=== PATIENT | female | born 1930 | race Caucasian/White ===

== ENCOUNTER → 2016-09-11 | Outpatient (CLI) | payer MEDICARE ==
[~2016-09-11] MED LIST: AC325T PO; ACET325T38 PO; ALBU2.5V52 NEB; ALPR.25T PO; ALPR0.5T7 PO; ASP325T PO; ASP325TEC PO; AZIT-21 PO; BENZ100C8 PO; BETH50TA PO; BETH50TA9 PO; CALC-53 PO; CALC-783 PO; CEFD300C3 PO; CELE200C PO; CLCX200C PO; CPR500T PO; DIGO125T PO; DILT240C87 PO; DILT240C96 PO; ENXP30I.3 SC; FEXO180T PO; FURO20TA4 PO; GLUC-96 PO; HCT25T PO; IBUP-30 PO; ISM30TCR PO; ISOS30TA3 PO; K ZOSYN IV; LACT1CAP62 PO; LEVO500T69 PO; LORA10TA7 PO; MECL-106 PO; MELO-195 PO; METO-272 PO; METO-333 PO; MNTL10T PO; MULT-963 PO; OMG1KC PO; Oxygen INH; SENN1TAB76 PO; TROSPIUM CHLORIDE PO; VERA240T98 PO; WRF5T PO; [UNRECOGNIZED DRUG - CODE] PO
--- NOTE | 2016-09-11 12:56 | Diagnostic Imaging Report ---
AP and lateral views of the chest. INDICATION: Shortness of breath. COMPARISON: 05/25/14. FINDINGS: The heart is enlarged with minimal vascular congestion. There is suggestion of a small left pleural effusion. No significant infiltrate. The mediastinum and barbie appear unremarkable. IMPRESSION: Cardiomegaly with minimal vascular congestion and tiny left pleural effusion. Dictated by: Dictated on workstation # [id number]
== END ==
LOC: RAD 11:02
PROVIDERS: ATTEND Nurse Practitioner Family
DX: I51.7 Cardiomegaly (principal); R06.02 Shortness of breath
CPT/HCPCS: 71020

== ENCOUNTER 2016-11-27 11:28 | Outpatient (CLI) | payer MEDICARE ==
[~2016-11-27] VITALS: Ht 152.4 cm; Wt 68.0 kg
[2016-11-27] MEDS ORDERED: VANCOMYCIN 1250 MG/NS 250 ML IVPB IV NR ×2 (12:45)
[2016-11-27 13:33] LABS: INR 2.2 (0.8-1.4); PROTHROMBIN TIME PATIENT 24.4 SEC (12.2-14.7)
[2016-11-27 13:45] VITALS: BP_SYST 130; BP_SYST 167; BP_DIAS 80; BP_DIAS 97
[2016-11-27 13:48] LABS: ANION GAP 6 MMOL/L (5-14); BLOOD UREA NITROGEN 20 MG/DL (7-18); BUN/CREATININE RATIO 25; CALCIUM 9.1 MG/DL (8.5-10.1); CARBON DIOXIDE 28 MMOL/L (21-32); CHLORIDE 106 MMOL/L (98-107); GFR ESTIMATED > 60; GLUCOSE 83 MG/DL (70-105); POTASSIUM 3.9 MMOL/L (3.6-5.0); SODIUM 140 MMOL/L (135-145)
== END 2016-11-27 14:50 | disposition home or self-care (01) ==
LOC: SDC 11:28
PROVIDERS: ATTEND Nurse Practitioner
DX: L97.212 Non-pressure chronic ulcer of right calf with fat layer exposed (principal); L03.115 Cellulitis of right lower limb; I87.2 Venous insufficiency (chronic) (peripheral); I48.2 Chronic atrial fibrillation; Z79.01 Long term (current) use of anticoagulants
CPT/HCPCS: 36415; 76937; 80048; 85610

== ENCOUNTER → 2016-11-30 | Outpatient (CLI) | payer MEDICARE ==
[2016-11-30 14:26] LABS: INR 3.3 (0.8-1.4); PROTHROMBIN TIME PATIENT 33.1 SEC (12.2-14.7)
[2016-11-30 14:28] LABS: ANION GAP 12 MMOL/L (5-14); BLOOD UREA NITROGEN 19 MG/DL (7-18); BUN/CREATININE RATIO 24; CALCIUM 7.7 MG/DL (8.5-10.1); CARBON DIOXIDE 21 MMOL/L (21-32); CHLORIDE 110 MMOL/L (98-107); GFR ESTIMATED > 60; GLUCOSE 76 MG/DL (70-105); POTASSIUM 3.3 MMOL/L (3.6-5.0); SODIUM 143 MMOL/L (135-145)
== END ==
LOC: HH 13:57
PROVIDERS: ATTEND Internal Medicine
DX: L03.115 Cellulitis of right lower limb (principal); I48.2 Chronic atrial fibrillation
CPT/HCPCS: 80048; 80202; 85610

== ENCOUNTER 2016-12-04 09:05 | Outpatient (RCR) | payer MEDICARE | END 2016-12-10 16:00 | disposition home or self-care (01) | LOC: WOUNDCARE 09:05 | PROVIDERS: ATTEND Nurse Practitioner | DX: L97.212 Non-pressure chronic ulcer of right calf with fat layer exposed (principal); L03.115 Cellulitis of right lower limb; I87.2 Venous insufficiency (chronic) (peripheral) | CPT/HCPCS: 11042; 11045; 87070; 87075; 87077; 87186; 87205 ==

== ENCOUNTER → 2016-12-04 | Outpatient (CLI) | payer MEDICARE ==
[2016-12-04 12:33] LABS: INR 3.3 (0.8-1.4); PROTHROMBIN TIME PATIENT 33.3 SEC (12.2-14.7)
[2016-12-04 12:36] LABS: CALCIUM 8.3 MG/DL (8.5-10.1); CREATININE SERUM 0.94 MG/DL (0.60-1.30); POTASSIUM 3.8 MMOL/L (3.6-5.0)
== END ==
LOC: HH 12:15
PROVIDERS: ATTEND Nurse Practitioner
DX: L03.115 Cellulitis of right lower limb (principal); I48.2 Chronic atrial fibrillation
CPT/HCPCS: 80048; 85610

== ENCOUNTER → 2016-12-06 | Outpatient (CLI) | payer MEDICARE ==
[2016-12-06 15:22] LABS: INR 3.1 (0.8-1.4); PROTHROMBIN TIME PATIENT 31.5 SEC (12.2-14.7)
[2016-12-06 15:34] LABS: CALCIUM 8.6 MG/DL (8.5-10.1); CREATININE SERUM 1.06 MG/DL (0.60-1.30)
== END ==
LOC: HH 14:56
PROVIDERS: ATTEND Nurse Practitioner
DX: L03.115 Cellulitis of right lower limb (principal)
CPT/HCPCS: 80048; 80202; 85610

== ENCOUNTER → 2016-12-10 | Outpatient (CLI) | payer MEDICARE ==
[2016-12-10 14:01] LABS: INR 1.8 (0.8-1.4)
[2016-12-10 14:10] LABS: CREATININE SERUM 1.24 MG/DL (0.60-1.30)
== END ==
LOC: HH 13:32
PROVIDERS: ATTEND Nurse Practitioner
DX: L03.115 Cellulitis of right lower limb (principal)
CPT/HCPCS: 80202; 82565; 84520; 85610

== ENCOUNTER → 2016-12-11 | Outpatient (CLI) | payer MEDICARE | LOC: WOUNDCARE 08:41 | PROVIDERS: ATTEND Nurse Practitioner | DX: L97.212 Non-pressure chronic ulcer of right calf with fat layer exposed (principal) | CPT/HCPCS: 11042 ==

== ENCOUNTER → 2016-12-18 | Outpatient (CLI) | payer MEDICARE | LOC: WOUNDCARE 08:44 | PROVIDERS: ATTEND Nurse Practitioner | DX: L97.212 Non-pressure chronic ulcer of right calf with fat layer exposed (principal); I87.331 Chronic venous hypertension (idiopathic) with ulcer and inflammation of right lower extremity; I48.2 Chronic atrial fibrillation; L03.115 Cellulitis of right lower limb | CPT/HCPCS: 15271 ==

== ENCOUNTER → 2016-12-25 | Outpatient (CLI) | payer MEDICARE | LOC: WOUNDCARE 08:29 | PROVIDERS: ATTEND Nurse Practitioner | DX: L97.212 Non-pressure chronic ulcer of right calf with fat layer exposed (principal); I87.331 Chronic venous hypertension (idiopathic) with ulcer and inflammation of right lower extremity; I48.2 Chronic atrial fibrillation | CPT/HCPCS: 11042; 87070; 87075; 87205 ==

== ENCOUNTER → 2016-12-28 | Outpatient (CLI) | payer MEDICARE ==
[2016-12-28 19:00] LABS: BILIRUBIN,URINE NEGATIVE (NEGATIVE); KETONES,URINE NEGATIVE (NEGATIVE); LEUKOCYTE ESTERASE ,URINE 3+ (NEGATIVE); NITRITE,URINE POSITIVE (NEGATIVE); PH,URINE 8 (5-9); PROTEIN,URINE 3+ (NEGATIVE); UROBILINOGEN,URINE NORMAL (NORMAL)
[2016-12-28 19:07] LABS: TRIPLE PHOSPHATE CRYSTAL,UR FEW /LPF
== END ==
LOC: HH 18:11
PROVIDERS: ATTEND Nurse Practitioner Family
DX: R41.0 Disorientation, unspecified (principal); R82.90 Unspecified abnormal findings in urine
CPT/HCPCS: 81000; 87077; 87088; 87186

== ENCOUNTER → 2017-01-01 | Outpatient (CLI) | payer MEDICARE | LOC: WOUNDCARE 08:30 | PROVIDERS: ATTEND Nurse Practitioner | DX: L03.115 Cellulitis of right lower limb (principal); I48.2 Chronic atrial fibrillation; I87.331 Chronic venous hypertension (idiopathic) with ulcer and inflammation of right lower extremity; L97.212 Non-pressure chronic ulcer of right calf with fat layer exposed | CPT/HCPCS: 15271 ==

== ENCOUNTER → 2017-01-08 | Outpatient (CLI) | payer MEDICARE | LOC: WOUNDCARE 08:38 | PROVIDERS: ATTEND Nurse Practitioner | DX: L03.115 Cellulitis of right lower limb (principal); I87.331 Chronic venous hypertension (idiopathic) with ulcer and inflammation of right lower extremity; I48.2 Chronic atrial fibrillation | CPT/HCPCS: 11042 ==

== ENCOUNTER → 2017-01-10 | Outpatient (CLI) | payer MEDICARE | LOC: WOUNDCARE 09:42 | PROVIDERS: ATTEND Internal Medicine | DX: L03.115 Cellulitis of right lower limb (principal); I87.331 Chronic venous hypertension (idiopathic) with ulcer and inflammation of right lower extremity; I48.2 Chronic atrial fibrillation | CPT/HCPCS: 29581 ==

== ENCOUNTER → 2017-01-15 | Outpatient (CLI) | payer MEDICARE | LOC: WOUNDCARE 08:49 | PROVIDERS: ATTEND Nurse Practitioner | DX: L97.212 Non-pressure chronic ulcer of right calf with fat layer exposed (principal); I87.331 Chronic venous hypertension (idiopathic) with ulcer and inflammation of right lower extremity; I48.2 Chronic atrial fibrillation | CPT/HCPCS: 11042 ==

== ENCOUNTER → 2017-01-17 | Outpatient (CLI) | payer MEDICARE | LOC: WOUNDCARE 14:12 | PROVIDERS: ATTEND Nurse Practitioner | DX: L97.212 Non-pressure chronic ulcer of right calf with fat layer exposed (principal); I87.331 Chronic venous hypertension (idiopathic) with ulcer and inflammation of right lower extremity; I48.2 Chronic atrial fibrillation; L03.115 Cellulitis of right lower limb | CPT/HCPCS: 29581 ==

== ENCOUNTER → 2017-01-22 | Outpatient (CLI) | payer MEDICARE | LOC: WOUNDCARE 08:44 | PROVIDERS: ATTEND Nurse Practitioner | DX: L97.212 Non-pressure chronic ulcer of right calf with fat layer exposed (principal); I87.331 Chronic venous hypertension (idiopathic) with ulcer and inflammation of right lower extremity; I48.2 Chronic atrial fibrillation | CPT/HCPCS: 11042 ==

== ENCOUNTER → 2017-01-29 | Outpatient (CLI) | payer MEDICARE | LOC: WOUNDCARE 08:35 | PROVIDERS: ATTEND Nurse Practitioner | DX: L97.212 Non-pressure chronic ulcer of right calf with fat layer exposed (principal); I87.331 Chronic venous hypertension (idiopathic) with ulcer and inflammation of right lower extremity | CPT/HCPCS: 11042 ==

== ENCOUNTER → 2017-02-05 | Outpatient (CLI) | payer MEDICARE | LOC: WOUNDCARE 08:44 | PROVIDERS: ATTEND Nurse Practitioner | DX: I87.331 Chronic venous hypertension (idiopathic) with ulcer and inflammation of right lower extremity (principal); L97.212 Non-pressure chronic ulcer of right calf with fat layer exposed | CPT/HCPCS: 11042 ==

== ENCOUNTER → 2017-02-12 | Outpatient (CLI) | payer MEDICARE | LOC: WOUNDCARE 08:35 | PROVIDERS: ATTEND Nurse Practitioner | DX: L97.212 Non-pressure chronic ulcer of right calf with fat layer exposed (principal); I87.331 Chronic venous hypertension (idiopathic) with ulcer and inflammation of right lower extremity; I48.2 Chronic atrial fibrillation | CPT/HCPCS: 11042 ==

== ENCOUNTER → 2017-02-19 | Outpatient (CLI) | payer MEDICARE | LOC: WOUNDCARE 08:36 | PROVIDERS: ATTEND Nurse Practitioner | DX: L97.212 Non-pressure chronic ulcer of right calf with fat layer exposed (principal); I87.331 Chronic venous hypertension (idiopathic) with ulcer and inflammation of right lower extremity; I48.2 Chronic atrial fibrillation | CPT/HCPCS: 99212 ==

== ENCOUNTER → 2017-02-26 | Outpatient (CLI) | payer MEDICARE | LOC: WOUNDCARE 08:36 | PROVIDERS: ATTEND Nurse Practitioner | DX: L97.212 Non-pressure chronic ulcer of right calf with fat layer exposed (principal); I87.331 Chronic venous hypertension (idiopathic) with ulcer and inflammation of right lower extremity; I48.2 Chronic atrial fibrillation | CPT/HCPCS: 99211 ==

== ENCOUNTER 2018-03-30 07:52 | Inpatient (IN) | payer MEDICARE ==
[~2018-03-30] VITALS: Ht 162.6 cm; Wt 66.2 kg
[2018-03-30] MEDS ORDERED: RT-ALBUTEROL/IPRATROPIUM 3 ML (DUONEB) VIAL ONE (07:57)
--- OUTSIDE RECORDS SUMMARY | 2018-03-30 08:03 | XMS REPORT | CCD ---
Author Author Darby Urbano Organization Darby Urbano MD, [facility] Address [address] [place] [address] Phone Care Team Providers Care Retail Manager Name Role Phone Darby Urbano PP Unavailable CCM Unavailable Summary Purpose Interface Exchange Insurance Providers Payer name Policy type / Coverage type Covered democrat ID Effective Begin Date Effective End Date WPS Medicare Part B Medicare [id number] Unknown [facility] Medicare [id number] Unknown [facility] Medicare [id number] Unknown Family history Brother Diagnosis Age At Onset Parkinson's disease Unknown Mother Diagnosis Age At Onset Congestive heart failure Unknown Sister Diagnosis Age At Onset Hypertension Unknown Father Diagnosis Age At Onset No Family Disease Entered N/A Son Diagnosis Age At Onset No Family Disease Entered N/A Daughter Diagnosis Age At Onset No Family Disease Entered N/A Social History Social History Element Codes Description Effective Dates Living arrangements Unknown Assisted Living [facility] 02/08/2016 Number of adults in household Unknown 1 07/09/2011 Marital status Unknown 01/11/2011 Number of children Unknown 2 1 son, 1 daughter - living and well 01/09/2011 Employment Unknown Retired Business office at [employer] 01/09/[address]: 943924595 Never smoker Second hand smoke from father, brother, and throughout her life 01/09/[address]: 092515125 Never drinks alcohol 01/09/2011 Has the patient ever used illegal drugs? Unknown Has never used illegal drugs 01/09/2011 Allergies, Adverse Reactions, Alerts Substance Reaction Codes Entered Date Inactivated Date Status Nickel rash, Unknown 05/08/2011 No Inactive Date Active * NO KNOWN FOOD ALLERGIES Unknown 05/08/2011 No Inactive Date Active doxycycline hyclate RxNorm: 3640 02/12/2018 No Inactive Date Active ESTROGENS Unknown 05/08/2011 No Inactive Date Active VANCOMYCIN ANALOGUES hives, rash, Unknown 12/17/2016 No Inactive Date Active Past Medical History Illness Codes Condition Status Onset Date Resolved Date Encounter for general adult medical examination with abnormal findings ICD-9: V70.0 ICD-10: Z00.01 Active 02/12/2018 Unknown Cough ICD-9: 786.2 ICD-10: R05 Active 01/15/2018 Unknown Epistaxis ICD-9: 784.7 ICD-10: R04.0 Active 01/15/2018 Unknown Other acute sinusitis ICD-9: 461.8 ICD-10: J01.80 Active 01/09/2018 Unknown Other allergic rhinitis ICD-9: 477.8 ICD-10: J30.89 Active 09/17/2016 Unknown Actinic keratosis ICD- 9: 702.0 ICD-10: L57.0 Active 11/12/2017 Unknown Chronic atrial fibrillation ICD-9: 427.31 ICD-10: I48.2 Active 11/23/2013 Unknown Essential (primary) hypertension ICD-9: 401.9 ICD-10: I10 Active 11/23/2013 Unknown Generalized anxiety disorder ICD-9: 300.02 ICD-10: F41.1 Active 08/24/2013 Unknown Other seborrheic keratosis ICD-9: 702.19 ICD-10: L82.1 Active 11/12/2017 Unknown Slow transit constipation ICD-9: 564.01 ICD-10: K59.01 Active 08/14/2017 Unknown Localized edema ICD-9 : 782.3 ICD-10: R60.0 Active 03/25/2017 Unknown Changes in skin texture ICD-9: 782.8 ICD-10: R23.4 Active 03/25/2017 Unknown Other idiopathic scoliosis, cervicothoracic region ICD-9: 737.30 ICD-10: M41.23 Active 08/14/2011 Unknown Pain in thoracic spine ICD-9: 724.1 ICD-10: M54.6 Active 04/15/2017 Unknown Dysuria ICD-9: 788.1 ICD-10: R30.0 Active 12/28/2016 Unknown Generalized skin eruption due to drugs and medicaments taken internally ICD-9: 693.0 ICD-10: L27.0 Active 12/21/2016 Unknown Hypoxemia ICD-9: 799.02 ICD-10: R09.02 Active 12/21/2016 Unknown Cellulitis of right lower limb ICD-9: 682.6 ICD-10: L03.115 Active 11/09/2016 Unknown Laceration without foreign body, right lower leg, sequela ICD-9: 906.1 ICD-10: S81.811S Active 11/14/2016 Unknown Pneumonia due to other specified infectious organisms ICD-9: 483.8 ICD-10: J16.8 Active 06/06/2016 Unknown Encounter for immunization ICD-9: V03.82 ICD-10: Z23 Active 02/07/2016 Unknown Unsteadiness on feet ICD-9: 781.2 ICD-10: R26.81 Active 11/08/2015 Unknown Allergic rhinitis due to pollen ICD-9: 477.0 ICD-10: J30.1 Active 08/21/2015 Unknown Chronic obstructive pulmonary disease with (acute) exacerbation ICD-9: 491.21 ICD-10: J44.1 Active 08/21/2015 Unknown Pneumonia, unspecified organism ICD-9: 486 ICD-10: J18.9 Active 08/21/2015 Unknown Weakness ICD-9: 780.79 ICD-10: R53.1 Active 05/25/2013 Unknown Chronic obstructive pulmonary disease, unspecified ICD-9: 496 ICD-10: J44.9 Active 11/23/2013 Unknown ATRIAL FIBRILLATION ICD-9: 427.31 Active 11/23/2013 Unknown Cerumen impaction ICD- 9: 380.4 Active 12/01/2014 Unknown ESSENTIAL HYPERTENSION ICD-9: 401.9 Active 11/23/2013 Unknown Sequela, 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 Active 10/13/2014 Unknown Skin lesion ICD-9: 709.9 Active 07/21/2014 Unknown Chronic sinusitis ICD- 9: 473.9 Active 06/24/2014 Unknown COPD exacerbation ICD- 9: 491.21 Active 04/29/2014 Unknown Pneumonia ICD-9: 486 Active 04/29/2014 Unknown BPPV (benign paroxysmal positional vertigo) ICD-9: 386.11 Active 04/01/2014 Unknown Nausea ICD-9: 787.02 Active 03/15/2014 Unknown HEADACHE ICD-9: 784.0 Active 02/22/2014 Unknown CHRONIC AIRWAY OBST NEC ICD-9: 496 Active 11/23/2013 Unknown Hand numbness ICD-9: 782.0 Active 11/23/2013 Unknown Generalized anxiety disorder ICD-9: 300.02 Active 08/24/2013 Unknown Fatigue ICD-9: 780.79 Active 05/25/2013 Unknown Urinary incontinence ICD-9: 788.30 Active 05/25/2013 Unknown COUGH ICD-9: 786.2 Active 01/19/2013 Unknown Nasal inflammation due to allergen ICD-9: 477.9 Active 2012 Unknown Leg swelling ICD-9: 729.81 Active 08/25/2012 Unknown Hip pain, acute ICD-9 : 719.45 Active 05/22/2012 Unknown Encounter for long-term (current) use of medications ICD-9: V58.69 Active 12/04/2011 Unknown Insomnia ICD-9: 780.52 Active 12/04/2011 Unknown Torticollis ICD-9: 723.5 Active 12/04/2011 Unknown Scoliosis ICD-9: 737.30 Active 08/14/2011 Unknown Dyspnea ICD-9: 786.09 Active 07/09/2011 Unknown Kyphosis ICD-9: 737.10 Active 07/09/2011 Unknown Pollen allergy ICD-9: 477.0 Inactive 05/10/2011 Unknown Stroke Unknown Active 05/08/2011 Unknown Abnormality of gait ICD-9: 781.2 Active 01/11/2011 Unknown Adhesive capsulitis ICD-9: 726.0 Active 01/11/2011 Unknown Arm edema ICD-9: 782.3 Active 01/11/2011 Unknown Bicipital tendinitis of left shoulder ICD-9: 726.12 Active 05/2010 Unknown Decreased weight ICD-9 : 783.21 Active 01/11/2011 Unknown Hypoxic ICD-9: 799.02 Active 01/11/2011 Unknown OA (osteoarthritis) ICD-9: 715.90 Active 01/11/2011 Unknown OSTEOARTHROSIS-MULTIPLE SITES ICD-9: 715.89 Active 01/11/2011 Unknown Seborrheic keratosis, inflamed ICD-9: 702.11 Active 01/11/2011 Unknown Arthritis Unknown Active 01/09/2011 Unknown Atrial fibrillation Unknown Active 01/09/2011 Unknown Chronic obstructive pulmonary disease Unknown Active 2010 Unknown Hypertension Unknown Active 01/09/2011 Unknown Problems Condition Codes Effective Dates Condition Status Encounter for general adult medical examination with abnormal findings ICD-9: V70.0 ICD-10: Z00.01 02/12/2018 Active Cough ICD-9: 786.2 ICD-10: R05 01/15/2018 Active Epistaxis ICD-9: 784.7 ICD-10: R04.0 01/15/2018 Active Other acute sinusitis ICD-9: 461.8 ICD-10: J01.80 01/09/2018 Active Other allergic rhinitis ICD-9: 477.8 ICD-10: J30.89 09/17/2016 Active Actinic keratosis ICD- 9: 702.0 ICD-10: L57.0 11/12/2017 Active Chronic atrial fibrillation ICD-9: 427.31 ICD-10: I48.2 11/23/2013 Active Essential (primary) hypertension ICD-9: 401.9 ICD-10: I10 11/23/2013 Active Generalized anxiety disorder ICD-9: 300.02 ICD-10: F41.1 08/24/2013 Active Other seborrheic keratosis ICD-9: 702.19 ICD-10: L82.1 11/12/2017 Active Slow transit constipation ICD-9: 564.01 ICD-10: K59.01 08/14/2017 Active Localized edema ICD-9 : 782.3 ICD-10: R60.0 03/25/2017 Active Changes in skin texture ICD-9: 782.8 ICD-10: R23.4 03/25/2017 Active Other idiopathic scoliosis, cervicothoracic region ICD-9: 737.30 ICD-10: M41.23 08/14/2011 Active Pain in thoracic spine ICD-9: 724.1 ICD-10: M54.6 04/15/2017 Active Dysuria ICD-9: 788.1 ICD-10: R30.0 12/28/2016 Active Generalized skin eruption due to drugs and medicaments taken internally ICD-9: 693.0 ICD-10: L27.0 12/21/2016 Active Hypoxemia ICD-9: 799.02 ICD-10: R09.02 12/21/2016 Active Cellulitis of right lower limb ICD-9: 682.6 ICD-10: L03.115 11/09/2016 Active Laceration without foreign body, right lower leg, sequela ICD-9: 906.1 ICD-10: S81.811S 11/14/2016 Active Pneumonia due to other specified infectious organisms ICD-9: 483.8 ICD-10: J16.8 06/06/2016 Active Encounter for immunization ICD-9: V03.82 ICD-10: Z23 02/07/2016 Active Unsteadiness on feet ICD-9: 781.2 ICD-10: R26.81 11/08/2015 Active Allergic rhinitis due to pollen ICD-9: 477.0 ICD-10: J30.1 08/21/2015 Active Chronic obstructive pulmonary disease with (acute) exacerbation ICD-9: 491.21 ICD-10: J44.1 08/21/2015 Active Pneumonia, unspecified organism ICD-9: 486 ICD-10: J18.9 08/21/2015 Active Weakness ICD-9: 780.79 ICD-10: R53.1 05/25/2013 Active Chronic obstructive pulmonary disease, unspecified ICD-9: 496 ICD-10: J44.9 11/23/2013 Active ATRIAL FIBRILLATION ICD-9: 427.31 11/23/2013 Active Cerumen impaction ICD- 9: 380.4 12/01/2014 Active ESSENTIAL HYPERTENSION ICD-9: 401.9 11/23/2013 Active Sequela, 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 10/13/2014 Active Skin lesion ICD-9: 709.9 07/21/2014 Active Chronic sinusitis ICD- 9: 473.9 06/24/2014 Active COPD exacerbation ICD- 9: 491.21 04/29/2014 Active Pneumonia ICD-9: 486 04/29/2014 Active BPPV (benign paroxysmal positional vertigo) ICD-9: 386.11 04/01/2014 Active Nausea ICD-9: 787.02 03/15/2014 Active HEADACHE ICD-9: 784.0 02/22/2014 Active CHRONIC AIRWAY OBST NEC ICD-9: 496 11/23/2013 Active Hand numbness ICD-9: 782.0 11/23/2013 Active Generalized anxiety disorder ICD-9: 300.02 08/24/2013 Active Fatigue ICD-9: 780.79 05/25/2013 Active Urinary incontinence ICD-9: 788.30 05/25/2013 Active COUGH ICD-9: 786.2 01/19/2013 Active Nasal inflammation due to allergen ICD-9: 477.9 01/19/2013 Active Leg swelling ICD-9: 729.81 08/25/2012 Active Hip pain, acute ICD-9 : 719.45 05/22/2012 Active Encounter for long-term (current) use of medications ICD-9: V58.69 12/04/2011 Active Insomnia ICD-9: 780.52 12/04/2011 Active Torticollis ICD-9: 723.5 12/04/2011 Active Scoliosis ICD-9: 737.30 08/14/2011 Active Dyspnea ICD-9: 786.09 07/09/2011 Active Kyphosis ICD-9: 737.10 07/09/2011 Active Pollen allergy ICD-9: 477.0 05/10/2011 Inactive Stroke Unknown 05/08/2011 Active Abnormality of gait ICD-9: 781.2 01/11/2011 Active Adhesive capsulitis ICD-9: 726.0 01/11/2011 Active Arm edema ICD-9: 782.3 01/11/2011 Active Bicipital tendinitis of left shoulder ICD-9: 726.12 01/11/2011 Active Decreased weight ICD-9 : 783.21 01/11/2011 Active Hypoxic ICD-9: 799.02 01/11/2011 Active OA (osteoarthritis) ICD-9: 715.90 01/11/2011 Active OSTEOARTHROSIS-MULTIPLE SITES ICD-9: 715.89 01/11/2011 Active Seborrheic keratosis, inflamed ICD-9: 702.11 01/11/2011 Active Arthritis Unknown 01/09/2011 Active Atrial fibrillation Unknown 01/09/2011 Active Chronic obstructive pulmonary disease Unknown 01/09/2011 Active Hypertension Unknown 01/09/2011 Active Medications Medication Codes Instructions Start Date Stop Date Status Fill Instructions mupirocin 2 % topical ointment RxNorm: 509640 1 Application TOP BID 01/15/2018 No Stop Date Active please deliver Coumadin 2.5 mg tablet RxNorm: 949152 1 Tablet(s) PO daily on Thur and 5mg all other days 11/12/2017 No Stop Date Active Lasix 40 mg tablet RxNorm: 977407 1 Tablet(s) PO four times weekly as needed edema 08/14/2017 No Stop Date Active Senokot-S 8.6 mg-50 mg tablet RxNorm: 3119409 1 Tablet(s) PO daily 08/14/2017 No Stop Date Active Xanax 0.25 mg tablet RxNorm: 753955 1 Tablet(s) PO QHS and 1/2 Tablet PO 1X at HS IF SCHEDULED HS DOSE NOT EFFECTIVE FOR SLEEP 08/14/2017 No Stop Date Active Coumadin 2.5 mg tablet RxNorm: 042698 1 Tablet(s) PO daily 08/201711/11/2017 Inactive acyclovir 800 mg tablet RxNorm: 416661 1 Tablet(s) PO TID 04/1904/25/2017 Inactive acyclovir 800 mg tablet RxNorm: 316648 1 Tablet(s) PO TID 04/1904/18/2017 Inactive Zyrtec 10 mg tablet RxNorm: 9970239 1 Tablet(s) PO daily 09/1710/16/2016 Inactive Kenalog 40 mg/mL suspension for injection RxNorm: 6554841 Milliliter(s) Inj 09/10/2016 09/10/2016 Inactive cefdinir 300 mg capsule RxNorm: 787147 1 Capsule(s) PO BID 05/201609/19/2016 Inactive Zithromax Z-Asif 250 mg tablet RxNorm: 111307 1 Tablet(s) PO UD 09/10/2016 09/14/2016 Inactive zpack cefdinir 300 mg capsule RxNorm: 487872 1 Capsule(s) PO BID 06/12/2016 Inactive azithromycin 250 mg tablet RxNorm: 990693 2 Tablet(s) PO on day #1 then 1 pill daily x 4 more days 06/06/2016 08/14/2016 Inactive Mucinex 600 mg tablet, extended release RxNorm: 862533 1 Tablet(s) PO BID as needed 06/01/2016 03/24/2017 Inactive Coumadin 2.5 mg tablet RxNorm: 963527 1 Tablet(s) PO daily except 5 mg on 02/08/2016 08/13/2017 Inactive Coumadin 2.5 mg tablet RxNorm: 557828 1 Tablet(s) PO daily and 5 mg on /11/08/2015 02/07/2016 Inactive loratadine 10 mg tablet RxNorm: 853614 1 Tablet(s) PO BID 11/0711/08/2016 Inactive ceftriaxone 500 mg solution for injection RxNorm: 7632633 Inj 08/22/2015 08/22/2015 Inactive Kenalog 40 mg/mL suspension for injection RxNorm: 6458116 Milliliter(s) Inj 08/22/2015 08/22/2015 Inactive prednisone 20 mg tablet RxNorm: 556522 1 Tablet(s) PO BID 08/2108/26/2015 Inactive Zithromax Z-Asif 250 mg tablet RxNorm: 812696 1 Tablet(s) PO UD 08/22/2015 08/26/2015 Inactive zpack cefdinir 300 mg capsule RxNorm: 905166 1 Capsule(s) PO BID 03/201608/28/2015 Inactive start tomorrow-take probiotic while on the abx Flonase Allergy Relief 50 mcg/actuation nasal spray, suspension RxNorm: 2 [place] NASAL daily 08/22/2015 09/04/2015 Inactive Senokot-S 8.6 mg-50 mg tablet RxNorm: 3810817 1 Tablet(s) PO BID 07/21/2014 08/13/2017 Inactive Vesicare 5 mg tablet RxNorm: 119369 1 Tablet(s) PO daily 201408/16/2014 Inactive Kenalog 40 mg/mL suspension for injection RxNorm: 4015230 Milliliter(s) Inj 04/29/2014 04/29/2014 Inactive meclizine 25 mg tablet RxNorm: 378411 1/2 Tablet(s) PO Q6 PRN 04/01/2014 03/24/2017 Inactive Kenalog 40 mg/mL suspension for injection RxNorm: 8154641 1 Milliliter(s) Inj 03/15/2014 03/15/2014 Inactive oxygen-air delivery systems device RxNorm: 2 Miscellaneous 2 liters at night and prn 11/23/2013 No Stop Date Active metoprolol succinate ER 50 mg tablet,extended release 24 hr RxNorm: 914647 1 Tablet(s) PO QHS 08/24/2013 06/22/2015 Inactive Generic For:TOPROL XL 50MG TAB Imdur 30 mg tablet,extended release RxNorm: 747535 1 Tablet(s) PO daily 08/24/2013 06/22/2015 Inactive Nasonex 50 mcg/actuation [place] RxNorm: 769125 1 [place] NASAL BID 01/19/2013 04/14/2013 Inactive Kenalog 40 mg/mL Susp for Injection RxNorm: 6275651 1 Milliliter(s) Inj 01/19/2013 01/19/2013 Inactive ibuprofen 200 mg capsule RxNorm: 844850 2 Capsule(s) PO TID PRN 12/17/2012 06/22/2015 Inactive alprazolam 0.25 mg tablet RxNorm: 209421 1 Tablet(s) PO qhs prn 12/17/2012 02/16/2013 Inactive Cartia XT 240 mg capsule,extended release RxNorm: 266518 1 Capsule(s) PO daily TAKE 1 CAPSULE BY MOUTH DAILY 12/17/2012 04/14/2013 Inactive Generic For:*CARDIZEM CD 240 MG CAP SA fexofenadine 180 mg tablet RxNorm: 6352521 1 Tablet(s) PO daily TAKE ONE TABLET BY MOUTH EVERY DAY 12/17/2012 11/07/2015 Inactive Generic For:SERENITY 180 MG TABLET metoprolol succinate ER 50 mg tablet,extended release 24 hr RxNorm: 723469 1 Tablet(s) PO QHS 12/17/2012 08/23/2013 Inactive Generic For:TOPROL XL 50MG TAB Lasix 20 mg tablet RxNorm: 049185 1 Tablet(s) PO BID TAKE ONE (1) TABLET BY MOUTH DAILY IN THE MORNING AND 1 AT NOON 12/17/2012 06/22/2015 Inactive Generic For :LASIX 20 MG TABLET Cartia XT 240 mg capsule,extended release RxNorm: 410016 Capsule(s) PO TAKE 1 CAPSULE BY MOUTH DAILY 10/09/20122012 Inactive Generic For:*CARDIZEM CD 240 MG CAP SA alprazolam 0.25 mg tablet RxNorm: 751834 1 Tablet(s) PO QPM 12/16/2012 Inactive fexofenadine 180 mg tablet RxNorm: 7669580 Tablet(s) PO TAKE ONE TABLET BY MOUTH EVERY DAY 08/06/2012 12/16/2012 Inactive Generic For:SERENITY 180 MG TABLET Lasix 20 mg tablet RxNorm: 623956 Tablet(s) PO TAKE ONE (1) TABLET BY MOUTH DAILY IN THE MORNING AND 1 AT NOON 06/19/2012 12/16/2012 Inactive Generic For: LASIX 20 MG TABLET Calcium 600 with Vitamin D3 600 mg(1,500 mg)-400 unit chewable tablet RxNorm: 821455 1 Tablet(s) PO daily 06/18/2012 No Stop Date Active Fish Oil 1,000 mg capsule RxNorm: 1 Capsule(s) PO daily 201206/22/2015 Inactive metoprolol succinate ER 50 mg tablet,extended release 24 hr RxNorm: 072730 1 Tablet(s) PO QHS 06/18/2012 12/16/2012 Inactive Generic For:TOPROL XL 50MG TAB multivitamin tablet RxNorm: 1 Tablet(s) PO daily 06/18/2012 08/13/2017 Inactive Lasix 20 mg tablet RxNorm: 912539 1 Tablet(s) PO BID 1 q am and 1 at noon 06/18/2012 06/18/2012 Inactive TAKE 1 TABLET BY MOUTH TWICE DAILY;Generic For: LASIX 20 MG TABLET 04/03/11 THANK YOU Celebrex 200 mg capsule RxNorm: 705053 1 Capsule(s) PO daily 06/17/2012 Inactive metoprolol succinate ER 50 mg tablet,extended release 24 hr RxNorm: 279701 Tablet (s) PO TAKE ONE TABLET BY MOUTH EVERY MORNING AND TAKE 1/2 TABLET BY MOUTH AT BEDTIME 05/12/2012 06/17/2012 Inactive Generic For:TOPROL XL 50MG TAB Celebrex 200 mg capsule RxNorm: 626756 1 Capsule(s) PO daily 05/19/2012 Inactive Cartia XT 240 mg capsule,extended release RxNorm: 871082 Capsule(s) PO 10/15/2011 06/17/2012 Inactive TAKE 1 CAPSULE BY MOUTH DAILY;Generic For:CARDIZEM CD 240 MG CAP SA Cartia XT 240 mg 24 hr Cap RxNorm: 305483 Capsule(s) PO 201110/14/2011 Inactive TAKE 1 CAPSULE BY MOUTH DAILY;Generic For:CARDIZEM CD 240 MG CAP SA metoprolol tartrate 50 mg Tab RxNorm: 837304 1.5 Tablet(s) PO as directed 1 tab q am 1/2 tab q hs 08/14/2011 06/17/2012 Inactive take this in addition to 25mg for total 75mg metoprolol tartrate 50 mg Tab RxNorm: 760969 1 Tablet(s) PO BID 05/17/2011 08/13/2011 Inactive take this in addition to 25mg for total 75mg metoprolol tartrate 25 mg Tab RxNorm: 555069 1 Tablet(s) PO BID 05/17/2011 08/13/2011 Inactive to take with 50mg for total 75mg Lasix 20 mg tablet RxNorm: 946193 1 Tablet(s) PO daily 1 q am and 1 at noon 05/17/2011 06/17/2012 Inactive TAKE 1 TABLET BY MOUTH TWICE DAILY;Generic For: LASIX 20 MG TABLET 04/03/11 THANK YOU Celebrex 200 mg Cap RxNorm: 898746 1 Capsule(s) PO daily 05/0811/03/2011 Inactive Lasix 20 mg Tab RxNorm : 558304 Tablet(s) PO 1 q am and 1 at noon 04/03/2011 05/16/2011 Inactive TAKE 1 TABLET BY MOUTH TWICE DAILY;Generic For:LASIX 20 MG TABLET 03/04 THANK YOU Lasix 20 mg Tab RxNorm : 423742 Tablet(s) PO 1 q am and 1 at noon 03/05/2011 04/02/2011 Inactive TAKE 1 TABLET BY MOUTH TWICE DAILY;Generic For:LASIX 20 MG TABLET Mobic 15 mg Tab RxNorm : 884670 1 Tablet(s) PO daily 02/19/2011 05/07/2011 Inactive metoprolol succinate ER 25 mg 24 hr Tab RxNorm: 828765 0 Tablet(s) PO daily 01/17/2011 05/16/2011 Inactive one daily in addition to 50mg metoprolol succinate ER 25 mg 24 hr Tab RxNorm: 688283 1 Tablet(s) PO daily 01/16/2011 01/16/2011 Inactive Cartia XT 240 mg 24 hr Cap RxNorm: 196733 1 Capsule(s) PO daily 01/16/2011 02/14/2011 Inactive Celebrex 200 mg Cap RxNorm: 357343 1 Capsule(s) PO daily 01/1101/20/2011 Inactive Vitamin B-12 1,000 mcg/mL oral drops RxNorm: 6370017 2,000 Milligram(s) PO daily 1 DROPPER FULL No Start Date Active loratadine 10 mg tablet RxNorm: 366536 1 Tablet(s) PO daily No Start Date Active verapamil ER 240 mg 24 hr capsule,extended release RxNorm: 722049 1 Capsule(s) PO daily No Start Date Active Flonase Allergy Relief 50 mcg/actuation nasal spray, suspension RxNorm: 6559731 1 [place] NASAL daily No Start Date Active Vitamin D3 5,000 unit tablet RxNorm: 309046 1 Tablet(s) PO daily No Start Date Active Voltaren 1 % topical gel RxNorm: 252108 TOP QID as needed APPLY TO AFFECTED AREA QID PRN FOR ARTHRITIS PAIN No Start Date Active Xanax 0.5 mg tablet RxNorm: 542183 1/2 to 1 Tablet(s) PO QHS prn No Start Date Active metoprolol succinate ER 25 mg tablet,extended release 24 hr RxNorm: 933179 1 Tablet(s) PO QHS No Start Date Active cranberry oral RxNorm : 064230 oral No Start Date Active Tylenol 325 mg tablet RxNorm: 261670 1 Tablet(s) PO Q4H prn No Start Date Active tramadol 50 mg tablet RxNorm: 906881 1 -2 Tablet(s) PO Q6 as needed for pain No Start Date Active potassium chloride ER 10 mEq tablet,extended release RxNorm: 054097 1 Tablet(s) PO daily as needed with lasix No Start Date Active krill oil oral RxNorm : 29560 oral No Start Date Active diltiazem ER 240 mg Cap RxNorm: 329404 1 Capsule(s) PO daily No Start Date 06/22/2015 Inactive Singulair 10 mg Tab RxNorm: 919850 1 Tablet(s) PO daily No Start Date 06/17/2012 Inactive fexofenadine 180 mg tablet RxNorm: 8980438 1 Tablet(s) PO daily No Start Date 08/05/2012 Inactive warfarin oral RxNorm: 77681 oral No Start Date 06/23/2015 Inactive Fish Oil 1,000 mg capsule RxNorm: Oral No Start Date 06/17/2012 Inactive Coumadin 2.5 mg tablet RxNorm: 537891 1 Tablet(s) PO daily and 5 mg on No Start Date 11/07/2015 Inactive hydrocodone-acetaminophen 5 mg-325 mg tablet RxNorm: 0787422 1 Tablet(s) PO Q6 PRN No Start Date 12/16/2012 Inactive Calcium 600 with Vitamin D3 600 mg(1,500 mg)-400 unit chewable tablet RxNorm: 811326 Oral No Start Date 06/17/2012 Inactive Xarelto 10 mg tablet RxNorm: 5169676 1 Tablet(s) PO daily No Start Date 12/16/2012 Inactive metoprolol tartrate 25 mg Tab RxNorm: 918152 1 Tablet(s) PO daily No Start Date 05/16/2011 Inactive vitamin D3-menaquinone 7 1000 unit-90 mcg Tab, Rapid Dissolve RxNorm: 930724 1 Tablet(s) PO daily No Start Date 2010 Inactive Zyrtec 10 mg tablet RxNorm: 5978825 1 Tablet(s) PO daily No Start Date 08/13/2017 Inactive bumetanide 1 mg tablet RxNorm: 401714 1 Tablet(s) PO daily No Start Date 06/17/2012 Inactive aspirin 81 mg Cap, Delayed Release RxNorm: 949317 1 Capsule(s) PO daily No Start Date 05/07/2011 Inactive loratadine 10 mg tablet RxNorm: 179143 1/2 Tablet(s) PO BID No Start Date 11/07/2015 Inactive Lasix 40 mg tablet RxNorm: 820465 1 Tablet(s) PO daily as needed edema No Start Date 08/13/2017 Inactive bethanechol chloride 50 mg tablet RxNorm: 689865 1 Tablet(s) PO AC & HS No Start Date 06/22/2015 Inactive Imdur 30 mg tablet,extended release RxNorm: 041538 1 Tablet(s) PO daily No Start Date 08/23/2013 Inactive Celebrex 200 mg capsule RxNorm: 733212 1 Capsule(s) PO daily prn arthritis pain No Start Date 06/22/2015 Inactive metoprolol tartrate 50 mg Tab RxNorm: 854401 1 Tablet(s) PO BID No Start Date 05/16/2011 Inactive fluticasone Nasl RxNorm: Nasal No Start Date 01/10/2011 Inactive fluticasone 50 mcg/actuation disk powder for inhalation RxNorm: 693254 1 [place] INH BID No Start Date 06/22/2015 Inactive Xanax 0.5 mg tablet RxNorm: 277779 1/2-1 Tablet(s) PO HS PRN No Start Date 08/13/2017 Inactive Co Q-10 100 mg capsule RxNorm: 169050 1 Capsule(s) PO daily No Start Date 11/11/2017 Inactive ibuprofen 200 mg capsule RxNorm: 185636 2 Capsule(s) PO TID No Start Date 12/16/2012 Inactive metoprolol succinate ER 50 mg 24 hr Tab RxNorm: 742171 1.5 Tablet(s) PO daily 1 1/ 2 tabs daily No Start Date 01/16/2011 Inactive oxygen-air delivery systems Device RxNorm: Miscellaneous 2 liters at night and prn No Start Date 11/22/2013 Inactive metoprolol succinate ER 50 mg tablet,extended release 24 hr RxNorm: 245119 0 Tablet(s) PO No Start Date 05/16/2011 Inactive one daily in addition to 25mg tab Senokot-S oral RxNorm : 1897037 oral No Start Date 07/20/2014 Inactive aspirin 325 mg Tab RxNorm: 963384 1 Tablet(s) PO daily No Start Date 06/22/2015 Inactive amlodipine 2.5 mg tablet RxNorm: 565297 1 Tablet(s) PO daily No Start Date 08/24/2012 Inactive Lasix 20 mg Tab RxNorm : 103923 1 Tablet(s) PO QAM 1 q am and 1 at noon No Start Date 03/04/2011 Inactive multivitamin tablet RxNorm: Oral No Start Date 06/17/2012 Inactive Medication Administered Medication Codes Instructions Start Date Status Kenalog 40 mg/mL suspension for injection RxNorm: 0612681 Milliliter 09/10/2016 No longer Active Kenalog 40 mg/mL suspension for injection RxNorm: 6432773 Milliliter 08/22/2015 No longer Active ceftriaxone 500 mg solution for injection RxNorm: 5516759 08/22/2015 No longer Active Kenalog 40 mg/mL suspension for injection RxNorm: [id number] Milliliter 04/29/2014 No longer Active Kenalog 40 mg/mL suspension for injection RxNorm: 1062333 1Milliliter 03/15/2014 No longer Active Kenalog 40 mg/mL Susp for Injection RxNorm: [id number] 1Milliliter 01/19/2013 No longer Active Immunizations Vaccine Codes Date Status Influenza CVX: 141 03/01/2017 completed Pneumococcal (Adult) CVX: 33 02/08/2016 completed Influenza CVX: 141 02/03/2013 completed Assessments Condition Codes Effective Dates Encounter for general adult medical examination with abnormal findings ICD-10: Z00.01 ICD-9: V70.0 02/12/2018 Cough ICD-10: R05 ICD-9: 786.2 01/15/2018 Other allergic rhinitis ICD-10: J30.89 ICD-9: 477.8 01/15/2018 Other acute sinusitis ICD-10: J01.80 ICD-9: 461.8 01/15/2018 Epistaxis ICD-10: R04.0 ICD-9: 784.7 01/15/2018 Other seborrheic keratosis ICD-10: L82.1 ICD-9: 702.19 11/12/2017 Chronic atrial fibrillation ICD-10: I48.2 ICD-9: 427.31 11/12/2017 Actinic keratosis ICD-10: L57.0 ICD-9: 702.0 11/12/2017 Slow transit constipation ICD-10: K59.01 ICD-9: 564.01 11/12/2017 Essential (primary) hypertension ICD-10: I10 ICD-9: 401.9 11/12/2017 Generalized anxiety disorder ICD-10: F41.1 ICD-9: 300.02 11/12/2017 Localized edema ICD-10: R60.0 ICD-9: 782.3 05/14/2017 Changes in skin texture ICD-10: R23.4 ICD-9: 782.8 04/15/2017 Pain in thoracic spine ICD-10: M54.6 ICD-9: 724.1 04/15/2017 Other idiopathic scoliosis, 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 ICD-9: 737.30 04/15/2017 Dysuria ICD-10: R30.0 ICD-9: 788.1 12/28/2016 Hypoxemia ICD-10: R09.02 ICD-9: 799.02 12/21/2016 Generalized skin eruption due to drugs and medicaments taken internally ICD-10: L27.0 ICD-9: 693.0 12/21/2016 Cellulitis of right lower limb ICD-10: L03.115 ICD-9: 682.6 12/11/2016 Laceration without foreign body, right lower leg, sequela ICD-10: S81.811S ICD-9: 906.1 11/14/2016 Pneumonia due to other specified infectious organisms ICD-10 : J16.8 ICD-9: 483.8 09/10/2016 Encounter for immunization ICD-10: Z23 ICD-9: V03.82 02/08/2016 Unsteadiness on feet ICD-10: R26.81 ICD-9: 781.2 11/08/2015 Pneumonia, unspecified organism ICD-10: J18.9 ICD-9: 486 08/22/2015 Chronic obstructive pulmonary disease with (acute) exacerbation ICD-10: J44.1 ICD-9: 491.21 08/22/2015 Allergic rhinitis due to pollen ICD-10: J30.1 ICD-9: 477.0 08/22/2015 Weakness ICD-10: R53.1 ICD-9: 780.79 05/26/2015 Chronic obstructive pulmonary disease, unspecified ICD-10: J44.9 ICD-9: 496 02/15/2015 ESSENTIAL HYPERTENSION ICD-9: 401.9 12/02 ATRIAL FIBRILLATION ICD-9: 427.31 2014 Cerumen impaction ICD-9: 380.4 2014 Sequela, 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 2014 Skin lesion ICD-9: 709.9 07/21/2014 CHRONIC AIRWAY OBST NEC ICD-9: 496 2014 Chronic sinusitis ICD-9: 473.9 2014 Pneumonia ICD-9: 486 04/29/2014 COPD exacerbation ICD-9: 491.21 2013 BPPV (benign paroxysmal positional vertigo) ICD-9: 386.11 04/01/2014 Nausea ICD-9: 787.02 03/15/2014 HEADACHE ICD-9: 784.0 02/22/2014 Hand numbness ICD-9: 782.0 11/23/2013 Generalized anxiety disorder ICD-9: 300.02 08/24/2013 Fatigue ICD-9: 780.79 05/25/2013 Urinary incontinence ICD-9: 788.30 2013 COUGH ICD-9: 786.2 01/19/2013 Nasal inflammation due to allergen ICD-9: 477.9 01/19/2013 Leg swelling ICD-9: 729.81 08/25/2012 Insomnia ICD-9: 780.52 08/25/2012 Hip pain, chronic ICD-9: 719.45 2012 EDEMA ICD-9: 782.3 06/23/2012 OSTEOARTHROSIS-MULTIPLE SITES ICD-9: 715.89 04/16/2012 TORTICOLLIS ICD-9: 723.5 03/04/2012 Encounter for long-term (current) use of medications ICD-9: V58.69 12/04/2011 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 12/04/2011 RESPIRATORY ABNORM NEC ICD-9: 786.09 07/2011 KYPHOSIS ICD-9: 737.10 08/14/2011 Reason For Visit Reason For Visit Effective Dates Notes Annual Medicare Wellness Exam 02/12/2018 cough 01/15/2018 cough 01/09/2018 hypertension 11/12/2017 hypertension 08/14/2017 edema 05/14/2017 ongoing edema 04/15/2017 arrhythmia 03/25/2017 urinary frequency 12/28/2016 wound follow up 12/21/2016 laceration of the leg 12/11/2016 laceration of the leg 11/14/2016 laceration of the leg 11/09/2016 cough 09/17/2016 cough 09/10/2016 hypertension 08/15/2016 sinus congestion 06/14/2016 sinus congestion 06/06/2016 hypertension 02/08/2016 hypertension 11/08/2015 cough 08/22/2015 hypertension 08/09/2015 low back pain 05/26/2015 hypertension 02/15/2015 hypertension 12/02/2014 hypertension 10/14/2014 fatigue 07/21/2014 lt foot Hospital Follow Up 06/24/2014 Hospital Follow Up 04/29/2014 pneumonia. Was released from hospital this past Saturday. hypertension 04/01/2014 hypertension 03/15/2014 started at 3am with dizziness. headache 02/22/2014 hypertension 11/23/2013 hypertension 08/24/2013 hypertension 05/25/2013 hip pain 02/18/2013 hip pain 01/19/2013 Hospital Follow Up 12/16/2012 hypertension 10/13/2012 hypertension 08/25/2012 hypertension 06/23/2012 --Improved edema 05/22/2012 edema 04/16/2012 hypertension 03/04/2012 hypertension 12/04/2011 arrhythmia 10/01/2011 shortness of breath 08/14/2011 pt stated she has cut back on her salt intake and only occasionally elevates her feet hypertension 07/09/2011 occasional hypertension 05/08/2011 hip pain 01/11/2011 Results Observation Observation Code Item Item Code Result Date Pt Llv5438 PT 33.4 seconds 03/11/2018 Pt Jrt9174 INR 3.3 03/11/2018 Pt Lgk6858 Low Intensity - 1.5-2.0 03/11/2018 Pt Zat4597 Mod intensity - 2.0-3.0 03/11/2018 Pt Ant6225 Hi intensity - 3.0-4.0 03/11/2018 Pt Cmc7008 PT 31.6 seconds 02/12/2018 Pt Enr9043 INR 3.0 02/12/2018 Pt Dsa8761 Low Intensity - 1.5-2.0 02/12/2018 Pt Vqz9098 Mod intensity - 2.0-3.0 02/12/2018 Pt Fxc1986 Hi intensity - 3.0-4.0 02/12/2018 Pt Eus3622 PT 28.0 seconds 01/14/2018 Pt Nmb1183 INR 2.6 01/14/2018 Pt Krc7780 Low Intensity - 1.5-2.0 01/14/2018 Pt Wje1431 Mod intensity - 2.0-3.0 01/14/2018 Pt Dng6063 Hi intensity - 3.0-4.0 01/14/2018 Pt Eii1695 PT 27.3 seconds 12/12/2017 Pt Itk7872 INR 2.5 12/12/2017 Pt Jzg8028 Low Intensity - 1.5-2.0 12/12/2017 Pt Trl4753 Mod intensity - 2.0-3.0 12/12/2017 Pt Scb6774 Hi intensity - 3.0-4.0 12/12/2017 Pt Vtf9931 PT 27.6 seconds 11/07/2017 Pt Wej4298 INR 2.6 11/07/2017 Pt Dfw4309 Low Intensity - 1.5-2.0 11/07/2017 Pt Jxx8788 Mod intensity - 2.0-3.0 11/07/2017 Pt Joc1270 Hi intensity - 3.0-4.0 11/07/2017 Pt Ufq4391 PT 37.7 seconds 01/11/2017 Pt Tge9868 INR 3.7 01/11/2017 Pt Pbm5599 Low Intensity - 1.5-2.0 01/11/2017 Pt Xsm7809 Mod intensity - 2.0-3.0 01/11/2017 Pt Ufq3259 Hi intensity - 3.0-4.0 01/11/2017 Metabolic Ord15 NA 141 mEq/L 12/10/2016 Metabolic Ord15 K 3.7 mEq/L 12/10/2016 Metabolic Ord15 CL 107 mEq/L 12/10/2016 Metabolic Ord15 CO2 23.0 mEq/L 12/10/2016 Metabolic Ord15 GLUCOSE 80 mg/dL 12/10/2016 Metabolic Ord15 BUN 22 mg/dL 12/10/2016 Metabolic Ord15 Creat 1.1 mg/dL 12/10/2016 Metabolic Ord15 B/C Ratio 20.4 Ratio 12/10/2016 Metabolic Ord15 eGFR 51 ml/min/1.73m2 12/10/2016 Metabolic Ord15 Osmo 284 mOsmo 12/10/2016 Metabolic Ord15 ANION GAP 15 12/10/2016 Metabolic Ord15 CALCIUM 8.1 mg/dL 12/10/2016 Comp Metabolic Boi283 NA 137 mEq/L 03/29/2016 Comp Metabolic Kpg245 K 4.0 mEq/L 03/29/2016 Comp Metabolic Jck278 CL 103 mEq/L 03/29/2016 Comp Metabolic Kwk617 CO2 26.0 mEq/L 03/29/2016 Comp Metabolic Hvm954 ANION GAP 12 03/29/2016 Comp Metabolic Vku991 GLUCOSE 75 mg/dL 03/29/2016 Comp Metabolic Eey832 Creat 1.0 mg/dL 03/29/2016 Comp Metabolic Pet276 eGFR 57 ml/min/1.73m2 03/29/2016 Comp Metabolic Sse492 BUN 25 mg/dL 03/29/2016 Comp Metabolic Xpz707 B/C Ratio 25.3 Ratio 03/29/2016 Comp Metabolic Bgu460 CALCIUM 9.0 mg/dL 03/29/2016 Comp Metabolic Cmp247 ALK PHOS 81 U/L 03/29/2016 Comp Metabolic Lkc804 AST(SGOT) 20 U/L 03/29/2016 Comp Metabolic Tef368 ALT(SGPT) 13 U/L 03/29/2016 Comp Metabolic Lco128 BILI T 0.6 mg/dL 03/29/2016 Comp Metabolic Ara347 ALBUMIN 4.0 g/dL 03/29/2016 Comp Metabolic Llo186 TPRO 6.3 g/dL 03/29/2016 Comp Metabolic Fel605 GLOB 2.3 g/dL 03/29/2016 Comp Metabolic Xpz850 A/G Ratio 1.7 Ratio 03/29/2016 Comp Metabolic Wzr938 Osmo 277 mOsmo 03/29/2016 Tsh Ord6 hTSH II 0.94 uIU/mL 02/15/2016 Lipid Ord30 CHOL 212 mg/dL 02/15/2016 Lipid Ord30 HDL 87.0 mg/dl 02/15/2016 Lipid Ord30 TRIG 65 mg/dL 02/15/2016 Lipid Ord30 LDL 112 mg/dL 02/15/2016 Lipid Ord30 C/HDL 2.4 Ratio 02/15/2016 Comp Metabolic Bfj227 NA 138 mEq/L 02/15/2016 Comp Metabolic Knu974 K 4.3 mEq/L 02/15/2016 Comp Metabolic Zyu698 CL 104 mEq/L 02/15/2016 Comp Metabolic Qin502 CO2 25.0 mEq/L 02/15/2016 Comp Metabolic Tqw572 ANION GAP 13 02/15/2016 Comp Metabolic Agz968 GLUCOSE 78 mg/dL 02/15/2016 Comp Metabolic Wel743 Creat 1.0 mg/dL 02/15/2016 Comp Metabolic Pwg685 eGFR 55 ml/min/1.73m2 02/15/2016 Comp Metabolic Duf827 BUN 22 mg/dL 02/15/2016 Comp Metabolic Jep241 B/C Ratio 21.8 Ratio 02/15/2016 Comp Metabolic Gqe289 CALCIUM 9.3 mg/dL 02/15/2016 Comp Metabolic Iet640 ALK PHOS 80 U/L 02/15/2016 Comp Metabolic Ere579 AST(SGOT) 18 U/L 02/15/2016 Comp Metabolic Doe273 ALT(SGPT) 12 U/L 02/15/2016 Comp Metabolic Mfj013 BILI T 0.7 mg/dL 02/15/2016 Comp Metabolic Vrd998 ALBUMIN 3.9 g/dL 02/15/2016 Comp Metabolic Tgq729 TPRO 6.3 g/dL 02/15/2016 Comp Metabolic Fur119 GLOB 2.4 g/dL 02/15/2016 Comp Metabolic Zmj464 A/G Ratio 1.7 Ratio 02/15/2016 Comp Metabolic Lxa022 Osmo 278 mOsmo 02/15/2016 Cbc With Differential Ord2 WBC 5.30 K/ul 02/15/2016 Cbc With Differential Ord2 RBC 4.64 M/ul 02/15/2016 Cbc With Differential Ord2 HGB 14.3 g/dl 02/15/2016 Cbc With Differential Ord2 HCT 44.5 % 02/15/2016 Cbc With Differential Ord2 Neut% 66.2 % 02/15/2016 Cbc With Differential Ord2 MCV 95.9 fl 02/15/2016 Cbc With Differential Ord2 Lymph% 22.1 % 02/15/2016 Cbc With Differential Ord2 MCH 30.8 pg 02/15/2016 Cbc With Differential Ord2 [place]% 8.3 % 02/15/2016 Cbc With Differential Ord2 MCHC 32.1 pg 02/15/2016 Cbc With Differential Ord2 Eos% 2.8 % 02/15/2016 Cbc With Differential Ord2 PLT 245 K/ul 02/15/2016 Cbc With Differential Ord2 Baso% 0.6 % 02/15/2016 Cbc With Differential Ord2 Neut ABS# 3.51 K/ul 02/15/2016 Cbc With Differential Ord2 RDW 14.4 % 02/15/2016 Cbc With Differential Ord2 Lymph ABS# 1.17 K/ul 02/15/2016 Cbc With Differential Ord2 [place] ABS# 0.4 K/ul 02/15/2016 Cbc With Differential Ord2 Eos ABS# 0.2 K/ul 02/15/2016 Cbc With Differential Ord2 Baso ABS# 0.0 K/ul 02/15/2016 Pt Hhp9831 PT 21.2 seconds 02/15/2016 Pt Rpq6203 INR 1.9 02/15/2016 Pt Raf8276 Low Intensity - 1.5-2.0 02/15/2016 Pt Xji0863 Mod intensity - 2.0-3.0 02/15/2016 Pt Ack9439 Hi intensity - 3.0-4.0 02/15/2016 Cbc With Differential Ord2 WBC 5.32 K/ul 08/17/2015 Cbc With Differential Ord2 RBC 4.78 M/ul 08/17/2015 Cbc With Differential Ord2 HGB 14.2 g/dl 08/17/2015 Cbc With Differential Ord2 HCT 44.6 % 08/17/2015 Cbc With Differential Ord2 Neut% 67.1 % 08/17/2015 Cbc With Differential Ord2 MCV 93.3 fl 08/17/2015 Cbc With Differential Ord2 Lymph% 20.1 % 08/17/2015 Cbc With Differential Ord2 [place]% 9.0 % 08/17/2015 Cbc With Differential Ord2 MCH 29.7 pg 08/17/2015 Cbc With Differential Ord2 MCHC 31.8 pg 08/17/2015 Cbc With Differential Ord2 Eos% 3.0 % 08/17/2015 Cbc With Differential Ord2 PLT 262 K/ul 08/17/2015 Cbc With Differential Ord2 Baso% 0.8 % 08/17/2015 Cbc With Differential Ord2 Neut ABS# 3.57 K/ul 08/17/2015 Cbc With Differential Ord2 RDW 14.3 % 08/17/2015 Cbc With Differential Ord2 Lymph ABS# 1.07 K/ul 08/17/2015 Cbc With Differential Ord2 [place] ABS# 0.5 K/ul 08/17/2015 Cbc With Differential Ord2 Eos ABS# 0.2 K/ul 08/17/2015 Cbc With Differential Ord2 Baso ABS# 0.0 K/ul 08/17/2015 Cbc With Differential Ord2 New Analyzer Notice Please note new ref ranges starting 05-25-2015 due to implemntation of new five part differential hematolgy analyzer. 08/17/2015 Tsh Ord6 hTSH II 1.17 uIU/mL 08/17/2015 Pt Mfg0567 PT 19.6 seconds 08/17/2015 Pt Dbo0466 INR 1.7 08/17/2015 Pt Bet3230 Low Intensity - 1.5-2.0 08/17/2015 Pt Kzn0291 Mod intensity - 2.0-3.0 08/17/2015 Pt Jew6925 Hi intensity - 3.0-4.0 08/17/2015 Comp Metabolic Cna272 NA 136 mEq/L 08/17/2015 Comp Metabolic Qvd250 K 4.2 mEq/L 08/17/2015 Comp Metabolic Owt434 CL 102 mEq/L 08/17/2015 Comp Metabolic Qwe963 CO2 24.0 mEq/L 08/17/2015 Comp Metabolic Njg687 ANION GAP 14 08/17/2015 Comp Metabolic Umz639 GLUCOSE 78 mg/dL 08/17/2015 Comp Metabolic Sow026 Creat 1.0 mg/dL 08/17/2015 Comp Metabolic Trl808 eGFR 60 ml/min/1.73m2 08/17/2015 Comp Metabolic Zmp855 BUN 25 mg/dL 08/17/2015 Comp Metabolic Qqa938 B/C Ratio 26.3 Ratio 08/17/2015 Comp Metabolic Smi192 CALCIUM 9.3 mg/dL 08/17/2015 Comp Metabolic Ynf360 ALK PHOS 95 U/L 08/17/2015 Comp Metabolic Spj844 AST(SGOT) 20 U/L 08/17/2015 Comp Metabolic Alt091 ALT(SGPT) 14 U/L 08/17/2015 Comp Metabolic Tgi008 BILI T 0.6 mg/dL 08/17/2015 Comp Metabolic Zui956 ALBUMIN 4.0 g/dL 08/17/2015 Comp Metabolic Urb359 TPRO 6.6 g/dL 08/17/2015 Comp Metabolic Vup457 GLOB 2.7 g/dL 08/17/2015 Comp Metabolic Dpm780 A/G Ratio 1.5 Ratio 08/17/2015 Comp Metabolic Fqs962 Osmo 275 mOsmo 08/17/2015 Lipid Ord30 CHOL 210 mg/dL 08/17/2015 Lipid Ord30 HDL 83.0 mg/dl 08/17/2015 Lipid Ord30 TRIG 59 mg/dL 08/17/2015 Lipid Ord30 LDL 115 mg/dL 08/17/2015 Lipid Ord30 C/HDL 2.5 Ratio 08/17/2015 TSH [id number] TSH 1.424 uIU/ML 12/04/2011 CHEM 14 0239010 AST 18 U/L 12/04/2011 CHEM 14 6982902 ALT 12 IU/L 12/04/2011 CHEM 14 5345863 BUN 26 MG/DL 12/04/2011 CHEM 14 8176903 ALBUMIN 4.2 GM/DL 12/04/2011 CHEM 14 4980287 CHLORIDE 104 MMOL/L 12/04/2011 CHEM 14 8797084 BILI TOT 0.5 MG/DL 12/04/2011 CHEM 14 6184820 ALK PHOS 102 U/L 12/04/2011 CHEM 14 7787542 SODIUM 140 MMOL/L 12/04/2011 CHEM 14 4291197 CREATININE 0.91 MG/DL 12/04/2011 CHEM 14 0399206 CALCIUM 9.7 MG/DL 12/04/2011 CHEM 14 4269478 POTASSIUM 4.6 MMOL/L 12/04/2011 CHEM 14 5189095 PROT TOT 6.4 GM/DL 12/04/2011 CHEM 14 1748907 GLUCOSE 75 MG/DL 12/04/2011 CHEM 14 2303021 BICARB 29 MMOL/L 12/04/2011 CHEM 14 2656385 ANION GAP 7 MEQ/L 12/04/2011 GFR CALC 9283781 GFR AA >60 ML/MIN 12/04/2011 GFR CALC 9129001 GFR NON-AA 60.0L ML/MIN 12/04/2011 CBC 2293797 WBC 5.0 10e9/L 12/04/2011 CBC [id number] RBC 4.86 10e12/L 12/04/2011 CBC 5164268 HGB 14.3 g/dL 12/04/2011 CBC 3123592 HCT DET 43.9 % 12/04/2011 CBC 1577582 MCV 90.3 fL 12/04/2011 CBC 3704627 MCH 29.4 pg 12/04/2011 CBC 1499247 MCHC 32.6 g/dL 12/04/2011 CBC 8965483 PLT 244 10e9/L 12/04/2011 CBC 0481003 MPV 9.5 fL 12/04/2011 CBC 6190415 MAURA % 72.8 % 12/04/2011 CBC 7718266 LY % 14.7 % 12/04/2011 CBC 2747181 MON % 8.3 % 12/04/2011 CBC 2467313 EOS % 3.6 % 12/04/2011 CBC 9506334 BASO % 0.6 % 12/04/2011 CBC 4673736 RDW 14.6 % 12/04/2011 CBC 1012633 ABS MAURA 3.64 10e9/L 12/04/2011 CBC 6801339 ABS LYMPH 0.74 10e9/L 12/04/2011 CBC 5337923 ABS MONO 0.42 10e9/L 12/04/2011 CBC 9229611 ABS EOS 0.18 10e9/L 12/04/2011 CBC 3064525 ABS BASO 0.03 10e9/L 12/04/2011 CBC 6201985 RDW-SD 47.2 fL 12/04/2011 Review of Systems System Result Effective Dates Constitutional No recent illness 2017 Constitutional No chills 02/12/2018 Constitutional No diaphoresis 02/12/2018 Constitutional No fever 02/12/2018 Eyes No eye erythema 02/12/2018 Ears/Nose/Throat/Neck No nasal discharge 02/12/2018 Cardiovascular No chest pain/pressure 07/2017 Cardiovascular No dyspnea 02/12/2018 Respiratory No cough 02/12/2018 Respiratory No dyspnea 02/12/2018 Neurologic No alteration of consciousness 02/12/2018 Neurologic No mental status change 2017 Constitutional recent illness 01/15/2018 Constitutional No chills 01/15/2018 Constitutional No diaphoresis 01/15/2018 Constitutional No fever 01/15/2018 Eyes No eye erythema 01/15/2018 Ears/Nose/Throat/Neck nasal allergies 09/2017 Ears/Nose/Throat/Neck nasal discharge 09/2017 Ears/Nose/Throat/Neck postnasal drip 09/2017 Ears/Nose/Throat/Neck epistaxis 2017 Cardiovascular No chest pain/pressure 09/2017 Respiratory cough 01/15/2018 Respiratory No chest congestion 2017 Respiratory No dyspnea 01/15/2018 Gastrointestinal No abdominal pain 2017 Dermatologic ecchymosis 01/15/2018 Neurologic No alteration of consciousness 01/15/2018 Neurologic No mental status change 2017 Constitutional recent illness 01/09/2018 Constitutional No chills 01/09/2018 Constitutional No diaphoresis 01/09/2018 Constitutional No fever 01/09/2018 Eyes No eye erythema 01/09/2018 Ears/Nose/Throat/Neck nasal allergies Ears/Nose/Throat/Neck nasal discharge Ears/Nose/Throat/Neck postnasal drip Ears/Nose/Throat/Neck sinus congestion Ears/Nose/Throat/Neck No sore throat Cardiovascular No chest pain/pressure Cardiovascular No dyspnea 01/09/2018 Respiratory No chest congestion 2017 Respiratory cough 01/09/2018 Respiratory No dyspnea 01/09/2018 Gastrointestinal No abdominal pain 2017 Gastrointestinal No constipation 2017 Gastrointestinal No diarrhea 01/09/2018 Gastrointestinal No nausea 01/09/2018 Gastrointestinal No vomiting 01/09/2018 Dermatologic No rash 01/09/2018 Neurologic No alteration of consciousness 01/09/2018 Neurologic No mental status change 2017 Constitutional No recent illness 2017 Constitutional No night sweats 2017 Constitutional No chills 11/12/2017 Constitutional No diaphoresis 11/12/2017 Constitutional fatigue 11/12/2017 Constitutional No insomnia 11/12/2017 Constitutional No malaise 11/12/2017 Ears/Nose/Throat/Neck No dizziness 2017 Ears/Nose/Throat/Neck No headache 2017 Cardiovascular No chest pain/pressure 07/2017 Cardiovascular No dyspnea 11/12/2017 Cardiovascular No edema 11/12/2017 Cardiovascular No exercise intolerance Cardiovascular No fatigue 11/12/2017 Cardiovascular No near-syncope/dizziness 11/12/2017 Respiratory No productive sputum 2017 Respiratory No chest congestion 2017 Respiratory No chest tightness 2017 Respiratory No cigarette smoking 2017 Respiratory No cough 11/12/2017 Respiratory No dyspnea 11/12/2017 Respiratory No pedal edema 11/12/2017 Respiratory No snoring 11/12/2017 Respiratory No wheezing 11/12/2017 Gastrointestinal No hemorrhoids 2017 Gastrointestinal No abdominal pain 2017 Gastrointestinal No constipation 2017 Gastrointestinal No diarrhea 11/12/2017 Gastrointestinal No gastroesophageal reflux 11/12/2017 Gastrointestinal No melena 11/12/2017 Gastrointestinal No nausea 11/12/2017 Gastrointestinal No vomiting 11/12/2017 Genitourinary/Nephrology No dysuria 11/12 Genitourinary/Nephrology urinary frequency 11/12/2017 Musculoskeletal stiffness 11/12/2017 Musculoskeletal arthralgia(s) 11/12/2017 Musculoskeletal back pain 11/12/2017 Musculoskeletal joint complaint 2017 Musculoskeletal neck pain 11/12/2017 Musculoskeletal osteoporosis 11/12/2017 Dermatologic No sores 11/12/2017 Neurologic No ataxia 11/12/2017 Neurologic No dizziness 11/12/2017 Psychiatric No anxiety 11/12/2017 Psychiatric No depression 11/12/2017 Constitutional No recent illness 2017 Constitutional No night sweats 2017 Constitutional No chills 08/14/2017 Constitutional No diaphoresis 08/14/2017 Constitutional fatigue 08/14/2017 Constitutional No insomnia 08/14/2017 Constitutional No malaise 08/14/2017 Eyes No eye discharge 08/14/2017 Eyes No eye erythema 08/14/2017 Ears/Nose/Throat/Neck No dizziness 2017 Ears/Nose/Throat/Neck No headache 2017 Cardiovascular No chest pain/pressure 08/2017 Cardiovascular No dyspnea 08/14/2017 Cardiovascular No edema 08/14/2017 Cardiovascular No exercise intolerance Cardiovascular No fatigue 08/14/2017 Cardiovascular No near-syncope/dizziness 08/14/2017 Respiratory No productive sputum 2017 Respiratory No chest congestion 2017 Respiratory No chest tightness 2017 Respiratory No cigarette smoking 2017 Respiratory No cough 08/14/2017 Respiratory No dyspnea 08/14/2017 Respiratory No pedal edema 08/14/2017 Respiratory No snoring 08/14/2017 Respiratory No wheezing 08/14/2017 Gastrointestinal No hemorrhoids 2017 Gastrointestinal No abdominal pain 2017 Gastrointestinal No constipation 2017 Gastrointestinal No diarrhea 08/14/2017 Gastrointestinal No gastroesophageal reflux 08/14/2017 Gastrointestinal No melena 08/14/2017 Gastrointestinal No nausea 08/14/2017 Gastrointestinal No vomiting 08/14/2017 Genitourinary/Nephrology No dysuria 08/14 Musculoskeletal stiffness 08/14/2017 Musculoskeletal arthralgia(s) 08/14/2017 Musculoskeletal back pain 08/14/2017 Musculoskeletal joint complaint 2017 Musculoskeletal neck pain 08/14/2017 Neurologic No ataxia 08/14/2017 Neurologic No dizziness 08/14/2017 Psychiatric No anxiety 08/14/2017 Psychiatric No depression 08/14/2017 Genitourinary/Nephrology urinary frequency 08/14/2017 Musculoskeletal osteoporosis 08/14/2017 Dermatologic No sores 08/14/2017 Constitutional No recent illness 2017 Constitutional No anorexia 05/14/2017 Constitutional No night sweats 2017 Constitutional No chills 05/14/2017 Constitutional No diaphoresis 05/14/2017 Constitutional No fatigue 05/14/2017 Constitutional No fever 05/14/2017 Constitutional No insomnia 05/14/2017 Constitutional No malaise 05/14/2017 Eyes No eye discharge 05/14/2017 Eyes No eye erythema 05/14/2017 Ears/Nose/Throat/Neck No dizziness 2017 Ears/Nose/Throat/Neck No headache 2017 Cardiovascular No chest pain/pressure 06/2017 Cardiovascular No dyspnea 05/14/2017 Cardiovascular No edema 05/14/2017 Cardiovascular No exercise intolerance Cardiovascular No fatigue 05/14/2017 Cardiovascular No near-syncope/dizziness 05/14/2017 Respiratory No productive sputum 2017 Respiratory No chest congestion 2017 Respiratory No chest tightness 2017 Respiratory No cigarette smoking 2017 Respiratory No cough 05/14/2017 Respiratory No dyspnea 05/14/2017 Respiratory No pedal edema 05/14/2017 Respiratory No snoring 05/14/2017 Respiratory No wheezing 05/14/2017 Gastrointestinal No hemorrhoids 2017 Gastrointestinal No abdominal pain 2017 Gastrointestinal No constipation 2017 Gastrointestinal No diarrhea 05/14/2017 Gastrointestinal No gastroesophageal reflux 05/14/2017 Gastrointestinal No melena 05/14/2017 Gastrointestinal No nausea 05/14/2017 Gastrointestinal No vomiting 05/14/2017 Genitourinary/Nephrology No dysuria 05/14 Musculoskeletal stiffness 05/14/2017 Musculoskeletal arthralgia(s) 05/14/2017 Musculoskeletal back pain 05/14/2017 Musculoskeletal joint complaint 2017 Musculoskeletal neck pain 05/14/2017 Dermatologic No rash 05/14/2017 Dermatologic sores 05/14/2017 Neurologic No ataxia 05/14/2017 Neurologic No dizziness 05/14/2017 Psychiatric No anxiety 05/14/2017 Psychiatric No depression 05/14/2017 Constitutional No recent illness 2016 Constitutional No anorexia 04/15/2017 Constitutional No night sweats 2016 Constitutional No chills 04/15/2017 Constitutional No diaphoresis 04/15/2017 Constitutional No fatigue 04/15/2017 Constitutional No fever 04/15/2017 Constitutional No insomnia 04/15/2017 Constitutional No malaise 04/15/2017 Eyes No eye discharge 04/15/2017 Eyes No eye erythema 04/15/2017 Ears/Nose/Throat/Neck No dizziness 2016 Ears/Nose/Throat/Neck No headache 2016 Cardiovascular No chest pain/pressure 08/2016 Cardiovascular No dyspnea 04/15/2017 Cardiovascular No edema 04/15/2017 Cardiovascular No exercise intolerance Cardiovascular No fatigue 04/15/2017 Cardiovascular No near-syncope/dizziness 04/15/2017 Respiratory No productive sputum 2016 Respiratory No chest congestion 2016 Respiratory No chest tightness 2016 Respiratory No cigarette smoking 2016 Respiratory No cough 04/15/2017 Respiratory No dyspnea 04/15/2017 Respiratory No pedal edema 04/15/2017 Respiratory No snoring 04/15/2017 Respiratory No wheezing 04/15/2017 Gastrointestinal No hemorrhoids 2016 Gastrointestinal No abdominal pain 2016 Gastrointestinal No constipation 2016 Gastrointestinal No diarrhea 04/15/2017 Gastrointestinal No gastroesophageal reflux 04/15/2017 Gastrointestinal No melena 04/15/2017 Gastrointestinal No nausea 04/15/2017 Gastrointestinal No vomiting 04/15/2017 Genitourinary/Nephrology No dysuria 04/15 Musculoskeletal stiffness 04/15/2017 Musculoskeletal arthralgia(s) 04/15/2017 Musculoskeletal back pain 04/15/2017 Musculoskeletal joint complaint 2016 Musculoskeletal neck pain 04/15/2017 Dermatologic No rash 04/15/2017 Dermatologic sores 04/15/2017 Neurologic No ataxia 04/15/2017 Neurologic No dizziness 04/15/2017 Psychiatric No anxiety 04/15/2017 Psychiatric No depression 04/15/2017 Constitutional No recent illness 2016 Constitutional No anorexia 03/25/2017 Constitutional No night sweats 2016 Constitutional No chills 03/25/2017 Constitutional No diaphoresis 03/25/2017 Constitutional No fatigue 03/25/2017 Constitutional No fever 03/25/2017 Constitutional No insomnia 03/25/2017 Constitutional No malaise 03/25/2017 Eyes No eye discharge 03/25/2017 Eyes No eye erythema 03/25/2017 Ears/Nose/Throat/Neck No dizziness 2016 Ears/Nose/Throat/Neck No headache 2016 Cardiovascular No chest pain/pressure Cardiovascular No dyspnea 03/25/2017 Cardiovascular No edema 03/25/2017 Cardiovascular No exercise intolerance Cardiovascular No fatigue 03/25/2017 Cardiovascular No near-syncope/dizziness 03/25/2017 Respiratory No productive sputum 2016 Respiratory No chest congestion 2016 Respiratory No chest tightness 2016 Respiratory No cigarette smoking 2016 Respiratory No cough 03/25/2017 Respiratory No dyspnea 03/25/2017 Respiratory No pedal edema 03/25/2017 Respiratory No snoring 03/25/2017 Respiratory No wheezing 03/25/2017 Gastrointestinal No hemorrhoids 2016 Gastrointestinal No abdominal pain 2016 Gastrointestinal No constipation 2016 Gastrointestinal No diarrhea 03/25/2017 Gastrointestinal No gastroesophageal reflux 03/25/2017 Gastrointestinal No melena 03/25/2017 Gastrointestinal No nausea 03/25/2017 Gastrointestinal No vomiting 03/25/2017 Genitourinary/Nephrology No dysuria 03/25 Musculoskeletal stiffness 03/25/2017 Musculoskeletal arthralgia(s) 03/25/2017 Musculoskeletal back pain 03/25/2017 Musculoskeletal joint complaint 2016 Musculoskeletal neck pain 03/25/2017 Dermatologic No rash 03/25/2017 Neurologic No ataxia 03/25/2017 Neurologic No dizziness 03/25/2017 Psychiatric No anxiety 03/25/2017 Psychiatric No depression 03/25/2017 Dermatologic No sores 03/25/2017 Constitutional No recent illness 2016 Constitutional No anorexia 12/28/2016 Constitutional No night sweats 2016 Constitutional No chills 12/28/2016 Constitutional No diaphoresis 12/28/2016 Constitutional No fatigue 12/28/2016 Constitutional No fever 12/28/2016 Constitutional No insomnia 12/28/2016 Constitutional No malaise 12/28/2016 Eyes No eye discharge 12/28/2016 Eyes No eye erythema 12/28/2016 Ears/Nose/Throat/Neck No dizziness 2016 Ears/Nose/Throat/Neck No headache 2016 Cardiovascular No chest pain/pressure Cardiovascular No dyspnea 12/28/2016 Cardiovascular No edema 12/28/2016 Cardiovascular No exercise intolerance Cardiovascular No fatigue 12/28/2016 Cardiovascular No near-syncope/dizziness 12/28/2016 Respiratory No productive sputum 2016 Respiratory No chest congestion 2016 Respiratory No chest tightness 2016 Respiratory No cigarette smoking 2016 Respiratory No cough 12/28/2016 Respiratory No dyspnea 12/28/2016 Respiratory No pedal edema 12/28/2016 Respiratory No snoring 12/28/2016 Respiratory No wheezing 12/28/2016 Gastrointestinal No hemorrhoids 2016 Gastrointestinal No abdominal pain 2016 Gastrointestinal No constipation 2016 Gastrointestinal No diarrhea 12/28/2016 Gastrointestinal No gastroesophageal reflux 12/28/2016 Gastrointestinal No melena 12/28/2016 Gastrointestinal No nausea 12/28/2016 Gastrointestinal No vomiting 12/28/2016 Genitourinary/Nephrology dysuria 2016 Musculoskeletal stiffness 12/28/2016 Musculoskeletal arthralgia(s) 12/28/2016 Musculoskeletal back pain 12/28/2016 Musculoskeletal joint complaint 2016 Musculoskeletal neck pain 12/28/2016 Dermatologic No rash 12/28/2016 Neurologic No ataxia 12/28/2016 Neurologic No dizziness 12/28/2016 Psychiatric No anxiety 12/28/2016 Psychiatric No depression 12/28/2016 Constitutional recent illness 12/21/2016 Constitutional No anorexia 12/21/2016 Constitutional No night sweats 2016 Constitutional No chills 12/21/2016 Constitutional No diaphoresis 12/21/2016 Constitutional fatigue 12/21/2016 Constitutional No fever 12/21/2016 Constitutional No insomnia 12/21/2016 Constitutional No malaise 12/21/2016 Constitutional No weight loss 12/21/2016 Constitutional No weight gain 12/21/2016 Eyes No eye discharge 12/21/2016 Eyes No eye erythema 12/21/2016 Ears/Nose/Throat/Neck No dizziness 2016 Ears/Nose/Throat/Neck No headache 2016 Cardiovascular No chest pain/pressure 03/2017 Cardiovascular No dyspnea 12/21/2016 Cardiovascular No edema 12/21/2016 Cardiovascular fatigue 12/21/2016 Respiratory No productive sputum 2016 Respiratory No chest congestion 2016 Respiratory No cough 12/21/2016 Respiratory dyspnea on exertion 2016 Respiratory dyspnea 12/21/2016 Gastrointestinal No abdominal pain 2016 Genitourinary/Nephrology No dysuria 12/21 Musculoskeletal joint complaint 2016 Dermatologic rash 12/21/2016 Neurologic No alteration of consciousness 12/21/2016 Constitutional No recent illness 2016 Constitutional No anorexia 12/11/2016 Constitutional No night sweats 2016 Constitutional No chills 12/11/2016 Constitutional No diaphoresis 12/11/2016 Constitutional No fatigue 12/11/2016 Constitutional No fever 12/11/2016 Constitutional No insomnia 12/11/2016 Constitutional No malaise 12/11/2016 Eyes No eye discharge 12/11/2016 Eyes No eye erythema 12/11/2016 Ears/Nose/Throat/Neck No dizziness 2016 Ears/Nose/Throat/Neck No headache 2016 Cardiovascular No chest pain/pressure 05/2016 Cardiovascular No dyspnea 12/11/2016 Cardiovascular No edema 12/11/2016 Cardiovascular No exercise intolerance Cardiovascular No fatigue 12/11/2016 Cardiovascular No near-syncope/dizziness 12/11/2016 Respiratory No productive sputum 2016 Respiratory No chest congestion 2016 Respiratory No chest tightness 2016 Respiratory No cigarette smoking 2016 Respiratory No cough 12/11/2016 Respiratory No dyspnea 12/11/2016 Respiratory No pedal edema 12/11/2016 Respiratory No snoring 12/11/2016 Respiratory No wheezing 12/11/2016 Gastrointestinal No hemorrhoids 2016 Gastrointestinal No abdominal pain 2016 Gastrointestinal No constipation 2016 Gastrointestinal No diarrhea 12/11/2016 Gastrointestinal No gastroesophageal reflux 12/11/2016 Gastrointestinal No melena 12/11/2016 Gastrointestinal No nausea 12/11/2016 Gastrointestinal No vomiting 12/11/2016 Genitourinary/Nephrology No dysuria 12/11 Musculoskeletal stiffness 12/11/2016 Musculoskeletal arthralgia(s) 12/11/2016 Musculoskeletal back pain 12/11/2016 Musculoskeletal joint complaint 2016 Musculoskeletal neck pain 12/11/2016 Dermatologic No rash 12/11/2016 Dermatologic sores 12/11/2016 Neurologic No ataxia 12/11/2016 Neurologic No dizziness 12/11/2016 Psychiatric No anxiety 12/11/2016 Psychiatric No depression 12/11/2016 Constitutional No recent illness 2016 Constitutional No anorexia 11/14/2016 Constitutional No night sweats 2016 Constitutional No chills 11/14/2016 Constitutional No diaphoresis 11/14/2016 Constitutional No fatigue 11/14/2016 Constitutional No fever 11/14/2016 Constitutional No insomnia 11/14/2016 Constitutional No malaise 11/14/2016 Dermatologic sores 11/14/2016 Psychiatric No anxiety 11/14/2016 Psychiatric No depression 11/14/2016 Respiratory No chest tightness 2016 Respiratory No cigarette smoking 2016 Respiratory No cough 11/14/2016 Respiratory No dyspnea 11/14/2016 Respiratory No pedal edema 11/14/2016 Respiratory No snoring 11/14/2016 Respiratory No wheezing 11/14/2016 Cardiovascular No chest pain/pressure 09/2016 Cardiovascular No dyspnea 11/14/2016 Cardiovascular No edema 11/14/2016 Cardiovascular No exercise intolerance Cardiovascular No fatigue 11/14/2016 Cardiovascular No near-syncope/dizziness 11/14/2016 Gastrointestinal No hemorrhoids 2016 Gastrointestinal No abdominal pain 2016 Gastrointestinal No constipation 2016 Gastrointestinal No diarrhea 11/14/2016 Gastrointestinal No gastroesophageal reflux 11/14/2016 Gastrointestinal No melena 11/14/2016 Gastrointestinal No nausea 11/14/2016 Gastrointestinal No vomiting 11/14/2016 Eyes No eye discharge 11/14/2016 Eyes No eye erythema 11/14/2016 Ears/Nose/Throat/Neck No dizziness 2016 Ears/Nose/Throat/Neck No headache 2016 Respiratory No productive sputum 2016 Respiratory No chest congestion 2016 Genitourinary/Nephrology No dysuria 11/14 Musculoskeletal stiffness 11/14/2016 Musculoskeletal arthralgia(s) 11/14/2016 Musculoskeletal back pain 11/14/2016 Musculoskeletal joint complaint 2016 Musculoskeletal neck pain 11/14/2016 Dermatologic No rash 11/14/2016 Neurologic No ataxia 11/14/2016 Neurologic No dizziness 11/14/2016 Dermatologic sores 11/09/2016 Constitutional No recent illness 2016 Constitutional No anorexia 11/09/2016 Constitutional No night sweats 2016 Constitutional No chills 11/09/2016 Constitutional No diaphoresis 11/09/2016 Constitutional No fatigue 11/09/2016 Constitutional No fever 11/09/2016 Constitutional No insomnia 11/09/2016 Constitutional No malaise 11/09/2016 Constitutional No weight loss 11/09/2016 Constitutional No weight gain 11/09/2016 Constitutional recent illness 09/17/2016 Constitutional No fever 09/17/2016 Constitutional No chills 09/17/2016 Eyes No eye erythema 09/17/2016 Ears/Nose/Throat/Neck nasal allergies 12/2016 Ears/Nose/Throat/Neck nasal discharge 12/2016 Ears/Nose/Throat/Neck sinus congestion Cardiovascular No chest pain/pressure 12/2016 Respiratory cough 09/17/2016 Respiratory No dyspnea 09/17/2016 Neurologic No alteration of consciousness 09/17/2016 Neurologic No mental status change 2016 Constitutional recent illness 09/10/2016 Constitutional No chills 09/10/2016 Constitutional fever 09/10/2016 Constitutional fatigue 09/10/2016 Eyes No eye erythema 09/10/2016 Ears/Nose/Throat/Neck nasal allergies 05/2016 Ears/Nose/Throat/Neck nasal discharge 05/2016 Ears/Nose/Throat/Neck No sinus congestion 09/10/2016 Ears/Nose/Throat/Neck postnasal drip 05/2016 Ears/Nose/Throat/Neck sore throat 2016 Ears/Nose/Throat/Neck No otalgia 2016 Ears/Nose/Throat/Neck dizziness 2016 Cardiovascular No chest pain/pressure 05/2016 Respiratory cough 09/10/2016 Respiratory dyspnea on exertion 2016 Respiratory chest congestion 09/10/2016 Respiratory productive sputum 09/10/2016 Gastrointestinal No abdominal pain 2016 Gastrointestinal No vomiting 09/10/2016 Gastrointestinal No nausea 09/10/2016 Gastrointestinal No diarrhea 09/10/2016 Neurologic No alteration of consciousness 09/10/2016 Neurologic No mental status change 2016 Constitutional No anorexia 08/15/2016 Constitutional No night sweats 2016 Constitutional No chills 08/15/2016 Constitutional No diaphoresis 08/15/2016 Constitutional No fever 08/15/2016 Constitutional No insomnia 08/15/2016 Eyes No eye discharge 08/15/2016 Eyes No eye erythema 08/15/2016 Ears/Nose/Throat/Neck No dizziness 2016 Ears/Nose/Throat/Neck No headache 2016 Cardiovascular No chest pain/pressure 09/2016 Cardiovascular No dyspnea 08/15/2016 Cardiovascular No edema 08/15/2016 Cardiovascular No exercise intolerance Cardiovascular fatigue 08/15/2016 Cardiovascular No near-syncope/dizziness 08/15/2016 Respiratory No productive sputum 2016 Respiratory No chest congestion 2016 Respiratory No cough 08/15/2016 Gastrointestinal No abdominal pain 2016 Gastrointestinal No constipation 2016 Gastrointestinal No diarrhea 08/15/2016 Gastrointestinal No nausea 08/15/2016 Gastrointestinal No vomiting 08/15/2016 Genitourinary/Nephrology No dysuria 08/15 Musculoskeletal stiffness 08/15/2016 Musculoskeletal arthralgia(s) 08/15/2016 Musculoskeletal back pain 08/15/2016 Musculoskeletal joint complaint 2016 Musculoskeletal neck pain 08/15/2016 Dermatologic No rash 08/15/2016 Dermatologic No sores 08/15/2016 Neurologic No ataxia 08/15/2016 Neurologic No dizziness 08/15/2016 Psychiatric No anxiety 08/15/2016 Psychiatric No depression 08/15/2016 Constitutional No anorexia 06/14/2016 Constitutional No night sweats 2016 Constitutional No chills 06/14/2016 Constitutional No diaphoresis 06/14/2016 Constitutional No fever 06/14/2016 Constitutional No insomnia 06/14/2016 Eyes No eye discharge 06/14/2016 Eyes No eye erythema 06/14/2016 Ears/Nose/Throat/Neck No dizziness 2016 Ears/Nose/Throat/Neck No headache 2016 Cardiovascular No chest pain/pressure 06/2016 Cardiovascular No dyspnea 06/14/2016 Cardiovascular No edema 06/14/2016 Cardiovascular No exercise intolerance Cardiovascular fatigue 06/14/2016 Cardiovascular No near-syncope/dizziness 06/14/2016 Respiratory No productive sputum 2016 Respiratory No chest congestion 2016 Respiratory cough 06/14/2016 Gastrointestinal No abdominal pain 2016 Gastrointestinal No constipation 2016 Gastrointestinal No diarrhea 06/14/2016 Gastrointestinal No nausea 06/14/2016 Gastrointestinal No vomiting 06/14/2016 Genitourinary/Nephrology No dysuria 06/14 Musculoskeletal stiffness 06/14/2016 Musculoskeletal arthralgia(s) 06/14/2016 Musculoskeletal back pain 06/14/2016 Musculoskeletal joint complaint 2016 Musculoskeletal neck pain 06/14/2016 Dermatologic No rash 06/14/2016 Dermatologic No sores 06/14/2016 Neurologic No ataxia 06/14/2016 Neurologic No dizziness 06/14/2016 Psychiatric No anxiety 06/14/2016 Psychiatric No depression 06/14/2016 Constitutional recent illness 06/14/2016 Constitutional No anorexia 06/06/2016 Constitutional No night sweats 2016 Constitutional No chills 06/06/2016 Constitutional No diaphoresis 06/06/2016 Constitutional No fever 06/06/2016 Constitutional No insomnia 06/06/2016 Eyes No eye discharge 06/06/2016 Eyes No eye erythema 06/06/2016 Ears/Nose/Throat/Neck No dizziness 2016 Ears/Nose/Throat/Neck No headache 2016 Cardiovascular No chest pain/pressure Cardiovascular No dyspnea 06/06/2016 Cardiovascular No edema 06/06/2016 Cardiovascular No exercise intolerance Cardiovascular fatigue 06/06/2016 Cardiovascular No near-syncope/dizziness 06/06/2016 Respiratory No productive sputum 2016 Respiratory No chest congestion 2016 Respiratory No cough 06/06/2016 Gastrointestinal No abdominal pain 2016 Gastrointestinal No constipation 2016 Gastrointestinal No diarrhea 06/06/2016 Gastrointestinal No nausea 06/06/2016 Gastrointestinal No vomiting 06/06/2016 Genitourinary/Nephrology No dysuria 06/06 Musculoskeletal stiffness 06/06/2016 Musculoskeletal arthralgia(s) 06/06/2016 Musculoskeletal back pain 06/06/2016 Musculoskeletal joint complaint 2016 Musculoskeletal neck pain 06/06/2016 Dermatologic No rash 06/06/2016 Dermatologic No sores 06/06/2016 Neurologic No ataxia 06/06/2016 Neurologic No dizziness 06/06/2016 Psychiatric No anxiety 06/06/2016 Psychiatric No depression 06/06/2016 Constitutional No anorexia 02/08/2016 Constitutional No night sweats 2015 Constitutional No chills 02/08/2016 Constitutional No diaphoresis 02/08/2016 Constitutional No fever 02/08/2016 Constitutional No insomnia 02/08/2016 Eyes No eye discharge 02/08/2016 Eyes No eye erythema 02/08/2016 Ears/Nose/Throat/Neck No dizziness 2015 Ears/Nose/Throat/Neck No headache 2015 Cardiovascular No chest pain/pressure Cardiovascular No dyspnea 02/08/2016 Cardiovascular No edema 02/08/2016 Cardiovascular No exercise intolerance Cardiovascular fatigue 02/08/2016 Cardiovascular No near-syncope/dizziness 02/08/2016 Respiratory No productive sputum 2015 Respiratory No chest congestion 2015 Respiratory No cough 02/08/2016 Gastrointestinal No abdominal pain 2015 Gastrointestinal No constipation 2015 Gastrointestinal No diarrhea 02/08/2016 Gastrointestinal No nausea 02/08/2016 Gastrointestinal No vomiting 02/08/2016 Genitourinary/Nephrology No dysuria 02/07 Musculoskeletal stiffness 02/08/2016 Musculoskeletal arthralgia(s) 02/08/2016 Musculoskeletal back pain 02/08/2016 Musculoskeletal joint complaint 2015 Musculoskeletal neck pain 02/08/2016 Dermatologic No rash 02/08/2016 Dermatologic No sores 02/08/2016 Neurologic No ataxia 02/08/2016 Neurologic No dizziness 02/08/2016 Psychiatric No anxiety 02/08/2016 Psychiatric No depression 02/08/2016 Constitutional No anorexia 11/08/2015 Constitutional No night sweats 2015 Constitutional No chills 11/08/2015 Constitutional No diaphoresis 11/08/2015 Constitutional No fever 11/08/2015 Constitutional No insomnia 11/08/2015 Eyes No eye discharge 11/08/2015 Eyes No eye erythema 11/08/2015 Ears/Nose/Throat/Neck No dizziness 2015 Ears/Nose/Throat/Neck No headache 2015 Cardiovascular No chest pain/pressure Cardiovascular No dyspnea 11/08/2015 Cardiovascular No edema 11/08/2015 Cardiovascular No exercise intolerance Cardiovascular fatigue 11/08/2015 Cardiovascular No near-syncope/dizziness 11/08/2015 Respiratory No productive sputum 2015 Respiratory No chest congestion 2015 Respiratory No cough 11/08/2015 Gastrointestinal No abdominal pain 2015 Gastrointestinal No constipation 2015 Gastrointestinal No diarrhea 11/08/2015 Gastrointestinal No nausea 11/08/2015 Gastrointestinal No vomiting 11/08/2015 Genitourinary/Nephrology No dysuria 11/07 Musculoskeletal stiffness 11/08/2015 Musculoskeletal arthralgia(s) 11/08/2015 Musculoskeletal back pain 11/08/2015 Musculoskeletal joint complaint 2015 Musculoskeletal neck pain 11/08/2015 Dermatologic No rash 11/08/2015 Dermatologic No sores 11/08/2015 Neurologic No ataxia 11/08/2015 Neurologic No dizziness 11/08/2015 Psychiatric No anxiety 11/08/2015 Psychiatric No depression 11/08/2015 Constitutional No anorexia 08/22/2015 Constitutional No night sweats 2015 Constitutional No chills 08/22/2015 Constitutional diaphoresis 08/22/2015 Constitutional No fever 08/22/2015 Constitutional No insomnia 08/22/2015 Eyes No eye discharge 08/22/2015 Eyes No eye erythema 08/22/2015 Ears/Nose/Throat/Neck No dizziness 2015 Ears/Nose/Throat/Neck No headache 2015 Cardiovascular No chest pain/pressure 03/2016 Cardiovascular No dyspnea 08/22/2015 Cardiovascular No edema 08/22/2015 Cardiovascular No exercise intolerance Cardiovascular fatigue 08/22/2015 Cardiovascular No near-syncope/dizziness 08/22/2015 Respiratory productive sputum 08/22/2015 Respiratory chest congestion 08/22/2015 Respiratory cough 08/22/2015 Gastrointestinal No abdominal pain 2015 Gastrointestinal No constipation 2015 Gastrointestinal No diarrhea 08/22/2015 Gastrointestinal No nausea 08/22/2015 Gastrointestinal No vomiting 08/22/2015 Genitourinary/Nephrology No dysuria 08/21 Musculoskeletal stiffness 08/22/2015 Musculoskeletal joint complaint 2015 Musculoskeletal neck pain 08/22/2015 Dermatologic No rash 08/22/2015 Dermatologic No sores 08/22/2015 Neurologic No ataxia 08/22/2015 Neurologic No dizziness 08/22/2015 Psychiatric No anxiety 08/22/2015 Psychiatric No depression 08/22/2015 Constitutional recent illness 08/22/2015 Constitutional No fatigue 08/22/2015 Constitutional No malaise 08/22/2015 Ears/Nose/Throat/Neck nasal allergies 03/2016 Ears/Nose/Throat/Neck nasal discharge 03/2016 Ears/Nose/Throat/Neck No otalgia 2015 Ears/Nose/Throat/Neck No sore throat 03/2016 Ears/Nose/Throat/Neck sinus congestion Constitutional No anorexia 08/09/2015 Constitutional No night sweats 2015 Constitutional No chills 08/09/2015 Constitutional No diaphoresis 08/09/2015 Constitutional No fever 08/09/2015 Constitutional No insomnia 08/09/2015 Eyes No eye discharge 08/09/2015 Eyes No eye erythema 08/09/2015 Ears/Nose/Throat/Neck No dizziness 2015 Ears/Nose/Throat/Neck No headache 2015 Respiratory No productive sputum 2015 Respiratory No chest congestion 2015 Respiratory No cough 08/09/2015 Gastrointestinal No abdominal pain 2015 Gastrointestinal No constipation 2015 Gastrointestinal No diarrhea 08/09/2015 Gastrointestinal No nausea 08/09/2015 Gastrointestinal No vomiting 08/09/2015 Genitourinary/Nephrology No dysuria 08/08 Musculoskeletal stiffness 08/09/2015 Musculoskeletal arthralgia(s) 08/09/2015 Musculoskeletal back pain 08/09/2015 Musculoskeletal joint complaint 2015 Musculoskeletal neck pain 08/09/2015 Dermatologic No rash 08/09/2015 Dermatologic No sores 08/09/2015 Neurologic No ataxia 08/09/2015 Neurologic No dizziness 08/09/2015 Psychiatric No anxiety 08/09/2015 Psychiatric No depression 08/09/2015 Cardiovascular No chest pain/pressure Cardiovascular No dyspnea 08/09/2015 Cardiovascular No edema 08/09/2015 Cardiovascular No exercise intolerance Cardiovascular fatigue 08/09/2015 Cardiovascular No near-syncope/dizziness 08/09/2015 Constitutional No anorexia 05/26/2015 Constitutional No night sweats 2015 Constitutional No chills 05/26/2015 Constitutional No diaphoresis 05/26/2015 Constitutional No fever 05/26/2015 Constitutional No insomnia 05/26/2015 Eyes No eye discharge 05/26/2015 Eyes No eye erythema 05/26/2015 Ears/Nose/Throat/Neck No dizziness 2015 Ears/Nose/Throat/Neck No headache 2015 Respiratory No productive sputum 2015 Respiratory No chest congestion 2015 Respiratory No cough 05/26/2015 Gastrointestinal No abdominal pain 2015 Gastrointestinal No constipation 2015 Gastrointestinal No diarrhea 05/26/2015 Gastrointestinal No nausea 05/26/2015 Gastrointestinal No vomiting 05/26/2015 Genitourinary/Nephrology No dysuria 05/26 Musculoskeletal stiffness 05/26/2015 Musculoskeletal arthralgia(s) 05/26/2015 Musculoskeletal back pain 05/26/2015 Musculoskeletal joint complaint 2015 Musculoskeletal neck pain 05/26/2015 Dermatologic No rash 05/26/2015 Dermatologic No sores 05/26/2015 Neurologic No ataxia 05/26/2015 Neurologic No dizziness 05/26/2015 Psychiatric No anxiety 05/26/2015 Psychiatric No depression 05/26/2015 Cardiovascular No chest pain/pressure Cardiovascular No dyspnea 05/26/2015 Cardiovascular No edema 05/26/2015 Cardiovascular No exercise intolerance Cardiovascular No fatigue 05/26/2015 Cardiovascular No near-syncope/dizziness 05/26/2015 Constitutional No anorexia 02/15/2015 Constitutional No night sweats 2014 Constitutional No chills 02/15/2015 Constitutional No diaphoresis 02/15/2015 Constitutional No fever 02/15/2015 Constitutional No insomnia 02/15/2015 Eyes No eye discharge 02/15/2015 Eyes No eye erythema 02/15/2015 Ears/Nose/Throat/Neck No dizziness 2014 Ears/Nose/Throat/Neck No headache 2014 Respiratory No productive sputum 2014 Respiratory No chest congestion 2014 Respiratory No cough 02/15/2015 Gastrointestinal No abdominal pain 2014 Gastrointestinal No constipation 2014 Gastrointestinal No diarrhea 02/15/2015 Gastrointestinal No nausea 02/15/2015 Gastrointestinal No vomiting 02/15/2015 Genitourinary/Nephrology No dysuria 02/15 Dermatologic No rash 02/15/2015 Dermatologic No sores 02/15/2015 Neurologic No ataxia 02/15/2015 Neurologic No dizziness 02/15/2015 Psychiatric No anxiety 02/15/2015 Psychiatric No depression 02/15/2015 Musculoskeletal stiffness 02/15/2015 Musculoskeletal arthralgia(s) 02/15/2015 Musculoskeletal back pain 02/15/2015 Musculoskeletal joint complaint 2014 Musculoskeletal neck pain 02/15/2015 Constitutional No recent illness 2014 Constitutional No chills 12/02/2014 Constitutional No fatigue 12/02/2014 Constitutional No fever 12/02/2014 Eyes No blindness 12/02/2014 Eyes No vision change 12/02/2014 Eyes No photophobia 12/02/2014 Ears/Nose/Throat/Neck cerumen 12/02/2014 Dermatologic No rash 12/02/2014 Dermatologic No sores 12/02/2014 Constitutional No anorexia 12/02/2014 Constitutional No night sweats 2014 Constitutional No diaphoresis 12/02/2014 Constitutional No insomnia 12/02/2014 Eyes No eye discharge 12/02/2014 Eyes No eye erythema 12/02/2014 Ears/Nose/Throat/Neck No dizziness 2014 Ears/Nose/Throat/Neck No headache 2014 Respiratory No productive sputum 2014 Respiratory No chest congestion 2014 Respiratory No cough 12/02/2014 Gastrointestinal No abdominal pain 2014 Gastrointestinal No constipation 2014 Gastrointestinal No diarrhea 12/02/2014 Gastrointestinal No nausea 12/02/2014 Gastrointestinal No vomiting 12/02/2014 Genitourinary/Nephrology No dysuria 12/02 Musculoskeletal stiffness 12/02/2014 Musculoskeletal arthralgia(s) 12/02/2014 Musculoskeletal muscle weakness 2014 Neurologic No ataxia 12/02/2014 Neurologic No dizziness 12/02/2014 Psychiatric No anxiety 12/02/2014 Psychiatric No depression 12/02/2014 Constitutional No anorexia 10/14/2014 Constitutional No night sweats 2014 Constitutional No chills 10/14/2014 Constitutional No diaphoresis 10/14/2014 Constitutional No fever 10/14/2014 Constitutional No insomnia 10/14/2014 Eyes No eye discharge 10/14/2014 Eyes No eye erythema 10/14/2014 Ears/Nose/Throat/Neck No dizziness 2014 Ears/Nose/Throat/Neck No headache 2014 Respiratory No productive sputum 2014 Respiratory No chest congestion 2014 Respiratory No cough 10/14/2014 Gastrointestinal No abdominal pain 2014 Gastrointestinal No constipation 2014 Gastrointestinal No diarrhea 10/14/2014 Gastrointestinal No nausea 10/14/2014 Gastrointestinal No vomiting 10/14/2014 Genitourinary/Nephrology No dysuria 10/14 Dermatologic No rash 10/14/2014 Dermatologic No sores 10/14/2014 Neurologic No ataxia 10/14/2014 Neurologic No dizziness 10/14/2014 Psychiatric No anxiety 10/14/2014 Psychiatric No depression 10/14/2014 Musculoskeletal stiffness 10/14/2014 Musculoskeletal arthralgia(s) 10/14/2014 Musculoskeletal muscle weakness 2014 Constitutional No anorexia 07/21/2014 Constitutional No night sweats 2014 Constitutional No chills 07/21/2014 Constitutional No diaphoresis 07/21/2014 Constitutional No fever 07/21/2014 Constitutional No insomnia 07/21/2014 Eyes No eye discharge 07/21/2014 Eyes No eye erythema 07/21/2014 Ears/Nose/Throat/Neck No dizziness 2014 Ears/Nose/Throat/Neck No headache 2014 Respiratory No productive sputum 2014 Respiratory No chest congestion 2014 Respiratory No cough 07/21/2014 Gastrointestinal No abdominal pain 2014 Gastrointestinal No constipation 2014 Gastrointestinal No diarrhea 07/21/2014 Gastrointestinal No nausea 07/21/2014 Gastrointestinal No vomiting 07/21/2014 Genitourinary/Nephrology No dysuria 07/21 Dermatologic No rash 07/21/2014 Dermatologic sores 07/21/2014 Neurologic No ataxia 07/21/2014 Neurologic No dizziness 07/21/2014 Neurologic pain, limb 07/21/2014 Psychiatric No anxiety 07/21/2014 Psychiatric No depression 07/21/2014 Constitutional No anorexia 06/24/2014 Constitutional No night sweats 2014 Constitutional No chills 06/24/2014 Constitutional No diaphoresis 06/24/2014 Constitutional No fever 06/24/2014 Eyes No eye discharge 06/24/2014 Eyes No eye erythema 06/24/2014 Ears/Nose/Throat/Neck headache 2014 Respiratory No productive sputum 2014 Respiratory No chest congestion 2014 Respiratory No cough 06/24/2014 Gastrointestinal No abdominal pain 2014 Gastrointestinal No constipation 2014 Gastrointestinal No diarrhea 06/24/2014 Genitourinary/Nephrology No dysuria 06/24 Dermatologic No rash 06/24/2014 Dermatologic No sores 06/24/2014 Psychiatric No anxiety 06/24/2014 Psychiatric No depression 06/24/2014 Cardiovascular No chest pain/pressure 04/2015 Cardiovascular No dyspnea 06/24/2014 Cardiovascular No edema 06/24/2014 Cardiovascular No exercise intolerance Cardiovascular fatigue 06/24/2014 Cardiovascular No near-syncope/dizziness 06/24/2014 Constitutional recent illness 06/24/2014 Neurologic gait abnormality 06/24/2014 Ears/Nose/Throat/Neck facial pain 2014 Ears/Nose/Throat/Neck dizziness 2014 Ears/Nose/Throat/Neck sinus congestion Respiratory No productive sputum 2013 Respiratory chest congestion 04/29/2014 Respiratory cough 04/29/2014 Respiratory dyspnea on exertion 2013 Respiratory No dyspnea 04/29/2014 Cardiovascular No chest pain/pressure Cardiovascular No edema 04/29/2014 Constitutional recent illness 04/29/2014 Constitutional No anorexia 04/29/2014 Constitutional No night sweats 2013 Constitutional No chills 04/29/2014 Constitutional No diaphoresis 04/29/2014 Constitutional fatigue 04/29/2014 Constitutional No fever 04/29/2014 Constitutional No insomnia 04/29/2014 Constitutional No malaise 04/29/2014 Constitutional No weight loss 04/29/2014 Constitutional No weight gain 04/29/2014 Eyes No eye discharge 04/29/2014 Eyes No eye erythema 04/29/2014 Ears/Nose/Throat/Neck headache 2013 Ears/Nose/Throat/Neck No dizziness 2013 Ears/Nose/Throat/Neck nasal discharge Ears/Nose/Throat/Neck nasal allergies Ears/Nose/Throat/Neck No otalgia 2013 Ears/Nose/Throat/Neck No sinus congestion 04/29/2014 Gastrointestinal No abdominal pain 2013 Gastrointestinal No constipation 2013 Gastrointestinal No diarrhea 04/29/2014 Gastrointestinal No vomiting 04/29/2014 Gastrointestinal No nausea 04/29/2014 Genitourinary/Nephrology No dysuria 04/29 Musculoskeletal joint complaint 2013 Dermatologic No rash 04/29/2014 Dermatologic No sores 04/29/2014 Neurologic No alteration of consciousness 04/29/2014 Psychiatric No anxiety 04/29/2014 Psychiatric No depression 04/29/2014 Constitutional No anorexia 04/01/2014 Constitutional No night sweats 2013 Constitutional No chills 04/01/2014 Constitutional No diaphoresis 04/01/2014 Constitutional No fever 04/01/2014 Eyes No eye discharge 04/01/2014 Eyes No eye erythema 04/01/2014 Ears/Nose/Throat/Neck No headache 2013 Respiratory No productive sputum 2013 Respiratory No chest congestion 2013 Respiratory No cough 04/01/2014 Gastrointestinal No abdominal pain 2013 Gastrointestinal No constipation 2013 Gastrointestinal No diarrhea 04/01/2014 Genitourinary/Nephrology No dysuria 04/01 Dermatologic No rash 04/01/2014 Dermatologic No sores 04/01/2014 Psychiatric No anxiety 04/01/2014 Psychiatric No depression 04/01/2014 Cardiovascular No chest pain/pressure Cardiovascular No dyspnea 04/01/2014 Constitutional No anorexia 03/15/2014 Constitutional No night sweats 2013 Constitutional No chills 03/15/2014 Constitutional No diaphoresis 03/15/2014 Constitutional No fever 03/15/2014 Eyes No eye discharge 03/15/2014 Eyes No eye erythema 03/15/2014 Ears/Nose/Throat/Neck No headache 2013 Respiratory No productive sputum 2013 Respiratory No chest congestion 2013 Respiratory No cough 03/15/2014 Gastrointestinal No abdominal pain 2013 Gastrointestinal No constipation 2013 Gastrointestinal No diarrhea 03/15/2014 Genitourinary/Nephrology No dysuria 03/15 Dermatologic No rash 03/15/2014 Dermatologic No sores 03/15/2014 Psychiatric No anxiety 03/15/2014 Psychiatric No depression 03/15/2014 Constitutional No anorexia 02/22/2014 Constitutional No night sweats 2013 Constitutional No chills 02/22/2014 Constitutional No diaphoresis 02/22/2014 Constitutional No fever 02/22/2014 Constitutional No insomnia 02/22/2014 Eyes No eye discharge 02/22/2014 Eyes No eye erythema 02/22/2014 Ears/Nose/Throat/Neck No dizziness 2013 Ears/Nose/Throat/Neck No headache 2013 Respiratory No productive sputum 2013 Respiratory No chest congestion 2013 Respiratory No cough 02/22/2014 Gastrointestinal No abdominal pain 2013 Gastrointestinal No constipation 2013 Gastrointestinal No diarrhea 02/22/2014 Gastrointestinal No nausea 02/22/2014 Gastrointestinal No vomiting 02/22/2014 Genitourinary/Nephrology No dysuria 02/22 Dermatologic No rash 02/22/2014 Dermatologic No sores 02/22/2014 Neurologic No ataxia 02/22/2014 Neurologic No dizziness 02/22/2014 Psychiatric No anxiety 02/22/2014 Psychiatric No depression 02/22/2014 Constitutional No anorexia 11/23/2013 Constitutional No night sweats 2013 Constitutional No chills 11/23/2013 Constitutional No diaphoresis 11/23/2013 Constitutional No fever 11/23/2013 Constitutional No insomnia 11/23/2013 Eyes No eye discharge 11/23/2013 Eyes No eye erythema 11/23/2013 Ears/Nose/Throat/Neck No dizziness 2013 Ears/Nose/Throat/Neck No headache 2013 Respiratory No productive sputum 2013 Respiratory No chest congestion 2013 Respiratory No cough 11/23/2013 Gastrointestinal No abdominal pain 2013 Gastrointestinal No constipation 2013 Gastrointestinal No diarrhea 11/23/2013 Gastrointestinal No nausea 11/23/2013 Gastrointestinal No vomiting 11/23/2013 Genitourinary/Nephrology No dysuria 11/23 Dermatologic No rash 11/23/2013 Dermatologic No sores 11/23/2013 Neurologic No ataxia 11/23/2013 Neurologic No dizziness 11/23/2013 Neurologic pain, limb 11/23/2013 Psychiatric No anxiety 11/23/2013 Psychiatric No depression 11/23/2013 Constitutional No anorexia 08/24/2013 Constitutional No night sweats 2013 Constitutional No chills 08/24/2013 Constitutional No diaphoresis 08/24/2013 Constitutional No fever 08/24/2013 Constitutional No insomnia 08/24/2013 Eyes No eye discharge 08/24/2013 Eyes No eye erythema 08/24/2013 Ears/Nose/Throat/Neck No dizziness 2013 Ears/Nose/Throat/Neck No headache 2013 Respiratory No productive sputum 2013 Respiratory No chest congestion 2013 Respiratory No cough 08/24/2013 Gastrointestinal No abdominal pain 2013 Gastrointestinal No constipation 2013 Gastrointestinal No diarrhea 08/24/2013 Gastrointestinal No nausea 08/24/2013 Gastrointestinal No vomiting 08/24/2013 Genitourinary/Nephrology No dysuria 08/24 Dermatologic No rash 08/24/2013 Dermatologic No sores 08/24/2013 Constitutional No anorexia 05/25/2013 Constitutional No night sweats 2013 Constitutional No chills 05/25/2013 Constitutional No diaphoresis 05/25/2013 Constitutional No fever 05/25/2013 Constitutional No insomnia 05/25/2013 Eyes No eye discharge 05/25/2013 Eyes No eye erythema 05/25/2013 Ears/Nose/Throat/Neck No dizziness 2013 Ears/Nose/Throat/Neck No headache 2013 Respiratory No productive sputum 2013 Respiratory No chest congestion 2013 Respiratory No cough 05/25/2013 Gastrointestinal No abdominal pain 2013 Gastrointestinal No constipation 2013 Gastrointestinal No diarrhea 05/25/2013 Gastrointestinal No nausea 05/25/2013 Gastrointestinal No vomiting 05/25/2013 Genitourinary/Nephrology No dysuria 05/25 Dermatologic No rash 05/25/2013 Dermatologic No sores 05/25/2013 Constitutional No recent illness 2012 Constitutional No anorexia 02/18/2013 Constitutional No night sweats 2012 Constitutional No chills 02/18/2013 Constitutional No diaphoresis 02/18/2013 Constitutional No fatigue 02/18/2013 Constitutional No fever 02/18/2013 Constitutional No insomnia 02/18/2013 Constitutional No malaise 02/18/2013 Eyes No eye discharge 02/18/2013 Eyes No eye erythema 02/18/2013 Ears/Nose/Throat/Neck No dizziness 2012 Ears/Nose/Throat/Neck No headache 2012 Respiratory No productive sputum 2012 Respiratory No chest congestion 2012 Respiratory No cough 02/18/2013 Gastrointestinal No abdominal pain 2012 Gastrointestinal No constipation 2012 Gastrointestinal No diarrhea 02/18/2013 Gastrointestinal No nausea 02/18/2013 Gastrointestinal No vomiting 02/18/2013 Genitourinary/Nephrology No dysuria 02/18 Dermatologic No rash 02/18/2013 Dermatologic No sores 02/18/2013 Constitutional No recent illness 2012 Constitutional No anorexia 01/19/2013 Constitutional No night sweats 2012 Constitutional No chills 01/19/2013 Constitutional No diaphoresis 01/19/2013 Constitutional No fatigue 01/19/2013 Constitutional No fever 01/19/2013 Constitutional No insomnia 01/19/2013 Constitutional No malaise 01/19/2013 Eyes No eye discharge 01/19/2013 Eyes No eye erythema 01/19/2013 Ears/Nose/Throat/Neck No dizziness 2012 Ears/Nose/Throat/Neck No headache 2012 Respiratory No productive sputum 2012 Respiratory No chest congestion 2012 Respiratory No cough 01/19/2013 Gastrointestinal No abdominal pain 2012 Gastrointestinal No constipation 2012 Gastrointestinal No diarrhea 01/19/2013 Gastrointestinal No nausea 01/19/2013 Gastrointestinal No vomiting 01/19/2013 Genitourinary/Nephrology No dysuria 01/19 Dermatologic No rash 01/19/2013 Dermatologic No sores 01/19/2013 Constitutional No recent illness 2012 Constitutional No anorexia 12/16/2012 Constitutional No night sweats 2012 Constitutional No chills 12/16/2012 Constitutional No diaphoresis 12/16/2012 Constitutional No fatigue 12/16/2012 Constitutional No fever 12/16/2012 Constitutional No insomnia 12/16/2012 Constitutional No malaise 12/16/2012 Eyes No eye discharge 12/16/2012 Eyes No eye erythema 12/16/2012 Ears/Nose/Throat/Neck No dizziness 2012 Ears/Nose/Throat/Neck No headache 2012 Respiratory No productive sputum 2012 Respiratory No chest congestion 2012 Respiratory No cough 12/16/2012 Gastrointestinal No abdominal pain 2012 Gastrointestinal No constipation 2012 Gastrointestinal No diarrhea 12/16/2012 Gastrointestinal No nausea 12/16/2012 Gastrointestinal No vomiting 12/16/2012 Genitourinary/Nephrology No dysuria 12/16 Dermatologic No rash 12/16/2012 Dermatologic No sores 12/16/2012 Gastrointestinal No nausea 10/13/2012 Gastrointestinal No vomiting 10/13/2012 Genitourinary/Nephrology No dysuria 10/13 Musculoskeletal stiffness 10/13/2012 Musculoskeletal back pain 10/13/2012 Musculoskeletal joint complaint 2012 Musculoskeletal neck pain 10/13/2012 Dermatologic No rash 10/13/2012 Dermatologic No sores 10/13/2012 Constitutional No recent illness 2012 Constitutional No anorexia 10/13/2012 Constitutional No night sweats 2012 Constitutional No chills 10/13/2012 Constitutional No diaphoresis 10/13/2012 Constitutional No fatigue 10/13/2012 Constitutional No fever 10/13/2012 Constitutional No insomnia 10/13/2012 Constitutional No malaise 10/13/2012 Eyes No eye discharge 10/13/2012 Eyes No eye erythema 10/13/2012 Ears/Nose/Throat/Neck No dizziness 2012 Ears/Nose/Throat/Neck No headache 2012 Respiratory No productive sputum 2012 Respiratory No chest congestion 2012 Respiratory No cough 10/13/2012 Gastrointestinal No abdominal pain 2012 Gastrointestinal No constipation 2012 Gastrointestinal No diarrhea 10/13/2012 Constitutional No recent illness 2012 Constitutional No anorexia 08/25/2012 Constitutional No night sweats 2012 Constitutional No chills 08/25/2012 Constitutional No diaphoresis 08/25/2012 Constitutional No fatigue 08/25/2012 Constitutional No fever 08/25/2012 Constitutional No insomnia 08/25/2012 Constitutional No malaise 08/25/2012 Eyes No eye discharge 08/25/2012 Eyes No eye erythema 08/25/2012 Ears/Nose/Throat/Neck No dizziness 2012 Ears/Nose/Throat/Neck No headache 2012 Respiratory No productive sputum 2012 Respiratory No chest congestion 2012 Respiratory No cough 08/25/2012 Gastrointestinal No abdominal pain 2012 Gastrointestinal No constipation 2012 Gastrointestinal No diarrhea 08/25/2012 Gastrointestinal No nausea 08/25/2012 Gastrointestinal No vomiting 08/25/2012 Genitourinary/Nephrology No dysuria 08/25 Musculoskeletal stiffness 08/25/2012 Musculoskeletal back pain 08/25/2012 Musculoskeletal joint complaint 2012 Musculoskeletal neck pain 08/25/2012 Dermatologic No rash 08/25/2012 Dermatologic No sores 08/25/2012 Constitutional No recent illness 2012 Constitutional No anorexia 06/23/2012 Constitutional No night sweats 2012 Constitutional No chills 06/23/2012 Constitutional No diaphoresis 06/23/2012 Constitutional No fatigue 06/23/2012 Constitutional No fever 06/23/2012 Constitutional No insomnia 06/23/2012 Constitutional No malaise 06/23/2012 Eyes No eye discharge 06/23/2012 Eyes No eye erythema 06/23/2012 Ears/Nose/Throat/Neck No dizziness 2012 Ears/Nose/Throat/Neck No headache 2012 Respiratory No productive sputum 2012 Respiratory No chest congestion 2012 Respiratory No cough 06/23/2012 Gastrointestinal No abdominal pain 2012 Gastrointestinal No constipation 2012 Gastrointestinal No diarrhea 06/23/2012 Gastrointestinal No nausea 06/23/2012 Gastrointestinal No vomiting 06/23/2012 Genitourinary/Nephrology No dysuria 06/23 Musculoskeletal stiffness 06/23/2012 Musculoskeletal back pain 06/23/2012 Musculoskeletal neck pain 06/23/2012 Dermatologic No rash 06/23/2012 Dermatologic No sores 06/23/2012 Musculoskeletal joint complaint 2012 Constitutional No recent illness 2012 Constitutional No anorexia 05/22/2012 Constitutional No night sweats 2012 Constitutional No chills 05/22/2012 Constitutional No diaphoresis 05/22/2012 Constitutional No fatigue 05/22/2012 Constitutional No fever 05/22/2012 Constitutional No insomnia 05/22/2012 Constitutional No malaise 05/22/2012 Eyes No eye discharge 05/22/2012 Eyes No eye erythema 05/22/2012 Ears/Nose/Throat/Neck No dizziness 2012 Ears/Nose/Throat/Neck No headache 2012 Respiratory No productive sputum 2012 Respiratory No chest congestion 2012 Respiratory No cough 05/22/2012 Gastrointestinal No abdominal pain 2012 Gastrointestinal No constipation 2012 Gastrointestinal No diarrhea 05/22/2012 Gastrointestinal No nausea 05/22/2012 Gastrointestinal No vomiting 05/22/2012 Genitourinary/Nephrology No dysuria 05/22 Musculoskeletal stiffness 05/22/2012 Musculoskeletal back pain 05/22/2012 Musculoskeletal neck pain 05/22/2012 Dermatologic No rash 05/22/2012 Dermatologic No sores 05/22/2012 Constitutional No recent illness 2011 Constitutional No anorexia 04/16/2012 Constitutional No night sweats 2011 Constitutional No chills 04/16/2012 Constitutional No diaphoresis 04/16/2012 Constitutional No fatigue 04/16/2012 Constitutional No fever 04/16/2012 Constitutional No insomnia 04/16/2012 Constitutional No malaise 04/16/2012 Eyes No eye discharge 04/16/2012 Eyes No eye erythema 04/16/2012 Ears/Nose/Throat/Neck No dizziness 2011 Ears/Nose/Throat/Neck No headache 2011 Respiratory No productive sputum 2011 Respiratory No chest congestion 2011 Respiratory No cough 04/16/2012 Gastrointestinal No abdominal pain 2011 Gastrointestinal No nausea 04/16/2012 Gastrointestinal No vomiting 04/16/2012 Gastrointestinal No constipation 2011 Gastrointestinal No diarrhea 04/16/2012 Genitourinary/Nephrology No dysuria 04/16 Musculoskeletal stiffness 04/16/2012 Musculoskeletal back pain 04/16/2012 Musculoskeletal neck pain 04/16/2012 Dermatologic No rash 04/16/2012 Dermatologic No sores 04/16/2012 Constitutional No fever 03/04/2012 Ears/Nose/Throat/Neck No dizziness 2011 Ears/Nose/Throat/Neck No headache 2011 Respiratory No chest congestion 2011 Respiratory No chest tightness 2011 Respiratory No cough 03/04/2012 Respiratory dyspnea on exertion 2011 Gastrointestinal No nausea 03/04/2012 Gastrointestinal No vomiting 03/04/2012 Musculoskeletal stiffness 03/04/2012 Musculoskeletal arthralgia(s) 03/04/2012 Musculoskeletal No muscle weakness 2011 Musculoskeletal No myalgias 03/04/2012 Dermatologic No rash 03/04/2012 Dermatologic No sores 03/04/2012 Neurologic No ataxia 03/04/2012 Neurologic No dizziness 03/04/2012 Psychiatric No anxiety 03/04/2012 Psychiatric No depression 03/04/2012 Constitutional No fever 12/04/2011 Ears/Nose/Throat/Neck No dizziness 2011 Ears/Nose/Throat/Neck No headache 2011 Respiratory No chest congestion 2011 Respiratory No chest tightness 2011 Respiratory No cough 12/04/2011 Respiratory dyspnea on exertion 2011 Gastrointestinal No nausea 12/04/2011 Gastrointestinal No vomiting 12/04/2011 Musculoskeletal stiffness 12/04/2011 Musculoskeletal arthralgia(s) 12/04/2011 Musculoskeletal No muscle weakness 2011 Musculoskeletal No myalgias 12/04/2011 Dermatologic No rash 12/04/2011 Dermatologic No sores 12/04/2011 Psychiatric No anxiety 12/04/2011 Psychiatric No depression 12/04/2011 Neurologic No dizziness 12/04/2011 Neurologic No ataxia 12/04/2011 Constitutional No fever 10/01/2011 Ears/Nose/Throat/Neck No dizziness 2011 Ears/Nose/Throat/Neck No headache 2011 Respiratory No chest congestion 2011 Respiratory No chest tightness 2011 Respiratory No cough 10/01/2011 Respiratory dyspnea on exertion 2011 Gastrointestinal No nausea 10/01/2011 Gastrointestinal No vomiting 10/01/2011 Musculoskeletal stiffness 10/01/2011 Musculoskeletal arthralgia(s) 10/01/2011 Musculoskeletal No muscle weakness 2011 Musculoskeletal No myalgias 10/01/2011 Dermatologic No rash 10/01/2011 Dermatologic No sores 10/01/2011 Psychiatric No anxiety 10/01/2011 Psychiatric No depression 10/01/2011 Constitutional No fever 08/14/2011 Ears/Nose/Throat/Neck No dizziness 2011 Ears/Nose/Throat/Neck No headache 2011 Respiratory No chest congestion 2011 Respiratory No chest tightness 2011 Respiratory No cough 08/14/2011 Respiratory dyspnea on exertion 2011 Gastrointestinal No nausea 08/14/2011 Gastrointestinal No vomiting 08/14/2011 Musculoskeletal stiffness 08/14/2011 Musculoskeletal arthralgia(s) 08/14/2011 Musculoskeletal No muscle weakness 2011 Musculoskeletal No myalgias 08/14/2011 Dermatologic No rash 08/14/2011 Dermatologic No sores 08/14/2011 Psychiatric No anxiety 08/14/2011 Psychiatric No depression 08/14/2011 Constitutional fatigue 07/09/2011 Constitutional No fever 07/09/2011 Constitutional No chills 07/09/2011 Constitutional No night sweats 2011 Eyes No vision change 07/09/2011 Ears/Nose/Throat/Neck nasal allergies Ears/Nose/Throat/Neck nasal discharge Ears/Nose/Throat/Neck nasal pain 2011 Cardiovascular No chest pain/pressure Cardiovascular dyspnea 07/09/2011 Cardiovascular edema 07/09/2011 Cardiovascular No palpitations 2011 Respiratory cough 07/09/2011 Respiratory No cigarette smoking 2011 Respiratory pedal edema 07/09/2011 Respiratory dyspnea 07/09/2011 Respiratory dyspnea on exertion 2011 Respiratory daytime hypersomnolence 07/09 Neurologic gait abnormality 07/09/2011 Neurologic No dizziness 07/09/2011 Neurologic No headache 07/09/2011 Endocrine No diabetes mellitus type 2 Respiratory orthopnea 07/09/2011 Cardiovascular exercise intolerance 07/09 Cardiovascular fatigue 07/09/2011 Cardiovascular orthopnea 07/09/2011 Cardiovascular paroxysmal nocturnal dyspnea 07/09/2011 Gastrointestinal No abdominal pain 2011 Gastrointestinal No constipation 2011 Gastrointestinal No diarrhea 07/09/2011 Gastrointestinal No gastroesophageal reflux 07/09/2011 Gastrointestinal No nausea 07/09/2011 Gastrointestinal No vomiting 07/09/2011 Genitourinary/Nephrology No hematuria Genitourinary/Nephrology No flank pain Genitourinary/Nephrology No dysuria 07/09 Musculoskeletal stiffness 07/09/2011 Musculoskeletal swelling 07/09/2011 Musculoskeletal arthralgia(s) 07/09/2011 Musculoskeletal back pain 07/09/2011 Musculoskeletal No muscle weakness 2011 Musculoskeletal neck pain 07/09/2011 Musculoskeletal shoulder pain 07/09/2011 Dermatologic No rash 07/09/2011 Dermatologic No sores 07/09/2011 Dermatologic No mole change 07/09/2011 Neurologic No dyskinesia or tremor 2011 Constitutional No fever 05/08/2011 Cardiovascular No chest pain/pressure Gastrointestinal No nausea 05/08/2011 Gastrointestinal No vomiting 05/08/2011 Ears/Nose/Throat/Neck No dizziness 2010 Ears/Nose/Throat/Neck No headache 2010 Dermatologic No rash 05/08/2011 Dermatologic No sores 05/08/2011 Musculoskeletal stiffness 05/08/2011 Musculoskeletal arthralgia(s) 05/08/2011 Musculoskeletal No myalgias 05/08/2011 Musculoskeletal No muscle weakness 2010 Psychiatric No anxiety 05/08/2011 Psychiatric No depression 05/08/2011 Respiratory No cough 05/08/2011 Respiratory No chest congestion 2010 Respiratory No chest tightness 2010 Respiratory dyspnea on exertion 2010 Constitutional No night sweats 2010 Constitutional No chills 01/11/2011 Constitutional No fatigue 01/11/2011 Constitutional No fever 01/11/2011 Constitutional diaphoresis 01/11/2011 Eyes No vision change 01/11/2011 Ears/Nose/Throat/Neck No dizziness 2010 Ears/Nose/Throat/Neck No headache 2010 Cardiovascular No chest pain/pressure 05/2010 Cardiovascular dyspnea 01/11/2011 Cardiovascular No edema 01/11/2011 Cardiovascular exercise intolerance 01/11 Cardiovascular No fatigue 01/11/2011 Cardiovascular No palpitations 2010 Respiratory No chest congestion 2010 Respiratory No chest tightness 2010 Respiratory No cough 01/11/2011 Gastrointestinal No abdominal pain 2010 Gastrointestinal No anorexia 01/11/2011 Gastrointestinal No constipation 2010 Gastrointestinal No diarrhea 01/11/2011 Gastrointestinal No dyspepsia 01/11/2011 Genitourinary/Nephrology urinary incontinence 01/11/2011 Musculoskeletal joint complaint 2010 Neurologic No ataxia 01/11/2011 Neurologic No dizziness 01/11/2011 Dermatologic No rash 01/11/2011 Dermatologic No sores 01/11/2011 Psychiatric No anxiety 01/11/2011 Psychiatric No depression 01/11/2011 Physical Exam Exam Name System Name Item Name Status Result Effective Dates Notes Full Exam - General 1994 Constitutional general appearance Overall: well developed 02/12/2018 None Full Exam - General 1994 Constitutional general appearance Overall: in no acute distress 02/12/2018 None Full Exam - General 1994 Constitutional general appearance Overall: well nourished 02/12/2018 None Full Exam - General 1994 Eyes conjunctiva /eyelids Overall: conjunctiva clear 02/12/2018 None Full Exam - General 1994 Eyes conjunctiva /eyelids Overall: eyelids normal 02/12/2018 None Full Exam - General 1994 Ears/Nose/Throat lips/teeth/gingiva Overall: benign lips 02/12/2018 None Full Exam - General 1994 Respiratory respiratory effort/rhythm Overall: no retractions 02/12/2018 None Full Exam - General 1994 Respiratory respiratory effort/rhythm Overall: normal rate 02/12/2018 None Full Exam - General 1994 Musculoskeletal head and neck Overall: head atraumatic 02/12/2018 None Full Exam - General 1994 Neurologic cranial nerves Overall: crainial nerves 2 - 12 grossly intact 02/12/2018 None Full Exam - General 1994 Psychiatric orientation/consciousness Overall: oriented to person, place and time 02/12/2018 None Full Exam - General 1994 Psychiatric mood and affect Overall: normal mood and affect 02/12/2018 None Full Exam - General 1994 Psychiatric appearance Overall: well-groomed, good eye contact 02/12/2018 None Full Exam - General 1994 Constitutional general appearance Overall: well developed 01/15/2018 None Full Exam - General 1994 Constitutional general appearance Overall: in no acute distress 01/15/2018 None Full Exam - General 1994 Constitutional general appearance Overall: well nourished 01/15/2018 None Full Exam - General 1994 Constitutional general appearance Assistive Device: wheelchair 01/15/2018 None Full Exam - General 1994 Eyes pupils and irises Overall: pupils equal, round, reactive to light and accomodation 01/15/2018 None Full Exam - General 1994 Ears/Nose/Throat oral cavity/pharynx/larynx Overall: oral mucosa clear 01/15/2018 None Full Exam - General 1994 Respiratory respiratory effort/rhythm Overall: no retractions 01/15/2018 None Full Exam - General 1994 Respiratory respiratory effort/rhythm Overall: normal rate 01/15/2018 None Full Exam - General 1994 Cardiovascular extremities Overall: no clubbing 01/15/2018 None Full Exam - General 1994 Cardiovascular extremities Edema present: pitting 01/15/2018 None Full Exam - General 1994 Cardiovascular auscultation of heart Rhythm: irregularly irregular rhythm 01/15/2018 None Full Exam - General 1994 Cardiovascular auscultation of heart Murmur: previously known murmur changed 01/15/2018 None Full Exam - General 1994 Cardiovascular auscultation of heart Systolic murmur grade: II/ 01/15/2018 None Full Exam - General 1994 Musculoskeletal head and neck Overall: head atraumatic 01/15/2018 None Full Exam - General 1994 Musculoskeletal head and neck Deformities: head tilt 01/15/2018 tilted to right Full Exam - General 1994 Psychiatric orientation/consciousness Overall: oriented to person, place and time 01/15/2018 None Full Exam - General 1994 Psychiatric mood and affect Overall: normal mood and affect 01/15/2018 None Full Exam - General 1994 Eyes conjunctiva /eyelids Overall: conjunctiva clear 01/15/2018 None Full Exam - General 1994 Eyes conjunctiva /eyelids Overall: cornea clear 01/15/2018 None Full Exam - General 1994 Eyes conjunctiva /eyelids Overall: eyelids normal 01/15/2018 None Full Exam - General 1994 Ears/Nose/Throat lips/teeth/gingiva Overall: benign lips 01/15/2018 None Full Exam - General 1994 Ears/Nose/Throat internal nose Nasal cavity: ulceration 01/15/2018 small Full Exam - General 1994 Respiratory auscultation Diffuse: diminished 01/15/2018 None Full Exam - General 1994 Integument inspection of skin Location: right hand 01/15/2018 ecchymosis Full Exam - General 1994 Psychiatric appearance Overall: well-groomed, good eye contact 01/15/2018 None Full Exam - ENT Constitutional general appearance Overall: well nourished 01/09/2018 None Full Exam - ENT Constitutional general appearance Overall: well developed 01/09/2018 None Full Exam - ENT Constitutional general appearance Overall: in no acute distress 01/09/2018 None Full Exam - ENT Ears/Nose/Throat otoscopic exam Overall: external auditory canals normal 01/09/2018 None Full Exam - ENT Ears/Nose/Throat otoscopic exam Left tympanic membrane: air -fluid level 01/09/2018 None Full Exam - ENT Ears/Nose/Throat otoscopic exam Right tympanic membrane: air-fluid level 01/09/2018 None Full Exam - ENT Ears/Nose/Throat nasal mucosa, septum, turbinates Drainage: clear 01/09/2018 None Full Exam - ENT Ears/Nose/Throat nasal mucosa, septum, turbinates Drainage: yellow 01/09/2018 None Full Exam - ENT Ears/Nose/Throat lips/ teeth/gingiva Overall: benign lips 01/09/2018 None Full Exam - ENT Ears/Nose/Throat oropharynx Posterior Pharynx: clear post nasal drainage 01/09/2018 None Full Exam - ENT Face and Head palpation Left maxillary sinus: tender 01/09/2018 None Full Exam - ENT Face and Head palpation Right maxillary sinus: tender 01/09/2018 None Full Exam - ENT Respiratory inspection Overall: no retractions 01/09/2018 None Full Exam - ENT Respiratory inspection Overall: normal rate None Full Exam - ENT Respiratory auscultation Overall: breath sounds clear bilaterally 01/09/2018 None Full Exam - ENT Lymphatic palpation of lymph nodes Overall: anterior cervical chain benign 01/09/2018 None Full Exam - ENT Lymphatic palpation of lymph nodes Overall: posterior cervical chain benign 01/09/2018 None Full Exam - ENT Neurologic mood and affect Overall: normal mood 01/09/2018 None Full Exam - ENT Neurologic mood and affect Overall: normal affect 01/09/2018 None Full Exam - ENT Neurologic orientation Overall: oriented to person, place and time 01/09/2018 None Full Exam - ENT Cardiovascular auscultation of heart Murmur: previously known murmur unchanged 01/09/2018 None Full Exam - ENT Cardiovascular auscultation of heart Systolic murmur grade: II/ 01/09/2018 None Full Exam - ENT Musculoskeletal head and neck Deformities: head tilt 01/09/2018 to the right Full Exam - General 1994 Constitutional general appearance Overall: well developed 11/12/2017 None Full Exam - General 1994 Constitutional general appearance Overall: in no acute distress 11/12/2017 None Full Exam - General 1994 Constitutional general appearance Overall: well nourished 11/12/2017 None Full Exam - General 1994 Constitutional general appearance Assistive Device: wheelchair 11/12/2017 None Full Exam - General 1994 Eyes pupils and irises Overall: pupils equal, round, reactive to light and accomodation 11/12/2017 None Full Exam - General 1994 Ears/Nose/Throat otoscopic exam Overall: external auditory canals clear 11/12/2017 None Full Exam - General 1994 Ears/Nose/Throat otoscopic exam Overall: tympanic membranes clear 11/12/2017 None Full Exam - General 1994 Ears/Nose/Throat oral cavity/pharynx/larynx Overall: oral mucosa clear 11/12/2017 None Full Exam - General 1994 Ears/Nose/Throat oral cavity/pharynx/larynx Overall: oropharyngeal mucosa clear 11/12/2017 None Full Exam - General 1995 Ears/Nose/Throat oral cavity/pharynx/larynx Overall: no masses 11/12/2017 None Full Exam - General 1994 Respiratory auscultation Lower lung field: crackles 11/12/2017 None Full Exam - General 1994 Respiratory respiratory effort/rhythm Overall: no retractions 11/12/2017 None Full Exam - General 1994 Respiratory respiratory effort/rhythm Overall: normal rate 11/12/2017 None Full Exam - General 1994 Cardiovascular extremities Overall: no clubbing 11/12/2017 None Full Exam - General 1994 Cardiovascular extremities Edema present: pitting 11/12/2017 None Full Exam - General 1994 Cardiovascular auscultation of heart Rhythm: irregularly irregular rhythm 11/12/2017 None Full Exam - General 1994 Cardiovascular auscultation of heart Murmur: previously known murmur changed 11/12/2017 None Full Exam - General 1994 Cardiovascular auscultation of heart Systolic murmur grade: II/ 11/12/2017 None Full Exam - General 1994 Musculoskeletal head and neck Overall: head atraumatic 11/12/2017 None Full Exam - General 1994 Musculoskeletal head and neck Deformities: head tilt 11/12/2017 tilted to right Full Exam - General 1994 Neurologic gait Conventional walking: wide-based 11/12/2017 None Full Exam - General 1994 Psychiatric orientation/consciousness Overall: oriented to person, place and time 11/12/2017 None Full Exam - General 1994 Psychiatric mood and affect Overall: normal mood and affect 11/12/2017 None Full Exam - General 1994 Integument inspection of skin Rash/Lesions: macule 11/12/2017 on lower abdomen - irritated seborrheic keratosis on left neck, left mid abdomen and left lateral flank Full Exam - General 1994 Constitutional general appearance Overall: well developed 08/14/2017 None Full Exam - General 1994 Constitutional general appearance Overall: in no acute distress 08/14/2017 None Full Exam - General 1994 Constitutional general appearance Overall: well nourished 08/14/2017 None Full Exam - General 1994 Constitutional general appearance Assistive Device: wheelchair 08/14/2017 None Full Exam - General 1994 Eyes pupils and irises Overall: pupils equal, round, reactive to light and accomodation 08/14/2017 None Full Exam - General 1994 Ears/Nose/Throat otoscopic exam Overall: external auditory canals clear 08/14/2017 None Full Exam - General 1994 Ears/Nose/Throat otoscopic exam Overall: tympanic membranes clear 08/14/2017 None Full Exam - General 1994 Ears/Nose/Throat oral cavity/pharynx/larynx Overall: oral mucosa clear 08/14/2017 None Full Exam - General 1994 Ears/Nose/Throat oral cavity/pharynx/larynx Overall: oropharyngeal mucosa clear 08/14/2017 None Full Exam - General 1994 Ears/Nose/Throat oral cavity/pharynx/larynx Overall: no masses 08/14/2017 None Full Exam - General 1994 Respiratory auscultation Lower lung field: crackles 08/14/2017 None Full Exam - General 1994 Respiratory respiratory effort/rhythm Overall: no retractions 08/14/2017 None Full Exam - General 1994 Respiratory respiratory effort/rhythm Overall: normal rate 08/14/2017 None Full Exam - General 1994 Cardiovascular extremities Overall: no clubbing 08/14/2017 None Full Exam - General 1994 Cardiovascular extremities Edema present: pitting 08/14/2017 None Full Exam - General 1994 Cardiovascular auscultation of heart Rhythm: irregularly irregular rhythm 08/14/2017 None Full Exam - General 1994 Cardiovascular auscultation of heart Murmur: previously known murmur changed 08/14/2017 None Full Exam - General 1994 Cardiovascular auscultation of heart Systolic murmur grade: II/ 08/14/2017 None Full Exam - General 1994 Abdomen abdominal exam Overall: no tenderness 08/14/2017 None Full Exam - General 1994 Abdomen abdominal exam Overall: normal bowel sounds 08/14/2017 None Full Exam - General 1994 Musculoskeletal head and neck Overall: head atraumatic 08/14/2017 None Full Exam - General 1994 Musculoskeletal head and neck Deformities: head tilt 08/14/2017 tilted to right Full Exam - General 1994 Integument inspection of skin Location: left leg 08/14/2017 erythema of left lower leg with bruising Full Exam - General 1994 Integument inspection of skin Location: right leg 08/14/2017 None Full Exam - General 1994 Integument inspection of skin Rash/Lesions: ulceration 08/14/2017 healing - good granulation tissue right lower leg Full Exam - General 1994 Neurologic gait Conventional walking: wide-based 08/14/2017 None Full Exam - General 1994 Psychiatric orientation/consciousness Overall: oriented to person, place and time 08/14/2017 None Full Exam - General 1994 Psychiatric mood and affect Overall: normal mood and affect 08/14/2017 None Full Exam - General 1994 Constitutional general appearance Overall: well developed 05/14/2017 None Full Exam - General 1994 Constitutional general appearance Overall: in no acute distress 05/14/2017 None Full Exam - General 1994 Constitutional general appearance Overall: well nourished 05/14/2017 None Full Exam - General 1994 Constitutional general appearance Assistive Device: wheelchair 05/14/2017 None Full Exam - General 1994 Eyes pupils and irises Overall: pupils equal, round, reactive to light and accomodation 05/14/2017 None Full Exam - General 1994 Ears/Nose/Throat otoscopic exam Overall: external auditory canals clear 05/14/2017 None Full Exam - General 1994 Ears/Nose/Throat otoscopic exam Overall: tympanic membranes clear 05/14/2017 None Full Exam - General 1994 Ears/Nose/Throat oral cavity/pharynx/larynx Overall: oral mucosa clear 05/14/2017 None Full Exam - General 1994 Ears/Nose/Throat oral cavity/pharynx/larynx Overall: oropharyngeal mucosa clear 05/14/2017 None Full Exam - General 1995 Ears/Nose/Throat oral cavity/pharynx/larynx Overall: no masses 05/14/2017 None Full Exam - General 1994 Respiratory auscultation Lower lung field: crackles 05/14/2017 None Full Exam - General 1994 Respiratory respiratory effort/rhythm Overall: no retractions 05/14/2017 None Full Exam - General 1994 Respiratory respiratory effort/rhythm Overall: normal rate 05/14/2017 None Full Exam - General 1994 Cardiovascular extremities Overall: no clubbing 05/14/2017 None Full Exam - General 1994 Cardiovascular auscultation of heart Rhythm: irregularly irregular rhythm 05/14/2017 None Full Exam - General 1994 Cardiovascular auscultation of heart Murmur: previously known murmur changed 05/14/2017 None Full Exam - General 1994 Cardiovascular auscultation of heart Systolic murmur grade: II/ 05/14/2017 None Full Exam - General 1994 Abdomen abdominal exam Overall: no tenderness 05/14/2017 None Full Exam - General 1994 Abdomen abdominal exam Overall: normal bowel sounds 05/14/2017 None Full Exam - General 1994 Musculoskeletal head and neck Overall: head atraumatic 05/14/2017 None Full Exam - General 1994 Musculoskeletal head and neck Deformities: head tilt 05/14/2017 tilted to right Full Exam - General 1994 Neurologic gait Conventional walking: wide-based 05/14/2017 None Full Exam - General 1994 Psychiatric orientation/consciousness Overall: oriented to person, place and time 05/14/2017 None Full Exam - General 1994 Psychiatric mood and affect Overall: normal mood and affect 05/14/2017 None Full Exam - General 1994 Cardiovascular extremities Edema present: pitting 05/14/2017 3+ pitting bilateral lower extremities Full Exam - General 1994 Constitutional general appearance Overall: well developed 04/15/2017 None Full Exam - General 1994 Constitutional general appearance Overall: in no acute distress 04/15/2017 None Full Exam - General 1994 Constitutional general appearance Overall: well nourished 04/15/2017 None Full Exam - General 1994 Constitutional general appearance Assistive Device: wheelchair 04/15/2017 None Full Exam - General 1994 Eyes pupils and irises Overall: pupils equal, round, reactive to light and accomodation 04/15/2017 None Full Exam - General 1994 Ears/Nose/Throat otoscopic exam Overall: external auditory canals clear 04/15/2017 None Full Exam - General 1994 Ears/Nose/Throat otoscopic exam Overall: tympanic membranes clear 04/15/2017 None Full Exam - General 1994 Ears/Nose/Throat oral cavity/pharynx/larynx Overall: oral mucosa clear 04/15/2017 None Full Exam - General 1994 Ears/Nose/Throat oral cavity/pharynx/larynx Overall: oropharyngeal mucosa clear 04/15/2017 None Full Exam - General 1994 Ears/Nose/Throat oral cavity/pharynx/larynx Overall: no masses 04/15/2017 None Full Exam - General 1994 Respiratory auscultation Lower lung field: crackles 04/15/2017 None Full Exam - General 1994 Respiratory respiratory effort/rhythm Overall: no retractions 04/15/2017 None Full Exam - General 1994 Respiratory respiratory effort/rhythm Overall: normal rate 04/15/2017 None Full Exam - General 1994 Cardiovascular extremities Overall: no clubbing 04/15/2017 None Full Exam - General 1994 Cardiovascular extremities Edema present: pitting 04/15/2017 None Full Exam - General 1994 Cardiovascular auscultation of heart Rhythm: irregularly irregular rhythm 04/15/2017 None Full Exam - General 1994 Cardiovascular auscultation of heart Murmur: previously known murmur changed 04/15/2017 None Full Exam - General 1994 Cardiovascular auscultation of heart Systolic murmur grade: II/ 04/15/2017 None Full Exam - General 1994 Abdomen abdominal exam Overall: no tenderness 04/15/2017 None Full Exam - General 1994 Abdomen abdominal exam Overall: normal bowel sounds 04/15/2017 None Full Exam - General 1994 Musculoskeletal head and neck Overall: head atraumatic 04/15/2017 None Full Exam - General 1994 Musculoskeletal head and neck Deformities: head tilt 04/15/2017 tilted to right Full Exam - General 1994 Integument inspection of skin Location: left leg 04/15/2017 erythema of left lower leg with bruising Full Exam - General 1994 Integument inspection of skin Location: right leg 04/15/2017 None Full Exam - General 1994 Integument inspection of skin Rash/Lesions: ulceration 04/15/2017 healing - good granulation tissue right lower leg Full Exam - General 1994 Neurologic gait Conventional walking: wide-based 04/15/2017 None Full Exam - General 1994 Psychiatric orientation/consciousness Overall: oriented to person, place and time 04/15/2017 None Full Exam - General 1994 Psychiatric mood and affect Overall: normal mood and affect 04/15/2017 None Full Exam - General 1994 Constitutional general appearance Overall: well developed 03/25/2017 None Full Exam - General 1994 Constitutional general appearance Overall: in no acute distress 03/25/2017 None Full Exam - General 1994 Constitutional general appearance Overall: well nourished 03/25/2017 None Full Exam - General 1994 Constitutional general appearance Assistive Device: wheelchair 03/25/2017 None Full Exam - General 1994 Eyes pupils and irises Overall: pupils equal, round, reactive to light and accomodation 03/25/2017 None Full Exam - General 1994 Ears/Nose/Throat otoscopic exam Overall: external auditory canals clear 03/25/2017 None Full Exam - General 1994 Ears/Nose/Throat otoscopic exam Overall: tympanic membranes clear 03/25/2017 None Full Exam - General 1994 Ears/Nose/Throat oral cavity/pharynx/larynx Overall: oral mucosa clear 03/25/2017 None Full Exam - General 1994 Ears/Nose/Throat oral cavity/pharynx/larynx Overall: oropharyngeal mucosa clear 03/25/2017 None Full Exam - General 1994 Ears/Nose/Throat oral cavity/pharynx/larynx Overall: no masses 03/25/2017 None Full Exam - General 1994 Respiratory auscultation Lower lung field: crackles 03/25/2017 None Full Exam - General 1994 Respiratory respiratory effort/rhythm Overall: no retractions 03/25/2017 None Full Exam - General 1994 Respiratory respiratory effort/rhythm Overall: normal rate 03/25/2017 None Full Exam - General 1994 Cardiovascular extremities Overall: no clubbing 03/25/2017 None Full Exam - General 1994 Cardiovascular extremities Edema present: pitting 03/25/2017 None Full Exam - General 1994 Cardiovascular auscultation of heart Rhythm: irregularly irregular rhythm 03/25/2017 None Full Exam - General 1994 Cardiovascular auscultation of heart Murmur: previously known murmur changed 03/25/2017 None Full Exam - General 1994 Cardiovascular auscultation of heart Systolic murmur grade: II/ 03/25/2017 None Full Exam - General 1994 Abdomen abdominal exam Overall: no tenderness 03/25/2017 None Full Exam - General 1994 Abdomen abdominal exam Overall: normal bowel sounds 03/25/2017 None Full Exam - General 1994 Musculoskeletal head and neck Overall: head atraumatic 03/25/2017 None Full Exam - General 1994 Musculoskeletal head and neck Deformities: head tilt 03/25/2017 tilted to right Full Exam - General 1994 Integument inspection of skin Location: left leg 03/25/2017 erythema of left lower leg with bruising Full Exam - General 1994 Integument inspection of skin Location: right leg 03/25/2017 None Full Exam - General 1994 Integument inspection of skin Rash/Lesions: ulceration 03/25/2017 healing - good granulation tissue right lower leg Full Exam - General 1994 Neurologic gait Conventional walking: wide-based 03/25/2017 None Full Exam - General 1994 Psychiatric orientation/consciousness Overall: oriented to person, place and time 03/25/2017 None Full Exam - General 1994 Psychiatric mood and affect Overall: normal mood and affect 03/25/2017 None Full Exam - General 1994 Constitutional general appearance Overall: well developed 12/28/2016 None Full Exam - General 1994 Constitutional general appearance Overall: in no acute distress 12/28/2016 None Full Exam - General 1994 Constitutional general appearance Overall: well nourished 12/28/2016 None Full Exam - General 1994 Constitutional general appearance Assistive Device: wheelchair 12/28/2016 None Full Exam - General 1994 Eyes pupils and irises Overall: pupils equal, round, reactive to light and accomodation 12/28/2016 None Full Exam - General 1994 Ears/Nose/Throat otoscopic exam Overall: external auditory canals clear 12/28/2016 None Full Exam - General 1994 Ears/Nose/Throat otoscopic exam Overall: tympanic membranes clear 12/28/2016 None Full Exam - General 1994 Ears/Nose/Throat oral cavity/pharynx/larynx Overall: oral mucosa clear 12/28/2016 None Full Exam - General 1994 Ears/Nose/Throat oral cavity/pharynx/larynx Overall: oropharyngeal mucosa clear 12/28/2016 None Full Exam - General 1994 Ears/Nose/Throat oral cavity/pharynx/larynx Overall: no masses 12/28/2016 None Full Exam - General 1994 Respiratory respiratory effort/rhythm Overall: no retractions 12/28/2016 None Full Exam - General 1994 Respiratory respiratory effort/rhythm Overall: normal rate 12/28/2016 None Full Exam - General 1994 Cardiovascular extremities Overall: no clubbing 12/28/2016 None Full Exam - General 1994 Cardiovascular extremities Edema present: pitting 12/28/2016 None Full Exam - General 1994 Cardiovascular auscultation of heart Rhythm: irregularly irregular rhythm 12/28/2016 None Full Exam - General 1994 Cardiovascular auscultation of heart Murmur: previously known murmur changed 12/28/2016 None Full Exam - General 1994 Cardiovascular auscultation of heart Systolic murmur grade: II/ 12/28/2016 None Full Exam - General 1994 Abdomen abdominal exam Overall: no tenderness 12/28/2016 None Full Exam - General 1994 Abdomen abdominal exam Overall: normal bowel sounds 12/28/2016 None Full Exam - General 1994 Musculoskeletal head and neck Overall: head atraumatic 12/28/2016 None Full Exam - General 1994 Musculoskeletal head and neck Deformities: head tilt 12/28/2016 tilted to right Full Exam - General 1994 Neurologic gait Conventional walking: wide-based 12/28/2016 None Full Exam - General 1994 Psychiatric orientation/consciousness Overall: oriented to person, place and time 12/28/2016 None Full Exam - General 1994 Psychiatric mood and affect Overall: normal mood and affect 12/28/2016 None Full Exam - General 1994 Respiratory auscultation Overall: breath sounds clear bilaterally 12/28/2016 None Full Exam - General 1994 Constitutional general appearance Overall: well developed 12/21/2016 None Full Exam - General 1994 Constitutional general appearance Overall: in no acute distress 12/21/2016 None Full Exam - General 1994 Constitutional general appearance Overall: well nourished 12/21/2016 None Full Exam - General 1994 Constitutional general appearance Assistive Device: wheelchair 12/21/2016 None Full Exam - General 1994 Eyes pupils and irises Overall: pupils equal, round, reactive to light and accomodation 12/21/2016 None Full Exam - General 1994 Ears/Nose/Throat otoscopic exam Overall: external auditory canals clear 12/21/2016 None Full Exam - General 1994 Ears/Nose/Throat otoscopic exam Overall: tympanic membranes clear 12/21/2016 None Full Exam - General 1994 Ears/Nose/Throat oral cavity/pharynx/larynx Overall: oral mucosa clear 12/21/2016 None Full Exam - General 1994 Ears/Nose/Throat oral cavity/pharynx/larynx Overall: oropharyngeal mucosa clear 12/21/2016 None Full Exam - General 1994 Ears/Nose/Throat oral cavity/pharynx/larynx Overall: no masses 12/21/2016 None Full Exam - General 1994 Respiratory respiratory effort/rhythm Overall: no retractions 12/21/2016 None Full Exam - General 1994 Cardiovascular extremities Overall: no clubbing 12/21/2016 None Full Exam - General 1994 Cardiovascular extremities Edema present: pitting 12/21/2016 None Full Exam - General 1994 Cardiovascular auscultation of heart Rhythm: irregularly irregular rhythm 12/21/2016 None Full Exam - General 1994 Cardiovascular auscultation of heart Murmur: previously known murmur changed 12/21/2016 None Full Exam - General 1994 Cardiovascular auscultation of heart Systolic murmur grade: II/ 12/21/2016 None Full Exam - General 1994 Abdomen abdominal exam Overall: no tenderness 12/21/2016 None Full Exam - General 1994 Abdomen abdominal exam Overall: normal bowel sounds 12/21/2016 None Full Exam - General 1994 Musculoskeletal head and neck Overall: head atraumatic 12/21/2016 None Full Exam - General 1994 Musculoskeletal head and neck Deformities: head tilt 12/21/2016 tilted to right Full Exam - General 1994 Neurologic gait Conventional walking: wide-based 12/21/2016 None Full Exam - General 1994 Psychiatric orientation/consciousness Overall: oriented to person, place and time 12/21/2016 None Full Exam - General 1994 Psychiatric mood and affect Overall: normal mood and affect 12/21/2016 None Full Exam - General 1994 Respiratory auscultation Overall: breath sounds clear bilaterally 12/21/2016 None Full Exam - General 1994 Respiratory respiratory effort/rhythm Rate: tachypnea 12/21/2016 None Full Exam - General 1994 Integument inspection of skin Location: diffuse 12/21/2016 None Full Exam - General 1994 Integument inspection of skin Pigmentation: erythematous 12/21/2016 None Full Exam - General 1994 Constitutional general appearance Overall: well developed 12/11/2016 None Full Exam - General 1994 Constitutional general appearance Overall: in no acute distress 12/11/2016 None Full Exam - General 1994 Constitutional general appearance Overall: well nourished 12/11/2016 None Full Exam - General 1994 Constitutional general appearance Assistive Device: wheelchair 12/11/2016 None Full Exam - General 1994 Eyes pupils and irises Overall: pupils equal, round, reactive to light and accomodation 12/11/2016 None Full Exam - General 1994 Ears/Nose/Throat otoscopic exam Overall: external auditory canals clear 12/11/2016 None Full Exam - General 1994 Ears/Nose/Throat otoscopic exam Overall: tympanic membranes clear 12/11/2016 None Full Exam - General 1995 Ears/Nose/Throat oral cavity/pharynx/larynx Overall: oral mucosa clear 12/11/2016 None Full Exam - General 1995 Ears/Nose/Throat oral cavity/pharynx/larynx Overall: oropharyngeal mucosa clear 12/11/2016 None Full Exam - General 1995 Ears/Nose/Throat oral cavity/pharynx/larynx Overall: no masses 12/11/2016 None Full Exam - General 1994 Respiratory auscultation Lower lung field: crackles 12/11/2016 None Full Exam - General 1994 Respiratory respiratory effort/rhythm Overall: no retractions 12/11/2016 None Full Exam - General 1994 Respiratory respiratory effort/rhythm Overall: normal rate 12/11/2016 None Full Exam - General 1994 Cardiovascular extremities Overall: no clubbing 12/11/2016 None Full Exam - General 1994 Cardiovascular extremities Edema present: pitting 12/11/2016 None Full Exam - General 1994 Cardiovascular auscultation of heart Rhythm: irregularly irregular rhythm 12/11/2016 None Full Exam - General 1994 Cardiovascular auscultation of heart Murmur: previously known murmur changed 12/11/2016 None Full Exam - General 1994 Cardiovascular auscultation of heart Systolic murmur grade: II/ 12/11/2016 None Full Exam - General 1994 Abdomen abdominal exam Overall: no tenderness 12/11/2016 None Full Exam - General 1994 Abdomen abdominal exam Overall: normal bowel sounds 12/11/2016 None Full Exam - General 1994 Musculoskeletal head and neck Overall: head atraumatic 12/11/2016 None Full Exam - General 1994 Musculoskeletal head and neck Deformities: head tilt 12/11/2016 tilted to right Full Exam - General 1994 Integument inspection of skin Location: right leg 12/11/2016 None Full Exam - General 1994 Neurologic gait Conventional walking: wide-based 12/11/2016 None Full Exam - General 1994 Psychiatric orientation/consciousness Overall: oriented to person, place and time 12/11/2016 None Full Exam - General 1994 Psychiatric mood and affect Overall: normal mood and affect 12/11/2016 None Full Exam - General 1994 Integument inspection of skin Rash/Lesions: ulceration 12/11/2016 healing - good granulation tissue right lower leg Full Exam - General 1994 Integument inspection of skin Location: left leg 12/11/2016 erythema of left lower leg with bruising Full Exam - General 1994 Constitutional general appearance Overall: well developed 11/14/2016 None Full Exam - General 1994 Constitutional general appearance Overall: in no acute distress 11/14/2016 None Full Exam - General 1994 Constitutional general appearance Overall: well nourished 11/14/2016 None Full Exam - General 1994 Constitutional general appearance Assistive Device: wheelchair 11/14/2016 None Full Exam - General 1994 Cardiovascular extremities Overall: no clubbing 11/14/2016 None Full Exam - General 1994 Cardiovascular extremities Edema present: pitting 11/14/2016 None Full Exam - General 1994 Cardiovascular auscultation of heart Rhythm: irregularly irregular rhythm 11/14/2016 None Full Exam - General 1994 Cardiovascular auscultation of heart Murmur: previously known murmur changed 11/14/2016 None Full Exam - General 1994 Cardiovascular auscultation of heart Systolic murmur grade: II/ 11/14/2016 None Full Exam - General 1994 Integument inspection of skin Location: right leg 11/14/2016 None Full Exam - General 1994 Integument inspection of skin Rash/Lesions: ulceration 11/14/2016 6cm x 5cm -sharp debridement with #11 blade scalpel to remove fibrous tissue at base of wound - large necrotic area on lateral edge of wound - 1.5 x 1.5 cm area removed. Full Exam - General 1994 Psychiatric orientation/consciousness Overall: oriented to person, place and time 11/14/2016 None Full Exam - General 1994 Eyes pupils and irises Overall: pupils equal, round, reactive to light and accomodation 11/14/2016 None Full Exam - General 1994 Ears/Nose/Throat otoscopic exam Overall: external auditory canals clear 11/14/2016 None Full Exam - General 1994 Ears/Nose/Throat otoscopic exam Overall: tympanic membranes clear 11/14/2016 None Full Exam - General 1994 Ears/Nose/Throat oral cavity/pharynx/larynx Overall: oral mucosa clear 11/14/2016 None Full Exam - General 1994 Ears/Nose/Throat oral cavity/pharynx/larynx Overall: oropharyngeal mucosa clear 11/14/2016 None Full Exam - General 1994 Ears/Nose/Throat oral cavity/pharynx/larynx Overall: no masses 11/14/2016 None Full Exam - General 1994 Respiratory auscultation Lower lung field: crackles 11/14/2016 None Full Exam - General 1994 Respiratory respiratory effort/rhythm Overall: no retractions 11/14/2016 None Full Exam - General 1994 Respiratory respiratory effort/rhythm Overall: normal rate 11/14/2016 None Full Exam - General 1994 Abdomen abdominal exam Overall: no tenderness 11/14/2016 None Full Exam - General 1994 Abdomen abdominal exam Overall: normal bowel sounds 11/14/2016 None Full Exam - General 1994 Musculoskeletal head and neck Overall: head atraumatic 11/14/2016 None Full Exam - General 1994 Musculoskeletal head and neck Deformities: head tilt 11/14/2016 tilted to right Full Exam - General 1994 Neurologic gait Conventional walking: wide-based 11/14/2016 None Full Exam - General 1994 Psychiatric mood and affect Overall: normal mood and affect 11/14/2016 None Full Exam - General 1994 Cardiovascular auscultation of heart Rhythm: irregularly irregular rhythm 11/09/2016 None Full Exam - General 1994 Cardiovascular auscultation of heart Murmur: previously known murmur changed 11/09/2016 None Full Exam - General 1994 Cardiovascular auscultation of heart Systolic murmur grade: II/ 11/09/2016 None Full Exam - General 1994 Cardiovascular extremities Overall: no clubbing 11/09/2016 None Full Exam - General 1994 Cardiovascular extremities Edema present: pitting 11/09/2016 None Full Exam - General 1994 Constitutional general appearance Overall: well developed 11/09/2016 None Full Exam - General 1994 Constitutional general appearance Overall: in no acute distress 11/09/2016 None Full Exam - General 1994 Constitutional general appearance Overall: well nourished 11/09/2016 None Full Exam - General 1994 Constitutional general appearance Assistive Device: wheelchair 11/09/2016 None Full Exam - General 1994 Psychiatric orientation/consciousness Overall: oriented to person, place and time 11/09/2016 None Full Exam - General 1994 Integument inspection of skin Location: right leg 11/09/2016 None Full Exam - General 1994 Integument inspection of skin Rash/Lesions: ulceration 11/09/2016 7cm x 5cm -sharp debridement with #11 blade scalpel to remove fibrous tissue at base of wound Full Exam - General 1994 Constitutional general appearance Overall: well developed 09/17/2016 None Full Exam - General 1994 Constitutional general appearance Overall: in no acute distress 09/17/2016 None Full Exam - General 1994 Constitutional general appearance Overall: well nourished 09/17/2016 None Full Exam - General 1994 Eyes conjunctiva /eyelids Overall: conjunctiva clear 09/17/2016 None Full Exam - General 1994 Eyes conjunctiva /eyelids Overall: eyelids normal 09/17/2016 None Full Exam - General 1994 Ears/Nose/Throat lips/teeth/gingiva Overall: benign lips 09/17/2016 None Full Exam - General 1994 Ears/Nose/Throat oral cavity/pharynx/larynx Overall: oral mucosa clear 09/17/2016 None Full Exam - General 1994 Respiratory auscultation Overall: breath sounds clear bilaterally 09/17/2016 None Full Exam - General 1994 Respiratory respiratory effort/rhythm Overall: no retractions 09/17/2016 None Full Exam - General 1994 Respiratory respiratory effort/rhythm Overall: normal rate 09/17/2016 None Full Exam - General 1994 Cardiovascular auscultation of heart Rhythm: irregularly irregular rhythm 09/17/2016 None Full Exam - General 1994 Cardiovascular auscultation of heart Murmur: previously known murmur unchanged 09/17/2016 None Full Exam - General 1994 Cardiovascular auscultation of heart Systolic murmur grade: II/ 09/17/2016 None Full Exam - General 1994 Neurologic cranial nerves Overall: crainial nerves 2 - 12 grossly intact 09/17/2016 None Full Exam - General 1994 Psychiatric orientation/consciousness Overall: oriented to person, place and time 09/17/2016 None Full Exam - General 1994 Psychiatric mood and affect Overall: normal mood and affect 09/17/2016 None Full Exam - General 1994 Psychiatric appearance Overall: well-groomed, good eye contact 09/17/2016 None Full Exam - General 1994 Constitutional general appearance Overall: well developed 09/10/2016 None Full Exam - General 1994 Constitutional general appearance Overall: in no acute distress 09/10/2016 None Full Exam - General 1994 Constitutional general appearance Overall: well nourished 09/10/2016 None Full Exam - General 1994 Eyes conjunctiva /eyelids Overall: conjunctiva clear 09/10/2016 None Full Exam - General 1994 Eyes conjunctiva /eyelids Overall: eyelids normal 09/10/2016 None Full Exam - General 1994 Ears/Nose/Throat otoscopic exam External auditory canal: partial cerumen occlusion 09/10/2016 None Full Exam - General 1994 Ears/Nose/Throat lips/teeth/gingiva Overall: benign lips 09/10/2016 None Full Exam - General 1994 Ears/Nose/Throat oral cavity/pharynx/larynx Overall: oral mucosa clear 09/10/2016 None Full Exam - General 1994 Ears/Nose/Throat oral cavity/pharynx/larynx Overall: oropharyngeal mucosa clear 09/10/2016 None Full Exam - General 1994 Ears/Nose/Throat oral cavity/pharynx/larynx Posterior Pharynx: clear post nasal drainage 09/10/2016 None Full Exam - General 1994 Respiratory respiratory effort/rhythm Overall: no retractions 09/10/2016 None Full Exam - General 1994 Respiratory respiratory effort/rhythm Overall: normal rate 09/10/2016 None Full Exam - General 1994 Respiratory auscultation Diffuse: diminished 09/10/2016 None Full Exam - General 1994 Respiratory auscultation Upper lung field: expiratory wheezes 09/10/2016 None Full Exam - General 1994 Neurologic cranial nerves Overall: crainial nerves 2 - 12 grossly intact 09/10/2016 None Full Exam - General 1994 Psychiatric orientation/consciousness Overall: oriented to person, place and time 09/10/2016 None Full Exam - General 1994 Psychiatric mood and affect Overall: normal mood and affect 09/10/2016 None Full Exam - General 1994 Psychiatric appearance Overall: well-groomed, good eye contact 09/10/2016 None Full Exam - General 1994 Cardiovascular auscultation of heart Rhythm: irregularly irregular rhythm 09/10/2016 None Full Exam - General 1994 Cardiovascular auscultation of heart Systolic murmur grade: II/ 09/10/2016 None Full Exam - General 1994 Respiratory auscultation Right lower lung field: crackles 09/10/2016 very faint Full Exam - General 1994 Constitutional general appearance Overall: well developed 08/15/2016 None Full Exam - General 1994 Constitutional general appearance Overall: well nourished 08/15/2016 None Full Exam - General 1994 Eyes pupils and irises Overall: pupils equal, round, reactive to light and accomodation 08/15/2016 None Full Exam - General 1994 Ears/Nose/Throat otoscopic exam Overall: external auditory canals clear 08/15/2016 None Full Exam - General 1994 Ears/Nose/Throat otoscopic exam Overall: tympanic membranes clear 08/15/2016 None Full Exam - General 1994 Ears/Nose/Throat oral cavity/pharynx/larynx Overall: oral mucosa clear 08/15/2016 None Full Exam - General 1994 Ears/Nose/Throat oral cavity/pharynx/larynx Overall: oropharyngeal mucosa clear 08/15/2016 None Full Exam - General 1994 Ears/Nose/Throat oral cavity/pharynx/larynx Overall: no masses 08/15/2016 None Full Exam - General 1994 Respiratory auscultation Overall: breath sounds clear bilaterally 08/15/2016 None Full Exam - General 1994 Respiratory respiratory effort/rhythm Overall: no retractions 08/15/2016 None Full Exam - General 1994 Respiratory respiratory effort/rhythm Overall: normal rate 08/15/2016 None Full Exam - General 1994 Cardiovascular extremities Overall: no clubbing 08/15/2016 None Full Exam - General 1994 Cardiovascular extremities Edema present: pitting 08/15/2016 None Full Exam - General 1994 Cardiovascular auscultation of heart Rhythm: irregularly irregular rhythm 08/15/2016 None Full Exam - General 1994 Cardiovascular auscultation of heart Murmur: previously known murmur changed 08/15/2016 None Full Exam - General 1994 Cardiovascular auscultation of heart Systolic murmur grade: II/ 08/15/2016 None Full Exam - General 1994 Abdomen abdominal exam Overall: no tenderness 08/15/2016 None Full Exam - General 1994 Abdomen abdominal exam Overall: normal bowel sounds 08/15/2016 None Full Exam - General 1994 Musculoskeletal upper extremity Overall: normal elbow 08/15/2016 None Full Exam - General 1994 Musculoskeletal upper extremity ROM - shoulder: decreased abduction 08/15/2016 None Full Exam - General 1994 Musculoskeletal upper extremity ROM - shoulder: decreased adduction 08/15/2016 None Full Exam - General 1994 Musculoskeletal upper extremity ROM - shoulder: decreased shoulder flexion 08/15/2016 None Full Exam - General 1994 Musculoskeletal upper extremity ROM - shoulder: decreased shoulder extension 08/15/2016 None Full Exam - General 1994 Musculoskeletal head and neck Overall: head atraumatic 08/15/2016 None Full Exam - General 1994 Musculoskeletal head and neck Deformities: head tilt 08/15/2016 tilted to right Full Exam - General 1994 Integument inspection of skin Location: left leg 08/15/2016 buttock/hip Full Exam - General 1994 Neurologic gait Conventional walking: wide-based 08/15/2016 None Full Exam - General 1994 Psychiatric orientation/consciousness Overall: oriented to person, place and time 08/15/2016 None Full Exam - General 1994 Psychiatric mood and affect Overall: normal mood and affect 08/15/2016 None Full Exam - General 1994 Constitutional general appearance Overall: well developed 06/14/2016 None Full Exam - General 1994 Constitutional general appearance Overall: well nourished 06/14/2016 None Full Exam - General 1994 Eyes pupils and irises Overall: pupils equal, round, reactive to light and accomodation 06/14/2016 None Full Exam - General 1994 Ears/Nose/Throat otoscopic exam Overall: external auditory canals clear 06/14/2016 None Full Exam - General 1994 Ears/Nose/Throat otoscopic exam Overall: tympanic membranes clear 06/14/2016 None Full Exam - General 1994 Ears/Nose/Throat oral cavity/pharynx/larynx Overall: oral mucosa clear 06/14/2016 None Full Exam - General 1995 Ears/Nose/Throat oral cavity/pharynx/larynx Overall: oropharyngeal mucosa clear 06/14/2016 None Full Exam - General 1995 Ears/Nose/Throat oral cavity/pharynx/larynx Overall: no masses 06/14/2016 None Full Exam - General 1994 Respiratory auscultation Overall: breath sounds clear bilaterally 06/14/2016 None Full Exam - General 1994 Respiratory respiratory effort/rhythm Overall: no retractions 06/14/2016 None Full Exam - General 1994 Respiratory respiratory effort/rhythm Overall: normal rate 06/14/2016 None Full Exam - General 1994 Cardiovascular extremities Overall: no clubbing 06/14/2016 None Full Exam - General 1994 Cardiovascular extremities Edema present: pitting 06/14/2016 None Full Exam - General 1994 Cardiovascular auscultation of heart Rhythm: irregularly irregular rhythm 06/14/2016 None Full Exam - General 1994 Cardiovascular auscultation of heart Murmur: previously known murmur changed 06/14/2016 None Full Exam - General 1994 Cardiovascular auscultation of heart Systolic murmur grade: II/ 06/14/2016 None Full Exam - General 1994 Abdomen abdominal exam Overall: no tenderness 06/14/2016 None Full Exam - General 1994 Abdomen abdominal exam Overall: normal bowel sounds 06/14/2016 None Full Exam - General 1994 Musculoskeletal upper extremity Overall: normal elbow 06/14/2016 None Full Exam - General 1994 Musculoskeletal upper extremity ROM - shoulder: decreased abduction 06/14/2016 None Full Exam - General 1994 Musculoskeletal upper extremity ROM - shoulder: decreased adduction 06/14/2016 None Full Exam - General 1994 Musculoskeletal upper extremity ROM - shoulder: decreased shoulder flexion 06/14/2016 None Full Exam - General 1994 Musculoskeletal upper extremity ROM - shoulder: decreased shoulder extension 06/14/2016 None Full Exam - General 1994 Musculoskeletal head and neck Overall: head atraumatic 06/14/2016 None Full Exam - General 1994 Musculoskeletal head and neck Deformities: head tilt 06/14/2016 tilted to right Full Exam - General 1994 Integument inspection of skin Location: left leg 06/14/2016 buttock/hip Full Exam - General 1994 Neurologic gait Conventional walking: wide-based 06/14/2016 None Full Exam - General 1994 Psychiatric orientation/consciousness Overall: oriented to person, place and time 06/14/2016 None Full Exam - General 1994 Psychiatric mood and affect Overall: normal mood and affect 06/14/2016 None Full Exam - General 1994 Constitutional general appearance Overall: well developed 06/06/2016 None Full Exam - General 1994 Constitutional general appearance Overall: well nourished 06/06/2016 None Full Exam - General 1994 Eyes pupils and irises Overall: pupils equal, round, reactive to light and accomodation 06/06/2016 None Full Exam - General 1994 Ears/Nose/Throat otoscopic exam Overall: external auditory canals clear 06/06/2016 None Full Exam - General 1994 Ears/Nose/Throat otoscopic exam Overall: tympanic membranes clear 06/06/2016 None Full Exam - General 1994 Ears/Nose/Throat oral cavity/pharynx/larynx Overall: oral mucosa clear 06/06/2016 None Full Exam - General 1994 Ears/Nose/Throat oral cavity/pharynx/larynx Overall: oropharyngeal mucosa clear 06/06/2016 None Full Exam - General 1994 Ears/Nose/Throat oral cavity/pharynx/larynx Overall: no masses 06/06/2016 None Full Exam - General 1994 Respiratory respiratory effort/rhythm Overall: no retractions 06/06/2016 None Full Exam - General 1994 Respiratory respiratory effort/rhythm Overall: normal rate 06/06/2016 None Full Exam - General 1994 Cardiovascular extremities Overall: no clubbing 06/06/2016 None Full Exam - General 1994 Cardiovascular extremities Edema present: pitting 06/06/2016 None Full Exam - General 1994 Cardiovascular auscultation of heart Rhythm: irregularly irregular rhythm 06/06/2016 None Full Exam - General 1994 Cardiovascular auscultation of heart Murmur: previously known murmur changed 06/06/2016 None Full Exam - General 1994 Cardiovascular auscultation of heart Systolic murmur grade: II/ 06/06/2016 None Full Exam - General 1994 Abdomen abdominal exam Overall: no tenderness 06/06/2016 None Full Exam - General 1994 Abdomen abdominal exam Overall: normal bowel sounds 06/06/2016 None Full Exam - General 1994 Musculoskeletal upper extremity Overall: normal elbow 06/06/2016 None Full Exam - General 1994 Musculoskeletal upper extremity ROM - shoulder: decreased abduction 06/06/2016 None Full Exam - General 1994 Musculoskeletal upper extremity ROM - shoulder: decreased adduction 06/06/2016 None Full Exam - General 1994 Musculoskeletal upper extremity ROM - shoulder: decreased shoulder flexion 06/06/2016 None Full Exam - General 1994 Musculoskeletal upper extremity ROM - shoulder: decreased shoulder extension 06/06/2016 None Full Exam - General 1994 Musculoskeletal head and neck Overall: head atraumatic 06/06/2016 None Full Exam - General 1994 Musculoskeletal head and neck Deformities: head tilt 06/06/2016 tilted to right Full Exam - General 1994 Integument inspection of skin Location: left leg 06/06/2016 buttock/hip Full Exam - General 1994 Neurologic gait Conventional walking: wide-based 06/06/2016 None Full Exam - General 1994 Psychiatric orientation/consciousness Overall: oriented to person, place and time 06/06/2016 None Full Exam - General 1994 Psychiatric mood and affect Overall: normal mood and affect 06/06/2016 None Full Exam - General 1994 Respiratory auscultation Lower lung field: crackles 06/06/2016 None Full Exam - General 1994 Constitutional general appearance Overall: well developed 02/08/2016 None Full Exam - General 1994 Constitutional general appearance Overall: well nourished 02/08/2016 None Full Exam - General 1994 Eyes pupils and irises Overall: pupils equal, round, reactive to light and accomodation 02/08/2016 None Full Exam - General 1994 Ears/Nose/Throat otoscopic exam Overall: external auditory canals clear 02/08/2016 None Full Exam - General 1994 Ears/Nose/Throat otoscopic exam Overall: tympanic membranes clear 02/08/2016 None Full Exam - General 1994 Ears/Nose/Throat oral cavity/pharynx/larynx Overall: oral mucosa clear 02/08/2016 None Full Exam - General 1994 Ears/Nose/Throat oral cavity/pharynx/larynx Overall: oropharyngeal mucosa clear 02/08/2016 None Full Exam - General 1994 Ears/Nose/Throat oral cavity/pharynx/larynx Overall: no masses 02/08/2016 None Full Exam - General 1994 Respiratory auscultation Overall: breath sounds clear bilaterally 02/08/2016 None Full Exam - General 1994 Respiratory respiratory effort/rhythm Overall: no retractions 02/08/2016 None Full Exam - General 1994 Respiratory respiratory effort/rhythm Overall: normal rate 02/08/2016 None Full Exam - General 1994 Cardiovascular extremities Overall: no clubbing 02/08/2016 None Full Exam - General 1994 Cardiovascular extremities Edema present: pitting 02/08/2016 None Full Exam - General 1994 Cardiovascular auscultation of heart Rhythm: irregularly irregular rhythm 02/08/2016 None Full Exam - General 1994 Cardiovascular auscultation of heart Murmur: previously known murmur changed 02/08/2016 None Full Exam - General 1994 Cardiovascular auscultation of heart Systolic murmur grade: II/ 02/08/2016 None Full Exam - General 1994 Abdomen abdominal exam Overall: no tenderness 02/08/2016 None Full Exam - General 1994 Abdomen abdominal exam Overall: normal bowel sounds 02/08/2016 None Full Exam - General 1994 Musculoskeletal upper extremity Overall: normal elbow 02/08/2016 None Full Exam - General 1994 Musculoskeletal upper extremity ROM - shoulder: decreased abduction 02/08/2016 None Full Exam - General 1994 Musculoskeletal upper extremity ROM - shoulder: decreased adduction 02/08/2016 None Full Exam - General 1994 Musculoskeletal upper extremity ROM - shoulder: decreased shoulder flexion 02/08/2016 None Full Exam - General 1994 Musculoskeletal upper extremity ROM - shoulder: decreased shoulder extension 02/08/2016 None Full Exam - General 1994 Musculoskeletal head and neck Overall: head atraumatic 02/08/2016 None Full Exam - General 1994 Musculoskeletal head and neck Deformities: head tilt 02/08/2016 tilted to right Full Exam - General 1994 Integument inspection of skin Location: left leg 02/08/2016 buttock/hip Full Exam - General 1994 Neurologic gait Conventional walking: wide-based 02/08/2016 None Full Exam - General 1994 Psychiatric orientation/consciousness Overall: oriented to person, place and time 02/08/2016 None Full Exam - General 1994 Psychiatric mood and affect Overall: normal mood and affect 02/08/2016 None Full Exam - General 1994 Constitutional general appearance Overall: well developed 11/08/2015 None Full Exam - General 1994 Constitutional general appearance Overall: well nourished 11/08/2015 None Full Exam - General 1994 Eyes pupils and irises Overall: pupils equal, round, reactive to light and accomodation 11/08/2015 None Full Exam - General 1994 Ears/Nose/Throat otoscopic exam Overall: external auditory canals clear 11/08/2015 None Full Exam - General 1994 Ears/Nose/Throat otoscopic exam Overall: tympanic membranes clear 11/08/2015 None Full Exam - General 1994 Ears/Nose/Throat oral cavity/pharynx/larynx Overall: oral mucosa clear 11/08/2015 None Full Exam - General 1994 Ears/Nose/Throat oral cavity/pharynx/larynx Overall: oropharyngeal mucosa clear 11/08/2015 None Full Exam - General 1994 Ears/Nose/Throat oral cavity/pharynx/larynx Overall: no masses 11/08/2015 None Full Exam - General 1994 Respiratory auscultation Overall: breath sounds clear bilaterally 11/08/2015 None Full Exam - General 1994 Respiratory respiratory effort/rhythm Overall: no retractions 11/08/2015 None Full Exam - General 1994 Respiratory respiratory effort/rhythm Overall: normal rate 11/08/2015 None Full Exam - General 1994 Cardiovascular extremities Overall: no clubbing 11/08/2015 None Full Exam - General 1994 Cardiovascular extremities Edema present: pitting 11/08/2015 None Full Exam - General 1994 Cardiovascular auscultation of heart Rhythm: irregularly irregular rhythm 11/08/2015 None Full Exam - General 1994 Cardiovascular auscultation of heart Murmur: previously known murmur changed 11/08/2015 None Full Exam - General 1994 Cardiovascular auscultation of heart Systolic murmur grade: II/ 11/08/2015 None Full Exam - General 1994 Abdomen abdominal exam Overall: no tenderness 11/08/2015 None Full Exam - General 1994 Abdomen abdominal exam Overall: normal bowel sounds 11/08/2015 None Full Exam - General 1994 Musculoskeletal upper extremity Overall: normal elbow 11/08/2015 None Full Exam - General 1994 Musculoskeletal upper extremity ROM - shoulder: decreased abduction 11/08/2015 None Full Exam - General 1994 Musculoskeletal upper extremity ROM - shoulder: decreased adduction 11/08/2015 None Full Exam - General 1994 Musculoskeletal upper extremity ROM - shoulder: decreased shoulder flexion 11/08/2015 None Full Exam - General 1994 Musculoskeletal upper extremity ROM - shoulder: decreased shoulder extension 11/08/2015 None Full Exam - General 1994 Musculoskeletal head and neck Overall: head atraumatic 11/08/2015 None Full Exam - General 1994 Musculoskeletal head and neck Deformities: head tilt 11/08/2015 tilted to right Full Exam - General 1994 Integument inspection of skin Location: left leg 11/08/2015 buttock/hip Full Exam - General 1994 Neurologic gait Conventional walking: wide-based 11/08/2015 None Full Exam - General 1994 Psychiatric orientation/consciousness Overall: oriented to person, place and time 11/08/2015 None Full Exam - General 1994 Psychiatric mood and affect Overall: normal mood and affect 11/08/2015 None Full Exam - General 1994 Constitutional general appearance Overall: well developed 08/22/2015 None Full Exam - General 1994 Constitutional general appearance Overall: well nourished 08/22/2015 None Full Exam - General 1994 Eyes pupils and irises Overall: pupils equal, round, reactive to light and accomodation 08/22/2015 None Full Exam - General 1994 Ears/Nose/Throat otoscopic exam Overall: external auditory canals clear 08/22/2015 None Full Exam - General 1994 Ears/Nose/Throat otoscopic exam Overall: tympanic membranes clear 08/22/2015 None Full Exam - General 1994 Ears/Nose/Throat oral cavity/pharynx/larynx Overall: oral mucosa clear 08/22/2015 None Full Exam - General 1994 Ears/Nose/Throat oral cavity/pharynx/larynx Overall: oropharyngeal mucosa clear 08/22/2015 None Full Exam - General 1994 Ears/Nose/Throat oral cavity/pharynx/larynx Overall: no masses 08/22/2015 None Full Exam - General 1994 Respiratory auscultation Diffuse: expiratory wheezes 08/22/2015 None Full Exam - General 1994 Respiratory respiratory effort/rhythm Overall: no retractions 08/22/2015 None Full Exam - General 1994 Respiratory respiratory effort/rhythm Overall: normal rate 08/22/2015 None Full Exam - General 1994 Cardiovascular extremities Overall: no clubbing 08/22/2015 None Full Exam - General 1994 Cardiovascular auscultation of heart Rhythm: irregular rhythm 08/22/2015 None Full Exam - General 1994 Cardiovascular auscultation of heart Rhythm: irregularly irregular rhythm 08/22/2015 None Full Exam - General 1994 Cardiovascular auscultation of heart Murmur: previously known murmur changed 08/22/2015 None Full Exam - General 1994 Cardiovascular auscultation of heart Systolic murmur grade: II/ 08/22/2015 None Full Exam - General 1994 Abdomen abdominal exam Overall: no tenderness 08/22/2015 None Full Exam - General 1994 Abdomen abdominal exam Overall: normal bowel sounds 08/22/2015 None Full Exam - General 1994 Musculoskeletal head and neck Overall: head atraumatic 08/22/2015 None Full Exam - General 1994 Musculoskeletal head and neck Deformities: head tilt 08/22/2015 tilted to right Full Exam - General 1994 Psychiatric orientation/consciousness Overall: oriented to person, place and time 08/22/2015 None Full Exam - General 1994 Psychiatric mood and affect Overall: normal mood and affect 08/22/2015 None Full Exam - General 1994 Constitutional general appearance Overall: well developed 08/09/2015 None Full Exam - General 1994 Constitutional general appearance Overall: well nourished 08/09/2015 None Full Exam - General 1994 Eyes pupils and irises Overall: pupils equal, round, reactive to light and accomodation 08/09/2015 None Full Exam - General 1994 Ears/Nose/Throat otoscopic exam Overall: external auditory canals clear 08/09/2015 None Full Exam - General 1994 Ears/Nose/Throat otoscopic exam Overall: tympanic membranes clear 08/09/2015 None Full Exam - General 1994 Ears/Nose/Throat oral cavity/pharynx/larynx Overall: oral mucosa clear 08/09/2015 None Full Exam - General 1994 Ears/Nose/Throat oral cavity/pharynx/larynx Overall: oropharyngeal mucosa clear 08/09/2015 None Full Exam - General 1994 Ears/Nose/Throat oral cavity/pharynx/larynx Overall: no masses 08/09/2015 None Full Exam - General 1994 Respiratory auscultation Overall: breath sounds clear bilaterally 08/09/2015 None Full Exam - General 1994 Respiratory respiratory effort/rhythm Overall: no retractions 08/09/2015 None Full Exam - General 1994 Respiratory respiratory effort/rhythm Overall: normal rate 08/09/2015 None Full Exam - General 1994 Cardiovascular extremities Overall: no clubbing 08/09/2015 None Full Exam - General 1994 Cardiovascular extremities Edema present: pitting 08/09/2015 None Full Exam - General 1994 Cardiovascular auscultation of heart Rhythm: irregularly irregular rhythm 08/09/2015 None Full Exam - General 1994 Cardiovascular auscultation of heart Murmur: previously known murmur changed 08/09/2015 None Full Exam - General 1994 Cardiovascular auscultation of heart Systolic murmur grade: II/ 08/09/2015 None Full Exam - General 1994 Abdomen abdominal exam Overall: no tenderness 08/09/2015 None Full Exam - General 1994 Abdomen abdominal exam Overall: normal bowel sounds 08/09/2015 None Full Exam - General 1994 Musculoskeletal upper extremity Overall: normal elbow 08/09/2015 None Full Exam - General 1994 Musculoskeletal upper extremity ROM - shoulder: decreased abduction 08/09/2015 None Full Exam - General 1994 Musculoskeletal upper extremity ROM - shoulder: decreased adduction 08/09/2015 None Full Exam - General 1994 Musculoskeletal upper extremity ROM - shoulder: decreased shoulder flexion 08/09/2015 None Full Exam - General 1994 Musculoskeletal upper extremity ROM - shoulder: decreased shoulder extension 08/09/2015 None Full Exam - General 1994 Musculoskeletal head and neck Overall: head atraumatic 08/09/2015 None Full Exam - General 1994 Musculoskeletal head and neck Deformities: head tilt 08/09/2015 tilted to right Full Exam - General 1994 Integument inspection of skin Location: left leg 08/09/2015 buttock/hip Full Exam - General 1994 Neurologic gait Conventional walking: wide-based 08/09/2015 None Full Exam - General 1994 Psychiatric orientation/consciousness Overall: oriented to person, place and time 08/09/2015 None Full Exam - General 1994 Psychiatric mood and affect Overall: normal mood and affect 08/09/2015 None Full Exam - General 1994 Constitutional general appearance Overall: well developed 05/26/2015 None Full Exam - General 1994 Constitutional general appearance Overall: well nourished 05/26/2015 None Full Exam - General 1994 Eyes pupils and irises Overall: pupils equal, round, reactive to light and accomodation 05/26/2015 None Full Exam - General 1994 Ears/Nose/Throat otoscopic exam Overall: external auditory canals clear 05/26/2015 None Full Exam - General 1994 Ears/Nose/Throat otoscopic exam Overall: tympanic membranes clear 05/26/2015 None Full Exam - General 1994 Ears/Nose/Throat oral cavity/pharynx/larynx Overall: oral mucosa clear 05/26/2015 None Full Exam - General 1994 Ears/Nose/Throat oral cavity/pharynx/larynx Overall: oropharyngeal mucosa clear 05/26/2015 None Full Exam - General 1994 Ears/Nose/Throat oral cavity/pharynx/larynx Overall: no masses 05/26/2015 None Full Exam - General 1994 Respiratory auscultation Overall: breath sounds clear bilaterally 05/26/2015 None Full Exam - General 1994 Respiratory respiratory effort/rhythm Overall: no retractions 05/26/2015 None Full Exam - General 1994 Respiratory respiratory effort/rhythm Overall: normal rate 05/26/2015 None Full Exam - General 1994 Cardiovascular extremities Overall: no clubbing 05/26/2015 None Full Exam - General 1994 Cardiovascular extremities Edema present: pitting 05/26/2015 None Full Exam - General 1994 Cardiovascular extremities Edema present: severity 1+ - 4 +: 1-2+ 05/26/2015 None Full Exam - General 1994 Cardiovascular auscultation of heart Rhythm: irregular rhythm 05/26/2015 None Full Exam - General 1994 Cardiovascular auscultation of heart Rhythm: irregularly irregular rhythm 05/26/2015 None Full Exam - General 1994 Cardiovascular auscultation of heart Murmur: previously known murmur changed 05/26/2015 None Full Exam - General 1994 Cardiovascular auscultation of heart Systolic murmur grade: II/ 05/26/2015 None Full Exam - General 1994 Abdomen abdominal exam Overall: no tenderness 05/26/2015 None Full Exam - General 1994 Abdomen abdominal exam Overall: normal bowel sounds 05/26/2015 None Full Exam - General 1994 Musculoskeletal upper extremity Overall: normal elbow 05/26/2015 None Full Exam - General 1994 Musculoskeletal upper extremity ROM - shoulder: decreased abduction 05/26/2015 None Full Exam - General 1994 Musculoskeletal upper extremity ROM - shoulder: decreased adduction 05/26/2015 None Full Exam - General 1994 Musculoskeletal upper extremity ROM - shoulder: decreased shoulder flexion 05/26/2015 None Full Exam - General 1994 Musculoskeletal upper extremity ROM - shoulder: decreased shoulder extension 05/26/2015 None Full Exam - General 1994 Musculoskeletal head and neck Overall: head atraumatic 05/26/2015 None Full Exam - General 1994 Musculoskeletal head and neck Deformities: head tilt 05/26/2015 tilted to right Full Exam - General 1994 Integument inspection of skin Location: left leg 05/26/2015 buttock/hip Full Exam - General 1994 Neurologic gait Conventional walking: wide-based 05/26/2015 None Full Exam - General 1994 Psychiatric orientation/consciousness Overall: oriented to person, place and time 05/26/2015 None Full Exam - General 1994 Psychiatric mood and affect Overall: normal mood and affect 05/26/2015 None Full Exam - General 1994 Constitutional general appearance Overall: well developed 02/15/2015 None Full Exam - General 1994 Constitutional general appearance Overall: well nourished 02/15/2015 None Full Exam - General 1994 Eyes pupils and irises Overall: pupils equal, round, reactive to light and accomodation 02/15/2015 None Full Exam - General 1994 Ears/Nose/Throat otoscopic exam Overall: external auditory canals clear 02/15/2015 None Full Exam - General 1994 Ears/Nose/Throat otoscopic exam Overall: tympanic membranes clear 02/15/2015 None Full Exam - General 1994 Ears/Nose/Throat oral cavity/pharynx/larynx Overall: oral mucosa clear 02/15/2015 None Full Exam - General 1994 Ears/Nose/Throat oral cavity/pharynx/larynx Overall: oropharyngeal mucosa clear 02/15/2015 None Full Exam - General 1994 Ears/Nose/Throat oral cavity/pharynx/larynx Overall: no masses 02/15/2015 None Full Exam - General 1994 Respiratory auscultation Overall: breath sounds clear bilaterally 02/15/2015 None Full Exam - General 1994 Respiratory respiratory effort/rhythm Overall: no retractions 02/15/2015 None Full Exam - General 1994 Respiratory respiratory effort/rhythm Overall: normal rate 02/15/2015 None Full Exam - General 1994 Cardiovascular extremities Overall: no clubbing 02/15/2015 None Full Exam - General 1994 Cardiovascular extremities Edema present: pitting 02/15/2015 None Full Exam - General 1994 Cardiovascular extremities Edema present: severity 1+ - 4 +: 1-2+ 02/15/2015 None Full Exam - General 1994 Cardiovascular auscultation of heart Rhythm: irregular rhythm 02/15/2015 None Full Exam - General 1994 Cardiovascular auscultation of heart Rhythm: irregularly irregular rhythm 02/15/2015 None Full Exam - General 1994 Cardiovascular auscultation of heart Murmur: previously known murmur changed 02/15/2015 None Full Exam - General 1994 Cardiovascular auscultation of heart Systolic murmur grade: II/ 02/15/2015 None Full Exam - General 1994 Abdomen abdominal exam Overall: no tenderness 02/15/2015 None Full Exam - General 1994 Abdomen abdominal exam Overall: normal bowel sounds 02/15/2015 None Full Exam - General 1994 Musculoskeletal upper extremity Overall: normal elbow 02/15/2015 None Full Exam - General 1994 Musculoskeletal head and neck Overall: head atraumatic 02/15/2015 None Full Exam - General 1994 Musculoskeletal head and neck Deformities: head tilt 02/15/2015 tilted to right Full Exam - General 1994 Integument inspection of skin Location: left leg 02/15/2015 buttock/hip Full Exam - General 1994 Neurologic gait Conventional walking: wide-based 02/15/2015 None Full Exam - General 1994 Psychiatric orientation/consciousness Overall: oriented to person, place and time 02/15/2015 None Full Exam - General 1994 Psychiatric mood and affect Overall: normal mood and affect 02/15/2015 None Full Exam - General 1994 Musculoskeletal upper extremity ROM - shoulder: decreased abduction 02/15/2015 None Full Exam - General 1994 Musculoskeletal upper extremity ROM - shoulder: decreased adduction 02/15/2015 None Full Exam - General 1994 Musculoskeletal upper extremity ROM - shoulder: decreased shoulder flexion 02/15/2015 None Full Exam - General 1994 Musculoskeletal upper extremity ROM - shoulder: decreased shoulder extension 02/15/2015 None Full Exam - General 1994 Constitutional general appearance Overall: well developed 12/02/2014 None Full Exam - General 1994 Constitutional general appearance Overall: well nourished 12/02/2014 None Full Exam - General 1994 Eyes pupils and irises Overall: pupils equal, round, reactive to light and accomodation 12/02/2014 None Full Exam - General 1994 Ears/Nose/Throat oral cavity/pharynx/larynx Overall: oral mucosa clear 12/02/2014 None Full Exam - General 1994 Ears/Nose/Throat oral cavity/pharynx/larynx Overall: oropharyngeal mucosa clear 12/02/2014 None Full Exam - General 1994 Ears/Nose/Throat oral cavity/pharynx/larynx Overall: no masses 12/02/2014 None Full Exam - General 1994 Respiratory auscultation Overall: breath sounds clear bilaterally 12/02/2014 None Full Exam - General 1994 Respiratory respiratory effort/rhythm Overall: no retractions 12/02/2014 None Full Exam - General 1994 Respiratory respiratory effort/rhythm Overall: normal rate 12/02/2014 None Full Exam - General 1994 Cardiovascular extremities Overall: no clubbing 12/02/2014 None Full Exam - General 1994 Cardiovascular extremities Edema present: pitting 12/02/2014 None Full Exam - General 1994 Cardiovascular extremities Edema present: severity 1+ - 4 +: 1-2+ 12/02/2014 None Full Exam - General 1994 Cardiovascular auscultation of heart Rhythm: irregular rhythm 12/02/2014 None Full Exam - General 1994 Cardiovascular auscultation of heart Rhythm: irregularly irregular rhythm 12/02/2014 None Full Exam - General 1994 Cardiovascular auscultation of heart Murmur: previously known murmur changed 12/02/2014 None Full Exam - General 1994 Cardiovascular auscultation of heart Systolic murmur grade: II/ 12/02/2014 None Full Exam - General 1994 Abdomen abdominal exam Overall: no tenderness 12/02/2014 None Full Exam - General 1994 Abdomen abdominal exam Overall: normal bowel sounds 12/02/2014 None Full Exam - General 1994 Musculoskeletal upper extremity Overall: normal elbow 12/02/2014 None Full Exam - General 1994 Musculoskeletal lower extremity Muscle Strength/Tone - lower leg: calf: atrophy 12/02/2014 None Full Exam - General 1994 Musculoskeletal head and neck Overall: head atraumatic 12/02/2014 None Full Exam - General 1994 Musculoskeletal head and neck Deformities: head tilt 12/02/2014 tilted to right Full Exam - General 1994 Integument inspection of skin Location: left leg 12/02/2014 buttock/hip Full Exam - General 1994 Neurologic gait Conventional walking: wide-based 12/02/2014 None Full Exam - General 1994 Psychiatric orientation/consciousness Overall: oriented to person, place and time 12/02/2014 None Full Exam - General 1994 Psychiatric mood and affect Overall: normal mood and affect 12/02/2014 None Full Exam - General 1994 Ears/Nose/Throat otoscopic exam External auditory canal: a normal exam 12/02/2014 None Full Exam - General 1994 Ears/Nose/Throat otoscopic exam Tympanic membrane: a normal exam 12/02/2014 None Full Exam - General 1994 Ears/Nose/Throat otoscopic exam External auditory canal: partial cerumen occlusion 12/02/2014 None Full Exam - General 1994 Constitutional general appearance Overall: well developed 10/14/2014 None Full Exam - General 1994 Constitutional general appearance Overall: well nourished 10/14/2014 None Full Exam - General 1994 Eyes pupils and irises Overall: pupils equal, round, reactive to light and accomodation 10/14/2014 None Full Exam - General 1994 Ears/Nose/Throat otoscopic exam Overall: external auditory canals clear 10/14/2014 None Full Exam - General 1994 Ears/Nose/Throat otoscopic exam Overall: tympanic membranes clear 10/14/2014 None Full Exam - General 1994 Ears/Nose/Throat oral cavity/pharynx/larynx Overall: oral mucosa clear 10/14/2014 None Full Exam - General 1995 Ears/Nose/Throat oral cavity/pharynx/larynx Overall: oropharyngeal mucosa clear 10/14/2014 None Full Exam - General 1994 Ears/Nose/Throat oral cavity/pharynx/larynx Overall: no masses 10/14/2014 None Full Exam - General 1994 Respiratory auscultation Overall: breath sounds clear bilaterally 10/14/2014 None Full Exam - General 1994 Respiratory respiratory effort/rhythm Overall: no retractions 10/14/2014 None Full Exam - General 1994 Respiratory respiratory effort/rhythm Overall: normal rate 10/14/2014 None Full Exam - General 1994 Cardiovascular extremities Overall: no clubbing 10/14/2014 None Full Exam - General 1994 Cardiovascular extremities Edema present: pitting 10/14/2014 None Full Exam - General 1994 Cardiovascular extremities Edema present: severity 1+ - 4 +: 1-2+ 10/14/2014 None Full Exam - General 1994 Cardiovascular auscultation of heart Rhythm: irregular rhythm 10/14/2014 None Full Exam - General 1994 Cardiovascular auscultation of heart Rhythm: irregularly irregular rhythm 10/14/2014 None Full Exam - General 1994 Cardiovascular auscultation of heart Murmur: previously known murmur changed 10/14/2014 None Full Exam - General 1994 Cardiovascular auscultation of heart Systolic murmur grade: II/ 10/14/2014 None Full Exam - General 1994 Abdomen abdominal exam Overall: no tenderness 10/14/2014 None Full Exam - General 1994 Abdomen abdominal exam Overall: normal bowel sounds 10/14/2014 None Full Exam - General 1994 Musculoskeletal upper extremity Overall: normal elbow 10/14/2014 None Full Exam - General 1994 Musculoskeletal head and neck Overall: head atraumatic 10/14/2014 None Full Exam - General 1994 Musculoskeletal head and neck Deformities: head tilt 10/14/2014 tilted to right Full Exam - General 1994 Integument inspection of skin Location: left leg 10/14/2014 buttock/hip Full Exam - General 1994 Neurologic gait Conventional walking: wide-based 10/14/2014 None Full Exam - General 1994 Psychiatric orientation/consciousness Overall: oriented to person, place and time 10/14/2014 None Full Exam - General 1994 Psychiatric mood and affect Overall: normal mood and affect 10/14/2014 None Full Exam - General 1994 Musculoskeletal lower extremity Muscle Strength/Tone - lower leg: calf: atrophy 10/14/2014 None Full Exam - General 1994 Constitutional general appearance Overall: well developed 07/21/2014 None Full Exam - General 1994 Constitutional general appearance Overall: well nourished 07/21/2014 None Full Exam - General 1994 Eyes pupils and irises Overall: pupils equal, round, reactive to light and accomodation 07/21/2014 None Full Exam - General 1994 Ears/Nose/Throat otoscopic exam Overall: external auditory canals clear 07/21/2014 None Full Exam - General 1994 Ears/Nose/Throat otoscopic exam Overall: tympanic membranes clear 07/21/2014 None Full Exam - General 1994 Ears/Nose/Throat oral cavity/pharynx/larynx Overall: oral mucosa clear 07/21/2014 None Full Exam - General 1994 Ears/Nose/Throat oral cavity/pharynx/larynx Overall: oropharyngeal mucosa clear 07/21/2014 None Full Exam - General 1994 Ears/Nose/Throat oral cavity/pharynx/larynx Overall: no masses 07/21/2014 None Full Exam - General 1994 Respiratory auscultation Overall: breath sounds clear bilaterally 07/21/2014 None Full Exam - General 1994 Respiratory respiratory effort/rhythm Overall: no retractions 07/21/2014 None Full Exam - General 1994 Respiratory respiratory effort/rhythm Overall: normal rate 07/21/2014 None Full Exam - General 1994 Cardiovascular extremities Overall: no clubbing 07/21/2014 None Full Exam - General 1994 Cardiovascular extremities Edema present: pitting 07/21/2014 None Full Exam - General 1994 Cardiovascular extremities Edema present: severity 1+ - 4 +: 1-2+ 07/21/2014 None Full Exam - General 1994 Cardiovascular auscultation of heart Rhythm: irregular rhythm 07/21/2014 None Full Exam - General 1994 Cardiovascular auscultation of heart Rhythm: irregularly irregular rhythm 07/21/2014 None Full Exam - General 1994 Cardiovascular auscultation of heart Murmur: previously known murmur changed 07/21/2014 None Full Exam - General 1994 Cardiovascular auscultation of heart Systolic murmur grade: II/ 07/21/2014 None Full Exam - General 1994 Abdomen abdominal exam Overall: no tenderness 07/21/2014 None Full Exam - General 1994 Abdomen abdominal exam Overall: normal bowel sounds 07/21/2014 None Full Exam - General 1994 Musculoskeletal upper extremity Overall: normal elbow 07/21/2014 None Full Exam - General 1994 Musculoskeletal head and neck Overall: head atraumatic 07/21/2014 None Full Exam - General 1994 Musculoskeletal head and neck Deformities: head tilt 07/21/2014 tilted to right Full Exam - General 1994 Integument inspection of skin Location: left leg 07/21/2014 dorsum of foot/ankle - scabbed lesions - scabs removed, neosporin placed with telfa and dressing applied - Full Exam - General 1994 Neurologic gait Conventional walking: wide-based 07/21/2014 None Full Exam - General 1994 Psychiatric orientation/consciousness Overall: oriented to person, place and time 07/21/2014 None Full Exam - General 1994 Psychiatric mood and affect Overall: normal mood and affect 07/21/2014 None Full Exam - General 1994 Constitutional general appearance Overall: well developed 06/24/2014 None Full Exam - General 1994 Constitutional general appearance Overall: well nourished 06/24/2014 None Full Exam - General 1994 Constitutional general appearance Evidence of Distress: mild distress 06/24/2014 None Full Exam - General 1994 Eyes pupils and irises Overall: pupils equal, round, reactive to light and accomodation 06/24/2014 with horizontal and vertical nystagmus Full Exam - General 1994 Ears/Nose/Throat otoscopic exam Overall: external auditory canals clear 06/24/2014 None Full Exam - General 1994 Ears/Nose/Throat otoscopic exam Overall: tympanic membranes clear 06/24/2014 None Full Exam - General 1994 Ears/Nose/Throat oral cavity/pharynx/larynx Overall: oral mucosa clear 06/24/2014 None Full Exam - General 1994 Ears/Nose/Throat oral cavity/pharynx/larynx Overall: oropharyngeal mucosa clear 06/24/2014 None Full Exam - General 1994 Ears/Nose/Throat oral cavity/pharynx/larynx Overall: no masses 06/24/2014 None Full Exam - General 1994 Respiratory auscultation Overall: breath sounds clear bilaterally 06/24/2014 None Full Exam - General 1994 Respiratory respiratory effort/rhythm Overall: no retractions 06/24/2014 None Full Exam - General 1994 Respiratory respiratory effort/rhythm Overall: normal rate 06/24/2014 None Full Exam - General 1994 Cardiovascular extremities Overall: no clubbing 06/24/2014 None Full Exam - General 1994 Cardiovascular extremities Edema present: pitting 06/24/2014 None Full Exam - General 1994 Cardiovascular extremities Edema present: severity 1+ - 4 +: 1-2+ 06/24/2014 None Full Exam - General 1994 Cardiovascular auscultation of heart Rhythm: irregular rhythm 06/24/2014 None Full Exam - General 1994 Cardiovascular auscultation of heart Rhythm: irregularly irregular rhythm 06/24/2014 None Full Exam - General 1994 Cardiovascular auscultation of heart Murmur: previously known murmur changed 06/24/2014 None Full Exam - General 1994 Cardiovascular auscultation of heart Systolic murmur grade: II/ 06/24/2014 None Full Exam - General 1994 Abdomen abdominal exam Overall: no tenderness 06/24/2014 None Full Exam - General 1994 Abdomen abdominal exam Overall: normal bowel sounds 06/24/2014 None Full Exam - General 1994 Musculoskeletal head and neck Overall: head atraumatic 06/24/2014 None Full Exam - General 1994 Musculoskeletal head and neck Deformities: head tilt 06/24/2014 tilted to right Full Exam - General 1994 Integument inspection of skin Location: left leg 06/24/2014 buttock/hip Full Exam - General 1994 Neurologic gait Conventional walking: wide-based 06/24/2014 None Full Exam - General 1994 Psychiatric orientation/consciousness Overall: oriented to person, place and time 06/24/2014 None Full Exam - General 1994 Psychiatric mood and affect Overall: normal mood and affect 06/24/2014 None Full Exam - General 1994 Constitutional general appearance Overall: well developed 04/29/2014 None Full Exam - General 1994 Constitutional general appearance Overall: well nourished 04/29/2014 None Full Exam - General 1994 Eyes pupils and irises Overall: pupils equal, round, reactive to light and accomodation 04/29/2014 None Full Exam - General 1994 Ears/Nose/Throat otoscopic exam Overall: external auditory canals clear 04/29/2014 None Full Exam - General 1994 Ears/Nose/Throat otoscopic exam Overall: tympanic membranes clear 04/29/2014 None Full Exam - General 1994 Ears/Nose/Throat oral cavity/pharynx/larynx Overall: oral mucosa clear 04/29/2014 None Full Exam - General 1994 Ears/Nose/Throat oral cavity/pharynx/larynx Overall: oropharyngeal mucosa clear 04/29/2014 None Full Exam - General 1994 Ears/Nose/Throat oral cavity/pharynx/larynx Overall: no masses 04/29/2014 None Full Exam - General 1994 Respiratory respiratory effort/rhythm Overall: no retractions 04/29/2014 None Full Exam - General 1994 Respiratory respiratory effort/rhythm Overall: normal rate 04/29/2014 None Full Exam - General 1994 Cardiovascular extremities Overall: no clubbing 04/29/2014 None Full Exam - General 1994 Cardiovascular auscultation of heart Rhythm: irregular rhythm 04/29/2014 None Full Exam - General 1994 Cardiovascular auscultation of heart Rhythm: irregularly irregular rhythm 04/29/2014 None Full Exam - General 1994 Cardiovascular auscultation of heart Murmur: previously known murmur changed 04/29/2014 None Full Exam - General 1994 Cardiovascular auscultation of heart Systolic murmur grade: II/ 04/29/2014 None Full Exam - General 1994 Abdomen abdominal exam Overall: no tenderness 04/29/2014 None Full Exam - General 1994 Abdomen abdominal exam Overall: normal bowel sounds 04/29/2014 None Full Exam - General 1994 Musculoskeletal head and neck Overall: head atraumatic 04/29/2014 None Full Exam - General 1994 Musculoskeletal head and neck Deformities: head tilt 04/29/2014 tilted to right Full Exam - General 1994 Psychiatric orientation/consciousness Overall: oriented to person, place and time 04/29/2014 None Full Exam - General 1994 Psychiatric mood and affect Overall: normal mood and affect 04/29/2014 None Full Exam - General 1994 Musculoskeletal upper extremity Inspection - forearm: swelling 04/29/2014 splint right forearm- swelling noted to right fingers and hand. Capillary refill WNL, fingers warm Full Exam - General 1994 Respiratory auscultation Diffuse: expiratory wheezes 04/29/2014 None Full Exam - General 1994 Constitutional general appearance Overall: well developed 04/01/2014 None Full Exam - General 1994 Constitutional general appearance Overall: well nourished 04/01/2014 None Full Exam - General 1994 Eyes pupils and irises Overall: pupils equal, round, reactive to light and accomodation 04/01/2014 with horizontal and vertical nystagmus Full Exam - General 1994 Ears/Nose/Throat otoscopic exam Overall: external auditory canals clear 04/01/2014 None Full Exam - General 1994 Ears/Nose/Throat otoscopic exam Overall: tympanic membranes clear 04/01/2014 None Full Exam - General 1994 Ears/Nose/Throat oral cavity/pharynx/larynx Overall: oral mucosa clear 04/01/2014 None Full Exam - General 1994 Ears/Nose/Throat oral cavity/pharynx/larynx Overall: oropharyngeal mucosa clear 04/01/2014 None Full Exam - General 1994 Ears/Nose/Throat oral cavity/pharynx/larynx Overall: no masses 04/01/2014 None Full Exam - General 1994 Respiratory auscultation Overall: breath sounds clear bilaterally 04/01/2014 None Full Exam - General 1994 Respiratory respiratory effort/rhythm Overall: no retractions 04/01/2014 None Full Exam - General 1994 Respiratory respiratory effort/rhythm Overall: normal rate 04/01/2014 None Full Exam - General 1994 Cardiovascular extremities Overall: no clubbing 04/01/2014 None Full Exam - General 1994 Cardiovascular extremities Edema present: pitting 04/01/2014 None Full Exam - General 1994 Cardiovascular extremities Edema present: severity 1+ - 4 +: 1-2+ 04/01/2014 None Full Exam - General 1994 Cardiovascular auscultation of heart Rhythm: irregularly irregular rhythm 04/01/2014 None Full Exam - General 1994 Cardiovascular auscultation of heart Murmur: previously known murmur changed 04/01/2014 None Full Exam - General 1994 Cardiovascular auscultation of heart Systolic murmur grade: II/ 04/01/2014 None Full Exam - General 1994 Abdomen abdominal exam Overall: no tenderness 04/01/2014 None Full Exam - General 1994 Abdomen abdominal exam Overall: normal bowel sounds 04/01/2014 None Full Exam - General 1994 Musculoskeletal upper extremity Overall: normal elbow 04/01/2014 None Full Exam - General 1994 Musculoskeletal head and neck Overall: head atraumatic 04/01/2014 None Full Exam - General 1994 Musculoskeletal head and neck Deformities: head tilt 04/01/2014 tilted to right Full Exam - General 1994 Neurologic gait Conventional walking: wide-based 04/01/2014 None Full Exam - General 1994 Psychiatric orientation/consciousness Overall: oriented to person, place and time 04/01/2014 None Full Exam - General 1994 Psychiatric mood and affect Overall: normal mood and affect 04/01/2014 None Full Exam - General 1994 Constitutional general appearance Overall: well developed 03/15/2014 None Full Exam - General 1994 Constitutional general appearance Overall: well nourished 03/15/2014 None Full Exam - General 1994 Ears/Nose/Throat otoscopic exam Overall: external auditory canals clear 03/15/2014 None Full Exam - General 1994 Ears/Nose/Throat otoscopic exam Overall: tympanic membranes clear 03/15/2014 None Full Exam - General 1994 Ears/Nose/Throat oral cavity/pharynx/larynx Overall: oral mucosa clear 03/15/2014 None Full Exam - General 1994 Ears/Nose/Throat oral cavity/pharynx/larynx Overall: oropharyngeal mucosa clear 03/15/2014 None Full Exam - General 1994 Ears/Nose/Throat oral cavity/pharynx/larynx Overall: no masses 03/15/2014 None Full Exam - General 1994 Respiratory auscultation Overall: breath sounds clear bilaterally 03/15/2014 None Full Exam - General 1994 Respiratory respiratory effort/rhythm Overall: no retractions 03/15/2014 None Full Exam - General 1994 Respiratory respiratory effort/rhythm Overall: normal rate 03/15/2014 None Full Exam - General 1994 Cardiovascular extremities Overall: no clubbing 03/15/2014 None Full Exam - General 1994 Cardiovascular extremities Edema present: pitting 03/15/2014 None Full Exam - General 1994 Cardiovascular extremities Edema present: severity 1+ - 4 +: 1-2+ 03/15/2014 None Full Exam - General 1994 Cardiovascular auscultation of heart Rhythm: irregular rhythm 03/15/2014 None Full Exam - General 1994 Cardiovascular auscultation of heart Rhythm: irregularly irregular rhythm 03/15/2014 None Full Exam - General 1994 Cardiovascular auscultation of heart Murmur: previously known murmur changed 03/15/2014 None Full Exam - General 1994 Cardiovascular auscultation of heart Systolic murmur grade: II/ 03/15/2014 None Full Exam - General 1994 Abdomen abdominal exam Overall: no tenderness 03/15/2014 None Full Exam - General 1994 Abdomen abdominal exam Overall: normal bowel sounds 03/15/2014 None Full Exam - General 1994 Musculoskeletal upper extremity Overall: normal elbow 03/15/2014 None Full Exam - General 1994 Musculoskeletal head and neck Overall: head atraumatic 03/15/2014 None Full Exam - General 1994 Musculoskeletal head and neck Deformities: head tilt 03/15/2014 tilted to right Full Exam - General 1994 Integument inspection of skin Location: left leg 03/15/2014 buttock/hip Full Exam - General 1994 Neurologic gait Conventional walking: wide-based 03/15/2014 None Full Exam - General 1994 Psychiatric orientation/consciousness Overall: oriented to person, place and time 03/15/2014 None Full Exam - General 1994 Psychiatric mood and affect Overall: normal mood and affect 03/15/2014 None Full Exam - General 1994 Constitutional general appearance Evidence of Distress: mild distress 03/15/2014 None Full Exam - General 1994 Eyes pupils and irises Overall: pupils equal, round, reactive to light and accomodation 03/15/2014 with horizontal and vertical nystagmus Full Exam - General 1994 Constitutional general appearance Overall: well developed 02/22/2014 None Full Exam - General 1994 Constitutional general appearance Overall: well nourished 02/22/2014 None Full Exam - General 1994 Eyes pupils and irises Overall: pupils equal, round, reactive to light and accomodation 02/22/2014 None Full Exam - General 1994 Ears/Nose/Throat otoscopic exam Overall: external auditory canals clear 02/22/2014 None Full Exam - General 1994 Ears/Nose/Throat otoscopic exam Overall: tympanic membranes clear 02/22/2014 None Full Exam - General 1994 Ears/Nose/Throat oral cavity/pharynx/larynx Overall: oral mucosa clear 02/22/2014 None Full Exam - General 1994 Ears/Nose/Throat oral cavity/pharynx/larynx Overall: oropharyngeal mucosa clear 02/22/2014 None Full Exam - General 1994 Ears/Nose/Throat oral cavity/pharynx/larynx Overall: no masses 02/22/2014 None Full Exam - General 1994 Respiratory auscultation Overall: breath sounds clear bilaterally 02/22/2014 None Full Exam - General 1994 Respiratory respiratory effort/rhythm Overall: no retractions 02/22/2014 None Full Exam - General 1994 Respiratory respiratory effort/rhythm Overall: normal rate 02/22/2014 None Full Exam - General 1994 Cardiovascular extremities Overall: no clubbing 02/22/2014 None Full Exam - General 1994 Cardiovascular extremities Edema present: pitting 02/22/2014 None Full Exam - General 1994 Cardiovascular extremities Edema present: severity 1+ - 4 +: 1-2+ 02/22/2014 None Full Exam - General 1994 Cardiovascular auscultation of heart Rhythm: irregular rhythm 02/22/2014 None Full Exam - General 1994 Cardiovascular auscultation of heart Rhythm: irregularly irregular rhythm 02/22/2014 None Full Exam - General 1994 Cardiovascular auscultation of heart Murmur: previously known murmur changed 02/22/2014 None Full Exam - General 1994 Cardiovascular auscultation of heart Systolic murmur grade: II/ 02/22/2014 None Full Exam - General 1994 Abdomen abdominal exam Overall: no tenderness 02/22/2014 None Full Exam - General 1994 Abdomen abdominal exam Overall: normal bowel sounds 02/22/2014 None Full Exam - General 1994 Musculoskeletal upper extremity Overall: normal elbow 02/22/2014 None Full Exam - General 1994 Musculoskeletal head and neck Overall: head atraumatic 02/22/2014 None Full Exam - General 1994 Musculoskeletal head and neck Deformities: head tilt 02/22/2014 tilted to right Full Exam - General 1994 Integument inspection of skin Location: left leg 02/22/2014 buttock/hip Full Exam - General 1994 Neurologic gait Conventional walking: wide-based 02/22/2014 None Full Exam - General 1994 Psychiatric orientation/consciousness Overall: oriented to person, place and time 02/22/2014 None Full Exam - General 1994 Psychiatric mood and affect Overall: normal mood and affect 02/22/2014 None Full Exam - General 1994 Constitutional general appearance Overall: well developed 11/23/2013 None Full Exam - General 1994 Constitutional general appearance Overall: well nourished 11/23/2013 None Full Exam - General 1994 Eyes pupils and irises Overall: pupils equal, round, reactive to light and accomodation 11/23/2013 None Full Exam - General 1994 Ears/Nose/Throat otoscopic exam Overall: external auditory canals clear 11/23/2013 None Full Exam - General 1994 Ears/Nose/Throat otoscopic exam Overall: tympanic membranes clear 11/23/2013 None Full Exam - General 1994 Ears/Nose/Throat oral cavity/pharynx/larynx Overall: oral mucosa clear 11/23/2013 None Full Exam - General 1994 Ears/Nose/Throat oral cavity/pharynx/larynx Overall: oropharyngeal mucosa clear 11/23/2013 None Full Exam - General 1994 Ears/Nose/Throat oral cavity/pharynx/larynx Overall: no masses 11/23/2013 None Full Exam - General 1994 Respiratory auscultation Overall: breath sounds clear bilaterally 11/23/2013 None Full Exam - General 1994 Respiratory respiratory effort/rhythm Overall: no retractions 11/23/2013 None Full Exam - General 1994 Respiratory respiratory effort/rhythm Overall: normal rate 11/23/2013 None Full Exam - General 1994 Cardiovascular extremities Overall: no clubbing 11/23/2013 None Full Exam - General 1994 Cardiovascular extremities Edema present: pitting 11/23/2013 None Full Exam - General 1994 Cardiovascular extremities Edema present: severity 1+ - 4 +: 1-2+ 11/23/2013 None Full Exam - General 1994 Cardiovascular auscultation of heart Rhythm: irregular rhythm 11/23/2013 None Full Exam - General 1994 Cardiovascular auscultation of heart Rhythm: irregularly irregular rhythm 11/23/2013 None Full Exam - General 1994 Cardiovascular auscultation of heart Murmur: previously known murmur changed 11/23/2013 None Full Exam - General 1994 Cardiovascular auscultation of heart Systolic murmur grade: II/ 11/23/2013 None Full Exam - General 1994 Abdomen abdominal exam Overall: no tenderness 11/23/2013 None Full Exam - General 1994 Abdomen abdominal exam Overall: normal bowel sounds 11/23/2013 None Full Exam - General 1994 Musculoskeletal head and neck Overall: head atraumatic 11/23/2013 None Full Exam - General 1994 Musculoskeletal head and neck Deformities: head tilt 11/23/2013 tilted to right Full Exam - General 1994 Integument inspection of skin Location: left leg 11/23/2013 buttock/hip Full Exam - General 1994 Neurologic gait Conventional walking: wide-based 11/23/2013 None Full Exam - General 1994 Psychiatric orientation/consciousness Overall: oriented to person, place and time 11/23/2013 None Full Exam - General 1994 Psychiatric mood and affect Overall: normal mood and affect 11/23/2013 None Full Exam - General 1994 Musculoskeletal upper extremity Overall: normal elbow 11/23/2013 None Full Exam - General 1994 Constitutional general appearance Overall: well developed 08/24/2013 None Full Exam - General 1994 Constitutional general appearance Overall: well nourished 08/24/2013 None Full Exam - General 1994 Eyes pupils and irises Overall: pupils equal, round, reactive to light and accomodation 08/24/2013 None Full Exam - General 1994 Ears/Nose/Throat otoscopic exam Overall: external auditory canals clear 08/24/2013 None Full Exam - General 1994 Ears/Nose/Throat otoscopic exam Overall: tympanic membranes clear 08/24/2013 None Full Exam - General 1994 Ears/Nose/Throat oral cavity/pharynx/larynx Overall: oral mucosa clear 08/24/2013 None Full Exam - General 1994 Ears/Nose/Throat oral cavity/pharynx/larynx Overall: oropharyngeal mucosa clear 08/24/2013 None Full Exam - General 1994 Ears/Nose/Throat oral cavity/pharynx/larynx Overall: no masses 08/24/2013 None Full Exam - General 1994 Respiratory auscultation Overall: breath sounds clear bilaterally 08/24/2013 None Full Exam - General 1994 Respiratory respiratory effort/rhythm Overall: no retractions 08/24/2013 None Full Exam - General 1994 Respiratory respiratory effort/rhythm Overall: normal rate 08/24/2013 None Full Exam - General 1994 Cardiovascular extremities Overall: no clubbing 08/24/2013 None Full Exam - General 1994 Cardiovascular extremities Edema present: pitting 08/24/2013 None Full Exam - General 1994 Cardiovascular extremities Edema present: severity 1+ - 4 +: 1-2+ 08/24/2013 None Full Exam - General 1994 Cardiovascular auscultation of heart Rhythm: irregular rhythm 08/24/2013 None Full Exam - General 1994 Cardiovascular auscultation of heart Rhythm: irregularly irregular rhythm 08/24/2013 None Full Exam - General 1994 Cardiovascular auscultation of heart Murmur: previously known murmur changed 08/24/2013 None Full Exam - General 1994 Cardiovascular auscultation of heart Systolic murmur grade: II/ 08/24/2013 None Full Exam - General 1994 Abdomen abdominal exam Overall: no tenderness 08/24/2013 None Full Exam - General 1994 Abdomen abdominal exam Overall: normal bowel sounds 08/24/2013 None Full Exam - General 1994 Musculoskeletal head and neck Overall: head atraumatic 08/24/2013 None Full Exam - General 1994 Musculoskeletal head and neck Deformities: head tilt 08/24/2013 tilted to right Full Exam - General 1994 Integument inspection of skin Location: left leg 08/24/2013 buttock/hip Full Exam - General 1994 Neurologic gait Conventional walking: wide-based 08/24/2013 None Full Exam - General 1994 Psychiatric orientation/consciousness Overall: oriented to person, place and time 08/24/2013 None Full Exam - General 1994 Psychiatric mood and affect Overall: normal mood and affect 08/24/2013 None Full Exam - General 1994 Constitutional general appearance Overall: well developed 05/25/2013 None Full Exam - General 1994 Constitutional general appearance Overall: well nourished 05/25/2013 None Full Exam - General 1994 Eyes pupils and irises Overall: pupils equal, round, reactive to light and accomodation 05/25/2013 None Full Exam - General 1994 Ears/Nose/Throat otoscopic exam Overall: external auditory canals clear 05/25/2013 None Full Exam - General 1994 Ears/Nose/Throat otoscopic exam Overall: tympanic membranes clear 05/25/2013 None Full Exam - General 1995 Ears/Nose/Throat oral cavity/pharynx/larynx Overall: oral mucosa clear 05/25/2013 None Full Exam - General 1995 Ears/Nose/Throat oral cavity/pharynx/larynx Overall: oropharyngeal mucosa clear 05/25/2013 None Full Exam - General 1995 Ears/Nose/Throat oral cavity/pharynx/larynx Overall: no masses 05/25/2013 None Full Exam - General 1994 Respiratory auscultation Overall: breath sounds clear bilaterally 05/25/2013 None Full Exam - General 1994 Respiratory respiratory effort/rhythm Overall: no retractions 05/25/2013 None Full Exam - General 1994 Respiratory respiratory effort/rhythm Overall: normal rate 05/25/2013 None Full Exam - General 1994 Cardiovascular extremities Overall: no clubbing 05/25/2013 None Full Exam - General 1994 Cardiovascular extremities Edema present: pitting 05/25/2013 None Full Exam - General 1994 Cardiovascular extremities Edema present: severity 1+ - 4 +: 1-2+ 05/25/2013 None Full Exam - General 1994 Cardiovascular auscultation of heart Rhythm: irregular rhythm 05/25/2013 None Full Exam - General 1994 Cardiovascular auscultation of heart Rhythm: irregularly irregular rhythm 05/25/2013 None Full Exam - General 1994 Cardiovascular auscultation of heart Murmur: previously known murmur changed 05/25/2013 None Full Exam - General 1994 Cardiovascular auscultation of heart Systolic murmur grade: II/ 05/25/2013 None Full Exam - General 1994 Abdomen abdominal exam Overall: no tenderness 05/25/2013 None Full Exam - General 1994 Abdomen abdominal exam Overall: normal bowel sounds 05/25/2013 None Full Exam - General 1994 Musculoskeletal head and neck Overall: head atraumatic 05/25/2013 None Full Exam - General 1994 Musculoskeletal head and neck Deformities: head tilt 05/25/2013 tilted to right Full Exam - General 1994 Integument inspection of skin Location: left leg 05/25/2013 buttock/hip Full Exam - General 1994 Neurologic gait Conventional walking: wide-based 05/25/2013 None Full Exam - General 1994 Psychiatric orientation/consciousness Overall: oriented to person, place and time 05/25/2013 None Full Exam - General 1994 Psychiatric mood and affect Overall: normal mood and affect 05/25/2013 None Full Exam - General 1994 Constitutional general appearance Overall: well developed 02/18/2013 None Full Exam - General 1995 Constitutional general appearance Overall: in no acute distress 02/18/2013 None Full Exam - General 1994 Constitutional general appearance Overall: well nourished 02/18/2013 None Full Exam - General 1994 Eyes pupils and irises Overall: pupils equal, round, reactive to light and accomodation 02/18/2013 None Full Exam - General 1995 Ears/Nose/Throat otoscopic exam Overall: external auditory canals clear 02/18/2013 None Full Exam - General 1995 Ears/Nose/Throat otoscopic exam Overall: tympanic membranes clear 02/18/2013 None Full Exam - General 1995 Ears/Nose/Throat oral cavity/pharynx/larynx Overall: oral mucosa clear 02/18/2013 None Full Exam - General 1995 Ears/Nose/Throat oral cavity/pharynx/larynx Overall: oropharyngeal mucosa clear 02/18/2013 None Full Exam - General 1995 Ears/Nose/Throat oral cavity/pharynx/larynx Overall: no masses 02/18/2013 None Full Exam - General 1994 Respiratory auscultation Overall: breath sounds clear bilaterally 02/18/2013 None Full Exam - General 1994 Respiratory respiratory effort/rhythm Overall: no retractions 02/18/2013 None Full Exam - General 1994 Respiratory respiratory effort/rhythm Overall: normal rate 02/18/2013 None Full Exam - General 1994 Cardiovascular extremities Overall: no clubbing 02/18/2013 None Full Exam - General 1994 Cardiovascular extremities Edema present: pitting 02/18/2013 None Full Exam - General 1994 Cardiovascular extremities Edema present: severity 1+ - 4 +: 1-2+ 02/18/2013 None Full Exam - General 1994 Cardiovascular auscultation of heart Rhythm: irregular rhythm 02/18/2013 None Full Exam - General 1994 Cardiovascular auscultation of heart Rhythm: irregularly irregular rhythm 02/18/2013 None Full Exam - General 1994 Cardiovascular auscultation of heart Murmur: previously known murmur changed 02/18/2013 None Full Exam - General 1994 Cardiovascular auscultation of heart Systolic murmur grade: II/ 02/18/2013 None Full Exam - General 1994 Abdomen abdominal exam Overall: no tenderness 02/18/2013 None Full Exam - General 1994 Abdomen abdominal exam Overall: normal bowel sounds 02/18/2013 None Full Exam - General 1994 Musculoskeletal head and neck Overall: head atraumatic 02/18/2013 None Full Exam - General 1995 Musculoskeletal head and neck Deformities: head tilt 02/18/2013 tilted to right Full Exam - General 1994 Integument inspection of skin Location: left leg 02/18/2013 buttock/hip Full Exam - General 1994 Neurologic gait Conventional walking: wide-based 02/18/2013 None Full Exam - General 1995 Psychiatric orientation/consciousness Overall: oriented to person, place and time 02/18/2013 None Full Exam - General 1995 Psychiatric mood and affect Overall: normal mood and affect 02/18/2013 None Full Exam - General 1995 Constitutional general appearance Overall: well developed 01/19/2013 None Full Exam - General 1995 Constitutional general appearance Overall: in no acute distress 01/19/2013 None Full Exam - General 1995 Constitutional general appearance Overall: well nourished 01/19/2013 None Full Exam - General 1994 Eyes pupils and irises Overall: pupils equal, round, reactive to light and accomodation 01/19/2013 None Full Exam - General 1995 Ears/Nose/Throat otoscopic exam Overall: external auditory canals clear 01/19/2013 None Full Exam - General 1995 Ears/Nose/Throat otoscopic exam Overall: tympanic membranes clear 01/19/2013 None Full Exam - General 1995 Ears/Nose/Throat oral cavity/pharynx/larynx Overall: oral mucosa clear 01/19/2013 None Full Exam - General 1995 Ears/Nose/Throat oral cavity/pharynx/larynx Overall: oropharyngeal mucosa clear 01/19/2013 None Full Exam - General 1995 Ears/Nose/Throat oral cavity/pharynx/larynx Overall: no masses 01/19/2013 None Full Exam - General 1994 Respiratory auscultation Overall: breath sounds clear bilaterally 01/19/2013 None Full Exam - General 1994 Respiratory respiratory effort/rhythm Overall: no retractions 01/19/2013 None Full Exam - General 1994 Respiratory respiratory effort/rhythm Overall: normal rate 01/19/2013 None Full Exam - General 1994 Cardiovascular extremities Overall: no clubbing 01/19/2013 None Full Exam - General 1994 Cardiovascular extremities Edema present: pitting 01/19/2013 None Full Exam - General 1994 Cardiovascular extremities Edema present: severity 1+ - 4 +: 1-2+ 01/19/2013 None Full Exam - General 1994 Cardiovascular auscultation of heart Rhythm: irregular rhythm 01/19/2013 None Full Exam - General 1994 Cardiovascular auscultation of heart Rhythm: irregularly irregular rhythm 01/19/2013 None Full Exam - General 1995 Cardiovascular auscultation of heart Murmur: previously known murmur changed 01/19/2013 None Full Exam - General 1995 Cardiovascular auscultation of heart Systolic murmur grade: II/ 01/19/2013 None Full Exam - General 1995 Abdomen abdominal exam Overall: no tenderness 01/19/2013 None Full Exam - General 1995 Abdomen abdominal exam Overall: normal bowel sounds 01/19/2013 None Full Exam - General 1995 Musculoskeletal head and neck Overall: head atraumatic 01/19/2013 None Full Exam - General 1995 Musculoskeletal head and neck Deformities: head tilt 01/19/2013 tilted to right Full Exam - General 1994 Integument inspection of skin Location: left leg 01/19/2013 buttock/hip Full Exam - General 1994 Neurologic gait Conventional walking: wide-based 01/19/2013 None Full Exam - General 1994 Psychiatric orientation/consciousness Overall: oriented to person, place and time 01/19/2013 None Full Exam - General 1994 Psychiatric mood and affect Overall: normal mood and affect 01/19/2013 None Full Exam - General 1995 Constitutional general appearance Overall: well developed 12/16/2012 None Full Exam - General 1995 Constitutional general appearance Overall: in no acute distress 12/16/2012 None Full Exam - General 1995 Constitutional general appearance Overall: well nourished 12/16/2012 None Full Exam - General 1994 Eyes pupils and irises Overall: pupils equal, round, reactive to light and accomodation 12/16/2012 None Full Exam - General 1994 Ears/Nose/Throat otoscopic exam Overall: external auditory canals clear 12/16/2012 None Full Exam - General 1994 Ears/Nose/Throat otoscopic exam Overall: tympanic membranes clear 12/16/2012 None Full Exam - General 1995 Ears/Nose/Throat oral cavity/pharynx/larynx Overall: oral mucosa clear 12/16/2012 None Full Exam - General 1995 Ears/Nose/Throat oral cavity/pharynx/larynx Overall: oropharyngeal mucosa clear 12/16/2012 None Full Exam - General 1995 Ears/Nose/Throat oral cavity/pharynx/larynx Overall: no masses 12/16/2012 None Full Exam - General 1994 Respiratory auscultation Overall: breath sounds clear bilaterally 12/16/2012 None Full Exam - General 1994 Respiratory respiratory effort/rhythm Overall: no retractions 12/16/2012 None Full Exam - General 1995 Respiratory respiratory effort/rhythm Overall: normal rate 12/16/2012 None Full Exam - General 1995 Cardiovascular extremities Overall: no clubbing 12/16/2012 None Full Exam - General 1995 Cardiovascular extremities Edema present: pitting 12/16/2012 None Full Exam - General 1995 Cardiovascular extremities Edema present: severity 1+ - 4 +: 1-2+ 12/16/2012 None Full Exam - General 1995 Cardiovascular auscultation of heart Rhythm: irregular rhythm 12/16/2012 None Full Exam - General 1995 Cardiovascular auscultation of heart Rhythm: irregularly irregular rhythm 12/16/2012 None Full Exam - General 1995 Cardiovascular auscultation of heart Murmur: previously known murmur changed 12/16/2012 None Full Exam - General 1995 Cardiovascular auscultation of heart Systolic murmur grade: II/ 12/16/2012 None Full Exam - General 1995 Abdomen abdominal exam Overall: no tenderness 12/16/2012 None Full Exam - General 1994 Abdomen abdominal exam Overall: normal bowel sounds 12/16/2012 None Full Exam - General 1994 Musculoskeletal head and neck Overall: head atraumatic 12/16/2012 None Full Exam - General 1994 Musculoskeletal head and neck Deformities: head tilt 12/16/2012 tilted to right Full Exam - General 1994 Neurologic gait Conventional walking: wide-based 12/16/2012 None Full Exam - General 1994 Psychiatric orientation/consciousness Overall: oriented to person, place and time 12/16/2012 None Full Exam - General 1994 Psychiatric mood and affect Overall: normal mood and affect 12/16/2012 None Full Exam - General 1994 Integument inspection of skin Location: left leg 12/16/2012 buttock/hip Full Exam - General 1994 Constitutional general appearance Overall: well developed 10/13/2012 None Full Exam - General 1994 Constitutional general appearance Overall: in no acute distress 10/13/2012 None Full Exam - General 1994 Constitutional general appearance Overall: well nourished 10/13/2012 None Full Exam - General 1994 Eyes pupils and irises Overall: pupils equal, round, reactive to light and accomodation 10/13/2012 None Full Exam - General 1994 Respiratory auscultation Overall: breath sounds clear bilaterally 10/13/2012 None Full Exam - General 1994 Respiratory respiratory effort/rhythm Overall: no retractions 10/13/2012 None Full Exam - General 1994 Respiratory respiratory effort/rhythm Overall: normal rate 10/13/2012 None Full Exam - General 1995 Cardiovascular extremities Overall: no clubbing 10/13/2012 None Full Exam - General 1994 Cardiovascular extremities Edema present: pitting 10/13/2012 None Full Exam - General 1994 Cardiovascular extremities Edema present: severity 1+ - 4 +: 1-2+ 10/13/2012 None Full Exam - General 1995 Cardiovascular auscultation of heart Rhythm: irregular rhythm 10/13/2012 None Full Exam - General 1994 Cardiovascular auscultation of heart Rhythm: irregularly irregular rhythm 10/13/2012 None Full Exam - General 1994 Cardiovascular auscultation of heart Murmur: previously known murmur changed 10/13/2012 None Full Exam - General 1995 Cardiovascular auscultation of heart Systolic murmur grade: II/ 10/13/2012 None Full Exam - General 1995 Abdomen abdominal exam Overall: no tenderness 10/13/2012 None Full Exam - General 1995 Abdomen abdominal exam Overall: normal bowel sounds 10/13/2012 None Full Exam - General 1994 Musculoskeletal head and neck Overall: head atraumatic 10/13/2012 None Full Exam - General 1994 Musculoskeletal head and neck Deformities: head tilt 10/13/2012 tilted to right Full Exam - General 1994 Integument inspection of skin Overall: no rash, lesions 10/13/2012 None Full Exam - General 1994 Neurologic gait Conventional walking: wide-based 10/13/2012 None Full Exam - General 1994 Psychiatric orientation/consciousness Overall: oriented to person, place and time 10/13/2012 None Full Exam - General 1994 Psychiatric mood and affect Overall: normal mood and affect 10/13/2012 None Full Exam - General 1994 Ears/Nose/Throat otoscopic exam Overall: tympanic membranes clear 10/13/2012 None Full Exam - General 1994 Ears/Nose/Throat otoscopic exam Overall: external auditory canals clear 10/13/2012 None Full Exam - General 1994 Ears/Nose/Throat oral cavity/pharynx/larynx Overall: oropharyngeal mucosa clear 10/13/2012 None Full Exam - General 1995 Ears/Nose/Throat oral cavity/pharynx/larynx Overall: no masses 10/13/2012 None Full Exam - General 1995 Ears/Nose/Throat oral cavity/pharynx/larynx Overall: oral mucosa clear 10/13/2012 None Full Exam - General 1994 Constitutional general appearance Overall: well developed 08/25/2012 None Full Exam - General 1995 Constitutional general appearance Overall: in no acute distress 08/25/2012 None Full Exam - General 1995 Constitutional general appearance Overall: well nourished 08/25/2012 None Full Exam - General 1994 Eyes pupils and irises Overall: pupils equal, round, reactive to light and accomodation 08/25/2012 None Full Exam - General 1995 Respiratory auscultation Overall: breath sounds clear bilaterally 08/25/2012 None Full Exam - General 1994 Respiratory respiratory effort/rhythm Overall: no retractions 08/25/2012 None Full Exam - General 1995 Respiratory respiratory effort/rhythm Overall: normal rate 08/25/2012 None Full Exam - General 1995 Cardiovascular extremities Overall: no clubbing 08/25/2012 None Full Exam - General 1994 Cardiovascular extremities Edema present: pitting 08/25/2012 None Full Exam - General 1994 Cardiovascular extremities Edema present: severity 1+ - 4 +: 1-2+ 08/25/2012 None Full Exam - General 1994 Cardiovascular auscultation of heart Rhythm: irregular rhythm 08/25/2012 None Full Exam - General 1994 Cardiovascular auscultation of heart Rhythm: irregularly irregular rhythm 08/25/2012 None Full Exam - General 1994 Cardiovascular auscultation of heart Murmur: previously known murmur changed 08/25/2012 None Full Exam - General 1994 Cardiovascular auscultation of heart Systolic murmur grade: II/ 08/25/2012 None Full Exam - General 1994 Abdomen abdominal exam Overall: no tenderness 08/25/2012 None Full Exam - General 1994 Abdomen abdominal exam Overall: normal bowel sounds 08/25/2012 None Full Exam - General 1994 Musculoskeletal head and neck Overall: head atraumatic 08/25/2012 None Full Exam - General 1994 Musculoskeletal head and neck Deformities: head tilt 08/25/2012 tilted to right Full Exam - General 1994 Neurologic gait Conventional walking: wide-based 08/25/2012 None Full Exam - General 1994 Psychiatric orientation/consciousness Overall: oriented to person, place and time 08/25/2012 None Full Exam - General 1994 Psychiatric mood and affect Overall: normal mood and affect 08/25/2012 None Full Exam - General 1994 Integument inspection of skin Overall: no rash, lesions 08/25/2012 None Full Exam - General 1994 Respiratory auscultation Overall: breath sounds clear bilaterally 06/23/2012 None Full Exam - General 1994 Respiratory respiratory effort/rhythm Overall: no retractions 06/23/2012 None Full Exam - General 1995 Respiratory respiratory effort/rhythm Overall: normal rate 06/23/2012 None Full Exam - General 1995 Cardiovascular extremities Overall: no clubbing 06/23/2012 None Full Exam - General 1995 Cardiovascular extremities Edema present: pitting 06/23/2012 None Full Exam - General 1995 Cardiovascular extremities Edema present: severity 1+ - 4 +: 1-2+ 06/23/2012 None Full Exam - General 1995 Cardiovascular auscultation of heart Rhythm: irregular rhythm 06/23/2012 None Full Exam - General 1995 Cardiovascular auscultation of heart Rhythm: irregularly irregular rhythm 06/23/2012 None Full Exam - General 1995 Cardiovascular auscultation of heart Murmur: previously known murmur changed 06/23/2012 None Full Exam - General 1995 Cardiovascular auscultation of heart Systolic murmur grade: II/ 06/23/2012 None Full Exam - General 1995 Abdomen abdominal exam Overall: no tenderness 06/23/2012 None Full Exam - General 1995 Abdomen abdominal exam Overall: normal bowel sounds 06/23/2012 None Full Exam - General 1995 Musculoskeletal head and neck Overall: head atraumatic 06/23/2012 None Full Exam - General 1995 Constitutional general appearance Overall: well developed 06/23/2012 None Full Exam - General 1994 Constitutional general appearance Overall: in no acute distress 06/23/2012 None Full Exam - General 1995 Constitutional general appearance Overall: well nourished 06/23/2012 None Full Exam - General 1994 Eyes pupils and irises Overall: pupils equal, round, reactive to light and accomodation 06/23/2012 None Full Exam - General 1994 Musculoskeletal head and neck Deformities: head tilt 06/23/2012 tilted to right Full Exam - General 1994 Neurologic gait Conventional walking: wide-based 06/23/2012 None Full Exam - General 1994 Psychiatric orientation/consciousness Overall: oriented to person, place and time 06/23/2012 None Full Exam - General 1994 Psychiatric mood and affect Overall: normal mood and affect 06/23/2012 None Full Exam - General 1995 Cardiovascular auscultation of heart Rhythm: irregular rhythm 05/22/2012 None Full Exam - General 1995 Cardiovascular auscultation of heart Rhythm: irregularly irregular rhythm 05/22/2012 None Full Exam - General 1994 Cardiovascular auscultation of heart Murmur: previously known murmur changed 05/22/2012 None Full Exam - General 1995 Cardiovascular auscultation of heart Systolic murmur grade: II/ 05/22/2012 None Full Exam - General 1995 Abdomen abdominal exam Overall: no tenderness 05/22/2012 None Full Exam - General 1995 Abdomen abdominal exam Overall: normal bowel sounds 05/22/2012 None Full Exam - General 1995 Musculoskeletal head and neck Overall: head atraumatic 05/22/2012 None Full Exam - General 1994 Musculoskeletal head and neck Deformities: head tilt 05/22/2012 tilted to right Full Exam - General 1994 Neurologic gait Conventional walking: wide-based 05/22/2012 None Full Exam - General 1994 Psychiatric orientation/consciousness Overall: oriented to person, place and time 05/22/2012 None Full Exam - General 1995 Psychiatric mood and affect Overall: normal mood and affect 05/22/2012 None Full Exam - General 1995 Constitutional general appearance Overall: well developed 05/22/2012 None Full Exam - General 1994 Constitutional general appearance Overall: in no acute distress 05/22/2012 None Full Exam - General 1994 Constitutional general appearance Overall: well nourished 05/22/2012 None Full Exam - General 1994 Eyes pupils and irises Overall: pupils equal, round, reactive to light and accomodation 05/22/2012 None Full Exam - General 1994 Respiratory auscultation Overall: breath sounds clear bilaterally 05/22/2012 None Full Exam - General 1994 Respiratory respiratory effort/rhythm Overall: no retractions 05/22/2012 None Full Exam - General 1994 Respiratory respiratory effort/rhythm Overall: normal rate 05/22/2012 None Full Exam - General 1994 Cardiovascular extremities Overall: no clubbing 05/22/2012 None Full Exam - General 1994 Cardiovascular extremities Edema present: pitting 05/22/2012 None Full Exam - General 1994 Cardiovascular extremities Edema present: severity 1+ - 4 +: 1-2+ 05/22/2012 None Full Exam - General 1994 Constitutional general appearance Overall: well developed 04/16/2012 None Full Exam - General 1994 Constitutional general appearance Overall: in no acute distress 04/16/2012 None Full Exam - General 1994 Constitutional general appearance Overall: well nourished 04/16/2012 None Full Exam - General 1994 Eyes pupils and irises Overall: pupils equal, round, reactive to light and accomodation 04/16/2012 None Full Exam - General 1994 Respiratory auscultation Overall: breath sounds clear bilaterally 04/16/2012 None Full Exam - General 1994 Respiratory respiratory effort/rhythm Overall: no retractions 04/16/2012 None Full Exam - General 1994 Respiratory respiratory effort/rhythm Overall: normal rate 04/16/2012 None Full Exam - General 1994 Cardiovascular extremities Overall: no clubbing 04/16/2012 None Full Exam - General 1994 Cardiovascular auscultation of heart Rhythm: irregular rhythm 04/16/2012 None Full Exam - General 1994 Cardiovascular auscultation of heart Rhythm: irregularly irregular rhythm 04/16/2012 None Full Exam - General 1994 Cardiovascular auscultation of heart Murmur: previously known murmur changed 04/16/2012 None Full Exam - General 1994 Cardiovascular auscultation of heart Systolic murmur grade: II/ 04/16/2012 None Full Exam - General 1994 Abdomen abdominal exam Overall: no tenderness 04/16/2012 None Full Exam - General 1994 Abdomen abdominal exam Overall: normal bowel sounds 04/16/2012 None Full Exam - General 1994 Musculoskeletal head and neck Overall: head atraumatic 04/16/2012 None Full Exam - General 1994 Musculoskeletal head and neck Deformities: head tilt 04/16/2012 tilted to right Full Exam - General 1994 Neurologic gait Conventional walking: wide-based 04/16/2012 None Full Exam - General 1994 Psychiatric orientation/consciousness Overall: oriented to person, place and time 04/16/2012 None Full Exam - General 1994 Psychiatric mood and affect Overall: normal mood and affect 04/16/2012 None Full Exam - General 1994 Cardiovascular extremities Edema present: pitting 04/16/2012 None Full Exam - General 1994 Cardiovascular extremities Edema present: severity 1+ - 4 +: 1-2+ 04/16/2012 None Full Exam - General 1994 Constitutional general appearance Overall: well developed 03/04/2012 None Full Exam - General 1994 Constitutional general appearance Overall: in no acute distress 03/04/2012 None Full Exam - General 1994 Constitutional general appearance Overall: well nourished 03/04/2012 None Full Exam - General 1994 Eyes pupils and irises Overall: pupils equal, round, reactive to light and accomodation 03/04/2012 None Full Exam - General 1994 Respiratory auscultation Overall: breath sounds clear bilaterally 03/04/2012 None Full Exam - General 1994 Respiratory respiratory effort/rhythm Overall: no retractions 03/04/2012 None Full Exam - General 1994 Respiratory respiratory effort/rhythm Overall: normal rate 03/04/2012 None Full Exam - General 1994 Cardiovascular extremities Overall: no clubbing 03/04/2012 None Full Exam - General 1994 Cardiovascular auscultation of heart Rhythm: irregular rhythm 03/04/2012 None Full Exam - General 1994 Cardiovascular auscultation of heart Rhythm: irregularly irregular rhythm 03/04/2012 None Full Exam - General 1994 Cardiovascular auscultation of heart Murmur: previously known murmur changed 03/04/2012 None Full Exam - General 1994 Cardiovascular auscultation of heart Systolic murmur grade: II/ 03/04/2012 None Full Exam - General 1994 Abdomen abdominal exam Overall: no tenderness 03/04/2012 None Full Exam - General 1994 Abdomen abdominal exam Overall: normal bowel sounds 03/04/2012 None Full Exam - General 1994 Musculoskeletal head and neck Overall: head atraumatic 03/04/2012 None Full Exam - General 1994 Musculoskeletal head and neck Deformities: head tilt 03/04/2012 tilted to right Full Exam - General 1994 Neurologic gait Conventional walking: wide-based 03/04/2012 None Full Exam - General 1994 Psychiatric orientation/consciousness Overall: oriented to person, place and time 03/04/2012 None Full Exam - General 1994 Psychiatric mood and affect Overall: normal mood and affect 03/04/2012 None Full Exam - General 1994 Respiratory auscultation Overall: breath sounds clear bilaterally 12/04/2011 None Full Exam - General 1994 Respiratory respiratory effort/rhythm Overall: no retractions 12/04/2011 None Full Exam - General 1994 Respiratory respiratory effort/rhythm Overall: normal rate 12/04/2011 None Full Exam - General 1994 Cardiovascular extremities Overall: no clubbing 12/04/2011 None Full Exam - General 1994 Cardiovascular auscultation of heart Rhythm: irregular rhythm 12/04/2011 None Full Exam - General 1994 Cardiovascular auscultation of heart Murmur: previously known murmur changed 12/04/2011 None Full Exam - General 1994 Constitutional general appearance Overall: well nourished 12/04/2011 None Full Exam - General 1994 Constitutional general appearance Overall: well developed 12/04/2011 None Full Exam - General 1994 Constitutional general appearance Overall: in no acute distress 12/04/2011 None Full Exam - General 1994 Eyes pupils and irises Overall: pupils equal, round, reactive to light and accomodation 12/04/2011 None Full Exam - General 1995 Musculoskeletal head and neck Overall: head atraumatic 12/04/2011 None Full Exam - General 1994 Neurologic gait Conventional walking: wide-based 12/04/2011 None Full Exam - General 1994 Psychiatric orientation/consciousness Overall: oriented to person, place and time 12/04/2011 None Full Exam - General 1994 Psychiatric mood and affect Overall: normal mood and affect 12/04/2011 None Full Exam - General 1994 Cardiovascular auscultation of heart Rhythm: irregularly irregular rhythm 12/04/2011 None Full Exam - General 1994 Cardiovascular auscultation of heart Systolic murmur grade: II/ 12/04/2011 None Full Exam - General 1994 Abdomen abdominal exam Overall: no tenderness 12/04/2011 None Full Exam - General 1994 Abdomen abdominal exam Overall: normal bowel sounds 12/04/2011 None Full Exam - General 1994 Musculoskeletal head and neck Deformities: head tilt 12/04/2011 tilted to right Full Exam - General 1994 Constitutional general appearance Overall: well nourished 10/01/2011 None Full Exam - General 1994 Constitutional general appearance Overall: well developed 10/01/2011 None Full Exam - General 1994 Constitutional general appearance Overall: in no acute distress 10/01/2011 None Full Exam - General 1994 Eyes pupils and irises Overall: pupils equal, round, reactive to light and accomodation 10/01/2011 None Full Exam - General 1994 Respiratory auscultation Overall: breath sounds clear bilaterally 10/01/2011 None Full Exam - General 1994 Respiratory respiratory effort/rhythm Overall: no retractions 10/01/2011 None Full Exam - General 1994 Respiratory respiratory effort/rhythm Overall: normal rate 10/01/2011 None Full Exam - General 1994 Cardiovascular extremities Edema present: pitting 10/01/2011 None Full Exam - General 1994 Cardiovascular extremities Edema present: severity 1+ - 4 +: 2 10/01/2011 None Full Exam - General 1994 Cardiovascular extremities Edema present: bilateral 10/01/2011 None Full Exam - General 1994 Cardiovascular extremities Edema present: to leg 10/01/2011 None Full Exam - General 1994 Cardiovascular auscultation of heart Rhythm: irregularly irregular rhythm 10/01/2011 None Full Exam - General 1994 Cardiovascular auscultation of heart Systolic murmur grade: II/ 10/01/2011 None Full Exam - General 1994 Musculoskeletal head and neck Overall: head atraumatic 10/01/2011 None Full Exam - General 1994 Neurologic gait Conventional walking: wide-based 10/01/2011 None Full Exam - General 1994 Psychiatric orientation/consciousness Overall: oriented to person, place and time 10/01/2011 None Full Exam - General 1994 Psychiatric mood and affect Overall: normal mood and affect 10/01/2011 None Full Exam - General 1994 Neck inspection of neck Size: a normal exam 10/01/2011 None Full Exam - General 1994 Abdomen abdominal exam Overall: no tenderness 10/01/2011 None Full Exam - General 1994 Abdomen abdominal exam Overall: normal bowel sounds 10/01/2011 None Full Exam - General 1994 Constitutional general appearance Overall: well nourished 08/14/2011 None Full Exam - General 1994 Constitutional general appearance Overall: well developed 08/14/2011 None Full Exam - General 1994 Constitutional general appearance Overall: in no acute distress 08/14/2011 None Full Exam - General 1994 Eyes pupils and irises Overall: pupils equal, round, reactive to light and accomodation 08/14/2011 None Full Exam - General 1994 Musculoskeletal head and neck Overall: head atraumatic 08/14/2011 None Full Exam - General 1994 Neurologic gait Conventional walking: wide-based 08/14/2011 None Full Exam - General 1994 Psychiatric orientation/consciousness Overall: oriented to person, place and time 08/14/2011 None Full Exam - General 1994 Psychiatric mood and affect Overall: normal mood and affect 08/14/2011 None Full Exam - General 1994 Respiratory auscultation Overall: breath sounds clear bilaterally 08/14/2011 None Full Exam - General 1994 Respiratory respiratory effort/rhythm Overall: normal rate 08/14/2011 None Full Exam - General 1994 Respiratory respiratory effort/rhythm Overall: no retractions 08/14/2011 None Full Exam - General 1994 Cardiovascular extremities Edema present: pitting 08/14/2011 None Full Exam - General 1994 Cardiovascular extremities Edema present: severity 1+ - 4 +: 2 08/14/2011 None Full Exam - General 1994 Cardiovascular extremities Edema present: to leg 08/14/2011 None Full Exam - General 1994 Cardiovascular extremities Edema present: bilateral 08/14/2011 None Full Exam - General 1994 Cardiovascular auscultation of heart Rhythm: irregularly irregular rhythm 08/14/2011 None Full Exam - General 1994 Cardiovascular auscultation of heart Systolic murmur grade: II/ 08/14/2011 None Full Exam - General 1994 Eyes pupils and irises Overall: pupils equal, round, reactive to light and accomodation 07/09/2011 None Full Exam - General 1994 Musculoskeletal head and neck Overall: head atraumatic 07/09/2011 None Full Exam - General 1995 Neurologic gait Conventional walking: wide-based 07/09/2011 None Full Exam - General 1994 Psychiatric orientation/consciousness Overall: oriented to person, place and time 07/09/2011 None Full Exam - General 1994 Psychiatric mood and affect Overall: normal mood and affect 07/09/2011 None Full Exam - General 1994 Respiratory auscultation Overall: breath sounds clear bilaterally 07/09/2011 None Full Exam - General 1994 Respiratory respiratory effort/rhythm Overall: normal rate 07/09/2011 None Full Exam - General 1994 Respiratory respiratory effort/rhythm Overall: no retractions 07/09/2011 None Full Exam - General 1994 Cardiovascular auscultation of heart Overall: regular rate 07/09/2011 None Full Exam - General 1994 Cardiovascular auscultation of heart Overall: normal heart sounds 07/09/2011 None Full Exam - General 1994 Cardiovascular extremities Overall: no clubbing 07/09/2011 None Full Exam - General 1994 Abdomen abdominal exam Overall: no tenderness 07/09/2011 None Full Exam - General 1994 Abdomen abdominal exam Overall: normal bowel sounds 07/09/2011 None Full Exam - General 1994 Constitutional general appearance Overall: well nourished 07/09/2011 None Full Exam - General 1994 Constitutional general appearance Overall: well developed 07/09/2011 None Full Exam - General 1994 Constitutional general appearance Overall: in no acute distress 07/09/2011 None Full Exam - General 1994 Constitutional general appearance Overall: well nourished 05/08/2011 None Full Exam - General 1994 Constitutional general appearance Overall: well developed 05/08/2011 None Full Exam - General 1994 Constitutional general appearance Overall: in no acute distress 05/08/2011 None Full Exam - General 1994 Eyes pupils and irises Overall: pupils equal, round, reactive to light and accomodation 05/08/2011 None Full Exam - General 1994 Psychiatric orientation/consciousness Overall: oriented to person, place and time 05/08/2011 None Full Exam - General 1994 Psychiatric mood and affect Overall: normal mood and affect 05/08/2011 None Full Exam - General 1994 Neurologic gait Conventional walking: wide-based 05/08/2011 None Full Exam - General 1994 Musculoskeletal head and neck Overall: head atraumatic 05/08/2011 None Full Exam - General 1994 Respiratory respiratory effort/rhythm Overall: normal rate 05/08/2011 None Full Exam - General 1994 Respiratory respiratory effort/rhythm Overall: no retractions 05/08/2011 None Full Exam - General 1994 Respiratory auscultation Overall: breath sounds clear bilaterally 05/08/2011 None Full Exam - General 1994 Cardiovascular extremities Overall: no clubbing 05/08/2011 None Full Exam - General 1994 Cardiovascular auscultation of heart Murmur: previously known murmur changed 05/08/2011 None Full Exam - General 1994 Cardiovascular auscultation of heart Rhythm: irregular rhythm 05/08/2011 None Full Exam - General Constitutional general appearance Overall: in no acute distress 01/11/2011 None Full Exam - General Constitutional general appearance Stature/Body Habitus: short stature 01/11/2011 None Full Exam - General Constitutional general appearance Stature/Body Habitus: kyphosis 01/11/2011 None Full Exam - General Constitutional general appearance Stature/Body Habitus: scoliosis 01/11/2011 None Full Exam - General Eyes pupils and irises Overall: pupils equal, round, reactive to light and accomodation 01/11/2011 None Full Exam - General Respiratory auscultation Overall: breath sounds clear bilaterally 01/11/2011 None Full Exam - General Respiratory respiratory effort/rhythm Overall: no retractions 01/11/2011 None Full Exam - General Respiratory respiratory effort/rhythm Overall: normal rate 01/11/2011 None Full Exam - General Cardiovascular auscultation of heart Overall: regular rate 01/11/2011 None Full Exam - General Cardiovascular auscultation of heart Overall: normal heart sounds 01/11/2011 None Full Exam - General Chest/Breast breast/ chest inspection Chest shape: kyphoscoliosis 01/11/2011 None Full Exam - General Abdomen abdominal exam Overall: no tenderness 01/11/2011 None Full Exam - General Abdomen abdominal exam Overall: normal bowel sounds 01/11/2011 None Full Exam - General Musculoskeletal spine , ribs and pelvis Posture: kyphoscoliosis 01/11/2011 with pt curved to the right Full Exam - General Constitutional general appearance Overall: well nourished 01/11/2011 None Full Exam - General Constitutional general appearance Overall: well developed 01/11/2011 None Full Exam - General Musculoskeletal spine , ribs and pelvis Palpation - right hip: a normal exam 01/11/2011 None Full Exam - General Musculoskeletal spine , ribs and pelvis Inspection - left hip: a normal exam 01/11/2011 nontender to palpation deep in buttock on left, or over the greater trochanter Full Exam - General Neurologic cranial nerves Overall: cranial nerves 1-12 intact 01/11/2011 None Full Exam - General Psychiatric orientation/consciousness Overall: oriented to person, place and time 01/11/2011 None Full Exam - General Psychiatric mood and affect Overall: normal mood and affect 01/11/2011 None Procedures Procedure Codes Date PPPS, SUBSEQ VISIT CPT -4: G0439 02/12/2018 DESTRUCT PREMALG LESION CPT-4: 87482 11/12/2017 DESTRUCT PREMALG LES 2-14 CPT-4: 21026 11/12/2017 THER/PROPH/DIAG INJ SC/IM CPT-4: 43255 09/10/2016 TRIAMCINOLONE ACET INJ NOS CPT-4: J3301 09/10/2016 ADMIN PNEUMOCOCCAL VACCINE SNOMED CT: [id number] CPT-4: G0009 02/08/2016 Pneumococcal Polysaccharide Vaccine, 23-Valent, Ad CPT-4: 60329 02/08/2016 TRIAMCINOLONE ACET INJ NOS CPT-4: J3301 08/22/2015 ROCEPHIN, PER 250 MG CPT-4: J0696 08/22/2015 TRIAMCINOLONE ACET INJ NOS CPT-4: J3301 04/29/2014 TRIAMCINOLONE ACET INJ NOS CPT-4: J3301 03/15/2014 THER/PROPH/DIAG INJ SC/IM CPT-4: 18276 03/15/2014 TRIAMCINOLONE ACET INJ NOS CPT-4: J3301 01/19/2013 THER/PROPH/DIAG INJ SC/IM CPT-4: 68326 01/19/2013 PRESCRIP TRANSMIT VIA ERX SY CPT-4: G8553 01/19/2013 ROUTINE VENIPUNCTURE CPT-4: 76476 12/04/2011 Vital Signs Date Vital 02/12/2018 Blood Pressure 1: 128/70 Code : 8480-6 Heart Rate 1: 82 bpm Height: SpO2: 96% Weight: 01/15/2018 Blood Pressure 1: 134/68 Code : 8480-6 Heart Rate 1: 84 bpm Height: SpO2: 91% Weight: 01/09/2018 Blood Pressure 1: 140/94 Code : 8480-6 Heart Rate 1: 99 bpm Height: SpO2: 96% Weight: 11/12/2017 Blood Pressure 1: 140/70 Code : 8480-6 Heart Rate 1: 88 bpm Height: SpO2: 92% Weight: 147 lbs 10 oz 08/14/2017 Blood Pressure 1: 142/76 Code : 8480-6 Heart Rate 1: 89 bpm Height: SpO2: 95% Weight: 05/14/2017 Blood Pressure 1: 136/70 Code : 8480-6 Heart Rate 1: 56 bpm Height: SpO2: 98% Weight: 04/15/2017 Blood Pressure 1: 140/72 Code : 8480-6 Heart Rate 1: 82 bpm Height: SpO2: 97% Weight: 03/25/2017 Blood Pressure 1: 116/68 Code : 8480-6 Heart Rate 1: 67 bpm Height: SpO2: 94% Weight: 12/28/2016 Blood Pressure 1: 112/74 Code : 8480-6 Heart Rate 1: 60 bpm Height: SpO2: 92% Weight: 12/21/2016 Blood Pressure 1: 140/86 Code : 8480-6 Heart Rate 1: 108 bpm Height: SpO2: 88% Weight: 12/11/2016 Blood Pressure 1: 118/60 Code : 8480-6 Heart Rate 1: 68 bpm Height: SpO2: 93% Weight: 11/14/2016 Blood Pressure 1: 124/80 Code : 8480-6 Heart Rate 1: 72 bpm Height: SpO2: 94% Weight: 11/09/2016 Blood Pressure 1: 118/78 Code : 8480-6 Heart Rate 1: 92 bpm SpO2: 95% 09/17/2016 Blood Pressure 1: 162/90 Code : 8480-6 Heart Rate 1: 100 bpm Height: 4'10" SpO2: 95% Weight: 09/10/2016 Blood Pressure 1: 160/72 Code : 8480-6 Heart Rate 1: 86 bpm SpO2: 88% Temperature: 37.3 (C) / 99.1 (F) 08/15/2016 Blood Pressure 1: 122/80 Code : 8480-6 Heart Rate 1: 74 bpm Height: 4'10" SpO2: 97% Weight: 06/14/2016 Blood Pressure 1: 122/62 Code : 8480-6 Heart Rate 1: 79 bpm Height: 4'10" SpO2: 96% Weight: 06/06/2016 Blood Pressure 1: 146/80 Code : 8480-6 Heart Rate 1: 86 bpm Height: 4'10" SpO2: 94% Temperature: 37.1 (C) / 98.7 (F) Weight: 02/08/2016 Blood Pressure 1: 118/58 Code : 8480-6 Heart Rate 1: 67 bpm Height: 4'10" SpO2: 95% Weight: 11/08/2015 Blood Pressure 1: 128/80 Code : 8480-6 BMI: 30.7 Code : 51510-1 Heart Rate 1 : 68 bpm Height: 4'10" SpO2: 96% Weight: 147 lbs 08/22/2015 Blood Pressure 1: 128/88 Code : 8480-6 Heart Rate 1: 78 bpm Height: SpO2: 89% Temperature: 36.7 (C) / 98.0 (F) Weight: 08/09/2015 Blood Pressure 1: 116/64 Code : 8480-6 BMI: 31.6 Code : 27350-2 Heart Rate 1 : 84 bpm Height: 4'10" SpO2: 93% Weight: 151 lbs 05/26/2015 Blood Pressure 1: 128/76 Code : 8480-6 Heart Rate 1: 124 bpm Height: SpO2: 89% Weight: 02/15/2015 Blood Pressure 1: 128/72 Code : 8480-6 BMI: 32.0 Code : 65791-6 Heart Rate 1 : 85 bpm Height: 4'10" SpO2: 93% Weight: 153 lbs 12/02/2014 Blood Pressure 1: 146/80 Code : 8480-6 Heart Rate 1: 112 bpm Height: SpO2: 95% Weight: 153 lbs 10/14/2014 Blood Pressure 1: 142/76 Code : 8480-6 Heart Rate 1: 76 bpm Height: Height: Weight: 152 lbs Weight: 152 lbs 07/21/2014 Blood Pressure 1: 160/72 Code : 8480-6 Heart Rate 1: 84 bpm Weight: 152 lbs 06/24/2014 Blood Pressure 1: 128/84 Code : 8480-6 Heart Rate 1: 66 bpm Height: SpO2: 96% Temperature: 37.6 (C) / 99.6 (F) Weight: 04/29/2014 Blood Pressure 1: 114/58 Code : 8480-6 Heart Rate 1: 64 bpm Height: SpO2: 95% Weight: 04/01/2014 Blood Pressure 1: 140/84 Code : 8480-6 BMI: 31.3 Code : 40800-0 Heart Rate 1 : 80 bpm Height: 4'10" Weight: 150 lbs 03/15/2014 Blood Pressure 1: 122/76 Code : 8480-6 Heart Rate 1: 60 bpm Height: 4'10" Weight: 02/22/2014 Blood Pressure 1: 136/68 Code : 8480-6 BMI: 32.8 Code : 04371-3 Heart Rate 1 : 76 bpm Height: 4'10" Weight: 157 lbs 11/23/2013 Blood Pressure 1: 98/60 Code : 8480-6 BMI: 32.4 Code : 52744-6 Heart Rate 1 : 56 bpm Height: 4'10" SpO2: 94% Weight: 155 lbs 08/24/2013 Blood Pressure 1: 152/82 Code : 8480-6 BMI: 32.2 Code : 71220-7 Heart Rate 1 : 84 bpm Height: 4'10" Weight: 154 lbs 05/25/2013 Blood Pressure 1: 132/82 Code : 8480-6 BMI: 31.5 Code : 90668-6 Heart Rate 1 : 72 bpm Height: 4'10" Temperature: 36.4 (C) / 97.5 (F) Weight: 150 lbs 8 oz 02/18/2013 Blood Pressure 1: 128/78 Code : 8480-6 BMI: 31.1 Code : 53745-5 Heart Rate 1 : 76 bpm Height: 4'10" Weight: 149 lbs 01/19/2013 Blood Pressure 1: 150/80 Code : 8480-6 BMI: 32.2 Code : 40631-2 Heart Rate 1 : 92 bpm Height: 4'10" Weight: 154 lbs 12/16/2012 Blood Pressure 1: 112/72 Code : 8480-6 BMI: 31.8 Code : 94186-1 Heart Rate 1 : 90 bpm Height: 4'10" SpO2: 96% Weight: 152 lbs 10/13/2012 Blood Pressure 1: 146/82 Code : 8480-6 BMI: 32.0 Code : 48701-3 Heart Rate 1 : 84 bpm Height: 4'10" Weight: 153 lbs 08/25/2012 Blood Pressure 1: 96/60 Code : 8480-6 BMI: 31.6 Code : 77880-5 Heart Rate 1 : 72 bpm Height: 4'10" Weight: 151 lbs 06/23/2012 Blood Pressure 1: 134/82 Code : 8480-6 BMI: 32.0 Code : 48073-3 Heart Rate 1 : 84 bpm Height: 4'10" Weight: 153 lbs 05/22/2012 Blood Pressure 1: 124/76 Code : 8480-6 BMI: 32.8 Code : 95830-3 Heart Rate 1 : 92 bpm Height: 4'10" SpO2: 93% Weight: 157 lbs 04/16/2012 Blood Pressure 1: 106/60 Code : 8480-6 Heart Rate 1: 86 bpm Weight: 156 lbs 03/04/2012 Blood Pressure 1: 136/72 Code : 8480-6 BMI: 32.0 Code : 84049-0 Heart Rate 1 : 68 bpm Height: 4'10" Weight: 153 lbs 12/04/2011 Blood Pressure 1: 116/64 Code : 8480-6 Heart Rate 1: 92 bpm Respiratory Rate : 24 bpm Weight: 153 lbs 8 oz 10/01/2011 Blood Pressure 1: 130/72 Code : 8480-6 BMI: 32.5 Code : 32528-8 Heart Rate 1 : 72 bpm Height: 4'10" Respiratory Rate: 20 bpm SpO2: 97% Weight: 155 lbs 8 oz 08/14/2011 Blood Pressure 1: 128/66 Code : 8480-6 BMI: 32.8 Code : 54056-7 Heart Rate 1 : 68 bpm Height: 4'10" Respiratory Rate: 16 bpm SpO2: 96% Weight: 157 lbs 07/09/2011 Blood Pressure 1: 118/80 Code : 8480-6 Heart Rate 1: 60 bpm Respiratory Rate : 16 bpm SpO2: 94% Weight: 158 lbs 8 oz 05/08/2011 Blood Pressure 1: 128/68 Code : 8480-6 BMI: 32.6 Code : 24821-9 Heart Rate 1 : 70 bpm Height: 4'10" Respiratory Rate: 20 bpm Weight: 156 lbs 01/11/2011 Blood Pressure 1: 136/72 Code : 8480-6 BMI: 32.0 Code : 74908-0 Heart Rate 1 : 88 bpm Height: 4'10" Respiratory Rate: 20 bpm Weight: 153 lbs Functional Status No Functional Status data History of Present Illness Symptom Name Status Result Effective Date Notes Annual Medicare Wellness Exam Alcohol Use does not drink any alcohol 02/12/2018 n Annual Medicare Wellness Exam Aspirin Use no 02/12/2018 None Annual Medicare Wellness Exam Blood Glucose (self reported) desireable (below 100) 02/12/2018 None Annual Medicare Wellness Exam Blood Pressure (self reported ) low / normal (120/80) 02/12/2018 None Annual Medicare Wellness Exam Cholesterol (self reported) desireable (below 200) 02/12/2018 None Annual Medicare Wellness Exam Depression (last 6 months) almost never 02/12/2018 None Annual Medicare Wellness Exam Depression or Hopelessness almost never 02/12/2018 None Annual Medicare Wellness Exam Describe Your Health poor 02/12/2018 None Annual Medicare Wellness Exam Exercise Habits does not exercise 02/12/2018 None Annual Medicare Wellness Exam Handling Stress usually h[place] effectively 02/12/2018 None Annual Medicare Wellness Exam Hemaglobin A-1C (self reported ) don't know 02/12/2018 None Annual Medicare Wellness Exam Hours of Sleep 5 02/12/2018 None Annual Medicare Wellness Exam Interaction with Friends yes 02/12/2018 None Annual Medicare Wellness Exam Interests & Pleasure almost all of the time 02/12/2018 None Annual Medicare Wellness Exam Life Satisfaction satisfied 02/12/2018 None Annual Medicare Wellness Exam Motor Vehicle Safety always fastens seat belt: y 02/12/2018 None Annual Medicare Wellness Exam Motor Vehicle Safety drives after drinking: n 02/12/2018 None Annual Medicare Wellness Exam Motor Vehicle Safety rides with someone who has been drinking: n 2017 None Annual Medicare Wellness Exam Nutrition servings of fried food / high fat foods per day: 0 2017 None Annual Medicare Wellness Exam Nutrition servings of high fiber / whole grain per day: 2 02/12/2018 None Annual Medicare Wellness Exam Nutrition servings of vegetables / fruit per day: 4 02/12/2018 None Annual Medicare Wellness Exam Smoking and Tobacco Use non smoker 02/12/2018 None Annual Medicare Wellness Exam Social & Emotional Support always 02/12/2018 None Annual Medicare Wellness Exam Stress almost never 02/12/2018 None Annual Medicare Wellness Exam Sun Exposure protects skin when outdoors: _ 02/12/2018 None cough Quality blood-tinged 01/15/2018 None cough Onset and Resolution sudden in onset 01/15/2018 None cough Quality improving 01/15/2018 None cough Location in the throat 01/09/2018 None cough Quality constant 01/09/2018 None cough Quality hacking 01/09/2018 None cough Quality productive 01/09/2018 None cough Onset and Resolution sudden in onset 01/09/2018 None cough Onset of Symptom 2 days ago 01/09/2018 None cough Frequency of Episodes daily 01/09/2018 None sinus congestion Location frontal sinuses 01/09/2018 None sinus congestion Quality constant 01/09/2018 None sinus congestion Onset and Resolution sudden in onset 01/09/2018 None sinus congestion Frequency of Episodes daily 01/09/2018 None hypertension Quality primary hypertension 11/12/2017 None hypertension Onset and Resolution ongoing 11/12/2017 None hypertension Onset of Symptom during adulthood 11/12/2017 None hypertension Blood Pressure Values patient checking blood pressure at home - did not bring in readings 11/12/2017 None hypertension Alleviating Factors medication 11/12/2017 None hypertension Pertinent Findings Denies dizziness 11/12/2017 None hypertension Pertinent Findings dyspnea 11/12/2017 "some"- nothing new hypertension Pertinent Findings edema 11/12/2017 -have been better mole check Location-Major on the abdomen 11/12/2017 None mole check Color brown 11/12/2017 None mole check Pertinent Findings Denies pain 11/12/2017 None mole check Pertinent Findings Denies itching 11/12/2017 None hypertension Quality primary hypertension 08/14/2017 None hypertension Onset and Resolution ongoing 08/14/2017 None hypertension Onset of Symptom during adulthood 08/14/2017 None arrhythmia Quality chronic 08/14/2017 None arrhythmia Quality irregular beats 08/14/2017 (atrial fibrillation) hypertension Blood Pressure Values patient checking blood pressure at home - did not bring in readings 08/14/2017 None hypertension Alleviating Factors medication 08/14/2017 None hypertension Pertinent Findings Denies dizziness 08/14/2017 None hypertension Pertinent Findings dyspnea 08/14/2017 "some"- nothing new hypertension Pertinent Findings edema 08/14/2017 -have been better arrhythmia Alleviating Factors medication 08/14/2017 None edema Quality constant 05/14/2017 None edema Quality painless 05/14/2017 None edema Onset and Resolution ongoing 05/14/2017 None edema Frequency of Episodes unchanged 05/14/2017 None edema Location on both legs 05/14/2017 None changing lesion Quality chronic 05/14/2017 None changing lesion Onset and Resolution ongoing 05/14/2017 None changing lesion Frequency of Episodes unchanged 05/14/2017 None changing lesion Pertinent Findings itching 05/14/2017 None changing lesion Pertinent Findings Denies pain 05/14/2017 None back pain Location diffusely 05/14/2017 None back pain Onset of Symptom 1 weeks ago 05/14/2017 None back pain Frequency of Episodes daily 05/14/2017 None back pain Alleviating Factors medication 05/14/2017 (tylenol) back pain Quality stable 05/14/2017 None back pain Onset and Resolution resolved 05/14/2017 None edema Quality constant 04/15/2017 None edema Quality painless 04/15/2017 None edema Onset and Resolution ongoing 04/15/2017 None edema Location on both legs 04/15/2017 None changing lesion Quality chronic 04/15/2017 None changing lesion Onset and Resolution ongoing 04/15/2017 None changing lesion Location-Head/Neck on the left scientologist 04/15/2017 None changing lesion Frequency of Episodes unchanged 04/15/2017 None changing lesion Pertinent Findings itching 04/15/2017 None changing lesion Pertinent Findings Denies pain 04/15/2017 None edema Frequency of Episodes unchanged 04/15/2017 None back pain Location diffusely 04/15/2017 None back pain Quality acute 04/15/2017 None back pain Quality intermittent 04/15/2017 None back pain Onset and Resolution sudden in onset 04/15/2017 None back pain Onset and Resolution ongoing 04/15/2017 None back pain Onset of Symptom 1 weeks ago 04/15/2017 None back pain Frequency of Episodes daily 04/15/2017 None back pain Alleviating Factors medication 04/15/2017 (tylenol) edema Quality worsening 03/25/2017 None edema Quality painless 03/25/2017 None edema Quality constant 03/25/2017 None edema Onset and Resolution ongoing 03/25/2017 None edema Location on both legs 03/25/2017 None arrhythmia Quality chronic 03/25/2017 None arrhythmia Quality irregular beats 03/25/2017 (atrial fibrillation) arrhythmia Onset and Resolution ongoing 03/25/2017 None arrhythmia Alleviating Factors medication 03/25/2017 None changing lesion Location-Major on the head 03/25/2017 None changing lesion Location-Head/Neck on the left scientologist 03/25/2017 None changing lesion Quality chronic 03/25/2017 None changing lesion Quality worsening 03/25/2017 None changing lesion Color erythematous 03/25/2017 None changing lesion Onset and Resolution ongoing 03/25/2017 None urinary frequency Quality intermittent 12/28/2016 None urinary frequency Onset and Resolution sudden in onset 12/28/2016 None urinary frequency Onset of Symptom 1 weeks ago 12/28/2016 None urinary frequency Limitation on Activities does not limit activities 12/28/2016 None urinary frequency Frequency of Episodes increasing 12/28/2016 None urinary frequency Significant Medical Conditions urinary tract infections 12/28/2016 None urinary frequency Triggers no known associated factors 12/28/2016 None urinary frequency Pertinent Findings Denies fever 12/28/2016 None urinary frequency Pertinent Findings Denies vomiting 12/28/2016 None rash Location-Major on the upper body 12/21/2016 None rash Location-Major on the lower body 12/21/2016 None rash Color red 2016 None rash Quality acute 03/2017 None rash Location-Major on the chest 12/21/2016 None rash Location-Major on the head 12/21/2016 None rash Location-Major on the back 12/21/2016 None rash Location-Major on the abdomen 12/21/2016 None rash Location-Major on the arms 12/21/2016 None rash Location-Major on the hands 12/21/2016 None rash Location-Major on the legs 12/21/2016 None rash Onset of Symptom _ days ago 12/21/2016 None rash Limitation on Activities moderately limits activities 12/21/2016 None rash Severity improving 12/21/2016 None rash Prior Treatments responsive to treatment 12/21/2016 None rash Triggers certain medications 12/21/2016 vancomycin laceration of the leg Location on the right 12/11/2016 None laceration of the leg Location on the proximal medial tibial surface 12/11/2016 None laceration of the leg Quality acute 12/11/2016 None laceration of the leg Quality worsening 12/11/2016 None laceration of the leg Onset of Symptom 4 weeks ago 12/11/2016 None laceration of the leg Limitation on Activities restricts weight bearing activity 12/11/2016 None laceration of the leg Severity severe 12/11/2016 None laceration of the leg Pertinent Findings Denies fever 12/11/2016 None laceration of the leg Pertinent Findings Denies pain with movement 12/11/2016 None laceration of the leg Pertinent Findings Denies purulent drainage 12/11/2016 None laceration of the leg Pertinent Findings Denies redness 12/11/2016 None laceration of the leg Pertinent Findings Denies stiffness 12/11/2016 None laceration of the leg Pertinent Findings swelling 12/11/2016 None laceration of the leg Pertinent Findings Denies warmth 12/11/2016 None cellulitis Quality intermittent 12/11/2016 None cellulitis Onset and Resolution ongoing 12/11/2016 None cellulitis Onset of Symptom 1-2 weeks ago 12/11/2016 None cellulitis Limitation on Activities does not limit activities 12/11/2016 None cellulitis Pertinent Findings Denies chills 12/11/2016 None cellulitis Pertinent Findings Denies fever 12/11/2016 None cellulitis Pertinent Findings pain 12/11/2016 None cellulitis Pertinent Findings redness 12/11/2016 None cellulitis Pertinent Findings warmth 12/11/2016 None laceration of the leg Location on the right 11/14/2016 None laceration of the leg Location on the proximal medial tibial surface 11/14/2016 None laceration of the leg Quality acute 11/14/2016 None laceration of the leg Quality worsening 11/14/2016 None laceration of the leg Onset of Symptom 4 weeks ago 11/14/2016 None laceration of the leg Limitation on Activities restricts weight bearing activity 11/14/2016 None laceration of the leg Severity severe 11/14/2016 None laceration of the leg Pertinent Findings Denies fever 11/14/2016 None laceration of the leg Pertinent Findings Denies pain with movement 11/14/2016 None laceration of the leg Pertinent Findings Denies purulent drainage 11/14/2016 None laceration of the leg Pertinent Findings Denies redness 11/14/2016 None laceration of the leg Pertinent Findings Denies stiffness 11/14/2016 None laceration of the leg Pertinent Findings swelling 11/14/2016 None laceration of the leg Pertinent Findings Denies warmth 11/14/2016 None laceration of the leg Location on the right 11/09/2016 None laceration of the leg Location on the proximal medial tibial surface 11/09/2016 None laceration of the leg Quality acute 11/09/2016 None laceration of the leg Quality worsening 11/09/2016 None laceration of the leg Mechanism of injury fall 11/09/2016 None laceration of the leg Pertinent Findings Denies fever 11/09/2016 None laceration of the leg Pertinent Findings Denies pain with movement 11/09/2016 None laceration of the leg Pertinent Findings Denies purulent drainage 11/09/2016 None laceration of the leg Pertinent Findings Denies redness 11/09/2016 None laceration of the leg Pertinent Findings Denies stiffness 11/09/2016 None laceration of the leg Pertinent Findings swelling 11/09/2016 None laceration of the leg Pertinent Findings Denies warmth 11/09/2016 None laceration of the leg Severity severe 11/09/2016 None laceration of the leg Limitation on Activities restricts weight bearing activity 11/09/2016 None laceration of the leg Onset of Symptom 4 weeks ago 11/09/2016 None cough Location in the throat 09/17/2016 None cough Quality constant 09/17/2016 None cough Quality hacking 09/17/2016 None cough Quality productive 09/17/2016 None cough Onset of Symptom _ weeks ago 09/17/2016 None cough Frequency of Episodes daily 09/17/2016 None chest congestion Quality constant 09/17/2016 None chest congestion Onset of Symptom 1 weeks ago 09/17/2016 None chest congestion Pertinent Findings decreased energy 09/17/2016 None chest congestion Pertinent Findings nasal congestion 09/17/2016 None chest congestion Pertinent Findings sputum production 09/17/2016 None cough Onset and Resolution ongoing 09/17/2016 None chest congestion Onset and Resolution resolved 09/17/2016 None cough Location in the throat 09/10/2016 None cough Quality constant 09/10/2016 None cough Quality hacking 09/10/2016 None cough Quality productive 09/10/2016 None cough Onset and Resolution sudden in onset 09/10/2016 None cough Onset of Symptom _ weeks ago 09/10/2016 None cough Frequency of Episodes daily 09/10/2016 None chest congestion Quality constant 09/10/2016 None chest congestion Onset and Resolution sudden in onset 09/10/2016 None chest congestion Onset of Symptom 1 weeks ago 09/10/2016 None chest congestion Pertinent Findings decreased energy 09/10/2016 None chest congestion Pertinent Findings nasal congestion 09/10/2016 None chest congestion Pertinent Findings sputum production 09/10/2016 None hypertension Onset and Resolution ongoing 08/15/2016 None hypertension Onset of Symptom during adulthood 08/15/2016 None hypertension Blood Pressure Values patient checking blood pressure at home - did not bring in readings 08/15/2016 None hypertension Severity mild 08/15/2016 None hypertension Alleviating Factors medication 08/15/2016 None hypertension Pertinent Findings dizziness 08/15/2016 -intermittent hypertension Pertinent Findings dyspnea 08/15/2016 -intermittent hypertension Pertinent Findings edema 08/15/2016 -wears angelita hose gait abnormality Quality unsteady 08/15/2016 None gait abnormality Onset and Resolution ongoing 08/15/2016 None gait abnormality Frequency of Episodes unchanged 08/15/2016 None arrhythmia Quality chronic 08/15/2016 None arrhythmia Quality irregular beats 08/15/2016 atrial fibrillation arrhythmia Onset and Resolution ongoing 08/15/2016 None arrhythmia Alleviating Factors medication 08/15/2016 None gait abnormality Assistive devices walker 08/15/2016 None gait abnormality Assistive devices wheelchair 08/15/2016 None sinus congestion Quality fullness 06/14/2016 None sinus congestion Quality pressure 06/14/2016 None sinus congestion Onset and Resolution sudden in onset 06/14/2016 None sinus congestion Location on both sides 06/14/2016 None sinus congestion Pertinent Findings cough 06/14/2016 None cough Quality intermittent 06/14/2016 None cough Quality improving 06/14/2016 None sinus congestion Quality improving 06/14/2016 None sinus congestion Quality fullness 06/06/2016 None sinus congestion Quality pressure 06/06/2016 None sinus congestion Onset and Resolution sudden in onset 06/06/2016 None sinus congestion Onset of Symptom 1 weeks ago 06/06/2016 None sinus congestion Frequency of Episodes daily 06/06/2016 None sinus congestion Timing of Episodes all day long 06/06/2016 None sinus congestion Pertinent Findings cough 06/06/2016 None sinus congestion Pertinent Findings hoarseness 06/06/2016 None sinus congestion Pertinent Findings Denies fever 06/06/2016 None sinus congestion Location on both sides 06/06/2016 None hypertension Onset and Resolution ongoing 02/08/2016 None hypertension Onset of Symptom during adulthood 02/08/2016 None hypertension Blood Pressure Values patient checking blood pressure at home - did not bring in readings 02/08/2016 None hypertension Severity mild 02/08/2016 None hypertension Alleviating Factors medication 02/08/2016 None hypertension Pertinent Findings Denies dizziness 02/08/2016 None hypertension Pertinent Findings dyspnea 02/08/2016 with exertion hypertension Pertinent Findings edema 02/08/2016 None gait abnormality Quality unsteady 02/08/2016 None gait abnormality Onset and Resolution ongoing 02/08/2016 None gait abnormality Frequency of Episodes unchanged 02/08/2016 None arrhythmia Quality chronic 02/08/2016 None arrhythmia Quality irregular beats 02/08/2016 atrial fibrillation arrhythmia Onset and Resolution ongoing 02/08/2016 None arrhythmia Alleviating Factors medication 02/08/2016 None edema Quality intermittent 02/08/2016 None edema Onset and Resolution ongoing 02/08/2016 None edema Location on both legs 02/08/2016 None gait abnormality Assistive devices wheelchair 02/08/2016 None urinary incontinence Onset and Resolution ongoing 02/08/2016 None urinary incontinence Onset of Symptom during adulthood 02/08/2016 None urinary incontinence Quality intermittent 02/08/2016 None hypertension Onset and Resolution ongoing 11/08/2015 None hypertension Onset of Symptom during adulthood 11/08/2015 None hypertension Severity mild 11/08/2015 None hypertension Alleviating Factors medication 11/08/2015 None hypertension Pertinent Findings Denies dizziness 11/08/2015 None hypertension Pertinent Findings dyspnea 11/08/2015 with exertion hypertension Pertinent Findings edema 11/08/2015 None gait abnormality Quality unsteady 11/08/2015 None gait abnormality Onset and Resolution ongoing 11/08/2015 None gait abnormality Frequency of Episodes unchanged 11/08/2015 None arrhythmia Quality chronic 11/08/2015 None arrhythmia Quality irregular beats 11/08/2015 atrial fibrillation arrhythmia Onset and Resolution ongoing 11/08/2015 None arrhythmia Alleviating Factors medication 11/08/2015 None edema Quality intermittent 11/08/2015 None edema Onset and Resolution ongoing 11/08/2015 None edema Location on both legs 11/08/2015 None hypertension Blood Pressure Values patient checking blood pressure at home - did not bring in readings 11/08/2015 None cough Location in the throat 08/22/2015 None cough Quality blood-tinged 08/22/2015 None cough Quality productive 08/22/2015 None cough Onset and Resolution sudden in onset 08/22/2015 None cough Onset of Symptom 1 weeks ago 08/22/2015 None cough Pertinent Findings Denies chest discomfort 08/22/2015 None cough Pertinent Findings dyspnea 08/22/2015 None cough Pertinent Findings Denies fever 08/22/2015 None cough Limitation on Activities does not limit activities 08/22/2015 None cough Frequency of Episodes increasing 08/22/2015 None cough Triggers ill contacts 08/22/2015 None cough Triggers known allergens 08/22/2015 None hypertension Onset and Resolution ongoing 08/09/2015 None gait abnormality Quality unsteady 08/09/2015 None gait abnormality Onset and Resolution ongoing 08/09/2015 None gait abnormality Frequency of Episodes unchanged 08/09/2015 None hypertension Onset of Symptom during adulthood 08/09/2015 None hypertension Alleviating Factors medication 08/09/2015 None hypertension Pertinent Findings dizziness 08/09/2015 at times- usually first thing in the morning hypertension Pertinent Findings dyspnea 08/09/2015 at times hypertension Pertinent Findings Denies edema 08/09/2015 None hypertension Severity mild 08/09/2015 None low back pain Location lumbar spine 05/26/2015 None low back pain Radiating the left buttock 05/26/2015 None low back pain Quality intermittent 05/26/2015 None low back pain Quality sharp pain 05/26/2015 None low back pain Onset of Symptom 1 weeks ago 05/26/2015 None low back pain Limitation on Activities allows weight bearing activity 05/26/2015 None low back pain Pertinent Findings female 05/26/2015 None low back pain Pertinent Findings 61 years 05/26/2015 84 low back pain Pertinent Findings sleep disturbances 05/26/2015 None low back pain Pertinent Findings pain with movement 05/26/2015 None low back pain Pertinent Findings sleep disturbance 05/26/2015 None abdominal pain Location in the epigastric area 05/26/2015 None abdominal pain Radiating the flank 05/26/2015 None abdominal pain Onset and Resolution ongoing 05/26/2015 None abdominal pain Pertinent Findings back pain 05/26/2015 None abdominal pain Pertinent Findings Denies nausea 05/26/2015 None hypertension Quality chronic 02/15/2015 None hypertension Onset of Symptom during adulthood 02/15/2015 None hypertension Blood Pressure Values pt checking blood pressure - see scanned document 02/15/2015 None hypertension Pertinent Findings Denies dizziness 02/15/2015 None hypertension Pertinent Findings Denies dyspnea 02/15/2015 None hypertension Pertinent Findings Denies edema 02/15/2015 None shoulder pain Location on the right shoulder 02/15/2015 None shoulder pain Pertinent Findings stiffness 02/15/2015 None shoulder pain Onset of Symptom 6 months ago 02/15/2015 None shoulder pain Quality chronic 02/15/2015 None shoulder pain Onset and Resolution gradual in onset 02/15/2015 None shoulder pain Triggers no known associated factors 02/15/2015 None hypertension Quality chronic 12/02/2014 None hypertension Onset and Resolution ongoing 12/02/2014 None hypertension Blood Pressure Values patient checking blood pressure at home - did not bring in readings 12/02/2014 None hypertension Severity mild 12/02/2014 None hypertension Triggers no known associated factors 12/02/2014 None hypertension Alleviating Factors medication 12/02/2014 None hypertension Pertinent Findings Denies anxiety 12/02/2014 None hypertension Pertinent Findings Denies confusion 12/02/2014 None hypertension Pertinent Findings Denies decreased energy 12/02/2014 None hypertension Pertinent Findings Denies dizziness 12/02/2014 None hypertension Onset of Symptom _ months ago 12/02/2014 None hypertension Quality chronic 10/14/2014 None hypertension Onset and Resolution ongoing 10/14/2014 None hypertension Blood Pressure Values patient checking blood pressure at home - did not bring in readings 10/14/2014 None hypertension Severity mild 10/14/2014 None hypertension Triggers no known associated factors 10/14/2014 None hypertension Alleviating Factors medication 10/14/2014 None hypertension Pertinent Findings Denies anxiety 10/14/2014 None hypertension Pertinent Findings Denies confusion 10/14/2014 None hypertension Pertinent Findings Denies decreased energy 10/14/2014 None hypertension Pertinent Findings Denies dizziness 10/14/2014 None fatigue Onset and Resolution ongoing 07/21/2014 None fatigue Pertinent Findings dyspnea 07/21/2014 PT reports that she is seeming more tired and short of breath dyspnea Quality worsening 07/21/2014 None dyspnea Onset of Symptom _ months ago 07/21/2014 since her stroke and fall since she has been having PT dyspnea Pertinent Findings Denies chest discomfort 07/21/2014 None skin lesion Quality scabbed 07/21/2014 top of left foot reports been there for a long time, ANGELITA hose rubs it and makes it worse. has reddended areas on toes also skin lesion Onset and Resolution ongoing 07/21/2014 None skin lesion Quality red 07/21/2014 None hypertension Quality chronic 07/21/2014 None hypertension Onset and Resolution ongoing 07/21/2014 None hypertension Blood Pressure Values patient checking blood pressure at home - did not bring in readings 07/21/2014 None hypertension Severity mild 07/21/2014 None hypertension Triggers no known associated factors 07/21/2014 None hypertension Alleviating Factors medication 07/21/2014 None hypertension Pertinent Findings Denies anxiety 07/21/2014 None Hospital Follow Up _ pain 06/24/2014 None Hospital Follow Up Pertinent Findings Denies pain 06/24/2014 None cough Location in the throat 06/24/2014 None cough Quality dry 04/2015 None cough Quality intermittent 06/24/2014 None cough Onset of Symptom 1 weeks ago 06/24/2014 None cough Pertinent Findings fever 06/24/2014 99.6 cough Triggers post nasal drip 06/24/2014 None cough Triggers ill contacts 06/24/2014 None cough Alleviating Factors OTC medications 06/24/2014 mucinex hypertension Quality chronic 04/29/2014 None hypertension Onset and Resolution ongoing 04/29/2014 None hypertension Blood Pressure Values patient checking blood pressure at home - did not bring in readings 04/29/2014 None hypertension Severity mild 04/29/2014 None hypertension Triggers no known associated factors 04/29/2014 None hypertension Alleviating Factors medication 04/29/2014 None hypertension Pertinent Findings Denies anxiety 04/29/2014 None hypertension Pertinent Findings Denies confusion 04/29/2014 None hypertension Pertinent Findings Denies dizziness 04/29/2014 None hypertension Pertinent Findings dyspnea 04/29/2014 a little all the time after exertion Hospital Follow Up Length of Episodes _ weeks 04/29/2014 reports she was in hospital about a week Hospital Follow Up Onset and Resolution ongoing 04/29/2014 patient reports that she is feeling better but still has a slight cough that is nonproductive. Appetite is poor. Hospital Follow Up Pertinent Findings Denies fever 04/29/2014 None Hospital Follow Up Pertinent Findings Denies pain 04/29/2014 None bone fracture Location on the right arm 04/29/2014 fell three weeks ago and broke it bone fracture Onset and Resolution ongoing 04/29/2014 None bone fracture Pertinent Findings Denies fever 04/29/2014 None bone fracture Pertinent Findings Denies pain 04/29/2014 None bone fracture Pertinent Findings swelling 04/29/2014 None hypertension Pertinent Findings decreased energy 04/29/2014 reports that it is getting better hypertension Onset and Resolution ongoing 04/01/2014 None hypertension Severity mild 04/01/2014 None hypertension Triggers no known associated factors 04/01/2014 None hypertension Alleviating Factors medication 04/01/2014 None hypertension Pertinent Findings Denies anxiety 04/01/2014 None hypertension Pertinent Findings Denies confusion 04/01/2014 None hypertension Pertinent Findings Denies decreased energy 04/01/2014 None hypertension Pertinent Findings Denies dizziness 04/01/2014 None hypertension Pertinent Findings dyspnea 04/01/2014 a little all the time after exertion vertigo Quality improving 04/01/2014 None vertigo Pertinent Findings Denies anxiety 04/01/2014 None vertigo Pertinent Findings Denies chills 04/01/2014 None vertigo Pertinent Findings Denies ear pain 04/01/2014 None vertigo Pertinent Findings lightheadedness 04/01/2014 better vertigo Pertinent Findings Denies nausea 04/01/2014 None vertigo Pertinent Findings dyspnea 04/01/2014 always has, off and on vertigo Pertinent Findings Denies fever 04/01/2014 None vertigo Onset and Resolution ongoing 04/01/2014 None vertigo Onset of Symptom _ weeks ago 04/01/2014 None vertigo Limitation on Activities does not limit activities 04/01/2014 None vertigo Frequency of Episodes decreasing 04/01/2014 None vertigo Triggers activity 04/01/2014 None vertigo Alleviating Factors medication 04/01/2014 None hypertension Quality chronic 03/15/2014 None hypertension Onset and Resolution ongoing 03/15/2014 None hypertension Blood Pressure Values patient checking blood pressure at home - did not bring in readings 03/15/2014 None hypertension Severity mild 03/15/2014 None hypertension Triggers no known associated factors 03/15/2014 None hypertension Alleviating Factors medication 03/15/2014 None hypertension Pertinent Findings Denies anxiety 03/15/2014 None hypertension Pertinent Findings Denies confusion 03/15/2014 None hypertension Pertinent Findings Denies decreased energy 03/15/2014 None hypertension Pertinent Findings Denies dizziness 03/15/2014 None hypertension Pertinent Findings dyspnea 03/15/2014 a little all the time after exertion nausea Onset and Resolution sudden in onset 03/15/2014 None nausea Onset of Symptom _ hours ago 03/15/2014 None nausea Pertinent Findings Denies emesis 03/15/2014 None nausea Pertinent Findings Denies fever 03/15/2014 None nausea Pertinent Findings Denies edema 03/15/2014 None hypertension Quality chronic 02/22/2014 None hypertension Onset and Resolution ongoing 02/22/2014 None hypertension Blood Pressure Values patient checking blood pressure at home - did not bring in readings 02/22/2014 None hypertension Severity mild 02/22/2014 None hypertension Triggers no known associated factors 02/22/2014 None hypertension Alleviating Factors medication 02/22/2014 None hypertension Pertinent Findings Denies anxiety 02/22/2014 None hypertension Pertinent Findings Denies confusion 02/22/2014 None hypertension Pertinent Findings Denies decreased energy 02/22/2014 None hypertension Pertinent Findings Denies dizziness 02/22/2014 None headache Location in the left occipital area 02/22/2014 None headache Quality intermittent 02/22/2014 None headache Quality aching 02/22/2014 None headache Onset of Symptom 3 weeks ago 02/22/2014 - she reports a shooting pain - like a pulse in her head - "comes and goes", and then a light pulsing in her eye - on the left side of her vision - has been gone for about 4-5 days - and she reports that she took ibuprofen and than helped her symptoms - she also reports that the pain lasted for about 3-5 days. headache Frequency of Episodes daily 02/22/2014 None headache Alleviating Factors medication 02/22/2014 ibuprofen headache Pertinent Findings Denies blurred vision 02/22/2014 None headache Pertinent Findings Denies dizziness 02/22/2014 None headache Pertinent Findings Denies lightheadedness 02/22/2014 None headache Pertinent Findings Denies numbness 02/22/2014 None hypertension Pertinent Findings dyspnea 02/22/2014 a little all the time after exertion hypertension Quality chronic 11/23/2013 None hypertension Onset and Resolution ongoing 11/23/2013 None hypertension Blood Pressure Values patient checking blood pressure at home - did not bring in readings 11/23/2013 None hypertension Severity mild 11/23/2013 None hypertension Triggers no known associated factors 11/23/2013 None hypertension Alleviating Factors medication 11/23/2013 None hypertension Pertinent Findings Denies anxiety 11/23/2013 None hypertension Pertinent Findings Denies confusion 11/23/2013 None hypertension Pertinent Findings Denies decreased energy 11/23/2013 None hypertension Pertinent Findings Denies dizziness 11/23/2013 None hypertension Blood Pressure Values patient checking blood pressure at home - did not bring in readings 08/24/2013 None hypertension Pertinent Findings Denies dizziness 08/24/2013 None hypertension Pertinent Findings dyspnea 08/24/2013 None hypertension Pertinent Findings edema 08/24/2013 None hypertension Pertinent Findings Denies decreased energy 08/24/2013 None hypertension Pertinent Findings Denies palpitations 08/24/2013 None hypertension Quality chronic 08/24/2013 None hypertension Onset and Resolution ongoing 08/24/2013 None hypertension Onset of Symptom during adulthood 08/24/2013 None hypertension Triggers no known associated factors 08/24/2013 None hypertension Quality chronic 05/25/2013 None hypertension Onset and Resolution ongoing 05/25/2013 None hypertension Blood Pressure Values patient checking blood pressure at home - did not bring in readings 05/25/2013 None urinary incontinence Quality acute 05/25/2013 None urinary incontinence Onset and Resolution sudden in onset 05/25/2013 states she was incont urine several times last night hypertension Pertinent Findings Denies anxiety 05/25/2013 None hypertension Pertinent Findings decreased energy 05/25/2013 None hypertension Pertinent Findings dyspnea 05/25/2013 None urinary incontinence Onset of Symptom 1 days ago 05/25/2013 None urinary incontinence Pertinent Findings Denies back pain 05/25/2013 None urinary incontinence Pertinent Findings Denies bladder pain 05/25/2013 None urinary incontinence Pertinent Findings Denies fever 05/25/2013 None urinary incontinence Pertinent Findings Denies nausea 05/25/2013 None urinary incontinence Pertinent Findings Denies pelvic pain 05/25/2013 None urinary incontinence Pertinent Findings Denies urinary urgency 05/25/2013 None hip pain Location on the left 02/18/2013 None hip pain Quality dull ache 02/18/2013 None hypertension Quality chronic 02/18/2013 None hypertension Onset and Resolution ongoing 02/18/2013 None hypertension Onset of Symptom during adulthood 02/18/2013 None hypertension Blood Pressure Values not checking blood pressure at home 02/18/2013 None hypertension Pertinent Findings Denies anxiety 02/18/2013 None hip pain Quality improving 02/18/[address] roland today hypertension Triggers no known associated factors 02/18/2013 None hypertension Alleviating Factors medication 02/18/2013 None hypertension Exacerbating Factors stress 02/18/2013 None hip pain Location on the left 01/19/2013 None hip pain Quality dull ache 01/19/2013 states one leg is inch shorter and having trouble getting into the person who can do shoe hypertension Quality chronic 01/19/2013 None hypertension Onset and Resolution ongoing 01/19/2013 None hypertension Blood Pressure Values not checking blood pressure at home 01/19/2013 None hypertension Onset of Symptom during adulthood 01/19/2013 None hypertension Pertinent Findings Denies anxiety 01/19/2013 None Hospital Follow Up Quality acute illness 12/16/2012 Hip Fracture Hospital Follow Up Quality improving 12/16/2012 None Hospital Follow Up Onset of Symptom 3 weeks ago 12/16/2012 None Hospital Follow Up Onset and Resolution ongoing 12/16/2012 None Hospital Follow Up Severity mild 12/16/2012 None Hospital Follow Up Alleviating Factors medication 12/16/2012 and post surgical Hospital Follow Up Pertinent Findings Denies fever 12/16/2012 None Hospital Follow Up Pertinent Findings Other: pain in hip has improved, but pt feels fatigued. 12/16 None hypertension Quality chronic 10/13/2012 None hypertension Quality stable 10/13/2012 None hypertension Onset and Resolution ongoing 10/13/2012 None hypertension Blood Pressure Values patient checking blood pressure at home - did not bring in readings 10/13/2012 None hypertension Pertinent Findings dizziness 10/13/2012 None hypertension Pertinent Findings Denies dyspnea 10/13/2012 None hypertension Pertinent Findings Denies lethargy 10/13/2012 None hypertension Pertinent Findings Denies irritability 10/13/2012 None hypertension Pertinent Findings Denies orthostatic hypotension 10/13/2012 None hypertension Pertinent Findings Denies palpitations 10/13/2012 None hypertension Pertinent Findings Denies tachycardia 10/13/2012 None hip pain Location on the left 10/13/2012 going through testing to see if she can have surgery hip pain Quality dull ache 10/13/2012 None hip pain Quality constant 10/13/2012 None hip pain Quality worsening 10/13/2012 None hip pain Assistive devices cane 10/13/2012 None hip pain Pertinent Findings Denies clicking 10/13/2012 None hip pain Pertinent Findings Denies locking 10/13/2012 None hip pain Pertinent Findings stiffness 10/13/2012 None hip pain Pertinent Findings Denies tingling 10/13/2012 None hip pain Pertinent Findings Denies limping 10/13/2012 None hip pain Onset and Resolution ongoing 10/13/2012 None hip pain Exacerbating Factors activity 10/13/2012 None hip pain Exacerbating Factors exertion 10/13/2012 None hypertension Triggers stress 10/13/2012 None hypertension Onset of Symptom during adulthood 10/13/2012 None hypertension Severity mild 10/13/2012 None hypertension Alleviating Factors medication 10/13/2012 None hypertension Pertinent Findings anxiety 10/13/2012 None hypertension Pertinent Findings decreased energy 10/13/2012 None hypertension Pertinent Findings edema 10/13/2012 None hypertension Quality chronic 08/25/2012 None hypertension Onset and Resolution ongoing 08/25/2012 None hypertension Blood Pressure Values patient checking blood pressure at home - did not bring in readings 08/25/2012 None hypertension Onset of Symptom during adulthood 08/25/2012 None hypertension Severity mild 08/25/2012 None hypertension Pertinent Findings anxiety 08/25/2012 None hypertension Pertinent Findings edema 08/25/2012 None hypertension Pertinent Findings Denies dizziness 08/25/2012 None hypertension Pertinent Findings decreased energy 08/25/2012 None hypertension Alleviating Factors medication 08/25/2012 None hypertension Quality stable 06/23/2012 None hypertension Alleviating Factors medication 06/23/2012 None edema Quality improving 06/23/2012 wearing ANGELITA hose daily. edema Quality non-pitting 06/23/2012 None edema Quality painless 06/23/2012 None hip pain Location on the left 06/23/2012 saw orthopedics 2 weeks ago and hip replacement was suggested hip pain Quality dull ache 06/23/2012 None hypertension Quality chronic 06/23/2012 None hypertension Onset and Resolution ongoing 06/23/2012 None edema Quality chronic 06/23/2012 None edema Onset and Resolution ongoing 06/23/2012 None edema Limitation on Activities does not limit activities 06/23/2012 None edema Frequency of Episodes unchanged 06/23/2012 --Improved edema Significant Medications diuretics 06/23/2012 None edema Location on both legs 06/23/2012 None edema Pertinent Findings Denies dyspnea 06/23/2012 None edema Pertinent Findings Denies nausea 06/23/2012 None edema Pertinent Findings Denies palpitations 06/23/2012 None edema Quality chronic 05/22/2012 None edema Quality stable 05/22/2012 states she has someone coming in to help her put support hose on hypertension Quality chronic 05/22/2012 None hypertension Onset and Resolution ongoing 05/22/2012 None edema Onset and Resolution ongoing 05/22/2012 None edema Limitation on Activities does not limit activities 05/22/2012 None edema Frequency of Episodes unchanged 05/22/2012 None edema Significant Medications diuretics 05/22/2012 None edema Triggers no known associated factors 05/22/2012 None edema Pertinent Findings Denies dyspnea 05/22/2012 None edema Pertinent Findings Denies nausea 05/22/2012 None edema Pertinent Findings Denies palpitations 05/22/2012 None edema Pertinent Findings Denies tachycardia 05/22/2012 None edema Location on both legs 05/22/2012 None edema Onset and Resolution ongoing 04/16/2012 None edema Limitation on Activities does not limit activities 04/16/2012 None edema Frequency of Episodes unchanged 04/16/2012 None edema Significant Medications diuretics 04/16/2012 None edema Triggers no known associated factors 04/16/2012 None edema Pertinent Findings Denies nausea 04/16/2012 None edema Pertinent Findings Denies dyspnea 04/16/2012 None edema Pertinent Findings Denies palpitations 04/16/2012 None edema Pertinent Findings Denies tachycardia 04/16/2012 None edema Location on both legs 04/16/2012 None edema Quality chronic 04/16/2012 None hypertension Onset and Resolution ongoing 03/04/2012 None hypertension Quality chronic 03/04/2012 None hypertension Onset of Symptom during adulthood 03/04/2012 None hypertension Blood Pressure Values not checking blood pressure at home 03/04/2012 None hypertension Blood Pressure Values patient checking blood pressure at home - did not bring in readings 03/04/2012 None hypertension Severity mild 03/04/2012 None hypertension Triggers stress 03/04/2012 None hypertension Alleviating Factors medication 03/04/2012 Dr Reyes started her on amlodipine 2.5mg daily and bumetanide 1 mg daily hypertension Exacerbating Factors stress 03/04/2012 None hypertension Pertinent Findings anxiety 03/04/2012 None hypertension Pertinent Findings Denies bounding peripheral pulses 03/04/2012 None hypertension Pertinent Findings Denies confusion 03/04/2012 None hypertension Pertinent Findings edema 03/04/2012 ankles still swelling hypertension Pertinent Findings Denies lethargy 03/04/2012 None hypertension Pertinent Findings Denies tachycardia 03/04/2012 None insomnia Quality disrupted sleep 03/04/2012 None insomnia Severity moderate 03/04/2012 None insomnia Triggers stress 03/04/2012 None insomnia Pertinent Findings Denies depressed mood 03/04/2012 None insomnia Pertinent Findings Denies restless leg 03/04/2012 None hypertension Quality chronic 12/04/2011 None hypertension Onset and Resolution ongoing 12/04/2011 None hypertension Pertinent Findings edema 12/04/2011 ankles still swelling hypertension Alleviating Factors medication 12/04/2011 Dr Reyes started her on amlodipine 2.5mg daily and bumetanide 1 mg daily insomnia Quality disrupted sleep 12/04/2011 None insomnia Quality worsening 12/04/2011 None insomnia Alleviating Factors medication 12/04/2011 has been using benadryl, states melatonin doesn't work, has tried it in the past hypertension Blood Pressure Values patient checking blood pressure at home - did not bring in readings 12/04/2011 None hypertension Severity mild 12/04/2011 None hypertension Pertinent Findings Denies bounding peripheral pulses 12/04/2011 None hypertension Pertinent Findings Denies lethargy 12/04/2011 None hypertension Pertinent Findings Denies tachycardia 12/04/2011 None hypertension Onset of Symptom during adulthood 12/04/2011 None hypertension Blood Pressure Values not checking blood pressure at home 12/04/2011 None hypertension Triggers stress 12/04/2011 None hypertension Exacerbating Factors stress 12/04/2011 None hypertension Pertinent Findings anxiety 12/04/2011 None hypertension Pertinent Findings Denies confusion 12/04/2011 None insomnia Severity moderate 12/04/2011 None insomnia Pertinent Findings Denies depressed mood 12/04/2011 None insomnia Pertinent Findings Denies restless leg 12/04/2011 None insomnia Triggers stress 12/04/2011 None arrhythmia Quality chronic 10/01/2011 None arrhythmia Quality irregular beats 10/01/2011 None arrhythmia Onset and Resolution ongoing 10/01/2011 None arrhythmia Onset of Symptom during adulthood 10/01/2011 None arrhythmia Limitation on Activities moderately limits activities 10/01/2011 None hypertension Quality chronic 10/01/2011 None hypertension Onset and Resolution ongoing 10/01/2011 None hypertension Blood Pressure Values patient checking blood pressure at home - did not bring in readings 10/01/2011 None hypertension Severity mild 10/01/2011 None hypertension Pertinent Findings Denies bounding peripheral pulses 10/01/2011 None hypertension Pertinent Findings Denies lethargy 10/01/2011 None hypertension Pertinent Findings Denies tachycardia 10/01/2011 None arrhythmia Triggers activity 10/01/2011 None arrhythmia Alleviating Factors rest 10/01/2011 None arrhythmia Alleviating Factors medication 10/01/2011 None arrhythmia Exacerbating Factors activity 10/01/2011 None arrhythmia Pertinent Findings anxiety 10/01/2011 None arrhythmia Pertinent Findings Denies back pain 10/01/2011 None arrhythmia Pertinent Findings dyspnea 10/01/2011 None arrhythmia Pertinent Findings Denies loss of consciousness 10/01/2011 None arrhythmia Pertinent Findings palpitations 10/01/2011 None arrhythmia Pertinent Findings Denies syncope 10/01/2011 None shortness of breath Quality air hunger 08/14/2011 None shortness of breath Onset of Symptom 1 weeks ago 08/14/2011 pt states she's had this problem for a while, but it worsened last night shortness of breath Onset and Resolution ongoing 08/14/2011 None shortness of breath Quality breathlessness 08/14/2011 None shortness of breath Quality worsening 08/14/2011 None shortness of breath Limitation on Activities moderately limits activities 08/14/2011 None shortness of breath Frequency of Episodes weekly 08/14/2011 None shortness of breath Significant Medical Conditions cardiac disease 08/14/2011 None shortness of breath Triggers activity 08/14/2011 None shortness of breath Triggers walking 1 blocks 08/14/2011 None shortness of breath Alleviating Factors rest 08/14/2011 None shortness of breath Pertinent Findings Denies cough 08/14/2011 None shortness of breath Pertinent Findings Denies cyanosis 08/14/2011 None shortness of breath Pertinent Findings Denies chest discomfort 08/14/2011 None shortness of breath Pertinent Findings Denies retractions 08/14/2011 None shortness of breath Pertinent Findings Denies sputum production 08/14/2011 None shortness of breath Pertinent Findings Denies syncope 08/14/2011 None wheezing Quality acute 08/14/2011 None wheezing Severity mild 08/14/2011 None wheezing Triggers no known associated factors 08/14/2011 None wheezing Pertinent Findings Denies chest tightness 08/14/2011 None wheezing Pertinent Findings Denies cough 08/14/2011 None wheezing Pertinent Findings Denies chills 08/14/2011 None wheezing Pertinent Findings edema 08/14/2011 None wheezing Pertinent Findings decreased energy level 08/14/2011 None edema Quality chronic 08/14/2011 None edema Quality painless 08/14/2011 None edema Quality pitting 08/14/2011 None edema Onset and Resolution gradual in onset 08/14/2011 None edema Onset of Symptom 2 months ago 08/14/2011 None edema Limitation on Activities moderately limits activities 08/14/2011 None edema Significant Past Medical History cardiac disease 08/14/2011 None edema Triggers exercise 08/14/2011 None edema Triggers prolonged sitting 08/14/2011 None edema Alleviating Factors rest 08/14/2011 None edema Alleviating Factors recumbency 08/14/2011 None edema Alleviating Factors medication 08/14/2011 None edema Exacerbating Factors standing 08/14/2011 None edema Exacerbating Factors salty foods 08/14/2011 None edema Location on both legs 08/14/2011 None edema Location on both ankles 08/14/2011 None edema Pertinent Findings Denies back pain 08/14/2011 None edema Pertinent Findings Denies dark urine 08/14/2011 None edema Pertinent Findings dyspnea on exertion 08/14/2011 None edema Pertinent Findings Denies lightheadedness 08/14/2011 None edema Pertinent Findings Denies nausea 08/14/2011 None edema Pertinent Findings Denies near syncope 08/14/2011 None edema Pertinent Findings palpitations 08/14/2011 None edema Pertinent Findings Denies tachycardia 08/14/2011 None hypertension Quality chronic 07/09/2011 None hypertension Onset and Resolution ongoing 07/09/2011 None hypertension Blood Pressure Values patient checking blood pressure at home - did not bring in readings 07/09/2011 None edema Onset and Resolution ongoing 07/09/2011 None edema Onset of Symptom 2 weeks ago 07/09/2011 None edema Quality worsening 07/09/2011 has worsened over the last 2 wks edema Timing of Episodes in the morning 07/09/2011 None edema Significant Past Medical History cardiac disease 07/09/2011 None edema Significant Medications diuretics 07/09/2011 None edema Triggers recumbent position 07/09/2011 None hypertension Severity mild 07/09/2011 None hypertension Pertinent Findings Denies bounding peripheral pulses 07/09/2011 None edema Triggers standing position 07/09/2011 None hypertension Pertinent Findings Denies lethargy 07/09/2011 None hypertension Pertinent Findings Denies tachycardia 07/09/2011 None edema Triggers prolonged sitting 07/09/2011 None edema Alleviating Factors rest 07/09/2011 swelling is improved after spending the night sleeping in bed dyspnea Quality breathlessness 07/09/2011 None dyspnea Quality chronic 07/09/2011 wears O2 at noc. dyspnea Quality shortness of breath 07/09/2011 None dyspnea Onset and Resolution worse during the day 07/09/2011 pt states "not everyday but becoming more frequent." dyspnea Limitation on Activities moderately limits activities 07/09/2011 states is unable to walk over 1/2 block without resting dyspnea Frequency of Episodes increasing 07/09/2011 "comes and goes" dyspnea Significant Medical Conditions pulmonary disease 07/09/2011 None dyspnea Significant Medications diuretic 07/09/2011 None dyspnea Triggers activity 07/09/2011 None dyspnea Triggers exercise 07/09/2011 None dyspnea Triggers exertion 07/09/2011 None dyspnea Alleviating Factors rest 07/09/2011 None dyspnea Alleviating Factors medication 07/09/2011 oxygen dyspnea Exacerbating Factors exertion 07/09/2011 None hypertension Quality chronic 05/08/2011 None hypertension Onset and Resolution ongoing 05/08/2011 None hypertension Onset of Symptom during adulthood 05/08/2011 None hypertension Blood Pressure Values not checking blood pressure at home 05/08/2011 None hypertension Triggers stress 05/08/2011 None hypertension Pertinent Findings anxiety 05/08/2011 None hypertension Pertinent Findings Denies confusion 05/08/2011 None hypertension Alleviating Factors medication 05/08/2011 None hypertension Exacerbating Factors stress 05/08/2011 None hip pain Quality worsening 01/11/2011 None hip pain Location in the lateral thigh 01/11/2011 None hip pain Location in the buttocks 01/11/2011 None hip pain Onset and Resolution gradual in onset 01/11/2011 None hip pain Onset and Resolution progressively worsening 01/11/2011 None hip pain Onset and Resolution worse during the day 01/11/2011 None hip pain Frequency of Episodes increasing 01/11/2011 None hip pain Limitation on Activities restricts ambulation 01/11/2011 None hip pain Limitation on Activities moderately limits activities 01/11/2011 None hip pain Severity severe 01/11/2011 None hip pain Alleviating Factors rest 01/11/2011 None hip pain Exacerbating Factors activity 01/11/2011 None hip pain Exacerbating Factors weight bearing 01/11/2011 None hip pain Radiating radiates down the leg to the foot 01/11/2011 None hip pain Assistive devices cane 01/11/2011 None Advance Directives No Advance Directive data Encounters Encounter Performer Location Codes Date EST. PATIENT, LEVEL III Diagnosis: Epistaxis[ICD10: R04.0] Diagnosis: Cough[ICD10: R05] Diagnosis: Other allergic rhinitis[ICD10: J30.89] Diagnosis: Other acute sinusitis[ICD10: J01.80] Amanda Urbano MD, [facility] CPT-4: 18818 01/15/2018 [id number] EST. PATIENT, LEVEL IV Diagnosis: Other acute sinusitis[ICD10: J01.80] Diagnosis: Other allergic rhinitis[ICD10: J30.89] Amanda Urbano MD, [facility] CPT-4: 71739 01/09/2018 ([id number]) 93621 EST. PATIENT, LEVEL IV Diagnosis: Essential (primary) hypertension[ICD10: I10] Diagnosis: Chronic atrial fibrillation[ICD10: I48.2] Diagnosis: Generalized anxiety disorder[ICD10: F41.1] Diagnosis: Slow transit constipation[ICD10: K59.01] Darby Urbano MD, [facility] CPT-4: 85420 11/12/2017 ([id number]) 01124 EST. PATIENT, LEVEL IV Diagnosis: Essential (primary) hypertension[ICD10: I10] Diagnosis: Chronic atrial fibrillation[ICD10: I48.2] Diagnosis: Generalized anxiety disorder[ICD10: F41.1] Diagnosis: Slow transit constipation[ICD10: K59.01] Darby Urbano MD, [facility] CPT-4: 29615 08/14/2017 ([id number]) 24260 EST. PATIENT, LEVEL IV Diagnosis: Essential (primary) hypertension[ICD10: I10] Diagnosis: Chronic atrial fibrillation[ICD10: I48.2] Diagnosis: Localized edema[ICD10: R60.0] Darby Urbano MD, [facility] CPT- 4: 43123 05/14/2017 ([id number]) 64802 EST. 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 PATIENT, LEVEL IV Diagnosis: Chronic atrial fibrillation[ICD10: I48.2] Diagnosis: Localized edema[ICD10: R60.0] Diagnosis: Changes in skin texture[ICD10: R23.4] Darby Urbano MD [facility] CPT-4: 80606 03/25/2017 ([id number]) 52204 EST. PATIENT, LEVEL III Diagnosis: Dysuria[ICD10: R30.0] Diagnosis: Chronic atrial fibrillation[ICD10: I48.2] iHlary Urbnao MD [facility] CPT-4: 16113 12/28/2016 ([id number]) 38798 EST. PATIENT, LEVEL IV Diagnosis: Chronic atrial fibrillation[ICD10: I48.2] Diagnosis: Hypoxemia[ICD10: R09.02] Diagnosis: Generalized skin eruption due to drugs and medicaments taken internally[ICD10: L27.0] Hilary Urbano MD [facility] CPT-4: 75103 12/21/2016 ([id number]) 22533 EST. PATIENT, LEVEL IV Diagnosis: Chronic atrial fibrillation[ICD10: I48.2] Diagnosis: Cellulitis of right lower limb[ICD10: L03.115] Darby Urbano MD [facility] CPT-4: 86137 12/11/2016 ([id number]) 64657 EST. PATIENT, LEVEL III Diagnosis: Laceration without foreign body, right lower leg, sequela[ICD10: S81.811S] Diagnosis: Chronic atrial fibrillation[ICD10: I48.2] Darby Urbano MD [facility] CPT-4: 73381 11/14/2016 ([id number]) 68634 EST. PATIENT, LEVEL III Diagnosis: Cellulitis of right lower limb[ICD10: L03.115] Hilary Urbano MD [facility] CPT-4: 93950 11/09/2016 [id number] EST. PATIENT, LEVEL IV Diagnosis: Other allergic rhinitis[ICD10: J30.89] Amanda Urbano MD [facility] CPT-4: 52906 09/17/2016 [id number] EST. PATIENT, LEVEL IV Diagnosis: Chronic atrial fibrillation[ICD10: I48.2] Diagnosis: Pneumonia due to other specified infectious organisms[ICD10: J16.8] Amanda Urbano MD [facility] CPT-4: 17722 09/10/2016 ([id number]) 23632 EST. PATIENT, LEVEL IV Diagnosis: Essential (primary) hypertension[ICD10: I10] Diagnosis: Chronic atrial fibrillation[ICD10: I48.2] Darby Urbano MD [facility] CPT-4: 93962 08/15/2016 ([id number]) 96211 EST. PATIENT, LEVEL III Diagnosis: Chronic atrial fibrillation[ICD10: I48.2] Darby Urbano MD [facility] CPT-4: 50035 06/14/2016 ([id number]) 92293 EST. PATIENT, LEVEL IV Diagnosis: Chronic atrial fibrillation[ICD10: I48.2] Diagnosis: Essential (primary) hypertension[ICD10: I10] Diagnosis: Pneumonia due to other specified infectious organisms[ICD10: J16.8] Darby Urbano MD [facility] CPT-4: 44461 06/06/2016 ([id number]) 79620 EST. PATIENT, LEVEL IV Diagnosis: Essential (primary) hypertension[ICD10: I10] Diagnosis: Chronic atrial fibrillation[ICD10: I48.2] Diagnosis: Generalized anxiety disorder[ICD10: F41.1] Darby Urbano MD [facility] CPT-4: 74273 02/08/2016 ([id number]) 96297 EST. PATIENT, LEVEL IV Diagnosis: Essential (primary) hypertension[ICD10: I10] Diagnosis: Chronic atrial fibrillation[ICD10: I48.2] Diagnosis: Unsteadiness on feet[ICD10: R26.81] Darby Urbano MD [facility] CPT-4: 63316 11/08/2015 ([id number]) 32101 EST. PATIENT, LEVEL IV Diagnosis: Chronic obstructive pulmonary disease with (acute) exacerbation[ICD10 : J44.1] Diagnosis: Pneumonia, unspecified organism[ICD10: J18.9] Diagnosis: Allergic rhinitis due to pollen[ICD10: J30.1] Hilary Urbano MD [facility] CPT-4: 55835 08/22/2015 ([id number]) 14097 EST. PATIENT, LEVEL IV Diagnosis: Essential (primary) hypertension[ICD10: I10] Diagnosis: Chronic atrial fibrillation[ICD10: I48.2] Diagnosis: Generalized anxiety disorder[ICD10: F41.1] Darby Urbano MD, [facility] CPT-4: 70929 08/09/2015 ([id number]) 92861 EST. PATIENT, LEVEL IV Diagnosis: Hypoxemia[ICD10: R09.02] Diagnosis: Unsteadiness on feet[ICD10: R26.81] Diagnosis: Chronic atrial fibrillation[ICD10: I48.2] Diagnosis: Essential (primary) hypertension[ICD10: I10] Diagnosis: Weakness[ICD10: R53.1] Darby Urbano MD, [facility] CPT-4: 48744 05/26/2015 ([id number]) 16199 EST. PATIENT, LEVEL IV Diagnosis: Chronic atrial fibrillation[ICD10: I48.2] Diagnosis: Essential (primary) hypertension[ICD10: I10] Diagnosis: Other idiopathic scoliosis, cervicothoracic region[ICD10: M41.23] Diagnosis: Chronic obstructive pulmonary disease, unspecified[ICD10: J44.9] Darby Urbano MD [facility] CPT-4: 30000 02/15/2015 ([id number]) 76015 EST. PATIENT, LEVEL III Diagnosis: ESSENTIAL HYPERTENSION[ICD9: 401.9] Diagnosis: ATRIAL FIBRILLATION[ICD9: 427.31] Diagnosis: Cerumen impaction[ICD9: 380.4] Myah Urbano MD, [facility] CPT-4 : 26060 12/02/2014 ([id number]) 22357 EST. 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 PATIENT, LEVEL IV Diagnosis: ESSENTIAL HYPERTENSION[ICD9: 401.9] Diagnosis: ATRIAL FIBRILLATION[ICD9: 427.31] Diagnosis: Skin lesion[ICD9: 709.9] Darby Urbano MD, [facility] CPT-4: 26863 07/21/2014 ([id number]) 66513 EST. PATIENT, LEVEL IV Diagnosis: ESSENTIAL HYPERTENSION[ICD9: 401.9] Diagnosis: ATRIAL FIBRILLATION[ICD9: 427.31] Diagnosis: CHRONIC AIRWAY OBST NEC[ICD9: 496] Diagnosis: Chronic sinusitis[ICD9: 473.9] Darby Urbano MD, [facility] CPT- 4: 06041 06/24/2014 ([id number]) 08807 EST. PATIENT, LEVEL IV Diagnosis: COPD exacerbation[ICD9: 491.21] Diagnosis: Pneumonia[ICD9: 486] Diagnosis: ESSENTIAL HYPERTENSION[ICD9: 401.9] Darby Urbano MD [facility] CPT-4: 54141 04/29/2014 ([id number]) 34014 EST. PATIENT, LEVEL III Diagnosis: BPPV (benign paroxysmal positional vertigo)[ICD9: 386.11] Darby Urbano MD [facility] CPT-4: 51285 04/01/2014 ([id number]) 84505 EST. PATIENT, LEVEL III Diagnosis: BPPV (benign paroxysmal positional vertigo)[ICD9: 386.11] Diagnosis: Nausea[ICD9: 787.02] Darby Urbano MD [facility] CPT-4: 31947 03/15/2014 ([id number]) 88478 EST. PATIENT, LEVEL IV Diagnosis: ESSENTIAL HYPERTENSION[ICD9: 401.9] Diagnosis: ATRIAL FIBRILLATION[ICD9: 427.31] Diagnosis: CHRONIC AIRWAY OBST NEC[ICD9: 496] Diagnosis: HEADACHE[ICD9: 784.0] Darby Urbano MD, [facility] CPT-4: 91264 02/22/2014 ([id number]) 67326 EST. PATIENT, LEVEL IV Diagnosis: ESSENTIAL HYPERTENSION[ICD9: 401.9] Diagnosis: ATRIAL FIBRILLATION[ICD9: 427.31] Diagnosis: CHRONIC AIRWAY OBST NEC[ICD9: 496] Diagnosis: Hand numbness[ICD9: 782.0] Darby Urbano MD [facility] CPT- 4: 41639 11/23/2013 ([id number]) 71763 EST. PATIENT, LEVEL IV Diagnosis: ESSENTIAL HYPERTENSION[SNOMED: 29500687] Diagnosis: CHRONIC AIRWAY OBST NEC[ICD9: 496] Diagnosis: Generalized anxiety disorder[ICD9: 300.02] Darby Urbano MD [facility] CPT-4: 79439 08/24/2013 ([id number]) 27282 EST. PATIENT, LEVEL IV Diagnosis: ESSENTIAL HYPERTENSION[SNOMED: 67400204] Diagnosis: Fatigue[ICD9: 780.79] Diagnosis: Urinary incontinence[ICD9: 788.30] Diagnosis: ATRIAL FIBRILLATION[ICD9: 427.31] Darby Urbano MD [facility] CPT-4: 44542 05/25/2013 ([id number]) 09690 EST. PATIENT, LEVEL IV Diagnosis: ESSENTIAL HYPERTENSION[SNOMED: 82410538] Diagnosis: ATRIAL FIBRILLATION[ICD9: 427.31] Diagnosis: CHRONIC AIRWAY OBST NEC[ICD9: 496] Darby Urbano MD [facility] CPT-4: 61771 02/18/2013 ([id number]) 15461 EST. PATIENT, LEVEL IV Diagnosis: ESSENTIAL HYPERTENSION[SNOMED: 22624854] Diagnosis: COUGH[ICD9: 786.2] Darby Ubrano MD [facility] CPT-4: 73710 01/19/2013 ([id number]) 26465 EST. PATIENT, LEVEL IV Diagnosis: ESSENTIAL HYPERTENSION[SNOMED: 13897173] Diagnosis: ATRIAL FIBRILLATION[ICD9: 427.31] Diagnosis: CHRONIC AIRWAY OBST NEC[ICD9: 496] Darby Urbano MD [facility] CPT-4: 01043 12/16/2012 ([id number]) 02694 EST. PATIENT, LEVEL IV Diagnosis: ESSENTIAL HYPERTENSION[SNOMED: 40913094] Diagnosis: CHRONIC AIRWAY OBST NEC[ICD9: 496] Diagnosis: ATRIAL FIBRILLATION[ICD9: 427.31] aDrby Urbano MD [facility] CPT-4: 26640 10/13/2012 ([id number]) [id number] EST. PATIENT, LEVEL IV Diagnosis: ESSENTIAL HYPERTENSION[SNOMED: 88635285] Diagnosis: Leg swelling[ICD9: 729.81] Diagnosis: CHRONIC AIRWAY OBST NEC[ICD9: 496] Diagnosis: Insomnia[ICD9: 780.52] Darby Urbano MD [facility] CPT-4: 45792 08/25/2012 ([id number]) [id number] EST. PATIENT, LEVEL IV Diagnosis: ESSENTIAL HYPERTENSION[SNOMED: 64603706] Diagnosis: EDEMA[ICD9: 782.3] Diagnosis: Hip pain, chronic[ICD9: 719.45] Darby Urbano MD [facility] CPT- 4: 28940 06/23/2012 ([id number]) [id number] EST. PATIENT, LEVEL IV Diagnosis: ESSENTIAL HYPERTENSION[SNOMED: 27286076] Diagnosis: EDEMA[ICD9: 782.3] Diagnosis: Hip pain, acute[ICD9: 719.45] Darby Urbano MD [facility] CPT- 4: 23796 05/22/2012 ([id number]) 32393 EST. PATIENT, LEVEL IV Diagnosis: EDEMA[ICD9: 782.3] Diagnosis: ESSENTIAL HYPERTENSION[SNOMED: 60239370] Diagnosis: OSTEOARTHROSIS-MULTIPLE SITES[ICD9: 715.89] Darby Urbano MD [facility] CPT-4: 60118 04/16/2012 ([id number]) [id number] EST. PATIENT, LEVEL IV Diagnosis: ESSENTIAL HYPERTENSION[SNOMED: 49540688] Diagnosis: ATRIAL FIBRILLATION[ICD9: 427.31] Diagnosis: OSTEOARTHROSIS-MULTIPLE SITES[ICD9: 715.89] Diagnosis: TORTICOLLIS[ICD9: 723.5] Darby Urbano MD [facility] CPT-4: 74730 03/04/2012 ([id number]) 63694 EST. PATIENT, LEVEL IV Diagnosis: ESSENTIAL HYPERTENSION[SNOMED: 59281485] Diagnosis: Kyphoscoliosis[ICD9: 737.30] Diagnosis: Torticollis[ICD9: 723.5] Diagnosis: Insomnia[ICD9: 780.52] Darby Urbano MD [facility] CPT-4: 29318 12/04/2011 ([id number]) [id number] EST. PATIENT, LEVEL IV Diagnosis: ESSENTIAL HYPERTENSION[SNOMED: 09116604] Diagnosis: ATRIAL FIBRILLATION[ICD9: 427.31] Darby Urbano MD, [facility] CPT-4: 17894 10/01/2011 ([id number] EST. PATIENT, LEVEL IV Diagnosis: ESSENTIAL HYPERTENSION[SNOMED: 26423116] Diagnosis: ATRIAL FIBRILLATION[ICD9: 427.31] Diagnosis: EDEMA[ICD9: 782.3] Diagnosis: RESPIRATORY ABNORM NEC[ICD9: 786.09] Diagnosis: KYPHOSIS[ICD9: 737.10] Diagnosis: Scoliosis[ICD9: 737.30] Darby Urbano MD, [facility] CPT-4: 91275 08/14/2011 ([id number]) 92778 EST. PATIENT, LEVEL IV Diagnosis: ESSENTIAL HYPERTENSION[SNOMED: 04500183] Diagnosis: EDEMA[ICD9: 782.3] Diagnosis: Dyspnea[ICD9: 786.09] Diagnosis: Kyphosis[ICD9: 737.10] Darby Urbano MD, [facility] CPT-4: 67021 07/09/2011 ([id number] [id number] EST. PATIENT, LEVEL IV Diagnosis: ESSENTIAL HYPERTENSION[SNOMED: 21713823] Diagnosis: ATRIAL FIBRILLATION[ICD9: 427.31] Darby Urbano MD, [facility] CPT-4: 49155 05/08/2011 04823 EST. PATIENT, LEVEL IV Diagnosis: Hip pain, left[ICD9: 719.45] Diagnosis: OSTEOARTHROSIS-MULTIPLE SITES[ICD9: 715.89] Darby Urbano MD, [facility] CPT-4: 62190 01/11/2011 Plan of Care Planned Activity Notes Codes Status Date Appointment: Darby Urbano W[facility]el[facility] (15 min) Moderate 02/18/2018 Visit Plan: Medicare Exam - today we discussed the patients past history, immunizations, preventative exams/evaluations - colonoscopy, fecal occult blood testing, routine labs for renal function, glucose, cholesterol, osteoporosis evaluations, cardiovascular testing and cancer screenings. We have also discussed mental health and the signs/symptoms of depression. The patient was advised of home safety evaluations and the need to make sure that as the aging process continues, we need to be aware of different ways to make the home a safer place to reside. The patient has also been counseled that exercise is necessary - and of utmost importance as we age to help decrease fall risk and to maintain independece in the home. Today we discussed the need for the patient to create paperwork for Advanced directives as well as for the patient to provide this office with a copy of her DOPA paperwork for health care surrogate. 02/12/2018 Appointment: Amanda Stephens WPtel: [phone] [facility] [place] [address] - Annual Wellness Visit 02/12/2018 Patient Education: Patient Medication Summary Completed 02/12/2018 Visit Plan: Nose bleed, bruising - pt INR is OK - will send ointment for small nose ulceration - pt is to notify clinic if symptoms return, or with any changes, questions or concerns Sinusitis - Pt has acute infection - pain in face, maxillary region, Pt informed to use decongestant, RX given to patient, sinus rinses also recommended. Call if symptoms do not show improvement. Allergies - chronic - recommended pt to use allergy medication as prescribed. Pt has been counseled as to the appropriate use of the medication. Pt to call if allergy symptoms are not controlled with the medication. If using nasal spray, instructions as follows: Nasal spray- use twice daily, one spray per nostril twice daily, after 30 minutes, rinse out nose with saline spray.. Use opposite hand per nostril to spray in the nasal steroid allergy spray. 01/15/2018 Appointment: Amanda Stephens WPtel: [facility] (15 min) Moderate 01/15/2018 Patient Education: Patient Medication Summary Completed 01/15/2018 Visit Plan: Sinusitis - Pt has acute infection - pain in face, maxillary region, Pt informed to use decongestant, RX given to patient, sinus rinses also recommended. Call if symptoms do not show improvement. Allergies - chronic - recommended pt to use allergy medication as prescribed. Pt has been counseled as to the appropriate use of the medication. Pt to call if allergy symptoms are not controlled with the medication. 01/09/2018 Appointment: Amanda Stephens WPtel: [facility] (15 min) Moderate 01/09/2018 Patient Education: Patient Medication Summary Completed 01/09/2018 Appointment: Darby Urbano WPtel: [facility]5 [facility] (15 min) Moderate 11/14/2017 Visit Plan: Hypertension - well controlled - continue with current medications, continue with no added salt diet. Pt has been encouraged to exercise daily. The pt has been advised to call the office if there are any acute concerns about change in blood pressure readings at home. Atrial Fibrillation - pt on chronic anticoagulation and is currently rate controlled. The pt is to have labs done as appropriate to monitor medication levels and is to report if they start to feel as if their heart rate is becoming uncontrolled. Actinic Keratosis - treated with cryotherapy x 3, pt advised on how to appropriately care for the lesion. Call if not improved after thorough healing. 11/12/2017 Appointment: Darby Urbano WPtel: [facility] (15 min) Moderate 11/12/2017 Patient Education: Patient Medication Summary Completed 11/12/2017 Visit Plan: Hypertension - well controlled - continue with current medications, continue with no added salt diet. Pt has been encouraged to exercise daily. The pt has been advised to call the office if there are any acute concerns about change in blood pressure readings at home. Atrial Fibrillation - pt on chronic anticoagulation and is currently rate controlled. The pt is to have labs done as appropriate to monitor medication levels and is to report if they start to feel as if their heart rate is becoming uncontrolled. Chronic constipation - continue with supportive care at this time as symptoms are controlled. Chronic Depression and anxiety - the pt has symptoms of chronic anxiety and depression that have been fairly well controlled since the last office visit. The pt has expected periods of exacerbation with abatement of the symptoms with change in situational exposure. No change in current medications. 08/14/2017 Appointment: Darby Urbano WPtel: [facility]6 [facility] (15 min) Moderate 08/14/2017 Patient Education: Patient Medication Summary Completed 08/14/2017 Visit Plan: Atrial Fibrillation - pt on chronic anticoagulation and is currently rate controlled. The pt is to have labs done as appropriate to monitor medication levels and is to report if they start to feel as if their heart rate is becoming uncontrolled. Hypertension - well controlled - continue with current medications, continue with no added salt diet. Pt has been encouraged to exercise daily. The pt has been advised to call the office if there are any acute concerns about change in blood pressure readings at home. Edema - pt has been advised to elevate legs to prevent dependent edema, compression has been recommended to help to naturally decrease peripheral edema. Diuretic use has been discussed and pt has been instructed in appropriate use of such medication as necessary to further attempt to reduce peripheral edema. 05/14/2017 Appointment: Darby Urbano WPtel: [phone] [facility] [place] (15 min) Moderate 05/14/2017 Patient Education: Patient Medication Summary Completed 05/14/2017 Visit Plan: Skin lesion on left scientologist - improved after use of efudex - lesion cleansed today and neosporin re-applied. I have recommended patient to have the neosporin applied for another 5 days then staff at [facility] to call if it is not improving. Back pain - due to severe scoliosis - supportive care only. Continue with supportive care. 04/15/2017 Appointment: Darby Urbano [facility]el[phone] [place] (15 min) Moderate 04/15/2017 Patient Education: Patient Medication Summary Completed 04/15/2017 Appointment: Darby Urbano WPtel: [phone] [facility] [place] (15 min) Moderate 03/26/2017 Visit Plan: Edema - pt has been advised to elevate legs to prevent dependent edema, compression has been recommended to help to naturally decrease peripheral edema. Diuretic use has been discussed and pt has been instructed in appropriate use of such medication as necessary to further attempt to reduce peripheral edema. Compression of lower legs - recommended compressive socks. Skin changes of face on left scientologist - rx for efudex cream. Pt to Return to office for me to eval the skin lesion. Atrial Fibrillation - pt on chronic anticoagulation and is currently rate controlled. The pt is to have labs done as appropriate to monitor medication levels and is to report if they start to feel as if their heart rate is becoming uncontrolled. 03/25/2017 Appointment: Darby Urbanotel: [facility] (15 min) Moderate 03/25/2017 Patient Education: Patient Medication Summary Completed 03/25/2017 Visit Plan: Dysuria-check UA and labs Afib-rate controlled- no change in treatment 12/28/2016 Appointment: Hilary Hill WPtel: [phone] (30 min) Complex 12/28/2016 Patient Education: Patient Medication Summary Completed 12/28/2016 Visit Plan: Afib-not rate controlled-increase metoprolol Jpdmhflrh-rcarxjw-rynbqbn not wearing her oxygen today-patient to put it back on at the facility Reaction to vancomycin-continue prednisone, benadryl. claritin and pepcid-symptoms improved per patient report-follow up Saturday, sooner if needed 12/21/2016 Appointment: Hilary Hill WPtel: [facility] [place] (15 min) Moderate 12/21/2016 Patient Education: Patient Medication Summary Completed 12/21/2016 Visit Plan: Atrial Fibrillation - pt on chronic anticoagulation and is currently rate controlled. The pt is to have labs done as appropriate to monitor medication levels and is to report if they start to feel as if their heart rate is becoming uncontrolled. Cellulitis of lower leg - healing - continue with current antibiotic therapy. 12/11/2016 Appointment: Darby Urbano WPtel: [address] [place], [place] [address] (15 min) Moderate 12/11/2016 Patient Education: Patient Medication Summary Completed 12/11/2016 Appointment: Darby Urbano WPtel: [facility] (15 min) Moderate 11/26/2016 Visit Plan: Wound of lower leg - recommended pt to have wound evaluation at hospital. Atrial Fibrillation - pt on chronic anticoagulation and is currently rate controlled. The pt is to have labs done as appropriate to monitor medication levels and is to report if they start to feel as if their heart rate is becoming uncontrolled. 11/14/2016 Appointment: Darby Urbanotel: [facility] (15 min) Moderate 11/14/2016 Patient Education: Patient Medication Summary Completed 11/14/2016 Visit Plan: Cellulitis - continue with oral antibiotics as previously directed, return to clinic as previously directed, call for acute change in symptoms, worsening redness, warmth, discharge. 11/09/2016 Visit Plan: Cellulitis - continue with oral antibiotics as previously directed, return to clinic as previously directed, call for acute change in symptoms, worsening redness, warmth, discharge. 11/09/2016 Appointment: Hilary Hill WPtel: [facility]6 [phone] [place] (15 min) Moderate 11/09/2016 Patient Education: Patient Medication Summary Completed 11/09/2016 Visit Plan: Allergies - chronic - recommended pt to use allergy medication as prescribed. Pt has been counseled as to the appropriate use of the medication. Pt to call if allergy symptoms are not controlled with the medication. If using nasal spray, instructions as follows: Nasal spray- use twice daily, one spray per nostril twice daily, after 30 minutes, rinse out nose with saline spray.. Use opposite hand per nostril to spray in the nasal steroid allergy spray. Will stop claritin and start zyrtec. Will order smaller portable O2. Pt is to notify clinic with any questions or concerns. 09/17/2016 Appointment: Amanda Stephens WPtel: [facility] (15 min) Moderate 09/17/2016 Patient Education: Patient Medication Summary Completed 09/17/2016 Visit Plan: Pneumonia - Pt has been diagnosed with pneumonia by physical exam. A chest xray has been ordered as have antibiotics. The pt is aware of the diagnosis and the need for acute treatment of this illness. 09/10/2016 Appointment: Amanda Stephens WPtel: [facility]6 [facility] (30 min) Complex 09/10/2016 Patient Education: Patient Medication Summary Completed 09/10/2016 Visit Plan: Hypertension - well controlled - continue with current medications, continue with no added salt diet. Pt has been encouraged to exercise daily. The pt has been advised to call the office if there are any acute concerns about change in blood pressure readings at home. Atrial Fibrillation - pt on chronic anticoagulation and is currently rate controlled. The pt is to have labs done as appropriate to monitor medication levels and is to report if they start to feel as if their heart rate is becoming uncontrolled. 08/15/2016 Appointment: Darby Urbano WPtel: [phone] (15 min) Moderate 08/15/2016 Patient Education: Patient Medication Summary Completed 08/15/2016 Patient Education: Hypertension Completed 08/15/2016 Visit Plan: Atrial Fibrillation - pt on chronic anticoagulation and is currently rate controlled. The pt is to have labs done as appropriate to monitor medication levels and is to report if they start to feel as if their heart rate is becoming uncontrolled. Pneumonia - resolved - monitor symptoms, call if not improving. 06/14/2016 Appointment: Darby Urbano WPtel: [phone] [facility] (15 min) Moderate 06/14/2016 Patient Education: Patient Medication Summary Completed 06/14/2016 Visit Plan: Pneumonia - Pt has been diagnosed with pneumonia by physical exam. Pt has been started on antibiotics at a walk-in clinic - vibramycin 100mg bid x 2 more days left - I have written an order to stop this medication and to start on cefdinir and azithromycin - see rx slider for details. The pt is aware of the diagnosis and the need for acute treatment of this illness. Probiotic will be started as well Hypertension - well controlled - continue with current medications, continue with no added salt diet. Pt has been encouraged to exercise daily. The pt has been advised to call the office if there are any acute concerns about change in blood pressure readings at home. Atrial Fibrillation - pt on chronic anticoagulation and is currently rate controlled. The pt is to have labs done as appropriate to monitor medication levels and is to report if they start to feel as if their heart rate is becoming uncontrolled. 06/06/2016 Appointment: Darby Urbano WPtel: [phone] (15 min) Moderate 06/06/2016 Patient Education: Patient Medication Summary Completed 06/06/2016 Patient Education: Hypertension Completed 06/06/2016 Visit Plan: Hypertension - well controlled - continue with current medications, continue with no added salt diet. Pt has been encouraged to exercise daily. The pt has been advised to call the office if there are any acute concerns about change in blood pressure readings at home. Atrial Fibrillation - pt on chronic anticoagulation and is currently rate controlled. The pt is to have labs done as appropriate to monitor medication levels and is to report if they start to feel as if their heart rate is becoming uncontrolled. pneumovax today in office 02/08/2016 Appointment: Darby Urbano WPtel: [phone] [facility] (15 min) Moderate 02/08/2016 Patient Education: Patient Medication Summary Completed 02/08/2016 Visit Plan: Hypertension - well controlled - continue with current medications, continue with no added salt diet. Pt has been encouraged to exercise daily. The pt has been advised to call the office if there are any acute concerns about change in blood pressure readings at home. Gait instability - Kyphosis, scoliosis - Recommended pt to have a walker with a seat so that she can push her oxygen around to allow improved mobility Atrial Fibrillation - pt on chronic anticoagulation and is currently rate controlled. The pt is to have labs done as appropriate to monitor medication levels and is to report if they start to feel as if their heart rate is becoming uncontrolled. 11/08/2015 Appointment: Darby Urbano WPtel: [phone] [facility] (15 min) Moderate 11/08/2015 Patient Education: Patient Medication Summary Completed 11/08/2015 Patient Education: Obesity Completed 11/08/2015 Patient Education: Hypertension Completed 11/08/2015 Visit Plan: COPD [id number] is a chronic problem for this patient, however, the pt is experiencing an acute exacerbation of the COPD. Pt is to receive appropriate treatment as an out patient, but the pt is aware that if symptoms worsen or do not improve, to call [facility] for instructions, or go to the EMERGENCY ROOM if the symptoms are beyond acute control with rescue medications. We have reviewed chronic treatment strategy, symptom control, and plans for acute exacerbations. No changes today to the current treatment plan as the patient is stable, monitor for acute changes. Rocephin and kenalog injections today in the office Allergies - chronic - recommended pt to use allergy medication as prescribed. Pt has been counseled as to the appropriate use of the medication. Pt to call if allergy symptoms are not controlled with the medication. If using nasal spray, instructions as follows: Nasal spray- use twice daily, one spray per nostril twice daily, after 30 minutes, rinse out nose with saline spray.. Use opposite hand per nostril to spray in the nasal steroid allergy spray. 08/22/2015 Patient Education: Patient Medication Summary Completed 08/22/2015 Visit Plan: Hypertension - well controlled - continue with current medications, continue with no added salt diet. Pt has been encouraged to exercise daily. The pt has been advised to call the office if there are any acute concerns about change in blood pressure readings at home. Atrial Fibrillation - pt is currently rate controlled. The pt is to have labs done as appropriate to monitor medication levels and is to report if they start to feel as if their heart rate is becoming uncontrolled. Chronic Anxiety - the pt has symptoms of chronic anxiety that has been fairly well controlled since the last office visit. The pt has expected periods of exacerbation with abatement of the symptoms with change in situational exposure. No change in current medications. 08/09/2015 Patient Education: Patient Medication Summary Completed 08/09/2015 Patient Education: Obesity Completed 08/09/2015 Patient Education: Hypertension Completed 08/09/2015 Appointment: Darby Urbano WPtel: [facility] (30 min) Complex 07/27/2015 Appointment: Darby Urbano WPtel: [facility] (15 min) Moderate 06/28/2015 Visit Plan: Hypertension - well controlled - continue with current medications, continue with no added salt diet. Pt has been encouraged to exercise daily. The pt has been advised to call the office if there are any acute concerns about change in blood pressure readings at home. Atrial Fibrillation - pt on chronic anticoagulation and is currently rate controlled. The pt is to have labs done as appropriate to monitor medication levels and is to report if they start to feel as if their heart rate is becoming uncontrolled. Hypoxemia - pt to wear her oxygen 24 hours per day. Start b12 2000 units daily start vitamin d 5000 units daily. ok for physical therapy to start as well. 05/26/2015 Visit Plan: Hypertension - well controlled - continue with current medications, continue with no added salt diet. Pt has been encouraged to exercise daily. The pt has been advised to call the office if there are any acute concerns about change in blood pressure readings at home. Atrial Fibrillation - pt on chronic anticoagulation and is currently rate controlled. The pt is to have labs done as appropriate to monitor medication levels and is to report if they start to feel as if their heart rate is becoming uncontrolled. Hypoxemia - pt to wear her oxygen 24 hours per day. oxygen at rest 89% on room air, and after ambulating a short distance (less than 50 feet) her oxygen saturation dropped to 85%. 3L of oxygen via NC applied and her oxygen saturation increased to 96%. Start b12 2000 units daily start vitamin d 5000 units daily. ok for physical therapy to start as well. 05/26/2015 Visit Plan: Hypertension - well controlled - continue with current medications, continue with no added salt diet. Pt has been encouraged to exercise daily. The pt has been advised to call the office if there are any acute concerns about change in blood pressure readings at home. Atrial Fibrillation - pt on chronic anticoagulation and is currently rate controlled. The pt is to have labs done as appropriate to monitor medication levels and is to report if they start to feel as if their heart rate is becoming uncontrolled. Hypoxemia - pt to wear her oxygen 24 hours per day. oxygen at rest 89% on room air, room air ambulating a short distance (less than 50 feet) her oxygen saturation dropped to 85%. 3L of oxygen via NC applied and her oxygen saturation increased to 96% with ambulation. Start b12 2000 units daily start vitamin d 5000 units daily. ok for physical therapy to start as well. 05/26/2015 Patient Education: Patient Medication Summary Completed 05/26/2015 Patient Education: Hypertension Completed 05/26/2015 Visit Plan: Hypertension - well controlled - continue with current medications, continue with no added salt diet. Pt has been encouraged to exercise daily. The pt has been advised to call the office if there are any acute concerns about change in blood pressure readings at home. Atrial Fibrillation - pt currently rate controlled. The pt is to have labs done as appropriate to monitor medication levels and is to report if they start to feel as if their heart rate is becoming uncontrolled. COPD - chronic - no change in current management of the patient's disease state. Monitor symptoms. Pt with OA - and scoliosis - pt to continue with current management - pt is not in need of occupational therapy at this time, her shoulder immobility is due to physical restriction from her cervical and thoracic scoliosis 02/15/2015 Appointment: Darby Urbano WPtel: [facility]1 [facility]66[facility] (15 min) Moderate 02/15/2015 Patient Education: Patient Medication Summary Completed 02/15/2015 Patient Education: Hypertension Completed 02/15/2015 Appointment: Hilary Hill WPtel: [facility]0 [phone] [place] (15 min) Moderate 01/13/2015 Visit Plan: Arthritis- occasionally uncontrolled symptoms- Use tylenol for break through pain symptoms. Will seek approval from Dr. Ruibo to initiate Voltaren Gel. Will not start until Dr. Rubio approves d/t previously ordering no NSAID's. Cerumen Impaction - The impacted cerumen was removed with the use of the ear currette. The patient tolerated the procedure without incident and had improvement in hearing. The wax was removed by the practitioner due to the wax being more complicated to remove, and staff was needed to assist the removal of the wax by holding the ear, and keeping patient stabilized during the removal process. 12/02/2014 Appointment: (15 min) Moderate 12/02/2014 Patient Education: Patient Medication Summary Completed 12/02/2014 Patient Education: Hypertension Completed 12/02/2014 Visit Plan: Hypertension - well controlled - continue with current medications, continue with no added salt diet. Pt has been encouraged to exercise daily. The pt has been advised to call the office if there are any acute concerns about change in blood pressure readings at home. Atrial Fibrillation - pt on chronic anticoagulation and is currently rate controlled. The pt is to have labs done as appropriate to monitor medication levels and is to report if they start to feel as if their heart rate is becoming uncontrolled. 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 10/14/2014 Appointment: Darby Urbano WPtel: [facility] Follow up 10/14/2014 Patient Education: Patient Medication Summary Completed 10/14/2014 Patient Education: Hypertension Completed 10/14/2014 Visit Plan: Hypertension - well controlled - continue with current medications, continue with no added salt diet. Pt has been encouraged to exercise daily. The pt has been advised to call the office if there are any acute concerns about change in blood pressure readings at home. Atrial Fibrillation - pt on chronic anticoagulation and is currently rate controlled. The pt is to have labs done as appropriate to monitor medication levels and is to report if they start to feel as if their heart rate is becoming uncontrolled. Facility needs to send readings on her blood pressures and heart rate. Wound on foot - recommended pt to use neosporin on foot, keep wrapped until healed. 07/21/2014 Appointment: Dar[facility] Urbano [facility]el[phone] Follow up 07/21/2014 Patient Education: Patient Medication Summary Completed 07/21/2014 Patient Education: Hypertension Completed 07/21/2014 Visit Plan: Hypertension - well controlled - continue with current medications, continue with no added salt diet. Pt has been encouraged to exercise daily. The pt has been advised to call the office if there are any acute concerns about change in blood pressure readings at home. Sinusitis - Pt has acute infection - pain in face, maxillary region, Pt informed to use decongestant, RX given to patient, sinus rinses also recommended. Call if symptoms do not show improvement. COPD - chronic problem for this patient. We have reviewed chronic treatment strategy, symptom control, and plans for acute exacerbations. No changes today to the current treatment plan as the patient is stable, monitor for acute changes. Atrial Fibrillation - pt on chronic anticoagulation and is currently rate controlled. The pt is to have labs done as appropriate to monitor medication levels and is to report if they start to feel as if their heart rate is becoming uncontrolled. 06/24/2014 Appointment: Dar[facility] Urbano [facility]Ptel[phone] Follow up 06/24/2014 Patient Education: Patient Medication Summary Completed 06/24/2014 Patient Education: Hypertension Completed 06/24/2014 Visit Plan: COPD EXACERBATION-recent pneumonia-symptoms not completely resoloved-restart breathing treatments-kenalog injection today in the office - COPD is a chronic problem for this patient, however, the pt is experiencing an acute exacerbation of the COPD. Pt is to receive appropriate treatment as an out patient, but the pt is aware that if symptoms worsen or do not improve, to call [facility] for instructions, or go to the EMERGENCY ROOM if the symptoms are beyond acute control with rescue medications. We have reviewed chronic treatment strategy, symptom control, and plans for acute exacerbations. No changes today to the current treatment plan as the patient is stable, monitor for acute changes. Right distal radius fracture-surgical repair done last week-patient wearing splint-facility to make follow up appointment with surgeon. Hypertension - well controlled - continue with current medications, continue with no added salt diet. Pt has been encouraged to exercise daily. The pt has been advised to call the office if there are any acute concerns about change in blood pressure readings at home. 04/29/2014 Appointment: Follow up 04/29/2014 Patient Education: Patient Medication Summary Completed 04/29/2014 Visit Plan: BPPV - Benign Paroxysmal Positional Vertigo - discussed diagnosis with the patient, offered the pt the appropriate additional information in hand-out. Pt instructed in home exercises to help alleviate and prevent future recurrent episodes of vertigo. Pt informed that if symptoms worsen, call the office for further instructions/medication interventions. SYMPTOMS IMPROVED-CONTINUE MECLIZINE NEEDED-CALL IF SYMPTOMS DO NOT COMPELTEY RESOLVE. 04/01/2014 Appointment: Sick 04/01/2014 Patient Education: Patient Medication Summary Completed 04/01/2014 Appointment: Darby Urbano WPtel: [phone] [facility] Follow up 03/26/2014 Visit Plan: BPPV - Benign Paroxysmal Positional Vertigo - discussed diagnosis with the patient, offered the pt the appropriate additional information in hand-out. Pt instructed in home exercises to help alleviate and prevent future recurrent episodes of vertigo. Pt informed that if symptoms worsen, call the office for further instructions/medication interventions. Nausea - due to dizziness - start meclizine and start on steroids 03/15/2014 Appointment: Darby Urbano WPtel: [phone] [facility] Follow up 03/15/2014 Patient Education: Patient Medication Summary Completed 03/15/2014 Visit Plan: Hypertension - well controlled - continue with current medications, continue with no added salt diet. Pt has been encouraged to exercise daily. The pt has been advised to call the office if there are any acute concerns about change in blood pressure readings at home. pt to have appt with Dr. Akbar - correctional cook today at 245pm for evaluation of her visual changes. If symptoms persist - may consider CT of head. Atrial Fibrillation - pt on chronic anticoagulation and is currently rate controlled. The pt is to have labs done as appropriate to monitor medication levels and is to report if they start to feel as if their heart rate is becoming uncontrolled. COPD - chronic problem for this patient. We have reviewed chronic treatment strategy, symptom control, and plans for acute exacerbations. No changes today to the current treatment plan as the patient is stable, monitor for acute changes. 02/22/2014 Appointment: Darby Urbano WPtel[phone] Follow up 02/22/2014 Patient Education: Patient Medication Summary Completed 02/22/2014 Patient Education: Hypertension Completed 02/22/2014 Visit Plan: Hypertension - well controlled - continue with current medications, continue with no added salt diet. Pt has been encouraged to exercise daily. The pt has been advised to call the office if there are any acute concerns about change in blood pressure readings at home. Atrial Fibrillation - pt on chronic anticoagulation and is currently rate controlled. The pt is to have labs done as appropriate to monitor medication levels and is to report if they start to feel as if their heart rate is becoming uncontrolled. need to ceck labs. COPD - chronic problem for this patient. We have reviewed chronic treatment strategy, symptom control, and plans for acute exacerbations. No changes today to the current treatment plan as the patient is stable, monitor for acute changes. Hand numbness - due to compression of the nerve at the lateral epicondyle. Pt has been advised that she needs to get a book noble so that she does not have to rest her arms on the elbow rests. 11/23/2013 Appointment: Darby Urbano [facility]Ptel[phone] Follow up 11/23/2013 Patient Education: Patient Medication Summary Completed 11/23/2013 Patient Education: Hypertension Completed 11/23/2013 Visit Plan: Hypertension - well controlled at home, the patient did not have her medication - toprol or imdur today as the facility ran out of her medications. 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 Pt has been encouraged to exercise daily. The pt has been advised to call the office if there are any acute concerns about change in blood pressure readings at home. COPD - chronic problem for this patient. We have reviewed chronic treatment strategy, symptom control, and plans for acute exacerbations. No changes today to the current treatment plan as the patient is stable, monitor for acute changes. Chronic anxiety and insomnia - recommended to stay on current medicaitons. 08/24/2013 Appointment: Darby Urbano WPtel: [facility] Follow up 08/24/2013 Patient Education: Patient Medication Summary Completed 08/24/2013 Patient Education: Hypertension Completed 08/24/2013 Appointment: Hilary Hill WPtel: [facility]5 [phone] [place] Lab Draw 07/02/2013 Visit Plan: Hypertension - well controlled - continue with current medications, continue with no added salt diet. Pt has been encouraged to exercise daily. The pt has been advised to call the office if there are any acute concerns about change in blood pressure readings at home. Atrial Fibrillation - pt on chronic anticoagulation and is currently rate controlled. The pt is to have labs done as appropriate to monitor medication levels and is to report if they start to feel as if their heart rate is becoming uncontrolled. Urinary incontinence last night - check ua today. Malaise - flushed face - recommended pt to have her flu swab checked today. 05/25/2013 Appointment: Darby Urbano WPtel: [facility]6 [facility] [place] Follow up 05/25/2013 Patient Education: Patient Medication Summary Completed 05/25/2013 Patient Education: Hypertension Completed 05/25/2013 Visit Plan: Hypertension - well controlled - continue with current medications, continue with no added salt diet. Pt has been encouraged to exercise daily. The pt has been advised to call the office if there are any acute concerns about change in blood pressure readings at home. Atrial Fibrillation - pt on chronic anticoagulation and is currently rate controlled. The pt is to have labs done as appropriate to monitor medication levels and is to report if they start to feel as if their heart rate is becoming uncontrolled. COPD - chronic problem for this patient. We have reviewed chronic treatment strategy, symptom control, and plans for acute exacerbations. No changes today to the current treatment plan as the patient is stable, monitor for acute changes. 02/18/2013 Appointment: Darby Urbano WPtel: [phone] [facility] Follow up 02/18/2013 Patient Education: Patient Medication Summary Completed 02/18/2013 Patient Education: Hypertension Completed 02/18/2013 Visit Plan: Hypertension - uncontrolled - the patient's medications have been modified as documented in the visit note. The patient has been counseled to cut back on salt in diet for a no added salt diet, low fat diet, start an exercise program with low weight bearing exercises and higher aerobic activity for heart health. The patient is to check blood pressure readings as an outpatient and either fax, call, or email the readings to the office next week for practicioner to review. The pt is to call for acute concerns. Allergies - chronic - recommended pt to use allergy medication as prescribed. Pt has been counseled as the the appropriate use of the medication. Pt to call if allergy symptoms are not controlled with the medication. If using nasal spray, instructions as follows: Nasal spray- use twice daily, one spray per nostril twice daily, after 30 minutes, rinse out nose with saline spray.. Use opposite hand per nostril to spray in the nasal steroid allergy spray. Cough - recommended to start on the nasonex, give kenalog today, monitor and call if not better. 01/19/2013 Appointment: Darby Urbano WPtel: [phone] Follow up 01/19/2013 Patient Education: Patient Medication Summary Completed 01/19/2013 Patient Education: Hypertension Completed 01/19/2013 Visit Plan: Hypertension - well controlled - continue with current medications, continue with no added salt diet. Pt has been encouraged to exercise daily. The pt has been advised to call the office if there are any acute concerns about change in blood pressure readings at home. Atrial Fibrillation - pt on chronic anticoagulation and is currently rate controlled. The pt is to have labs done as appropriate to monitor medication levels and is to report if they start to feel as if their heart rate is becoming uncontrolled. Edema - left leg - continue with therapy. Pt can restart celebrex - pt should restart aspirin Pt to NOT start on xarelto. 12/16/2012 Appointment: Darby Urbano WPtel: [facility]5 [facility] Follow up 12/16/2012 Patient Education: Patient Medication Summary Completed 12/16/2012 Patient Education: Hypertension Completed 12/16/2012 Visit Plan: Hypertension - well controlled - continue with current medications, continue with no added salt diet. Pt has been encouraged to exercise daily. The pt has been advised to call the office if there are any acute concerns about change in blood pressure readings at home. COPD - chronic problem for this patient. We have reviewed chronic treatment strategy, symptom control, and plans for acute exacerbations. No changes today to the current treatment plan as the patient is stable, monitor for acute changes. Atrial Fibrillation - pt on chronic anticoagulation and is currently rate controlled. The pt is to have labs done as appropriate to monitor medication levels and is to report if they start to feel as if their heart rate is becoming uncontrolled. 10/13/2012 Appointment: Darby Urbano WPtel: [phone] [facility] Follow up 10/13/2012 Patient Education: Patient Medication Summary Completed 10/13/2012 Patient Education: Hypertension Completed 10/13/2012 Visit Plan: Hypertension - too well controlled - continue with current medications EXCEPT AMLODIPINE - WILL STOP THE MEDICATION DUE TO LOW BLOOD PRESSURE., continue with no added salt diet. Pt has been encouraged to exercise daily. The pt has been advised to call the office if there are any acute concerns about change in blood pressure readings at home. LEG SWELLING - MONITOR - SUSPECT IS DUE TO COMPRESSION SOCKS. Atrial Fibrillation - pt on chronic anticoagulation and is currently rate controlled. The pt is to have labs done as appropriate to monitor medication levels and is to report if they start to feel as if their heart rate is becoming uncontrolled. INSOMNIA AND ANXIETY - RECOMMENDED PT TO TRY LOW DOSE XANAX SHE HAS TAKEN SOME IN THE PAST AND HAD GOOD RESULTS, OTHER MEDICATIONS NOT WORKED IN THE PAST. 08/25/2012 Appointment: Darby Urbano WPtel: [address] [place], [place] [id number] Follow up 08/25/2012 Patient Education: Patient Medication Summary Completed 08/25/2012 Patient Education: Hypertension Completed 08/25/2012 Visit Plan: Hypertension - well controlled - continue with current medications, continue with no added salt diet. Pt has been encouraged to exercise daily. The pt has been advised to call the office if there are any acute concerns about change in blood pressure readings at home. Edema - pt has been advised to elevate legs to prevent dependent edema, compression has been recommended to help to naturally decrease peripheral edema. Diuretic use has been discussed and pt has been instructed in appropriate use of such medication as necessary to further attempt to reduce peripheral edema. Hip pain - I have advised the pt to seriously consider getting her hip replaced now while she has better health, rather than later when she may have worsening health symptoms - specifically since her afib is rate controlled, her HTN is fairly well controlled, and her peripheral swelling has improved. 06/23/2012 Appointment: Darby Urbano WPtel: [facility]5 [facility] Follow up 06/23/2012 Patient Education: Patient Medication Summary Completed 06/23/2012 Patient Education: Hypertension Completed 06/23/2012 Visit Plan: Hypertension - well controlled - continue with current medications, continue with no added salt diet. Pt has been encouraged to exercise daily. The pt has been advised to call the office if there are any acute concerns about change in blood pressure readings at home. hip pain- recommended xray of hip, films to dr roland. Edema - pt has been advised to elevate legs to prevent dependent edema, compression has been recommended to help to naturally decrease peripheral edema. Diuretic use has been discussed and pt has been instructed in appropriate use of such medication as necessary to further attempt to reduce peripheral edema. 05/22/2012 Appointment: Darby Urbano WPtel: [facility]5 [facility] Follow up 05/22/2012 Patient Education: Patient Medication Summary Completed 05/22/2012 Patient Education: Hypertension Completed 05/22/2012 Appointment: Darby Urbano WPtel: [phone] [place] Follow up 04/28/2012 Visit Plan: Hypertension - well controlled - continue with current medications, continue with no added salt diet. Pt has been encouraged to exercise daily. The pt has been advised to call the office if there are any acute concerns about change in blood pressure readings at home. Edema - pt has been advised to elevate legs to prevent dependent edema, compression has been recommended to help to naturally decrease peripheral edema. Diuretic use has been discussed and pt has been instructed in appropriate use of such medication as necessary to further attempt to reduce peripheral edema. [id number]-[id number] to get a list of paid caregivers from the hospital for patient and her daughter to hire to help a few hours a week. 04/16/2012 Appointment: Hilary Hill WPtel[phone] [place] Other 04/16/2012 Patient Education: Patient Medication Summary Completed 04/16/2012 Patient Education: Hypertension Completed 04/16/2012 Visit Plan: Atrial Fibrillation - pt on chronic anticoagulation and is currently rate controlled. The pt is to have labs done as appropriate to monitor medication levels and is to report if they start to feel as if their heart rate is becoming uncontrolled. Hypertension - well controlled - continue with current medications, continue with no added salt diet. Pt has been encouraged to exercise daily. The pt has been advised to call the office if there are any acute concerns about change in blood pressure readings at home. Torticollis - pt has not yet worn the c collar soft neck brace for support ofthe neck - pt has been recommended to use the brace and call if not showing improvement. Pt is to take celebrex and call if abdominal pain, dizziness, short of breathor other concerns. 03/04/2012 Appointment: Darby Urbano WPtel: [phone] [facility] [place] Follow up 03/04/2012 Patient Education: Patient Medication Summary Completed 03/04/2012 Patient Education: High Blood Pressure: Essential Hypertension Completed 2011 Visit Plan: Hypertension - well controlled - continue with current medications, continue with no added salt diet. Pt has been encouraged to exercise daily. The pt has been advised to call the office if there are any acute concerns about change in blood pressure readings at home. Insomnia - Pt has been advised to increase the light in the house during the day, and start dimming the lights during the evening hours. Pt has been advised to cut out caffiene after 5pm. Daytime napping worsens night time insomnia. RECOMMENDED PT TO TAKE MELATONIN, between 9 to 10 mg at night.. PT IS TO CALL IF SHE IS NOT ABLE TO GET TO SLEEP. Kyphoscoliosis- recommended pt to use a ccollar for support, only wear for a maximum of 6 hours a day, pt NOT to wear at night. Atrial Fibrillation - pt on chronic anticoagulation and is currently rate controlled. The pt is to have labs done as appropriate to monitor medication levels and is to report if they start to feel as if their heart rate is becoming uncontrolled. 12/04/2011 Appointment: Darby Urbano WPtel: [address] [place], [place] [id number] Other 12/04/2011 Patient Education: Patient Medication Summary Completed 12/04/2011 Patient Education: High Blood Pressure: Essential Hypertension Completed 2011 Visit Plan: Hypertension - well controlled - continue with current medications, continue with no added salt diet. Pt has been encouraged to exercise daily. The pt has been advised to call the office if there are any acute concerns about change in blood pressure readings at home. Dyspnea and Atrial Fibrillation with apparent rate control at this time per the report of the event monitor, she has episodic Afib, but not sustained Afib. However, I am worried that her Dyspnea is due to her Afib with her experiencing her shortness of breath and fatigue from Afib, not from COPD or her kyphosis. I have recommended for her to see Dr. Monaco at for an electrophysiology evaluation. 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 She is aware that this is a chronic issue and is likely to worsen over time. 10/01/2011 Appointment: Darby Urbano WPtel: [phone] Other 10/01/2011 Patient Education: Patient Medication Summary Completed 10/01/2011 Patient Education: High Blood Pressure: Essential Hypertension Completed 2011 Visit Plan: Hypertension - well controlled - continue with current medications, continue with no added salt diet. Pt has been encouraged to exercise daily. The pt has been advised to call the office if there are any acute concerns about change in blood pressure readings at home. Dyspnea and Atrial Fibrillation with apparent rate control at this time, but I am worried that her Dyspnea is due to uncontrolled rate that has led to edema and episodic shortness of breath symptoms. I have recommended for an event monitor to be set up and to follow up on her symptoms. Since Shyla stated that she went to generic twice daily toprol from the XL toprol, I have recommended that Shyla go back to the brand name toprrol, and to call if her symptoms do not improve on the branded medication. 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 She wants to try to use a soft neck collar for support, I will give her a script for a soft c-collar. 08/14/2011 Appointment: Darby Urbano WPtel: [facility] Other 08/14/2011 Patient Education: Patient Medication Summary Completed 08/14/2011 Patient Education: High Blood Pressure: Essential Hypertension Completed 2011 Visit Plan: Hypertension - well controlled - continue with current medications, continue with no added salt diet. Pt has been encouraged to exercise daily. The pt has been advised to call the office if there are any acute concerns about change in blood pressure readings at home. Edema - pt has been advised to elevate legs to prevent dependent edema, compression has been recommended to help to naturally decrease peripheral edema. Diuretic use has been discussed and pt has been instructed in appropriate use of such medication as necessary to further attempt to reduce peripheral edema. Dyspnea - due to kyphosis and scoliosos. use RON BEESWAX to the nose to prevent irritation. 07/09/2011 Appointment: Darby Urbano WPtel: [id number] [id number] Other 07/09/2011 Patient Education: Patient Medication Summary Completed 07/09/2011 Patient Education: High Blood Pressure: Essential Hypertension Completed 2011 Visit Plan: Hypertension - well controlled - continue with current medications, continue with no added salt diet. Pt has been encouraged to exercise daily. The pt has been advised to call the office if there are any acute concerns about change in blood pressure readings at home. Afib - rate controlled. 05/08/2011 Appointment: Darby Urbano WPtel: [phone] [facility] Other 05/08/2011 Patient Education: Patient Medication Summary Completed 05/08/2011 Patient Education: High Blood Pressure: Essential Hypertension Completed 2010 Visit Plan: Hip pain- pt states that she would like to see Dr. Roland about her hip.. She states that if it needs replaced, she thinks she is ready for replacement because the pain has been unbearable over the past few months. The patient has been instructed that while taking the celebrex samples, do not take the ibuprofen. The pt has been provided with 200mg samples of celebrex to be taken daily. However, if the pain is uncontrolled on the 200mg dose, she may increase to one celebrex twice daily. The appt with Dr. Roland is for at 3:00pm. 01/11/2011 Appointment: Dar[facility]rb[facility]el[id number] Other 01/11/2011 Patient Education: Patient Medication Summary Completed 01/11/2011 Instructions Comment medihoney to wound with daily dressing changes culture wound . Cellulitis - continue with oral antibiotics as previously directed, return to clinic as previously directed, call for acute change in symptoms, worsening redness, warmth, discharge. . COPD [id number] is a chronic problem for this patient, however, the pt is experiencing an acute exacerbation of the COPD. Pt is to receive appropriate treatment as an out patient, but the pt is aware that if symptoms worsen or do not improve, to call [facility] for instructions, or go to the EMERGENCY ROOM if the symptoms are beyond acute control with rescue medications. We have reviewed chronic treatment strategy, symptom control, and plans for acute exacerbations. No changes today to the current treatment plan as the patient is stable, monitor for acute changes. Rocephin and kenalog injections today in the office Allergies - chronic - recommended pt to use allergy medication as prescribed. Pt has been counseled as to the appropriate use of the medication. Pt to call if allergy symptoms are not controlled with the medication. If using nasal spray, instructions as follows: Nasal spray- use twice daily, one spray per nostril twice daily, after 30 minutes, rinse out nose with saline spray.. Use opposite hand per nostril to spray in the nasal steroid allergy spray. . Hypertension - well controlled - continue with current medications, continue with no added salt diet. Pt has been encouraged to exercise daily. The pt has been advised to call the office if there are any acute concerns about change in blood pressure readings at home. COPD - chronic problem for this patient. We have reviewed chronic treatment strategy, symptom control, and plans for acute exacerbations. No changes today to the current treatment plan as the patient is stable, monitor for acute changes. Atrial Fibrillation - pt on chronic anticoagulation and is currently rate controlled. The pt is to have labs done as appropriate to monitor medication levels and is to report if they start to feel as if their heart rate is becoming uncontrolled. . Hypertension - uncontrolled - the patient's medications have been modified as documented in the visit note. The patient has been counseled to cut back on salt in diet for a no added salt diet, low fat diet, start an exercise program with low weight bearing exercises and higher aerobic activity for heart health. The patient is to check blood pressure readings as an outpatient and either fax , call, or email the readings to the office next week for practicioner to review. The pt is to call for acute concerns. Allergies - chronic - recommended pt to use allergy medication as prescribed. Pt has been counseled as the the appropriate use of the medication. Pt to call if allergy symptoms are not controlled with the medication. If using nasal spray, instructions as follows: Nasal spray- use twice daily, one spray per nostril twice daily, after 30 minutes, rinse out nose with saline spray.. Use opposite hand per nostril to spray in the nasal steroid allergy spray. Cough - recommended to start on the nasonex, give kenalog today, monitor and call if not better. . Hypertension - well controlled - continue with current medications, continue with no added salt diet. Pt has been encouraged to exercise daily. The pt has been advised to call the office if there are any acute concerns about change in blood pressure readings at home. Atrial Fibrillation - pt on chronic anticoagulation and is currently rate controlled. The pt is to have labs done as appropriate to monitor medication levels and is to report if they start to feel as if their heart rate is becoming uncontrolled. Urinary incontinence last night - check ua today. Malaise - flushed face - recommended pt to have her flu swab checked today. . Hypertension - well controlled - continue with current medications, continue with no added salt diet. Pt has been encouraged to exercise daily. The pt has been advised to call the office if there are any acute concerns about change in blood pressure readings at home. Atrial Fibrillation - pt currently rate controlled. The pt is to have labs done as appropriate to monitor medication levels and is to report if they start to feel as if their heart rate is becoming uncontrolled. COPD - chronic - no change in current management of the patient's disease state. Monitor symptoms. Pt with OA- and scoliosis - pt to continue with current management - pt is not in need of occupational therapy at this time, her shoulder immobility is due to physical restriction from her cervical and thoracic scoliosis AMLODIPINE to be STOPPED due to low blood pressure . Hypertension - too well controlled - continue with current medications EXCEPT AMLODIPINE - WILL STOP THE MEDICATION DUE TO LOW BLOOD PRESSURE., continue with no added salt diet. Pt has been encouraged to exercise daily. The pt has been advised to call the office if there are any acute concerns about change in blood pressure readings at home. LEG SWELLING - MONITOR - SUSPECT IS DUE TO COMPRESSION SOCKS. Atrial Fibrillation - pt on chronic anticoagulation and is currently rate controlled. The pt is to have labs done as appropriate to monitor medication levels and is to report if they start to feel as if their heart rate is becoming uncontrolled. INSOMNIA AND ANXIETY - RECOMMENDED PT TO TRY LOW DOSE XANAX SHE HAS TAKEN SOME IN THE PAST AND HAD GOOD RESULTS, OTHER MEDICATIONS NOT WORKED IN THE PAST. . Hypertension - well controlled at home, the patient did not have her medication - toprol or imdur today as the facility ran out of her medications. 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 Pt has been encouraged to exercise daily. The pt has been advised to call the office if there are any acute concerns about change in blood pressure readings at home. COPD - chronic problem for this patient. We have reviewed chronic treatment strategy, symptom control, and plans for acute exacerbations. No changes today to the current treatment plan as the patient is stable, monitor for acute changes. Chronic anxiety and insomnia - recommended to stay on current medicaitons. . Atrial Fibrillation - pt on chronic anticoagulation and is currently rate controlled. The pt is to have labs done as appropriate to monitor medication levels and is to report if they start to feel as if their heart rate is becoming uncontrolled. Pneumonia - resolved - monitor symptoms, call if not improving. Sweet oil to each ear two times per day as needed We will fill out paperwork and return to you We will send an order for pain control after approval from Dr. Rubio . Arthritis- occasionally uncontrolled symptoms- Use tylenol for break through pain symptoms. Will seek approval from Dr. Rubio to initiate Voltaren Gel. Will not start until Dr. Rubio approves d/t previously ordering no NSAID's. Cerumen Impaction - The impacted cerumen was removed with the use of the ear currette. The patient tolerated the procedure without incident and had improvement in hearing. The wax was removed by the practitioner due to the wax being more complicated to remove, and staff was needed to assist the removal of the wax by holding the ear, and keeping patient stabilized during the removal process. . Hypertension - well controlled - continue with current medications, continue with no added salt diet. Pt has been encouraged to exercise daily. The pt has been advised to call the office if there are any acute concerns about change in blood pressure readings at home. Atrial Fibrillation - pt is currently rate controlled. The pt is to have labs done as appropriate to monitor medication levels and is to report if they start to feel as if their heart rate is becoming uncontrolled. Chronic Anxiety - the pt has symptoms of chronic anxiety that has been fairly well controlled since the last office visit. The pt has expected periods of exacerbation with abatement of the symptoms with change in situational exposure. No change in current medications. . Hypertension - well controlled - continue with current medications, continue with no added salt diet. Pt has been encouraged to exercise daily. The pt has been advised to call the office if there are any acute concerns about change in blood pressure readings at home. Atrial Fibrillation - pt on chronic anticoagulation and is currently rate controlled. The pt is to have labs done as appropriate to monitor medication levels and is to report if they start to feel as if their heart rate is becoming uncontrolled. Facility needs to send readings on her blood pressures and heart rate. Wound on foot - recommended pt to use neosporin on foot, keep wrapped until healed. . Nose bleed, bruising - pt INR is OK - will send ointment for small nose ulceration - pt is to notify clinic if symptoms return, or with any changes, questions or concerns Sinusitis - Pt has acute infection - pain in face, maxillary region, Pt informed to use decongestant, RX given to patient, sinus rinses also recommended. Call if symptoms do not show improvement. Allergies - chronic - recommended pt to use allergy medication as prescribed. Pt has been counseled as to the appropriate use of the medication. Pt to call if allergy symptoms are not controlled with the medication. If using nasal spray, instructions as follows: Nasal spray- use twice daily, one spray per nostril twice daily, after 30 minutes, rinse out nose with saline spray.. Use opposite hand per nostril to spray in the nasal steroid allergy spray. . BPPV - Benign Paroxysmal Positional Vertigo - discussed diagnosis with the patient, offered the pt the appropriate additional information in hand-out. Pt instructed in home exercises to help alleviate and prevent future recurrent episodes of vertigo. Pt informed that if symptoms worsen, call the office for further instructions/medication interventions. SYMPTOMS IMPROVED-CONTINUE MECLIZINE NEEDED-CALL IF SYMPTOMS DO NOT COMPELTEY RESOLVE. . Hypertension - well controlled - continue with current medications, continue with no added salt diet. Pt has been encouraged to exercise daily. The pt has been advised to call the office if there are any acute concerns about change in blood pressure readings at home. Atrial Fibrillation - pt on chronic anticoagulation and is currently rate controlled. The pt is to have labs done as appropriate to monitor medication levels and is to report if they start to feel as if their heart rate is becoming uncontrolled. COPD - chronic problem for this patient. We have reviewed chronic treatment strategy, symptom control, and plans for acute exacerbations. No changes today to the current treatment plan as the patient is stable, monitor for acute changes. . Wound of lower leg - recommended pt to have wound evaluation at hospital. Atrial Fibrillation - pt on chronic anticoagulation and is currently rate controlled. The pt is to have labs done as appropriate to monitor medication levels and is to report if they start to feel as if their heart rate is becoming uncontrolled. . Hypertension - well controlled - continue with current medications, continue with no added salt diet. Pt has been encouraged to exercise daily. The pt has been advised to call the office if there are any acute concerns about change in blood pressure readings at home. Gait instability - Kyphosis, scoliosis - Recommended pt to have a walker with a seat so that she can push her oxygen around to allow improved mobility Atrial Fibrillation - pt on chronic anticoagulation and is currently rate controlled. The pt is to have labs done as appropriate to monitor medication levels and is to report if they start to feel as if their heart rate is becoming uncontrolled. Albuterol breathing treatments Kenalog injection today in the office . COPD EXACERBATION-recent pneumonia-symptoms not completely resoloved-restart breathing treatments-kenalog injection today in the office - COPD is a chronic problem for this patient, however, the pt is experiencing an acute exacerbation of the COPD. Pt is to receive appropriate treatment as an out patient, but the pt is aware that if symptoms worsen or do not improve, to call [facility] for instructions, or go to the EMERGENCY ROOM if the symptoms are beyond acute control with rescue medications. We have reviewed chronic treatment strategy, symptom control, and plans for acute exacerbations. No changes today to the current treatment plan as the patient is stable, monitor for acute changes. Right distal radius fracture-surgical repair done last week-patient wearing splint-facility to make follow up appointment with surgeon. Hypertension - well controlled - continue with current medications, continue with no added salt diet. Pt has been encouraged to exercise daily. The pt has been advised to call the office if there are any acute concerns about change in blood pressure readings at home. . Hypertension - well controlled - continue with current medications, continue with no added salt diet. Pt has been encouraged to exercise daily. The pt has been advised to call the office if there are any acute concerns about change in blood pressure readings at home. Insomnia - Pt has been advised to increase the light in the house during the day , and start dimming the lights during the evening hours. Pt has been advised to cut out caffiene after 5pm. Daytime napping worsens night time insomnia. RECOMMENDED PT TO TAKE MELATONIN, between 9 to 10 mg at night.. PT IS TO CALL IF SHE IS NOT ABLE TO GET TO SLEEP. Kyphoscoliosis- recommended pt to use a ccollar for support, only wear for a maximum of 6 hours a day, pt NOT to wear at night. Atrial Fibrillation - pt on chronic anticoagulation and is currently rate controlled. The pt is to have labs done as appropriate to monitor medication levels and is to report if they start to feel as if their heart rate is becoming uncontrolled. . Allergies - chronic - recommended pt to use allergy medication as prescribed. Pt has been counseled as to the appropriate use of the medication. Pt to call if allergy symptoms are not controlled with the medication. If using nasal spray, instructions as follows: Nasal spray- use twice daily, one spray per nostril twice daily, after 30 minutes, rinse out nose with saline spray.. Use opposite hand per nostril to spray in the nasal steroid allergy spray. Will stop claritin and start zyrtec. Will order smaller portable O2. Pt is to notify clinic with any questions or concerns. . Hypertension - well controlled - continue with current medications, continue with no added salt diet. Pt has been encouraged to exercise daily. The pt has been advised to call the office if there are any acute concerns about change in blood pressure readings at home. Atrial Fibrillation - pt on chronic anticoagulation and is currently rate controlled. The pt is to have labs done as appropriate to monitor medication levels and is to report if they start to feel as if their heart rate is becoming uncontrolled. Actinic Keratosis - treated with cryotherapy x 3, pt advised on how to appropriately care for the lesion. Call if not improved after thorough healing. . Hypertension - well controlled - continue with current medications, continue with no added salt diet. Pt has been encouraged to exercise daily. The pt has been advised to call the office if there are any acute concerns about change in blood pressure readings at home. Atrial Fibrillation - pt on chronic anticoagulation and is currently rate controlled. The pt is to have labs done as appropriate to monitor medication levels and is to report if they start to feel as if their heart rate is becoming uncontrolled. 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 . Pneumonia - Pt has been diagnosed with pneumonia by physical exam. A chest xray has been ordered as have antibiotics. The pt is aware of the diagnosis and the need for acute treatment of this illness. . Hypertension - well controlled - continue with current medications, continue with no added salt diet. Pt has been encouraged to exercise daily. The pt has been advised to call the office if there are any acute concerns about change in blood pressure readings at home. hip pain- recommended xray of hip, films to dr roland. Edema - pt has been advised to elevate legs to prevent dependent edema, compression has been recommended to help to naturally decrease peripheral edema. Diuretic use has been discussed and pt has been instructed in appropriate use of such medication as necessary to further attempt to reduce peripheral edema. . Hypertension - well controlled - continue with current medications, continue with no added salt diet. Pt has been encouraged to exercise daily. The pt has been advised to call the office if there are any acute concerns about change in blood pressure readings at home. Afib - rate controlled. . Dysuria-check UA and labs Afib-rate controlled-no change in treatment . Sinusitis - Pt has acute infection - pain in face, maxillary region, Pt informed to use decongestant, RX given to patient, sinus rinses also recommended. Call if symptoms do not show improvement. Allergies - chronic - recommended pt to use allergy medication as prescribed. Pt has been counseled as to the appropriate use of the medication. Pt to call if allergy symptoms are not controlled with the medication. . Hypertension - well controlled - continue with current medications, continue with no added salt diet. Pt has been encouraged to exercise daily. The pt has been advised to call the office if there are any acute concerns about change in blood pressure readings at home. Atrial Fibrillation - pt on chronic anticoagulation and is currently rate controlled. The pt is to have labs done as appropriate to monitor medication levels and is to report if they start to feel as if their heart rate is becoming uncontrolled. Edema - left leg - continue with therapy. Pt can restart celebrex - pt should restart aspirin Pt to NOT start on xarelto. . Pneumonia - Pt has been diagnosed with pneumonia by physical exam. Pt has been started on antibiotics at a walk-in clinic - vibramycin 100mg bid x 2 more days left - I have written an order to stop this medication and to start on cefdinir and azithromycin - see rx slider for details. The pt is aware of the diagnosis and the need for acute treatment of this illness. Probiotic will be started as well Hypertension - well controlled - continue with current medications, continue with no added salt diet. Pt has been encouraged to exercise daily. The pt has been advised to call the office if there are any acute concerns about change in blood pressure readings at home. Atrial Fibrillation - pt on chronic anticoagulation and is currently rate controlled. The pt is to have labs done as appropriate to monitor medication levels and is to report if they start to feel as if their heart rate is becoming uncontrolled. . Atrial Fibrillation - pt on chronic anticoagulation and is currently rate controlled. The pt is to have labs done as appropriate to monitor medication levels and is to report if they start to feel as if their heart rate is becoming uncontrolled. Cellulitis of lower leg - healing - continue with current antibiotic therapy. Use Gurdeep's Bees Wax to nares as needed. Try a pediatric O2 canula. Return in 3 months. . Hypertension - well controlled - continue with current medications, continue with no added salt diet. Pt has been encouraged to exercise daily. The pt has been advised to call the office if there are any acute concerns about change in blood pressure readings at home. Edema - pt has been advised to elevate legs to prevent dependent edema, compression has been recommended to help to naturally decrease peripheral edema. Diuretic use has been discussed and pt has been instructed in appropriate use of such medication as necessary to further attempt to reduce peripheral edema. Dyspnea - due to kyphosis and scoliosos. use RON BEESWAX to the nose to prevent irritation. . Hypertension - well controlled - continue with current medications, continue with no added salt diet. Pt has been encouraged to exercise daily. The pt has been advised to call the office if there are any acute concerns about change in blood pressure readings at home. Atrial Fibrillation - pt on chronic anticoagulation and is currently rate controlled. The pt is to have labs done as appropriate to monitor medication levels and is to report if they start to feel as if their heart rate is becoming uncontrolled. Plan: (Flu Given elsewhere) Flu given elsewhere . Hypertension - well controlled - continue with current medications, continue with no added salt diet. Pt has been encouraged to exercise daily. The pt has been advised to call the office if there are any acute concerns about change in blood pressure readings at home. pt to have appt with Dr. Akbar - correctional cook today at 245pm for evaluation of her visual changes. If symptoms persist - may consider CT of head. Atrial Fibrillation - pt on chronic anticoagulation and is currently rate controlled. The pt is to have labs done as appropriate to monitor medication levels and is to report if they start to feel as if their heart rate is becoming uncontrolled. COPD - chronic problem for this patient. We have reviewed chronic treatment strategy, symptom control, and plans for acute exacerbations. No changes today to the current treatment plan as the patient is stable, monitor for acute changes. . Atrial Fibrillation - pt on chronic anticoagulation and is currently rate controlled. The pt is to have labs done as appropriate to monitor medication levels and is to report if they start to feel as if their heart rate is becoming uncontrolled. Hypertension - well controlled - continue with current medications, continue with no added salt diet. Pt has been encouraged to exercise daily. The pt has been advised to call the office if there are any acute concerns about change in blood pressure readings at home. Edema - pt has been advised to elevate legs to prevent dependent edema, compression has been recommended to help to naturally decrease peripheral edema. Diuretic use has been discussed and pt has been instructed in appropriate use of such medication as necessary to further attempt to reduce peripheral edema. . Edema - pt has been advised to elevate legs to prevent dependent edema, compression has been recommended to help to naturally decrease peripheral edema. Diuretic use has been discussed and pt has been instructed in appropriate use of such medication as necessary to further attempt to reduce peripheral edema. Compression of lower legs - recommended compressive socks. Skin changes of face on left scientologist - rx for efudex cream. Pt to Return to office for me to eval the skin lesion. Atrial Fibrillation - pt on chronic anticoagulation and is currently rate controlled. The pt is to have labs done as appropriate to monitor medication levels and is to report if they start to feel as if their heart rate is becoming uncontrolled. . Hypertension - well controlled - continue with current medications, continue with no added salt diet. Pt has been encouraged to exercise daily. The pt has been advised to call the office if there are any acute concerns about change in blood pressure readings at home. Dyspnea and Atrial Fibrillation with apparent rate control at this time per the report of the event monitor, she has episodic Afib, but not sustained Afib. However, I am worried that her Dyspnea is due to her Afib with her experiencing her shortness of breath and fatigue from Afib, not from COPD or her kyphosis. I have recommended for her to see Dr. Monaco at for an electrophysiology evaluation. 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 She is aware that this is a chronic issue and is likely to worsen over time. medihoney to wound with daily dressing changes culture wound . Cellulitis - continue with oral antibiotics as previously directed, return to clinic as previously directed, call for acute change in symptoms, worsening redness, warmth, discharge. . BPPV - Benign Paroxysmal Positional Vertigo - discussed diagnosis with the patient, offered the pt the appropriate additional information in hand-out. Pt instructed in home exercises to help alleviate and prevent future recurrent episodes of vertigo. Pt informed that if symptoms worsen, call the office for further instructions/medication interventions. Nausea - due to dizziness - start meclizine and start on steroids . Hypertension - well controlled - continue with current medications, continue with no added salt diet. Pt has been encouraged to exercise daily. The pt has been advised to call the office if there are any acute concerns about change in blood pressure readings at home. Dyspnea and Atrial Fibrillation with apparent rate control at this time, but I am worried that her Dyspnea is due to uncontrolled rate that has led to edema and episodic shortness of breath symptoms. I have recommended for an event monitor to be set up and to follow up on her symptoms. Since Shyla stated that she went to generic twice daily toprol from the XL toprol , I have recommended that Shyla go back to the brand name toprrol, and to call if her symptoms do not improve on the branded medication. 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 She wants to try to use a soft neck collar for support, I will give her a script for a soft c-collar. . Hypertension - well controlled - continue with current medications, continue with no added salt diet. Pt has been encouraged to exercise daily. The pt has been advised to call the office if there are any acute concerns about change in blood pressure readings at home. Atrial Fibrillation - pt on chronic anticoagulation and is currently rate controlled. The pt is to have labs done as appropriate to monitor medication levels and is to report if they start to feel as if their heart rate is becoming uncontrolled. Hypoxemia - pt to wear her oxygen 24 hours per day. Start b12 2000 units daily start vitamin d 5000 units daily. ok for physical therapy to start as well. . Hypertension - well controlled - continue with current medications, continue with no added salt diet. Pt has been encouraged to exercise daily. The pt has been advised to call the office if there are any acute concerns about change in blood pressure readings at home. Atrial Fibrillation - pt on chronic anticoagulation and is currently rate controlled. The pt is to have labs done as appropriate to monitor medication levels and is to report if they start to feel as if their heart rate is becoming uncontrolled. Hypoxemia - pt to wear her oxygen 24 hours per day. oxygen at rest 89% on room air, and after ambulating a short distance (less than 50 feet) her oxygen saturation dropped to 85%. 3L of oxygen via NC applied and her oxygen saturation increased to 96%. Start b12 2000 units daily start vitamin d 5000 units daily. ok for physical therapy to start as well. . Hypertension - well controlled - continue with current medications, continue with no added salt diet. Pt has been encouraged to exercise daily. The pt has been advised to call the office if there are any acute concerns about change in blood pressure readings at home. Atrial Fibrillation - pt on chronic anticoagulation and is currently rate controlled. The pt is to have labs done as appropriate to monitor medication levels and is to report if they start to feel as if their heart rate is becoming uncontrolled. Hypoxemia - pt to wear her oxygen 24 hours per day. oxygen at rest 89% on room air, room air ambulating a short distance (less than 50 feet) her oxygen saturation dropped to 85%. 3L of oxygen via NC applied and her oxygen saturation increased to 96% with ambulation. Start b12 2000 units daily start vitamin d 5000 units daily. ok for physical therapy to start as well. . Afib-not rate controlled-increase metoprolol Szwyftoit-[id number] not wearing her oxygen today-patient to put it back on at the facility Reaction to vancomycin-continue prednisone, benadryl. claritin and pepcid- symptoms improved per patient report-follow up Saturday, sooner if needed . Hypertension - well controlled - continue with current medications, continue with no added salt diet. Pt has been encouraged to exercise daily. The pt has been advised to call the office if there are any acute concerns about change in blood pressure readings at home. Atrial Fibrillation - pt on chronic anticoagulation and is currently rate controlled. The pt is to have labs done as appropriate to monitor medication levels and is to report if they start to feel as if their heart rate is becoming uncontrolled. pneumovax today in office . Atrial Fibrillation - pt on chronic anticoagulation and is currently rate controlled. The pt is to have labs done as appropriate to monitor medication levels and is to report if they start to feel as if their heart rate is becoming uncontrolled. Hypertension - well controlled - continue with current medications, continue with no added salt diet. Pt has been encouraged to exercise daily. The pt has been advised to call the office if there are any acute concerns about change in blood pressure readings at home. Torticollis - pt has not yet worn the c collar soft neck brace for support ofthe neck - pt has been recommended to use the brace and call if not showing improvement. Pt is to take celebrex and call if abdominal pain, dizziness, short of breathor other concerns. . Hypertension - well controlled - continue with current medications, continue with no added salt diet. Pt has been encouraged to exercise daily. The pt has been advised to call the office if there are any acute concerns about change in blood pressure readings at home. Atrial Fibrillation - pt on chronic anticoagulation and is currently rate controlled. The pt is to have labs done as appropriate to monitor medication levels and is to report if they start to feel as if their heart rate is becoming uncontrolled. need to ceck labs. COPD - chronic problem for this patient. We have reviewed chronic treatment strategy, symptom control, and plans for acute exacerbations. No changes today to the current treatment plan as the patient is stable, monitor for acute changes. Hand numbness - due to compression of the nerve at the lateral epicondyle. Pt has been advised that she needs to get a book noble so that she does not have to rest her arms on the elbow rests. . Hypertension - well controlled - continue with current medications, continue with no added salt diet. Pt has been encouraged to exercise daily. The pt has been advised to call the office if there are any acute concerns about change in blood pressure readings at home. Edema - pt has been advised to elevate legs to prevent dependent edema, compression has been recommended to help to naturally decrease peripheral edema. Diuretic use has been discussed and pt has been instructed in appropriate use of such medication as necessary to further attempt to reduce peripheral edema. Hip pain - I have advised the pt to seriously consider getting her hip replaced now while she has better health, rather than later when she may have worsening health symptoms - specifically since her afib is rate controlled, her HTN is fairly well controlled, and her peripheral swelling has improved. . Hip pain- pt states that she would like to see Dr. Roland about her hip.. She states that if it needs replaced, she thinks she is ready for replacement because the pain has been unbearable over the past few months. The patient has been instructed that while taking the celebrex samples, do not take the ibuprofen. The pt has been provided with 200mg samples of celebrex to be taken daily. However, if the pain is uncontrolled on the 200mg dose, she may increase to one celebrex twice daily. The appt with Dr. Roland is for at 3:00pm. . Hypertension - well controlled - continue with current medications, continue with no added salt diet. Pt has been encouraged to exercise daily. The pt has been advised to call the office if there are any acute concerns about change in blood pressure readings at home. Sinusitis - Pt has acute infection - pain in face, maxillary region, Pt informed to use decongestant, RX given to patient, sinus rinses also recommended. Call if symptoms do not show improvement. COPD - chronic problem for this patient. We have reviewed chronic treatment strategy, symptom control, and plans for acute exacerbations. No changes today to the current treatment plan as the patient is stable, monitor for acute changes. Atrial Fibrillation - pt on chronic anticoagulation and is currently rate controlled. The pt is to have labs done as appropriate to monitor medication levels and is to report if they start to feel as if their heart rate is becoming uncontrolled. . Hypertension - well controlled - continue with current medications, continue with no added salt diet. Pt has been encouraged to exercise daily. The pt has been advised to call the office if there are any acute concerns about change in blood pressure readings at home. Atrial Fibrillation - pt on chronic anticoagulation and is currently rate controlled. The pt is to have labs done as appropriate to monitor medication levels and is to report if they start to feel as if their heart rate is becoming uncontrolled. Chronic constipation - continue with supportive care at this time as symptoms are controlled. Chronic Depression and anxiety - the pt has symptoms of chronic anxiety and depression that have been fairly well controlled since the last office visit. The pt has expected periods of exacerbation with abatement of the symptoms with change in situational exposure. No change in current medications. . Hypertension - well controlled - continue with current medications, continue with no added salt diet. Pt has been encouraged to exercise daily. The pt has been advised to call the office if there are any acute concerns about change in blood pressure readings at home. Edema - pt has been advised to elevate legs to prevent dependent edema, compression has been recommended to help to naturally decrease peripheral edema. Diuretic use has been discussed and pt has been instructed in appropriate use of such medication as necessary to further attempt to reduce peripheral edema. [id number] to get a list of paid caregivers from the hospital for patient and her daughter to hire to help a few hours a week. . Medicare Exam - today we discussed the patients past history, immunizations, preventative exams/evaluations - colonoscopy, fecal occult blood testing, routine labs for renal function, glucose, cholesterol, osteoporosis evaluations, cardiovascular testing and cancer screenings. We have also discussed mental health and the signs/symptoms of depression. The patient was advised of home safety evaluations and the need to make sure that as the aging process continues, we need to be aware of different ways to make the home a safer place to reside. The patient has also been counseled that exercise is necessary - and of utmost importance as we age to help decrease fall risk and to maintain independece in the home. Today we discussed the need for the patient to create paperwork for Advanced directives as well as for the patient to provide this office with a copy of her DOPA paperwork for health care surrogate. . Skin lesion on left scientologist - improved after use of efudex - lesion cleansed today and neosporin re-applied. I have recommended patient to have the neosporin applied for another 5 days then staff at [facility] to call if it is not improving. Back pain - due to severe scoliosis - supportive care only. Continue with supportive care.
--- OUTSIDE RECORDS SUMMARY | 2018-03-30 08:04 | XMS REPORT ---
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 Unknown Non Drug Allergy May, Unknown SOCIAL HISTORY No smoking Hx information available PLAN OF CARE Activity Details Follow Up prn Reason: VITAL SIGNS Height 62 in 2016-06-02 Weight 150.6 lbs 2016-06-02 Temperature 97.8 degrees Fahrenheit 2016-06-02 Heart Rate 68 bpm 2016-06-02 Respiratory Rate 20 2016-06-02 BMI 27.54 kg/m2 2016-06-02 Blood pressure systolic 124 mmHg 2016-06-02 Blood pressure diastolic 74 mmHg 2016-06-02 MEDICATIONS Medication Instructions Dosage Frequency Start Date End Date Duration Status Coumadin 5 MG Orally Once a day 1 tablet 24h Active Albuterol Sulfate (2.5 MG/3ML) 0.083% Inhalation every 6 hrs as needed 3 ml May, 7 days Active Metoprolol Succinate ER 25 MG Orally Once a day 1 tablet 24h Active Senokot S 8.6-50 MG Orally Once a day 1 tablet in the evening as needed 24h Active Tylenol 325 MG Orally every 6 hrs 2 tablets as needed 6h Active Loratadine 10 MG Orally Once a day 1 tablet 24h Active Vitamin B-12 1000 MCG Orally Once a day 1 tablet 24h Active Doxycycline Hyclate 100 MG Orally every 12 hrs 1 capsule 12h May, May, 7 days Active Tramadol HCl 50 MG Orally every 6 hrs 1 tablet as needed 6h Active Xanax 0.5 MG Orally Three times a day 1 tablet 8h Active Verapamil HCl 40 MG Orally Three times a day 1 tablet 8h Active Oxygen Active Calcium + D3 600-200 MG-UNIT Active Benzonatate 200 MG Orally Three times a day as needed 1 capsule May, May, 5 days Active RESULTS No Results PROCEDURES Procedure Date Ordered Related Diagnosis Body Site ALBUTEROL UNIT DOSE FORM INHALED 2016-06-02 N/A ALBUTEROL INHAL UNIT DOSE 1 MG Jun 02, 2016 Office Visit, Est Pt., Level 3 Jun 02, 2016 IMMUNIZATIONS No Known Immunizations
--- OUTSIDE RECORDS SUMMARY | 2018-03-30 08:08 | XMS REPORT | Continuity of Care Document ---
Author Author [facility] Organization [facility] Address Unknown Phone Unavailable Allergies Active Description Code Type Severity Reaction Onset Reported/Identified Relationship to Patient Clinical Status Yes codeine [id number] Drug Allergy Unknown N/A 04/07/2014 Yes ESTROGEN SUPPLEMENT PATCHES ESTROGEN SUPPLEMENT PATCHES Unknown N/A 04/21/2014 Medications There is no data. Problems Date Dx Coded Attending Type Code Diagnosis Diagnosed By 10/12/2009 Ot 401.9 10/12/2009 Ot 496 10/12/2009 Ot 715.90 10/12/2009 Ot 737.30 10/12/2009 Ot 781.2 10/12/2009 Ot V43.64 10/12/2009 Ot V57.1 12/01/2009 Ot 401.9 12/01/2009 Ot 427.31 12/01/2009 Ot 715.90 01/16/2010 Ot 496 04/23/2011 Ot 397.0 TRICUSPID VALVE DISEASE 04/23/2011 Ot 401.9 HYPERTENSION NOS 04/23/2011 Ot 424.0 MITRAL VALVE DISORDER 04/23/2011 Ot 427.31 ATRIAL FIBRILLATION 04/23/2011 Ot 435.9 TRANS CEREB ISCHEMIA NOS 04/23/2011 Ot V17.49 FAMILY HISTORY OF OTHER CARDIOVASCULAR D 04/23/2011 Ot V43.64 HIP JOINT REPLACEMENT STATUS 04/23/2011 Ot V58.61 ANTICOAGULANTS,LT,CURRENT USE 04/23/2011 Ot V58.69 OTH MED,LT, CURRENT USE 11/14/2011 Ot 427.31 ATRIAL FIBRILLATION 11/14/2011 Ot 786.09 RESPIRATORY ABNORM NEC 10/14/2012 CHEPE PEOPLES FACC, ANNETTE MORRIS CCDS Ot 401.9 HYPERTENSION NOS 10/14/2012 CHEPE PEOPLES FACC, ANNETTE MORRIS CCDS Ot 414.01 CORONARY ATHEROSCLEROSIS OF [place] CORON 10/14/2012 CHEPE PEOPLES FACC, ANNETTE MORRIS CCDS Ot 424.1 AORTIC VALVE DISORDER 10/14/2012 CHEPE PEOPLES FACC, ANNETTE MORRIS CCDS Ot 427.31 ATRIAL FIBRILLATION 10/14/2012 CHEPE PEOPLES FACC, ANNETTE FACP CCDS Ot 496 CHR AIRWAY OBSTRUCT NEC 10/14/2012 CHEPE PEOPLES FACC, ANNETTE FACP CCDS Ot 794.30 ABN CARDIOVASC STUDY NOS 10/14/2012 CHEPE PEOPLES FACC, ANNETTE FACP CCDS Ot V46.2 SUPPLEMENTAL OXYGEN 10/14/2012 CHEPE PEOPLES FACC, ANNETTE FACP CCDS Ot V58.66 LONG-TERM (CURRENT) USE OF ASPIRIN 10/14/2012 CHEPE PEOPLES FACC, ANNETTE [facility] CCDS Ot V58.69 OT MED,LT,CURRENT USE 12/12/2012 STEVE PEOPLES, ALESHIA E Ot 273.8 DIS PLAS PROTEIN MET NEC 12/12/2012 LUIS WILSON MDIC E Ot 285.9 ANEMIA NOS 12/12/2012 LUIS WILSON MDIC E Ot 294.20 DEMENTIA, UNSPECIFIED, WITHOUT BEHAVIORA 12/12/2012 STEVE PEOPLES ALESHIA E Ot 300.00 ANXIETY STATE NOS 12/12/2012 STEVE PEOPLES ALESHIA E Ot 311 DEPRESSIVE DISORDER NEC 12/12/2012 STEVE PEOPLES ALESHIA E Ot 327.23 OBSTRUCTIVE SLEEP APNEA (ADULT) (PEDIATR 12/12/2012 STEVE PEOPLES, ALESHIA E Ot 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 12/12/2012 STEVE PEOPLES ALESHIA E Ot 401.9 HYPERTENSION NOS 12/12/2012 STEVE PEOPLES ALESHIA E Ot 414.01 CORONARY ATHEROSCLEROSIS OF [place] CORON 12/12/2012 STEVE PEOPLES ALESHIA E Ot 416.8 CHR PULMON HEART DIS NEC 12/12/2012 STEVE PEOPLES ALESHIA E Ot 427.31 ATRIAL FIBRILLATION 12/12/2012 STEVE PEOPLES ALESHIA E Ot 564.00 UNSPEC CONSTIPATION 12/12/2012 STEVE PEOPLES ALESHIA E Ot 595.9 CYSTITIS NOS 12/12/2012 STEVE PEOPLES ALESHIA E Ot 599.71 GROSS HEMATURIA 12/12/2012 STEVE PEOPLES ALESHIA E Ot 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 12/12/2012 STEVE PEOPLES ALESHIA E Ot 723.5 TORTICOLLIS NOS 12/12/2012 STEVE PEOPLES ALESHIA E Ot 737.30 IDIOPATHIC SCOLIOSIS 12/12/2012 STEVE PEOPLES ALESHIA E Ot 786.09 RESPIRATORY ABNORM NEC 12/12/2012 STEVE PEOPLES ALESHIA E Ot 787.02 NAUSEA ALONE 12/12/2012 ALESHIA WILSON MD Ot 788.20 RETENTION OF URINE NOS 12/12/2012 ALESHIA WLISON MD Ot V12.54 PERSONAL HX OF TIA, CEREBRAL INFARCTION 12/12/2012 ALESHIA WILSON MD Ot V15.81 HX OF PAST NONCOMPLIANCE 12/12/2012 ALESHIA WILSON MD Ot V43.64 HIP JOINT REPLACEMENT STATUS 12/12/2012 ALESHIA WILSON MD, Ot V46.2 SUPPLEMENTAL OXYGEN 12/12/2012 ALESHIA WILSON MD Ot V54.81 AFTERCARE FOLLOWING JOINT REPLACEMENT 12/12/2012 ALESHIA WILSON MD Ot V57.89 REHABILITATION PROC NEC 05/25/2013 SHREYAS BENAVIDES DO Ot 435.9 TRANS CEREB ISCHEMIA NOS 05/25/2013 SHREYAS BENAVIDES DO Ot 599.0 URIN TRACT INFECTION NOS 05/25/2013 SHREYAS BENAVIDES DO Ot 780.79 OTH MALAISE FATIGUE 04/08/2014 BANDAR JARRELL DO Ot 300.00 ANXIETY STATE NOS 04/08/2014 BANDAR JARRELL DO Ot 401.9 HYPERTENSION NOS 04/08/2014 BANDAR JARRELL DO Ot 427.31 ATRIAL FIBRILLATION 04/08/2014 BANDAR JARRELL DO Ot 737.10 KYPHOSIS NOS 04/08/2014 BANDAR JARRELL DO Ot 737.30 IDIOPATHIC SCOLIOSIS 04/08/2014 BANDAR JARRELL DO Ot 780.4 DIZZINESS AND GIDDINESS 04/08/2014 BANDAR JARRELL DO Ot 780.52 INSOMNIA, UNSPECIFIED 04/08/2014 BANDAR JARRELL DO Ot 799.02 HYPOXEMIA 04/08/2014 BANDAR JARRELL DO Ot 813.52 FX DISTAL RADIUS NEC-OPN 04/08/2014 BANDAR JARRELL DO Ot 881.00 OPEN WOUND OF FOREARM 04/08/2014 BANDAR JARRELL DO Ot E000.8 OTHER EXTERNAL CAUSE STATUS 04/08/2014 BANDAR JARRELL DO Ot E849.0 ACCIDENT IN HOME 04/08/2014 BANDAR JARRELL DO Ot E888.9 FALL NOS 04/08/2014 BANDAR JARRELL DO Ot V06.1 [id number], COMBINED [ 04/08/2014 BANDAR JARRELL DO Ot V46.2 SUPPLEMENTAL OXYGEN 04/21/2014 Ot V76.12 04/21/2014 Ot 429.3 04/21/2014 Ot 492.8 04/21/2014 Ot 427.31 04/21/2014 Ot 428.0 04/21/2014 Ot 786.05 04/21/2014 Ot 611.72 04/21/2014 Ot V76.12 04/21/2014 Ot 793.80 04/21/2014 Ot 793.80 04/21/2014 Ot 715.35 04/21/2014 Ot 397.0 04/21/2014 Ot 424.0 04/21/2014 Ot 429.3 04/21/2014 Ot 496 04/21/2014 SIXTO PEOPLES, JAY Gan Ot 780.79 04/21/2014 SIXTO PEOPLES, JAY Gan Ot 788.30 04/21/2014 JAY URBANO MD Ot 791.9 04/21/2014 Ot 610.4 04/21/2014 Ot 719.45 04/21/2014 Ot 396.3 04/21/2014 Ot 397.0 04/21/2014 Ot 416.8 04/21/2014 Ot 429.3 04/21/2014 Ot 786.05 04/21/2014 KELLE PEOPLES, HILDA Ot 786.05 04/21/2014 NIKIA PEOPLES, TERESA Angel Ot 719.45 04/21/2014 TERESA MONTEJO MD Ot V43.64 04/21/2014 SIXTO PEOPLES, JAY Gan Ot 079.99 04/21/2014 SIXTO PEOPLES, JAY Gan Ot 300.00 04/21/2014 SIXTO PEOPLES, JAY Gan Ot 401.9 04/21/2014 JAY URBANO MD Ot 427.31 04/21/2014 JAY URBANO MD Ot 496 04/21/2014 SIXTO PEOPLES, JAY Gan Ot 716.90 04/21/2014 JAY URBANO MD Ot 733.00 04/21/2014 JAY URBANO MD Ot 737.30 04/21/2014 JAY URBANO MD Ot 780.4 04/21/2014 JAY URBANO MD Ot 780.52 04/21/2014 JAY URBANO MD Ot 780.79 04/21/2014 JAY URBANO MD Ot 784.0 04/21/2014 JAY URBANO MD Ot 786.2 04/21/2014 JAY URBANO MD Ot V12.54 04/21/2014 JAY URBANO MD Ot V43.64 04/21/2014 JAY URBANO MD Ot V54.19 04/25/2014 JAY URBANO MD Ot 276.50 VOLUME DEPLETION, UNSPECIFIED 04/25/2014 JAY URBANO MD Ot 300.00 ANXIETY STATE NOS 04/25/2014 JAY URBANO MD Ot 401.9 HYPERTENSION NOS 04/25/2014 JAY URBANO MD Ot 427.31 ATRIAL FIBRILLATION 04/25/2014 JAY URBANO MD Ot 487.1 FLU W RESP MANIFEST NEC 04/25/2014 JAY URBANO MD Ot 496 CHR AIRWAY OBSTRUCT NEC 04/25/2014 JAY URBANO MD Ot 716.90 ARTHROPATHY NOS-UNSPEC 04/25/2014 JAY URBANO MD Ot 733.00 OSTEOPOROSIS NOS 04/25/2014 JAY URBANO MD Ot 737.30 IDIOPATHIC SCOLIOSIS 04/25/2014 JAY URBANO MD Ot 780.4 DIZZINESS AND GIDDINESS 04/25/2014 JAY URBANO MD Ot 780.52 INSOMNIA, UNSPECIFIED 04/25/2014 JAY URBANO MD Ot V12.54 PERSONAL HX OF TIA, CEREBRAL INFARCTION 04/25/2014 JAY URBANO MD Ot V43.64 HIP JOINT REPLACEMENT STATUS 04/25/2014 JAY URBANO MD Ot V54.19 AFTERCARE HEALING TRAUMATIC FX OTHER BON 05/27/2014 JAY URBANO MD Ot 401.9 HYPERTENSION NOS 05/27/2014 JAY URBANO MD Ot 427.31 ATRIAL FIBRILLATION 05/27/2014 JAY URBANO MD Ot 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 05/27/2014 JAY URBANO MD Ot 435.9 TRANS CEREB ISCHEMIA NOS 05/27/2014 JAY URBANO MD Ot 496 CHR AIRWAY OBSTRUCT NEC 05/27/2014 JAY URBANO MD Ot 728.87 MUSCLE WEAKNESS (GENERALIZED) 05/27/2014 JAY URBANO MD Ot V46.2 SUPPLEMENTAL OXYGEN 06/07/2014 STEVE PEOPLES ALESHIA E Ot 401.9 06/07/2014 STEVE PEOPLES ALESHIA E Ot 427.31 06/07/2014 LUIS WILSON MDIC E Ot 438.21 06/07/2014 STEVE PEOPLES ALESHIA E Ot 496 06/07/2014 STEVE PEOPLES ALESHIA E Ot 593.9 06/07/2014 STEVE PEOPLES ALESHIA E Ot 723.5 06/07/2014 LUIS WILSON MDIC E Ot 737.30 06/07/2014 STEVE PEOPLES ALESHIA E Ot 780.4 06/07/2014 STEVE PEOPLES ALESHIA E Ot V54.19 06/07/2014 STEVE PEOPLES ALESHIA E Ot V57.89 06/11/2014 LUIS WILSON MDIC E Ot 401.9 HYPERTENSION NOS 06/11/2014 STEVE PEOPLES ALESHIA E Ot 427.31 ATRIAL FIBRILLATION 06/11/2014 STEVE PEOPLES ALESHIA E Ot 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,HEMIPLEGIA AFFECTING 06/11/2014 STEVE PEOPLES ALESHIA E Ot 496 CHR AIRWAY OBSTRUCT NEC 06/11/2014 STEVE PEOPLES ALESHIA E Ot 593.9 RENAL URETERAL DIS NOS 06/11/2014 STEVE PEOPLES ALESHIA E Ot 723.5 TORTICOLLIS NOS 06/11/2014 STEVE PEOPLES ALESHIA E Ot 737.30 IDIOPATHIC SCOLIOSIS 06/11/2014 STEVE PEOPLES ALESHIA E Ot 780.4 DIZZINESS AND GIDDINESS 06/11/2014 STEVE PEOPLES, ALESHIA E Ot 786.09 RESPIRATORY ABNORM NEC 06/11/2014 STEVE PEOPLES ALESHIA E Ot V12.61 PERSONAL HISTORY, PNEUMONIA (RECURRENT) 06/11/2014 STEVE PEOPLES ALESHIA E Ot V46.2 SUPPLEMENTAL OXYGEN 06/11/2014 STEVE PEOPLES ALESHIA E Ot V54.19 AFTERCARE HEALING TRAUMATIC FX OTHER BON 06/11/2014 STEVE PEOPLES ALESHIA E Ot V57.89 REHABILITATION PROC NEC 06/13/2014 HUGO SINGLETARY MD Ot 920 CONTUSION FACE/SCALP/NCK 06/13/2014 HUGO SINGLETARY MD Ot 923.11 CONTUSION OF ELBOW 06/13/2014 HUGO SINGLETARY MD Ot E000.8 OTHER EXTERNAL CAUSE STATUS 06/13/2014 HUGO SINGLETARY MD Ot E888.9 FALL NOS 10/01/2014 BAIMA, SHANTELLE L PORTFOLIO ASSISTANT Ot 401.9 10/01/2014 BAIMA, SHANTELLE L PORTFOLIO ASSISTANT Ot 414.9 10/01/2014 BAIMA, SHANTELLE L PORTFOLIO ASSISTANT Ot 427.31 10/01/2014 BAIMA, SHANTELLE L PORTFOLIO ASSISTANT Ot V12.54 10/01/2014 BAIMA, SHANTELLE L PORTFOLIO ASSISTANT Ot 401.9 10/01/2014 BAIMA, SHANTELLE L PORTFOLIO ASSISTANT Ot 414.9 10/01/2014 BAIMA, SHANTELLE L PORTFOLIO ASSISTANT Ot 427.31 10/01/2014 BAIMA, SHANTELLE L PORTFOLIO ASSISTANT Ot V12.54 03/09/2015 Ot 427.31 03/09/2015 Ot 428.0 03/09/2015 Ot 786.05 03/09/2015 Ot 611.72 03/09/2015 Ot V76.12 03/09/2015 Ot 793.80 03/09/2015 Ot 793.80 03/09/2015 Ot 715.35 03/09/2015 Ot 397.0 03/09/2015 Ot 424.0 03/09/2015 Ot 429.3 03/09/2015 Ot 496 03/09/2015 SIXTO PEOPLES, JAY Gan Ot 780.79 03/09/2015 JAY URBANO MD Ot 788.30 03/09/2015 JAY URBANO MD Ot 791.9 03/09/2015 Ot 610.4 03/09/2015 Ot 719.45 03/09/2015 Ot 396.3 03/09/2015 Ot 397.0 03/09/2015 Ot 416.8 03/09/2015 Ot 429.3 03/09/2015 Ot 786.05 03/09/2015 KELLE PEOPLES, HILDA Ot 786.05 03/09/2015 NIKIA PEOPLES, TERESA Angel Ot 719.45 03/09/2015 TERESA MONTEJO MD Ot V43.64 03/09/2015 BAIMA, SHANTELLE L PORTFOLIO ASSISTANT Ot 401.9 03/09/2015 BAIMA, SHANTELLE L PORTFOLIO ASSISTANT Ot 414.9 03/09/2015 BAIMA, SHANTELLE L PORTFOLIO ASSISTANT Ot 427.31 03/09/2015 BAIMA, SHANTELLE L PORTFOLIO ASSISTANT Ot V12.54 03/30/2015 BAIMA, SHANTELLE L PORTFOLIO ASSISTANT Ot I10 03/30/2015 BAIMA, SHANTELLE L PORTFOLIO ASSISTANT Ot I25.10 03/30/2015 SHANTELLE RIVERA PORTFOLIO ASSISTANT Ot I35.1 03/30/2015 SHANTELLE RIVERA PORTFOLIO ASSISTANT Ot I48.91 03/30/2015 SHANTELLE RIVERA PORTFOLIO ASSISTANT Ot J98.4 03/30/2015 SHANTELLE RIVERA PORTFOLIO ASSISTANT Ot Z86.73 04/12/2015 SHANTELLE RIVERA PORTFOLIO ASSISTANT Ot I10 04/12/2015 BAISHANTELLE EDWARDS PORTFOLIO ASSISTANT Ot I25.10 04/12/2015 BAISHANTELLE EDWARDS PORTFOLIO ASSISTANT Ot I35.1 04/12/2015 SHANTELLE RIVERA PORTFOLIO ASSISTANT Ot I48.91 04/12/2015 SHANTELLE RIVERA PORTFOLIO ASSISTANT Ot J98.4 04/12/2015 SHANTELLE RIVREA PORTFOLIO ASSISTANT Ot Z86.73 06/26/2015 KIMBERLY KINGSTON DO Ot G47.36 SLEEP RELATED HYPOVENTILATION IN CONDITI 06/26/2015 KIMBERLY KINGSTON DO Ot R06.83 SNORING 04/02/2016 Ot 793.80 UNSPEC ABNORMAL MAMMOGRAM 04/02/2016 Ot 715.35 LOC OSTEOARTH NOS-PELVIS 04/02/2016 Ot 397.0 TRICUSPID VALVE DISEASE 04/02/2016 Ot 424.0 MITRAL VALVE DISORDER 04/02/2016 Ot 429.3 CARDIOMEGALY 04/02/2016 Ot 496 CHR AIRWAY OBSTRUCT NEC 04/02/2016 JAY URBANO MD Ot 780.79 OTH MALAISE FATIGUE 04/02/2016 JAY URBANO MD Ot 788.30 UNSPECIFIED URINARY INCONTINENCE 04/02/2016 JAY URBANO MD Ot 791.9 ABN URINE FINDINGS NEC 04/02/2016 Ot 610.4 MAMMARY DUCT ECTASIA 04/02/2016 Ot 719.45 JOINT PAIN- PELVIS 04/02/2016 Ot 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 04/02/2016 Ot 397.0 TRICUSPID VALVE DISEASE 04/02/2016 Ot 416.8 CHR PULMON HEART DIS NEC 04/02/2016 Ot 429.3 CARDIOMEGALY 04/02/2016 Ot 786.05 SHORTNESS OF BREATH 04/02/2016 KELLE PEOPLES, HILDA Ot 786.05 SHORTNESS OF BREATH 04/02/2016 TERESA MONTEJO MD Ot 719.45 JOINT PAIN-PELVIS 04/02/2016 NIKIA PEOPLES, TERESA Angel Ot V43.64 HIP JOINT REPLACEMENT STATUS 04/02/2016 SHANTELLE RIVERA PORTFOLIO ASSISTANT Ot 401.9 HYPERTENSION NOS 04/02/2016 SHANTELLE RIVERA PORTFOLIO ASSISTANT Ot 414.9 CHR ISCHEMIC HRT DIS NOS 04/02/2016 SHANTELLE RIVERA PORTFOLIO ASSISTANT Ot 427.31 ATRIAL FIBRILLATION 04/02/2016 SHANTELLE RIVERA PORTFOLIO ASSISTANT Ot V12.54 PERSONAL HX OF TIA, CEREBRAL INFARCTION 04/02/2016 SHANTELLE RIVERA PORTFOLIO ASSISTANT Ot I10 ESSENTIAL (PRIMARY) HYPERTENSION 04/02/2016 SHANTELLE RIVERA PORTFOLIO ASSISTANT Ot I25.10 ATHSCL HEART DISEASE OF [place] CORONARY 04/02/2016 SHANTELLE RIVERA PORTFOLIO ASSISTANT Ot 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 04/02/2016 SHANTELLE RIVERA PORTFOLIO ASSISTANT Ot I48.91 UNSPECIFIED ATRIAL FIBRILLATION 04/02/2016 SHANTELLE RIVERA PORTFOLIO ASSISTANT Ot J98.4 OTHER DISORDERS OF LUNG 04/02/2016 SHANTELLE RIVERA PORTFOLIO ASSISTANT Ot Z86.73 PRSNL HX OF TIA (TIA), AND CEREB INFRC W 04/02/2016 CHEPE PEOPLES FACC, ANNETTE FACP CCDS Ot M79.89 OTHER SPECIFIED SOFT TISSUE DISORDERS 04/02/2016 CHEPE PEOPLES FACC, ANNETTE FACP CCDS Ot M79.89 OTHER SPECIFIED SOFT TISSUE DISORDERS 04/03/2016 CHEPE PEOPLES FACC, ALI FACP CCDS Ot M79.89 OTHER SPECIFIED SOFT TISSUE DISORDERS 04/04/2016 CHEPE PEOPLES FACC, ANNETTE FACP CCDS Ot I10 ESSENTIAL (PRIMARY) HYPERTENSION 04/04/2016 CHEPE PEOPLES FACC, ANNETTE FACP CCDS Ot I25.10 ATHSCL HEART DISEASE OF [place] CORONARY 04/04/2016 CHEPE PEOPLES FACC, ANNETTE FACP CCDS Ot I27.2 OTHER SECONDARY PULMONARY HYPERTENSION 04/04/2016 CHEPE PEOPLES FACC, ANNETTE FACP CCDS Ot J98.4 OTHER DISORDERS OF LUNG 04/04/2016 CHEPE PEOPLES FACC, ALI FACP CCDS Ot M79.89 OTHER SPECIFIED SOFT TISSUE DISORDERS 04/04/2016 CHEPE PEOPLES FACC, ANNETTE FACP CCDS Ot Z86.73 PRSNL HX OF TIA (TIA), AND CEREB INFRC W 04/10/2016 CHEPE PEOPLES FACC, ALI FACP CCDS Ot I10 ESSENTIAL (PRIMARY) HYPERTENSION 04/10/2016 CHEPE PEOPLES FACC, ALI FACP CCDS Ot I25.10 ATHSCL HEART DISEASE OF [place] CORONARY 04/10/2016 CHEPE PEOPLES FACC, ALI FACP CCDS Ot I27.2 OTHER SECONDARY PULMONARY HYPERTENSION 04/10/2016 CHEPE PEOPLES FACC, ALI FACP CCDS Ot I48.0 PAROXYSMAL ATRIAL FIBRILLATION 04/10/2016 CHEPE PEOPLES FACTiburcio, ALI FACP CCDS Ot J44.9 CHRONIC OBSTRUCTIVE PULMONARY DISEASE, U 04/10/2016 CHEPE PEOPLES FACC, ALI FACP CCDS Ot Z86.73 PRSNL HX OF TIA (TIA), AND CEREB INFRC W 04/10/2016 CHEPE PEOPLES FACTiburcio, ALI FACP CCDS Ot I10 ESSENTIAL (PRIMARY) HYPERTENSION 04/10/2016 CHEPE PEOPLES FACTiburcio, ALI FACP CCDS Ot I25.10 ATHSCL HEART DISEASE OF [place] CORONARY 04/10/2016 CHEPE PEOPLES FACTiburcio, ALI FACP CCDS Ot I27.2 OTHER SECONDARY PULMONARY HYPERTENSION 04/10/2016 CHEPE PEOPLES FACC, ALI FACP CCDS Ot I48.0 PAROXYSMAL ATRIAL FIBRILLATION 04/10/2016 CHEPE PEOPLES FACC, ALI FACP CCDS Ot J44.9 CHRONIC OBSTRUCTIVE PULMONARY DISEASE, U 04/10/2016 CHEPE PEOPLES FACC, ALI FACP CCDS Ot Z86.73 PRSNL HX OF TIA (TIA), AND CEREB INFRC W 04/25/2016 CHEPE PEOPLES FACC, ALI FACP CCDS Ot I10 ESSENTIAL (PRIMARY) HYPERTENSION 04/25/2016 CHEPE PEOPLES FACC, ALI FACP CCDS Ot I25.10 ATHSCL HEART DISEASE OF [place] CORONARY 04/25/2016 CHEPE PEOPLES FACC, ALI FACP CCDS Ot I27.2 OTHER SECONDARY PULMONARY HYPERTENSION 04/25/2016 CHEPE PEOPLES FACC, ALI FACP CCDS Ot J98.4 OTHER DISORDERS OF LUNG 04/25/2016 CHEPE PEOPLES FACTiburcio, ALI FACP CCDS Ot M79.89 OTHER SPECIFIED SOFT TISSUE DISORDERS 04/25/2016 CHEPE PEOPLES FACC, ALI FACP CCDS Ot Z86.73 PRSNL HX OF TIA (TIA), AND CEREB INFRC W 05/01/2016 CHEPE MD FACC, ALI FACP CCDS Ot I10 ESSENTIAL (PRIMARY) HYPERTENSION 05/01/2016 CHEPE PEOPLES FACC, ALI FACP CCDS Ot I25.10 ATHSCL HEART DISEASE OF [place] CORONARY 05/01/2016 CHEPE PEOPLES FACC, ALI FACP CCDS Ot I27.2 OTHER SECONDARY PULMONARY HYPERTENSION 05/01/2016 CHEPE PEOPLES FACC, ALI FACP CCDS Ot I48.0 PAROXYSMAL ATRIAL FIBRILLATION 05/01/2016 CHEPE PEOPLES FACC, ALI FACP CCDS Ot J44.9 CHRONIC OBSTRUCTIVE PULMONARY DISEASE, U 05/01/2016 CHEPE PEOPLES FACC, ALI FACP CCDS Ot Z86.73 PRSNL HX OF TIA (TIA), AND CEREB INFRC W 05/02/2016 CHEPE PEOPLES FACC, ALI FACP CCDS Ot I10 ESSENTIAL (PRIMARY) HYPERTENSION 05/02/2016 CHEPE PEOPLES FACC, ALI FACP CCDS Ot I25.10 ATHSCL HEART DISEASE OF [place] CORONARY 05/02/2016 CHEPE PEOPLES FACC, ALI FACP CCDS Ot I27.2 OTHER SECONDARY PULMONARY HYPERTENSION 05/02/2016 CHEPE PEOPLES FACC, ALI FACP CCDS Ot J98.4 OTHER DISORDERS OF LUNG 05/02/2016 CHEPE PEOPLES FACC, ALI FACP CCDS Ot M79.89 OTHER SPECIFIED SOFT TISSUE DISORDERS 05/02/2016 CHEPE PEOPLES FACC, ALI FACP CCDS Ot Z86.73 PRSNL HX OF TIA (TIA), AND CEREB INFRC W 05/09/2016 CHEPE PEOPLES FACC, ALI FACP CCDS Ot I10 ESSENTIAL (PRIMARY) HYPERTENSION 05/09/2016 CHEPE PEOPLES FACC, ALI FACP CCDS Ot I25.10 ATHSCL HEART DISEASE OF [place] CORONARY 05/09/2016 CHEPE PEOPLES FACC, ALI FACP CCDS Ot I27.2 OTHER SECONDARY PULMONARY HYPERTENSION 05/09/2016 CHEPE PEOPLES FACC, ALI FACP CCDS Ot I48.0 PAROXYSMAL ATRIAL FIBRILLATION 05/09/2016 CHEPE PEOPLES FACC, ALI FACP CCDS Ot J44.9 CHRONIC OBSTRUCTIVE PULMONARY DISEASE, U 05/09/2016 CHEPE PEOPLES FACC, ALI FACP CCDS Ot Z86.73 PRSNL HX OF TIA (TIA), AND CEREB INFRC W 09/12/2016 EVON, DUONG M JOB DEVELOPMENT SPECIALIST Ot I51.7 CARDIOMEGALY 09/12/2016 DUONG BARNARD JOB DEVELOPMENT SPECIALIST Ot R06.02 SHORTNESS OF BREATH 10/03/2016 DUONG BARNARD JOB DEVELOPMENT SPECIALIST Ot I51.7 CARDIOMEGALY 10/03/2016 DUONG BARNARD JOB DEVELOPMENT SPECIALIST Ot R06.02 SHORTNESS OF BREATH 10/10/2016 DUONG BARNARD JOB DEVELOPMENT SPECIALIST Ot I51.7 CARDIOMEGALY 10/10/2016 DUONG BARNARD JOB DEVELOPMENT SPECIALIST Ot R06.02 SHORTNESS OF BREATH 11/21/2016 ENDY SULLIVAN JOB DEVELOPMENT SPECIALIST Ot I87.2 VENOUS INSUFFICIENCY (CHRONIC) (PERIPHER 11/21/2016 NATEENDY R JOB DEVELOPMENT SPECIALIST Ot L03.115 CELLULITIS OF RIGHT LOWER LIMB 11/21/2016 NATEENDY R JOB DEVELOPMENT SPECIALIST Ot L97.212 NON-PRESSURE CHRONIC ULCER OF RIGHT CALF 11/27/2016 ENDY SULLIVAN R JOB DEVELOPMENT SPECIALIST Ot L03.119 CELLULITIS OF UNSPECIFIED PART OF LIMB 11/27/2016 NATEENDY R JOB DEVELOPMENT SPECIALIST Ot L03.119 CELLULITIS OF UNSPECIFIED PART OF LIMB 11/27/2016 NATE ENDY R JOB DEVELOPMENT SPECIALIST Ot L03.119 CELLULITIS OF UNSPECIFIED PART OF LIMB 11/27/2016 ENDY SULLIVAN R JOB DEVELOPMENT SPECIALIST Ot I48.2 CHRONIC ATRIAL FIBRILLATION 11/27/2016 NATEENDY R JOB DEVELOPMENT SPECIALIST Ot I87.2 VENOUS INSUFFICIENCY (CHRONIC) (PERIPHER 11/27/2016 NATE ENDY R JOB DEVELOPMENT SPECIALIST Ot L03.115 CELLULITIS OF RIGHT LOWER LIMB 11/27/2016 NATE ENDY R JOB DEVELOPMENT SPECIALIST Ot L03.119 CELLULITIS OF UNSPECIFIED PART OF LIMB 11/27/2016 ENDY SULLIVAN R JOB DEVELOPMENT SPECIALIST Ot L97.212 NON-PRESSURE CHRONIC ULCER OF RIGHT CALF 11/27/2016 ENDY SULLIVAN JOB DEVELOPMENT SPECIALIST Ot Z79.01 [facility] (CURRENT) USE OF ANTICOAGULANT 11/27/2016 ENDY SULLIVAN R JOB DEVELOPMENT SPECIALIST Ot L03.119 CELLULITIS OF UNSPECIFIED PART OF LIMB 11/29/2016 ENDY SULLIVAN JOB DEVELOPMENT SPECIALIST Ot I48.2 CHRONIC ATRIAL FIBRILLATION 11/29/2016 ENDY SULLIVAN R JOB DEVELOPMENT SPECIALIST Ot I87.2 VENOUS INSUFFICIENCY (CHRONIC) (PERIPHER 11/29/2016 ENDY SULLIVAN R JOB DEVELOPMENT SPECIALIST Ot L03.115 CELLULITIS OF RIGHT LOWER LIMB 11/29/2016 ENDY SULLIVAN JOB DEVELOPMENT SPECIALIST Ot L97.212 NON-PRESSURE CHRONIC ULCER OF RIGHT CALF 11/29/2016 ENDY SULLIVAN JOB DEVELOPMENT SPECIALIST Ot 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 (CURRENT) USE OF ANTICOAGULANT 12/06/2016 ERIC LA MD Ot I48.2 CHRONIC ATRIAL FIBRILLATION 12/06/2016 ERIC LA MD Ot L03.115 CELLULITIS OF RIGHT LOWER LIMB 12/06/2016 ENDY SULLIVAN APRN Ot 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 (CURRENT) USE OF ANTICOAGULANT 12/10/2016 ENDY SULLIVAN JOB DEVELOPMENT SPECIALIST Ot I87.2 VENOUS INSUFFICIENCY (CHRONIC) (PERIPHER 12/10/2016 ENDY SULLIVAN JOB DEVELOPMENT SPECIALIST Ot L03.115 CELLULITIS OF RIGHT LOWER LIMB 12/10/2016 ENDY SULLIVAN JOB DEVELOPMENT SPECIALIST Ot L97.212 NON-PRESSURE CHRONIC ULCER OF RIGHT CALF 12/25/2016 ERIC LA MD Ot I48.2 CHRONIC ATRIAL FIBRILLATION 12/25/2016 ERIC LA MD Ot L03.115 CELLULITIS OF RIGHT LOWER LIMB 12/25/2016 ENDY SULLIVAN JOB DEVELOPMENT SPECIALIST Ot I48.2 CHRONIC ATRIAL FIBRILLATION 12/25/2016 ENDY SULLIVAN JOB DEVELOPMENT SPECIALIST Ot L03.115 CELLULITIS OF RIGHT LOWER LIMB 01/07/2017 ENDY SULLIVAN JOB DEVELOPMENT SPECIALIST Ot L03.115 CELLULITIS OF RIGHT LOWER LIMB 01/08/2017 ENDY SULLIVAN JOB DEVELOPMENT SPECIALIST Ot L97.212 NON-PRESSURE CHRONIC ULCER OF RIGHT CALF 01/09/2017 ENDY SULLIVAN JOB DEVELOPMENT SPECIALIST Ot I48.2 CHRONIC ATRIAL FIBRILLATION 01/09/2017 ENDY SULLIVAN APRN Ot 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 01/09/2017 ENDY SULLIVAN JOB DEVELOPMENT SPECIALIST Ot L03.115 CELLULITIS OF RIGHT LOWER LIMB 01/09/2017 ENDY SULLIVAN JOB DEVELOPMENT SPECIALIST Ot L97.212 NON-PRESSURE CHRONIC ULCER OF RIGHT CALF 01/10/2017 ENDY SULLIVAN JOB DEVELOPMENT SPECIALIST Ot L03.115 CELLULITIS OF RIGHT LOWER LIMB 01/12/2017 ERIC LA MD Ot I48.2 CHRONIC ATRIAL FIBRILLATION 01/12/2017 ERIC LA MD Ot 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 01/12/2017 ERIC LA MD Ot L03.115 CELLULITIS OF RIGHT LOWER LIMB 01/15/2017 NATE, ENDY R JOB DEVELOPMENT SPECIALIST Ot L97.212 NON-PRESSURE CHRONIC ULCER OF RIGHT CALF 01/16/2017 ENDY SULLIVAN JOB DEVELOPMENT SPECIALIST Ot I48.2 CHRONIC ATRIAL FIBRILLATION 01/16/2017 ENDY SULLIVAN JOB DEVELOPMENT SPECIALIST Ot 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 01/16/2017 ENDY SULLIVAN JOB DEVELOPMENT SPECIALIST Ot L97.212 NON-PRESSURE CHRONIC ULCER OF RIGHT CALF 01/16/2017 ENDY SULLIVAN JOB DEVELOPMENT SPECIALIST Ot I48.2 CHRONIC ATRIAL FIBRILLATION 01/16/2017 ENDY SULLIVAN JOB DEVELOPMENT SPECIALIST Ot 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 01/16/2017 ENDY SULLIVAN JOB DEVELOPMENT SPECIALIST Ot L03.115 CELLULITIS OF RIGHT LOWER LIMB 01/16/2017 ENDY SULLIVAN JOB DEVELOPMENT SPECIALIST Ot L97.212 NON-PRESSURE CHRONIC ULCER OF RIGHT CALF 01/18/2017 KEITH ADAME PORTFOLIO ASSISTANT Ot R41.0 DISORIENTATION, UNSPECIFIED 01/18/2017 KEITH ADAME PORTFOLIO ASSISTANT Ot R82.90 UNSPECIFIED ABNORMAL FINDINGS IN URINE 01/23/2017 ENDY SULLIVAN JOB DEVELOPMENT SPECIALIST Ot I48.2 CHRONIC ATRIAL FIBRILLATION 01/23/2017 ENDY SULLIVAN JOB DEVELOPMENT SPECIALIST Ot 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 01/23/2017 ENDY SULLIVAN JOB DEVELOPMENT SPECIALIST Ot L97.212 NON-PRESSURE CHRONIC ULCER OF RIGHT CALF 01/23/2017 ENDY SULLIVAN JOB DEVELOPMENT SPECIALIST Ot I48.2 CHRONIC ATRIAL FIBRILLATION 01/23/2017 ENDY SULLIVAN JOB DEVELOPMENT SPECIALIST Ot 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 01/23/2017 ENDY SULLIVAN JOB DEVELOPMENT SPECIALIST Ot L97.212 NON-PRESSURE CHRONIC ULCER OF RIGHT CALF 01/25/2017 ENDY SULLIVAN JOB DEVELOPMENT SPECIALIST Ot I48.2 CHRONIC ATRIAL FIBRILLATION 01/25/2017 ENDY SULLIVAN JOB DEVELOPMENT SPECIALIST Ot 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 01/25/2017 ENDY SULLIVAN JOB DEVELOPMENT SPECIALIST Ot L03.115 CELLULITIS OF RIGHT LOWER LIMB 01/25/2017 ENDY SULLIVAN JOB DEVELOPMENT SPECIALIST Ot L97.212 NON-PRESSURE CHRONIC ULCER OF RIGHT CALF 01/30/2017 ENDY SULLIVAN JOB DEVELOPMENT SPECIALIST Ot L03.115 CELLULITIS OF RIGHT LOWER LIMB 01/31/2017 ENDY SULLIVAN JOB DEVELOPMENT SPECIALIST Ot I48.2 CHRONIC ATRIAL FIBRILLATION 01/31/2017 ENDY SULLIVAN JOB DEVELOPMENT SPECIALIST Ot 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 01/31/2017 ENDY SULLIVAN JOB DEVELOPMENT SPECIALIST Ot L03.115 CELLULITIS OF RIGHT LOWER LIMB 01/31/2017 ENDY SULLIVAN JOB DEVELOPMENT SPECIALIST Ot L97.212 NON-PRESSURE CHRONIC ULCER OF RIGHT CALF 02/01/2017 ENDY SULLIVAN JOB DEVELOPMENT SPECIALIST Ot I48.2 CHRONIC ATRIAL FIBRILLATION 02/01/2017 ENDY SULLIVAN JOB DEVELOPMENT SPECIALIST Ot 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 02/01/2017 ENDY SULLIVAN JOB DEVELOPMENT SPECIALIST Ot L03.115 CELLULITIS OF RIGHT LOWER LIMB 02/01/2017 ERIC LA MD Ot I48.2 CHRONIC ATRIAL FIBRILLATION 02/01/2017 ERIC LA MD Ot 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 02/01/2017 ERIC LA MD Ot L03.115 CELLULITIS OF RIGHT LOWER LIMB 02/06/2017 ENDY SULLIVAN JOB DEVELOPMENT SPECIALIST Ot 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 02/06/2017 ENDY SULLIVAN JOB DEVELOPMENT SPECIALIST Ot 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 02/06/2017 ENDY SULLIVAN JOB DEVELOPMENT SPECIALIST Ot I48.2 CHRONIC ATRIAL FIBRILLATION 02/06/2017 ENDY SULLIVAN JOB DEVELOPMENT SPECIALIST Ot 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 02/06/2017 ENDY SULLIVAN JOB DEVELOPMENT SPECIALIST Ot L03.115 CELLULITIS OF RIGHT LOWER LIMB 02/06/2017 ENDY SULLIVAN JOB DEVELOPMENT SPECIALIST Ot 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 02/06/2017 ENDY SULLIVAN JOB DEVELOPMENT SPECIALIST Ot L97.212 NON-PRESSURE CHRONIC ULCER OF RIGHT CALF 02/06/2017 ERIC LA MD Ot I48.2 CHRONIC ATRIAL FIBRILLATION 02/06/2017 ERIC LA MD Ot 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 02/06/2017 ERIC LA MD Ot L03.115 CELLULITIS OF RIGHT LOWER LIMB 02/06/2017 ENDY SULLIVAN APRN Ot I48.2 CHRONIC ATRIAL FIBRILLATION 02/06/2017 ENDY SULLIVAN JOB DEVELOPMENT SPECIALIST Ot 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 02/06/2017 ENDY SULLIVAN JOB DEVELOPMENT SPECIALIST Ot L97.212 NON-PRESSURE CHRONIC ULCER OF RIGHT CALF 02/13/2017 ENDY SULLIVAN JOB DEVELOPMENT SPECIALIST Ot I48.2 CHRONIC ATRIAL FIBRILLATION 02/13/2017 ENDY SULLIVAN JOB DEVELOPMENT SPECIALIST Ot 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 02/13/2017 ENDY SULLIVAN R JOB DEVELOPMENT SPECIALIST Ot L97.212 NON-PRESSURE CHRONIC ULCER OF RIGHT CALF 02/13/2017 ENDY SULLIVAN R JOB DEVELOPMENT SPECIALIST Ot I48.2 CHRONIC ATRIAL FIBRILLATION 02/13/2017 ENDY SULLIVAN R JOB DEVELOPMENT SPECIALIST Ot 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 02/13/2017 ENDY SULLIVAN R JOB DEVELOPMENT SPECIALIST Ot L03.115 CELLULITIS OF RIGHT LOWER LIMB 02/13/2017 NATE ENDY R JOB DEVELOPMENT SPECIALIST Ot L97.212 NON-PRESSURE CHRONIC ULCER OF RIGHT CALF 02/15/2017 ENDY SULLIVAN R JOB DEVELOPMENT SPECIALIST Ot I48.2 CHRONIC ATRIAL FIBRILLATION 02/15/2017 ENDY SULLIVAN JOB DEVELOPMENT SPECIALIST Ot 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 02/15/2017 ENDY SULLIVAN R JOB DEVELOPMENT SPECIALIST Ot L97.212 NON-PRESSURE CHRONIC ULCER OF RIGHT CALF 02/18/2017 ENDY SULLIVAN R JOB DEVELOPMENT SPECIALIST Ot I48.2 CHRONIC ATRIAL FIBRILLATION 02/18/2017 ENDY SULLIVAN R JOB DEVELOPMENT SPECIALIST Ot 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 02/18/2017 ENDY SULLIVAN R JOB DEVELOPMENT SPECIALIST Ot L97.212 NON-PRESSURE CHRONIC ULCER OF RIGHT CALF 02/19/2017 ENDY SULLIVAN JOB DEVELOPMENT SPECIALIST Ot I48.2 CHRONIC ATRIAL FIBRILLATION 02/19/2017 ENDY SULLIVAN R JOB DEVELOPMENT SPECIALIST Ot 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 02/19/2017 ENDY SULLIVAN JOB DEVELOPMENT SPECIALIST Ot L03.115 CELLULITIS OF RIGHT LOWER LIMB 02/19/2017 NATE ENDY R JOB DEVELOPMENT SPECIALIST Ot L97.212 NON-PRESSURE CHRONIC ULCER OF RIGHT CALF 02/20/2017 ENDY SULLIVAN R JOB DEVELOPMENT SPECIALIST Ot I48.2 CHRONIC ATRIAL FIBRILLATION 02/20/2017 ENDY SULLIVAN R JOB DEVELOPMENT SPECIALIST Ot 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 02/20/2017 ENDY SULLIVAN R JOB DEVELOPMENT SPECIALIST Ot L97.212 NON-PRESSURE CHRONIC ULCER OF RIGHT CALF 02/20/2017 ENDY SULLIVAN JOB DEVELOPMENT SPECIALIST Ot I48.2 CHRONIC ATRIAL FIBRILLATION 02/20/2017 ENDY SULLIVAN R JOB DEVELOPMENT SPECIALIST Ot 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 02/20/2017 ENDY SULLIVAN JOB DEVELOPMENT SPECIALIST Ot L97.212 NON-PRESSURE CHRONIC ULCER OF RIGHT CALF 02/21/2017 ENDY SULLIVAN JOB DEVELOPMENT SPECIALIST Ot 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 02/21/2017 ENDY SULLIVAN R JOB DEVELOPMENT SPECIALIST Ot L97.212 NON-PRESSURE CHRONIC ULCER OF RIGHT CALF 02/27/2017 ENDY SULLIVAN JOB DEVELOPMENT SPECIALIST Ot I48.2 CHRONIC ATRIAL FIBRILLATION 02/27/2017 ENDY SULLIVAN JOB DEVELOPMENT SPECIALIST Ot 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 02/27/2017 ENDY SULLIVAN R JOB DEVELOPMENT SPECIALIST Ot L97.212 NON-PRESSURE CHRONIC ULCER OF RIGHT CALF 02/27/2017 ENDY SULLIVAN JOB DEVELOPMENT SPECIALIST Ot 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 02/27/2017 ENDY SULLIVAN R JOB DEVELOPMENT SPECIALIST Ot L97.212 NON-PRESSURE CHRONIC ULCER OF RIGHT CALF 02/27/2017 ENDY SULLIVAN JOB DEVELOPMENT SPECIALIST Ot 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 02/27/2017 ENDY SULLIVNA JOB DEVELOPMENT SPECIALIST Ot L97.212 NON-PRESSURE CHRONIC ULCER OF RIGHT CALF 03/06/2017 ENDY SULLIVAN JOB DEVELOPMENT SPECIALIST Ot I48.2 CHRONIC ATRIAL FIBRILLATION 03/06/2017 ENDY SULLIVAN JOB DEVELOPMENT SPECIALIST Ot 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 03/06/2017 ENDY SULLIVAN R JOB DEVELOPMENT SPECIALIST Ot L97.212 NON-PRESSURE CHRONIC ULCER OF RIGHT CALF 03/07/2017 ENDY SULLIVAN JOB DEVELOPMENT SPECIALIST Ot 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 03/07/2017 ENDY SULLIVAN JOB DEVELOPMENT SPECIALIST Ot L97.212 NON-PRESSURE CHRONIC ULCER OF RIGHT CALF 03/12/2017 ENDY SULLIVAN JOB DEVELOPMENT SPECIALIST Ot I48.2 CHRONIC ATRIAL FIBRILLATION 03/12/2017 ENDY SULLIVAN JOB DEVELOPMENT SPECIALIST Ot 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 03/12/2017 ENDY SULLIVAN R JOB DEVELOPMENT SPECIALIST Ot L97.212 NON-PRESSURE CHRONIC ULCER OF RIGHT CALF 03/13/2017 ENDY SULLIVAN JOB DEVELOPMENT SPECIALIST Ot I48.2 CHRONIC ATRIAL FIBRILLATION 03/13/2017 ENDY SULLIVAN JOB DEVELOPMENT SPECIALIST Ot 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 03/13/2017 ENDY SULLIVAN JOB DEVELOPMENT SPECIALIST Ot L97.212 NON-PRESSURE CHRONIC ULCER OF RIGHT CALF 03/20/2017 ENDY SULLIVAN JOB DEVELOPMENT SPECIALIST Ot I48.2 CHRONIC ATRIAL FIBRILLATION 03/20/2017 ENDY SULLIVAN JOB DEVELOPMENT SPECIALIST Ot 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 03/20/2017 ENDY SULLIVAN JOB DEVELOPMENT SPECIALIST Ot L97.212 NON-PRESSURE CHRONIC ULCER OF RIGHT CALF 03/21/2017 ENDY SULLIVAN JOB DEVELOPMENT SPECIALIST Ot I48.2 CHRONIC ATRIAL FIBRILLATION 03/21/2017 ENDY SULLIVAN JOB DEVELOPMENT SPECIALIST Ot 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 03/21/2017 ENDY SULLIVAN JOB DEVELOPMENT SPECIALIST Ot L97.212 NON-PRESSURE CHRONIC ULCER OF RIGHT CALF 04/03/2017 ENDY SULLIVAN JOB DEVELOPMENT SPECIALIST Ot I48.2 CHRONIC ATRIAL FIBRILLATION 04/03/2017 ENDY SULLIVAN JOB DEVELOPMENT SPECIALIST Ot 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 04/03/2017 ENDY SULLIVAN JOB DEVELOPMENT SPECIALIST Ot L97.212 NON-PRESSURE CHRONIC ULCER OF RIGHT CALF Procedures Code Description Performed By Performed On 57.32 CYSTOSCOPY NEC 12/04/2012 Results Test Result Range Bacteria identification in isolate by anaerobe culture - 11/20/16 09:44 Bacteria identification in isolate by anaerobe culture NOANA NRG Gram stain microscopy - 11/20/16 09:44 GRAM STAIN RESULT NO WBC'S OR BACTERIA OBSERVED NRG Bacteria identification in wound by culture - 11/20/16 09:44 Bacteria identification in wound by culture [id number] NR FREE TEXT EXTERNAL SENSITIVITY REPORTED AT 0759, 7--17 NRG QUANTITY OF GROWTH Scant Growth NRG Bacterial susceptibility panel - 11/20/16 09:44 Gentamicin susceptibility test by minimum inhibitory concentration R NRG Erythromycin susceptibility test by minimum inhibitory concentration >= NRG Vancomycin susceptibility test by minimum inhibitory concentration 1 NRG Ampicillin susceptibility test by minimum inhibitory concentration < = NRG Linezolid susceptibility test by minimum inhibitory concentration 2 NRG PT panel in platelet poor plasma by coagulation assay - 11/27/16 13:10 Prothrombin time (PT) in platelet poor plasma by coagulation assay 24.4 s 12.2-14.7 INR in platelet poor plasma or blood by coagulation assay 2.2 0.8-1.4 Whole blood basic metabolic panel - 11/27/16 13:10 Serum or plasma sodium measurement (moles/volume) 140 mmol/L 135-145 Serum or plasma potassium measurement (moles/volume) 3.9 mmol/L 3.6-5.0 Serum or plasma chloride measurement (moles/volume) 106 mmol/L 98-107 Carbon dioxide 28 mmol/L 21-32 Serum or plasma anion gap determination (moles/volume) 6 mmol/L 5-14 Serum or plasma urea nitrogen measurement (mass/volume) 20 mg/dL 7-18 Serum or plasma creatinine measurement (mass/volume) 0.80 mg/dL 0.60-1.30 Serum or plasma urea nitrogen/creatinine mass ratio 25 NRG Serum or plasma creatinine measurement with calculation of estimated glomerular filtration rate > NRG Serum or plasma glucose measurement (mass/volume) 83 mg/dL 70-105 Serum or plasma calcium measurement (mass/volume) 9.1 mg/dL 8.5-10.1 PT panel in platelet poor plasma by coagulation assay - 11/30/16 14:00 Prothrombin time (PT) in platelet poor plasma by coagulation assay 33.1 s 12.2-14.7 INR in platelet poor plasma or blood by coagulation assay 3.3 0.8-1.4 Whole blood basic metabolic panel - 11/30/16 14:00 Serum or plasma sodium measurement (moles/volume) 143 mmol/L 135-145 Serum or plasma potassium measurement (moles/volume) 3.3 mmol/L 3.6-5.0 Serum or plasma chloride measurement (moles/volume) 110 mmol/L 98-107 Carbon dioxide 21 mmol/L 21-32 Serum or plasma anion gap determination (moles/volume) 12 mmol/L 5-14 Serum or plasma urea nitrogen measurement (mass/volume) 19 mg/dL 7-18 Serum or plasma creatinine measurement (mass/volume) 0.80 mg/dL 0.60-1.30 Serum or plasma urea nitrogen/creatinine mass ratio 24 NRG Serum or plasma creatinine measurement with calculation of estimated glomerular filtration rate > NRG Serum or plasma glucose measurement (mass/volume) 76 mg/dL 70-105 Serum or plasma calcium measurement (mass/volume) 7.7 mg/dL 8.5-10.1 Vancomycin trough - 11/30/16 14:00 Vancomycin trough 11.4 ug/mL 10.0-20.0 Whole blood basic metabolic panel - 12/04/16 11:10 Serum or plasma sodium measurement (moles/volume) 140 mmol/L 135-145 Serum or plasma potassium measurement (moles/volume) 3.8 mmol/L 3.6-5.0 Serum or plasma chloride measurement (moles/volume) 105 mmol/L 98-107 Carbon dioxide 22 mmol/L -32 Serum or plasma anion gap determination (moles/volume) 13 mmol/L 5-14 Serum or plasma urea nitrogen measurement (mass/volume) 21 mg/dL 7-18 Serum or plasma creatinine measurement (mass/volume) 0.94 mg/dL 0.60-1.30 Serum or plasma urea nitrogen/creatinine mass ratio 22 NRG Serum or plasma creatinine measurement with calculation of estimated glomerular filtration rate 57 NRG Serum or plasma glucose measurement (mass/volume) 86 mg/dL 70-105 Serum or plasma calcium measurement (mass/volume) 8.3 mg/dL 8.5-10.1 PT panel in platelet poor plasma by coagulation assay - 12/04/16 11:10 Prothrombin time (PT) in platelet poor plasma by coagulation assay 33.3 s 12.2-14.7 INR in platelet poor plasma or blood by coagulation assay 3.3 0.8-1.4 PT panel in platelet poor plasma by coagulation assay - 12/06/16 13:05 Prothrombin time (PT) in platelet poor plasma by coagulation assay 31.5 s 12.2-14.7 INR in platelet poor plasma or blood by coagulation assay 3.1 0.8-1.4 Whole blood basic metabolic panel - 12/06/16 13:05 Serum or plasma sodium measurement (moles/volume) 141 mmol/L 135-145 Serum or plasma potassium measurement (moles/volume) 4.0 mmol/L 3.6-5.0 Serum or plasma chloride measurement (moles/volume) 107 mmol/L 98-107 Carbon dioxide 23 mmol/L -32 Serum or plasma anion gap determination (moles/volume) 11 mmol/L 5-14 Serum or plasma urea nitrogen measurement (mass/volume) 21 mg/dL 7-18 Serum or plasma creatinine measurement (mass/volume) 1.06 mg/dL 0.60-1.30 Serum or plasma urea nitrogen/creatinine mass ratio 20 NRG Serum or plasma creatinine measurement with calculation of estimated glomerular filtration rate 49 NRG Serum or plasma glucose measurement (mass/volume) 103 mg/dL 70-105 Serum or plasma calcium measurement (mass/volume) 8.6 mg/dL 8.5-10.1 Vancomycin trough - 12/06/16 13:05 Vancomycin trough 19.8 ug/mL 10.0-20.0 [id number] - 12/10/16 13:10 Serum or plasma urea nitrogen measurement (mass/volume) 24 mg/dL 7-18 Serum or plasma creatinine measurement (mass/volume) 1.24 mg/dL 0.60-1.30 Serum or plasma urea nitrogen/creatinine mass ratio 19 NRG Serum or plasma creatinine measurement with calculation of estimated glomerular filtration rate 41 NRG Vancomycin trough - 12/10/16 13:10 Vancomycin trough 16.5 ug/mL 10.0-20.0 PT panel in platelet poor plasma by coagulation assay - 12/10/16 13:10 Prothrombin time (PT) in platelet poor plasma by coagulation assay 21.0 s 12.2-14.7 INR in platelet poor plasma or blood by coagulation assay 1.8 0.8-1.4 Bacteria identification in isolate by anaerobe culture - 12/25/16 09:33 Bacteria identification in isolate by anaerobe culture NOANA NRG Gram stain microscopy - 12/25/16 09:33 GRAM STAIN RESULT FEW WBC'S, NO BACTERIA OBSERVED NRG Bacteria identification in wound by culture - 12/25/16 09:33 Bacteria identification in wound by culture [id number] NR FREE TEXT EXTERNAL SENSITIVITY REPORTED AT 0858, 12-28-16 NRG QUANTITY OF GROWTH Scant Growth NRG Bacterial susceptibility panel - 12/25/16 09:33 Oxacillin susceptibility test by minimum inhibitory concentration > = NRG Gentamicin susceptibility test by minimum inhibitory concentration < = NRG Clindamycin susceptibility test by minimum inhibitory concentration <= NRG Erythromycin susceptibility test by minimum inhibitory concentration >= NRG Trimethoprim/sulfamethoxazole susceptibility test by minimum inhibitoryconcentration 80 NRG Vancomycin susceptibility test by minimum inhibitory concentration 1 NRG Levofloxacin susceptibility test by minimum inhibitory concentration >= NRG Rifampin susceptibility test by minimum inhibitory concentration <= NRG Tetracycline susceptibility test by minimum inhibitory concentration >= NRG Ciprofloxacin susceptibility test by minimum inhibitory concentration R NRG Complete urinalysis with reflex to culture - 12/28/16 16:35 Urine color determination YELLOW NRG Urine clarity determination VERY CLOUDY NRG Urine pH measurement by test strip 8 5-9 Specific gravity of urine by test strip 1.010 1.016- 1.022 Urine protein assay by test strip, semi-quantitative 3+ NEGATIVE Urine glucose detection by automated test strip NEGATIVE NEGATIVE Erythrocytes detection in urine sediment by light microscopy 2+ NEGATIVE Urine ketones detection by automated test strip NEGATIVE NEGATIVE Urine nitrite detection by test strip POSITIVE NEGATIVE Urine total bilirubin detection by test strip NEGATIVE NEGATIVE Urine urobilinogen measurement by automated test strip (mass/volume) NORMAL NORMAL Urine leukocyte esterase detection by dipstick 3+ NEGATIVE Automated urine sediment erythrocyte count by microscopy (number/high power field) [HPF] NRG Automated urine sediment leukocyte count by microscopy (number/high power field ) [HPF] NRG Bacteria detection in urine sediment by light microscopy FEW NRG Crystals detection in urine sediment by light microscopy PRESENT NRG Casts detection in urine sediment by light microscopy NONE NRG Mucus detection in urine sediment by light microscopy NEGATIVE NRG Complete urinalysis with reflex to culture YES NRG Amorphous sediment detection in urine sediment by light microscopy LARGE RODERICK PHOSPHATE NRG Triple phosphate crystals detection in urine sediment by light microscopy FEW NRG Bacterial urine culture - 12/28/16 16:35 Bacterial urine culture [id number] NRG COLONY COUNT <10,000 NRG FTX;REPORTABLE SENSITIVITY REPORTED AT 0800, 8--17 NR Bacterial susceptibility panel - 12/28/16 16:35 Gentamicin susceptibility test by minimum inhibitory concentration < = NRG Trimethoprim/sulfamethoxazole susceptibility test by minimum inhibitoryconcentration <= NRG Ampicillin susceptibility test by minimum inhibitory concentration < = NRG Tobramycin susceptibility test by minimum inhibitory concentration < = NRG Cefazolin susceptibility test by minimum inhibitory concentration < = NRG Ceftriaxone susceptibility test by minimum inhibitory concentration <= NRG Ampicillin/sulbactam susceptibility test by minimum inhibitory concentration <= NRG Piperacillin/tazobactam susceptibility test by minimum inhibitory concentration <= NRG Ciprofloxacin susceptibility test by minimum inhibitory concentration <= NRG Meropenem susceptibility test by minimum inhibitory concentration < = NRG Nitrofurantoin susceptibility test by minimum inhibitory concentration 128 NRG Aztreonam susceptibility test by minimum inhibitory concentration < = NRG Bacterial susceptibility panel - 12/28/16 16:35 Gentamicin susceptibility test by minimum inhibitory concentration < = NRG Trimethoprim/sulfamethoxazole susceptibility test by minimum inhibitoryconcentration <= NRG Ampicillin susceptibility test by minimum inhibitory concentration R NRG Tobramycin susceptibility test by minimum inhibitory concentration < = NRG Cefazolin susceptibility test by minimum inhibitory concentration < = NRG Ceftriaxone susceptibility test by minimum inhibitory concentration <= NRG Ampicillin/sulbactam susceptibility test by minimum inhibitory concentration 4 NRG Piperacillin/tazobactam susceptibility test by minimum inhibitory concentration <= NRG Ciprofloxacin susceptibility test by minimum inhibitory concentration <= NRG Meropenem susceptibility test by minimum inhibitory concentration < = NRG Nitrofurantoin susceptibility test by minimum inhibitory concentration <= NRG Aztreonam susceptibility test by minimum inhibitory concentration < = NRG Extended spectrum beta lactamase (ESBL) producing bacteria susceptibility test by minimum inhibitory concentration - NRG Encounters ACCT No. Visit Date/Time Discharge Status Pt. Type Provider Facility Loc./Unit Complaint [id number] 02/26/2017 08:36:00 02/26/2017 23:59:59 CLS Outpatient ENDY SULLIVAN JOB DEVELOPMENT SPECIALIST [facility] WOUNDCARE [id number] 02/19/2017 08:36:00 02/19/2017 23:59:59 CLS Outpatient NATE ENDY R JOB DEVELOPMENT SPECIALIST [facility] WOUNDC[facility] [id number] 02/12/2017 08:35:00 02/12/2017 23:59:59 CLS Outpatient NATE ENDY R JOB DEVELOPMENT SPECIALIST [facility] WOUNDC[facility] [id number] 02/05/2017 08:44:00 02/05/2017 23:59:59 CLS Outpatient SHINE SULLIVANN R JOB DEVELOPMENT SPECIALIST [facility] WOUNDCARE [id number] 01/29/2017 08:35:00 01/29/2017 23:59:59 CLS Outpatient NATE ENDY R JOB DEVELOPMENT SPECIALIST [facility] WOUNDC[facility] [id number] 01/22/2017 08:44:00 01/22/2017 23:59:59 CLS Outpatient NATE ENDY R JOB DEVELOPMENT SPECIALIST [facility] WOUNDCARE [id number] 01/17/2017 14:12:00 01/17/2017 23:59:59 CLS Outpatient NATE ENDY R JOB DEVELOPMENT SPECIALIST [facility] WOUNDCARE [id number] 01/15/2017 08:49:00 01/15/2017 23:59:59 CLS Outpatient NATE ENDY R JOB DEVELOPMENT SPECIALIST [facility] WOUNDCARE [id number] 01/10/2017 09:42:00 01/10/2017 23:59:59 CLS Outpatient ERIC LA MD [facility] WOUND[facility] [id number] 01/08/2017 08:38:00 01/08/2017 23:59:59 CLS Outpatient NATE ENDY R JOB DEVELOPMENT SPECIALIST [facility] WOUNDC[facility] [id number] 01/01/2017 08:30:00 01/01/2017 23:59:59 CLS Outpatient NATE, ENDY R JOB DEVELOPMENT SPECIALIST [facility] WOUNDC[facility] [id number] 12/28/2016 18:11:00 12/28/2016 23:59:59 CLS Outpatient KEITH ADAME [facility] LABNPT INCREASED MOODINESS AND CONFUSION,DARK UA,FOUL ODR [id number] 12/25/2016 08:29:00 12/25/2016 23:59:59 CLS Outpatient NATE ENDY R JOB DEVELOPMENT SPECIALIST [facility] WOUNDC[facility] [id number] 12/18/2016 08:44:00 12/18/2016 23:59:59 CLS Outpatient NATE, ENDY R JOB DEVELOPMENT SPECIALIST [facility] WOUNDC[facility] [id number] 12/11/2016 08:41:00 12/11/2016 23:59:59 CLS Outpatient NATE, ENDY R JOB DEVELOPMENT SPECIALIST [facility] WOUNDC[facility] [id number] 12/11/2016 08:41:00 12/11/2016 23:59:59 CLS Preadmit NATE ENDY R JOB DEVELOPMENT SPECIALIST [facility] HH CELLULITIS [id number] 12/10/2016 13:32:00 12/10/2016 23:59:59 CLS Outpatient NATE, ENDY R JOB DEVELOPMENT SPECIALIST [facility] L03.115, cellulitis [id number] 12/04/2016 09:05:00 12/10/2016 16:00:00 DIS Outpatient NATE ENDY R JOB DEVELOPMENT SPECIALIST [facility] WOUNDCARE [id number] 12/06/2016 14:56:00 12/06/2016 23:59:59 CLS Outpatient NATE, ENDY R JOB DEVELOPMENT SPECIALIST [facility] CELLULITIS [id number] 12/04/2016 12:15:00 12/04/2016 23:59:59 CLS Outpatient ENDY SULLIVAN JOB DEVELOPMENT SPECIALIST [facility] HH CELLULITIS [id number] 11/30/2016 13:57:00 11/30/2016 23:59:59 CLS Outpatient ERIC LA MD [facility] L03.115 [id number] 11/27/2016 11:28:00 11/27/2016 14:50:00 DIS Outpatient ENDY SULLIVAN JOB DEVELOPMENT SPECIALIST [facility] SDC ULCER OF RIGHT CALF, VENOUS INSUFFICIENCY [id number] 09/11/2016 11:02:00 09/11/2016 23:59:59 CLS Outpatient EVON DUONGREECE Noel APRN [facility] RAD SOB [id number] 04/09/2016 11:54:00 04/09/2016 23:59:59 CLS Outpatient ANNETTE MO MD, FACC, FACP CCDS [facility] CARD AF,CAF [id number] 04/02/2016 13:11:00 04/02/2016 23:59:59 CLS Outpatient ANNETTE MO MD, FACC, FACP CCDS [facility] RAD AF,CAD,CPD [id number] 06/25/2015 21:03:00 06/26/2015 06:55:00 DIS Outpatient KIMBERLY KINGSTON DO [facility] SLEEP SNORING,HTN,DAYTIME SLEEPINESS [id number] 03/09/2015 13:51:00 03/09/2015 23:59:59 CLS Outpatient SHANTELLE RIVERA PORTFOLIO ASSISTANT [facility] CARD AFIB,CAD,HTN [id number] 08/10/2014 09:43:00 08/10/2014 23:59:59 CLS Outpatient SHANTELLE RIVERA PORTFOLIO ASSISTANT [facility] CARD A FIB [id number] 06/13/2014 19:19:00 06/13/2014 21:33:00 DIS Emergency HUGO SINGLETARY MD [facility] ER FALL;HEAD INJ [id number] 05/27/2014 10:07:00 06/11/2014 15:30:00 DIS Inpatient ALESHIA WILSON MD [facility] IRF IRF-CVA [id number] 05/24/2014 12:29:00 05/27/2014 10:20:00 DIS Inpatient JAY URBANO MD [facility] 4TH CVA [id number] 04/21/2014 02:00:00 04/25/2014 13:00:00 DIS Inpatient JAY URBANO MD [facility] 4TH CLINICAL PNEUMONIA; GENERALIZED WEAKNESS [id number] 04/07/2014 09:25:00 04/08/2014 11:00:00 DIS Outpatient BANDAR JARRELL DO [facility] SDC OPEN REDUCTION INTERNAL FIXATION OF RIGHT DISTAL R [id number] 01/20/2014 12:00:00 01/20/2014 23:59:59 CLS Outpatient TERESA MONTEJO MD [facility] CARD PAINFUL LEFT TOTAL HIP [id number] 05/25/2013 11:08:00 05/25/2013 23:59:59 CLS Outpatient JAY URBANO MD [facility] LAB URINARY INCONT,MALISE ,FATIGUE [id number] 05/25/2013 14:27:00 05/25/2013 16:31:00 DIS Emergency SHREYAS BENAVIDES DO [facility] ER POSS CVA [id number] 12/01/2012 17:58:00 12/12/2012 16:15:00 DIS Inpatient ALESHIA WILSON MD [facility] IRF HIP REPLACEMENT [id number] 10/14/2012 14:08:00 10/14/2012 22:10:00 DIS Outpatient CHEPE PEOPLES FACC, ANNETTE FACRenato CCDS [facility] CATH CAD,HTN,A-FIB ,COPD,ABN STRESS TEST [id number] 09/16/2012 07:55:00 09/16/2012 23:59:59 CLS Outpatient HILDA NINA MD [facility] [facility] [id number] 07/29/2012 11:06:00 Document Registration [id number] 05/22/2012 11:22:00 Document Registration [id number] 09/10/2011 09:47:00 Document Registration [id number] 08/21/2011 13:18:00 Document Registration [id number] 04/21/2011 14:30:00 Document Registration [id number] 03/12/2011 09:12:00 Document Registration [id number] 01/11/2011 10:43:00 Document Registration [id number] 12/06/2010 08:53:00 Document Registration [id number] 06/05/2010 13:32:00 Document Registration [id number] 05/25/2010 08:39:00 Document Registration [id number] 02/07/2010 15:57:00 Document Registration [id number] 01/27/2010 07:59:00 Document Registration [id number] 01/10/2010 08:24:00 Document Registration [id number] 12/27/2009 10:30:00 Document Registration [id number] 11/29/2009 13:58:00 Document Registration [id number] 10/12/2009 09:55:00 Document Registration [id number] 05/31/2009 12:02:00 Document Registration [id number] 02/08/2009 09:09:00 Document Registration [id number] 08/11/2014 00:41:52 ACT Document Registration [id number] 03/21/2017 23:20:50 03/21/2017 23:59:59 [facility] Jay Urbano
[2018-03-30 08:29] LABS: BASOPHILS % (AUTO) 1 % (0-10); EOSINOPHILS # (AUTO) 0.1 10^3/uL (0.0-0.3); EOSINOPHILS % (AUTO) 1 % (0-10); HEMATOCRIT 43 % (35-52); HEMOGLOBIN 13.5 G/DL (11.5-16.0); LYMPHOCYTES # (AUTO) 0.6 X 10^3 (1.0-4.0); LYMPHOCYTES % (AUTO) 11 % (12-44); MEAN CORPUSCULAR HEMOGLOBIN 31 PG (25-34); MEAN CORPUSCULAR HGB CONC 31 G/DL (32-36); MEAN CORPUSCULAR VOLUME 98 FL (80-99); MEAN PLATELET VOLUME 9.4 FL (7.4-10.4); MONOCYTES # (AUTO) 0.4 X 10^3 (0.0-1.0); MONOCYTES % (AUTO) 7 % (0-12); NEUTROPHILS # (AUTO) 4.4 X 10^3 (1.8-7.8); NEUTROPHILS % (AUTO) 80 % (42-75); PLATELET COUNT 196 10^3/uL (130-400); RED BLOOD COUNT 4.43 10^6/uL (4.35-5.85); RED CELL DISTRIBUTION WIDTH 15.1 % (10.0-14.5); WHITE BLOOD COUNT 5.4 10^3/uL (4.3-11.0)
--- NOTE | 2018-03-30 08:29 | ED General ---
General Chief Complaint: Respiratory Problems Stated Complaint: RESP DISTRESS Source of Information: Patient, EMS Exam Limitations: No Limitations History of Present Illness Date Seen by Provider: Mar 30, 2018 Time Seen by Provider: 08:03 Initial Comments Here by EMS with report of hypoxia this morning. Apparently patient was having respiratory distress this morning and O2 sat noted to be 77 percent by correction evaluation. She was placed on 2 L nasal cannula and O2 with 83 percent. EMS was summoned and on their arrival place patient on high flow O2 which did bring her O2 sats up to 95 percent. They did initiate albuterol treatment in route. Patient reports that she has not been sleeping well the last couple of nights but she is not sure why. She does have history of insomnia. Denies fever or chills. Denies vomiting. Does report weakness. She does have bilateral leg swelling that is typical for her and she is not sure if it changed. Timing/Duration: 2-3 Days, Getting Worse Severity: Moderate Associated Systoms: No Chest Pain; Cough; No Fever/Chills, No Nausea/Vomiting; Shortness of Air, Weakness Allergies and Home Medications Allergies Coded Allergies: codeine (Verified Allergy, Unknown, 04/07/14) Uncoded Allergies: ESTROGEN SUPPLEMENT PATCHES (Allergy, Unknown, 04/21/14) Home Medications Acetaminophen 325 Mg Tablet, 325 MG PO Q4H PRN for FEVER GREATER THAN 101, ( Reported) Albuterol Sulfate 2.5 Mg/3 Ml Nebu, 2.5 MG NEB QID PRN for SHORTNESS OF BREATH, (Reported) Alprazolam 0.5 Mg Tablet, 0.25-0.5 MG PO HS PRN for ANXIETY/SLEEPLESSNESS, ( Reported) TAKES 1/2 TO 1 (0.5MG) TABLET Aspirin 325 Mg Tabec, 325 MG PO HS, (Reported) Calcium Carbonate/Vitamin D3 1 Each Tab.chew, 1 TAB.CHEW PO DAILY, (Reported) Cefdinir 300 Mg Capsule, 1 EACH PO BID Prescribed by: HUGO SINGLETARY on 06/13/142123 Celecoxib 200 Mg Capsule, 200 MG PO DAILY PRN for ARTHRITIS PAIN, (Reported) *DO NOT TAKE WITH OTHER NSAIDS* Fexofenadine Hcl 180 Mg Tablet, 180 MG PO DAILY PRN for ALLERGIES, (Reported) Furosemide 20 Mg Tablet, 20 MG PO BID PRN for EDEMA, (Reported) Isosorbide Mononitrate 30 Mg Tab.sr.24h, 30 MG PO DAILY, (Reported) Loratadine 10 Mg Tablet, 5 MG PO BID, (Reported) TAKES 1/2 (10MG) TABLET Meclizine Hcl 25 Mg Tab, 12.5 MG PO TID PRN for DIZZINESS, (Reported) TAKES 1/2 (25MG) TABLET Metoprolol Succinate 50 Mg Tab.sr.24h, 50 MG PO HS, (Reported) Multivitamin 1 Each Tablet, 1 TAB PO DAILY, (Reported) [place] 3 Polyunsat Fatty Acids 1,000 Mg Cap, 1,000 MG PO DAILY, (Reported) Senna 1 Ea Tablet, 1 EA PO BID Prescribed by: JAY HENSON on 05/27/14827 Verapamil Hcl 240 Mg Tablet.sa, 240 MG PO DAILY, (Reported) [Trospium Chloride] 20 MG TAB, 20 MG PO DAILY@06,16 Prescribed by: JAY HENSON on 05/27/14827 Patient Home Medication List Home Medication List Reviewed: Yes Review of Systems Review of Systems Constitutional: see HPI; No chills, No fever EENTM: no symptoms reported Respiratory: see HPI, cough, short of breath, wheezing Cardiovascular: No chest pain; edema Gastrointestinal: No nausea, No vomiting Genitourinary: no symptoms reported Musculoskeletal: no symptoms reported Skin: no symptoms reported Psychiatric/Neurological: No Symptoms Reported All Other Systems Reviewed Negative Unless Noted: Yes Past Ysadhec-Gandkc-Mcswhx Hx Past Med/Social Hx: Reviewed Nursing Past Med/Soc Hx Patient Social History Alcohol Use: Denies Use Recreational Drug Use: No Smoking Status: Never a Smoker 2nd Hand Smoke Exposure: No Recent Hopitalizations: Yes Immunizations Up To Date Tetanus Booster (TDap): More than 5yrs PED Vaccines UTD: No Date of Pneumonia Vaccine: Feb 10, 2013 Date of Influenza Vaccine: Feb 03, 2014 Seasonal Allergies Seasonal Allergies: Yes Past Medical History Surgeries: Yes Hysterectomy, Joint Replacement Respiratory: Yes Pneumonia, COPD Cardiac: Yes Atrial Fibrillation, Hypertension Stroke 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: Menopausal Gastrointestinal: No Musculoskeletal: Yes Arthritis, Scoliosis Endocrine: No HEENT: Yes Cataract, Dysphagia Loss of Vision: Denies Hearing Impairment: Denies Psychosocial: Yes Sleep Difficulties Family Medical History Reviewed Nursing Family Hx Alcoholism G8 BROTHER Arthritis 19 FATHER 19 MOTHER G8 BROTHER G8 SISTER Cardiovascular disease 19 FATHER 19 MOTHER Deafness or hearing loss 19 FATHER 19 MOTHER No Family History of: AIDS Abdominal aortic aneurysm Morrow's disease Alzheimer's disease Aphasia Asthma Cancer of mouth Cataracts Colon cancer Completed stroke Congenital disease Congenital heart disease Coronary thrombosis Cystic fibrosis Dementia Diabetes mellitus Drug abuse Dysphasia Fibrocystic disease of breast Gastroenteritis Glaucoma Headache disorder Hypercholesterolemia Hypertension Infertility Kidney disease Myocardial infarction Neoplasm Not obtainable due to adoption Osteoporosis Parkinson's disease Prostate cancer Psychosocial problem Respiratory disorder Seizure disorder Severe allergy Thyroid disease Tuberculosis Visual disorder Heart Disease Physical Exam-Suspected Sepsis Physical Exam Vital Signs Vital Signs - First Documented Capillary Refill : Height, Weight, BMI Height: 5'0.00" Weight: 150lbs. 0.0oz. 68.129165xt; 29.3 BMI Method:Stated General Appearance: No Apparent Distress, Chronically ill HEENT: PERRL/EOMI, Pharynx Normal Neck: Non Tender; No Lymphadenopathy (L), No Lymphadenopathy (R); Other ( kyphotic neck with limited range of motion due to arthritic changes) Respiratory: No Respiratory Distress, Decreased Breath Sounds, Expiration, Wheezing (Bilateral bases) Cardiovascular: No Murmur, Irregularly Irregular Gastrointestinal: Non Tender, Soft Back: Decreased Range of Motion (secondary to arthritic changes and kyphosis), Other (pronounced kyphosis) Extremity: Normal Capillary Refill, No Calf Tenderness, Pedal Edema (3+ pitting edema to legs bilaterally of to the level of knees.) Neurologic/Psychiatric: Alert, Oriented x3 Skin: warm/dry, other (erythema noted to both lower extremities and may be venous stasis color changes.) Focused Exam Lactate Level 03/30/18 08:00: Lactic Acid Level 0.85 Lactic Acid Level Laboratory Tests Test 03/30/18 08:00 Lactic Acid Level 0.85 MMOL/L (0.50-2.00) Progress/Results/Core Measures Suspected Sepsis SIRS Temperature: Pulse: Respiratory Rate: Laboratory Tests 03/30/18 08:00: White Blood Count 5.4 Blood Pressure / Mean: 03/30/18 08:00: Lactic Acid Level 0.85 Laboratory Tests 03/30/18 08:00: Creatinine 1.06, INR Comment 4.4H, Platelet Count 196, Total Bilirubin 0.7 Results/Orders Lab Results Laboratory Tests Test 03/30/18 08:00 03/30/18 08:15 Range/Units White Blood Count 5.4 4.3-11.0 10^3/uL Red Blood Count 4.43 4.35-5.85 10^6/uL Hemoglobin 13.5 11.5-16.0 G/DL Hematocrit 43 35-52 % Mean Corpuscular Volume 98 80-99 FL Mean Corpuscular Hemoglobin 31 25-34 PG Mean Corpuscular Hemoglobin Concent 31 L 32-36 G/DL Red Cell Distribution Width 15.1 H 10.0-14.5 % Platelet Count 196 130-400 10^3/uL Mean Platelet Volume 9.4 7.4-10.4 FL Neutrophils (%) (Auto) 80 H 42-75 % Lymphocytes (%) (Auto) 11 L 12-44 % Monocytes (%) (Auto) 7 0-12 % Eosinophils (%) (Auto) 1 0-10 % Basophils (%) (Auto) 1 0-10 % Neutrophils # (Auto) 4.4 1.8-7.8 X 10^3 Lymphocytes # (Auto) 0.6 L 1.0-4.0 X 10^3 Monocytes # (Auto) 0.4 0.0-1.0 X 10^3 Eosinophils # (Auto) 0.1 0.0-0.3 10^3/uL Basophils # (Auto) 0.0 0.0-0.1 10^3/uL Prothrombin Time 42.2 H 12.2-14.7 SEC INR Comment 4.4 H 0.8-1.4 Activated Partial Thromboplast Time 52 H 24-35 SEC Sodium Level 143 135-145 MMOL/L Potassium Level 4.1 3.6-5.0 MMOL/L Chloride Level 105 98-107 MMOL/L Carbon Dioxide Level 27 21-32 MMOL/L Anion Gap 11 5-14 MMOL/L Blood Urea Nitrogen 27 H 7-18 MG/DL Creatinine 1.06 0.60-1.30 MG/DL Estimat Glomerular Filtration Rate 49 BUN/Creatinine Ratio 25 Glucose Level 79 70-105 MG/DL Lactic Acid Level 0.85 0.50-2.00 MMOL/L Calcium Level 9.5 8.5-10.1 MG/DL Corrected Calcium 9.4 8.5-10.1 MG/DL Total Bilirubin 0.7 0.1-1.0 MG/DL Aspartate Amino Transf (AST/SGOT) 28 5-34 U/L Alanine Aminotransferase (ALT/SGPT) 27 0-55 U/L Alkaline Phosphatase 89 40-136 U/L B-Type Natriuretic Peptide 652.9 H <100.0 PG/ML Total Protein 6.9 6.4-8.2 GM/DL Albumin 4.1 3.2-4.5 GM/DL Urine Color YELLOW Urine Clarity CLEAR Urine pH 6 5-9 Urine Specific [place] 1.020 1.016-1.022 Urine Protein 2+ H NEGATIVE Urine Glucose (UA) NEGATIVE NEGATIVE Urine Ketones NEGATIVE NEGATIVE Urine Nitrite NEGATIVE NEGATIVE Urine Bilirubin NEGATIVE NEGATIVE Urine Urobilinogen NORMAL NORMAL MG/DL Urine Leukocyte Esterase NEGATIVE NEGATIVE Urine RBC (Auto) 1+ H NEGATIVE Urine RBC RARE /HPF Urine WBC RARE /HPF Urine Crystals NONE /LPF Urine Bacteria TRACE /HPF Urine Casts PRESENT /LPF Urine Hyaline Casts 5-10 H /LPF Urine Mucus NEGATIVE /LPF Urine Culture Indicated NO My Orders Orders - HUGO SINGLETARY MD Albuterol/Ipra Inhalation Soln (Duoneb I (03/30/18 07:57) Cbc With Automated Diff (03/30/18 08:07) Comprehensive Metabolic Panel (03/30/18 08:07) Blood Culture (03/30/18 08:07) Sputum Culture (03/30/18 08:07) Urinalysis (03/30/18 08:07) Urine Culture (03/30/18 08:07) Protime With Inr (03/30/18 08:07) Partial Thromboplastin Time (03/30/18 08:07) Chest 1 View, Ap/Pa Only (03/30/18 08:07) Saline Lock/Iv-Start (03/30/18 08:07) Vital Signs Adult Sepsis Patie Q15M (03/30/18 08:07) O2 (03/30/18 08:07) Remove Rings In Anticipation O (03/30/18 08:07) Lactic Acid Analyzer (03/30/18 08:07) BNP (03/30/18 08:07) Albuterol Pre-Mix Nebs (Rt) (Proventil (03/30/18 09:37) Ipratropium 0.02% Neb Solution (Atrovent (03/30/18 09:45) Svn Small Volume Nebulizer (03/30/18 09:37) Methylprednisolone Sod Succ (Solu-Medrol (03/30/18 09:37) Albuterol Pre-Mix Nebs (Rt) (Proventil (03/30/18 09:36) Furosemide Injection (Lasix Injection) (03/30/18 11:21) Medications Given in ED Current Medications Medications Dose Ordered Sig/Osmin Route Start Time Stop Time Status Last Admin Dose Admin Albuterol/ Ipratropium 3 ml STK-MED ONCE .ROUTE 03/30/18 07:57 03/30/18 07:59 DC 03/30/18 08:11 3 ML Ipratropium [place] 0.5 mg ONCE ONCE IH 03/30/18 09:45 03/30/18 09:46 DC 03/30/18 09:49 0.5 MG Vital Signs/I&O 03/30/18 03/30/18 03/30/18 03/30/18 07:53 07:53 08:11 09:49 Temp 96.4 Pulse 89 Resp 18 B/P (MAP) 155/95 (115) Pulse Ox 94 92 95 91 O2 Delivery Non Rebreather OxyMask Nasal Cannula OxyMask O2 Flow Rate 6.00 6.00 3.00 7.00 Capillary Refill : Progress Note : Progress Note Seen and evaluated. IV by EMS. Labs, UA, chest x-ray, blood cultures and lactic acid ordered. Duo neb and treatment ordered and given. This did help her oxygenation and she is improved with O2 sat 94 percent on 4 L via nasal cannula. Monitor patient. Patient had worsening of symptoms and O2 saturation. Initiated one-hour continuous breathing treatment. Solu-Medrol 125 mg IV ordered. Monitor patient. 1112: Patient is improved but is requiring additional oxygen via ox a mass currently at 5-6 L/m. This does keep her O2 sat in the mid 90s. Noted to have elevated BNP as well as congestion noted on chest x-ray concerning for heart failure. This is likely related to her respiratory distress but we will treat. Lasix 40 mg IV ordered. I did discuss the case with Dr. Mensah and she accepts patient for admission, inpatient status. I have consulted Dr. Manning and he will see patient in consult. 1118: I did discuss the case with Dr. Gotti and he will see the patient in consult as well. Admit, inpatient status. Patient agrees with plan. INR noted to be supratherapeutic at this point. We will hold Coumadin tonight. Diagnostic Imaging Diagonstic Imaging: Xray Plain Films/CT/US/NM/MRI: chest Comments NAME: ARI[facility]ARD[facility] REC#: [id number] PT STATUS: REG ER : 1930 PHYSICIAN: HUGO SINGLETARY MD ADMIT DATE: 03/30/18/ER Signed Date of Exam: 03/30/18 CHEST 1 VIEW, AP/PA ONLY INDICATION: Short of air Portable chest shows cardiomegaly with vascular congestion. There is basilar atelectasis with small effusions. There are advanced degenerative changes of both shoulder joints. Impression: Mild congestive failure. This is a change from 09/11/2016. Dictated by: Dictated on workstation # [id number] Dict: 03/30/1828 Trans: 03/30/1834 Interpreted by: DESIRE BRYANT MD Electronically signed by: DESIRE BRYANT MD 03/30/18 0834 Departure Communication (Admissions) Time/Spoke to Admitting Phy: 11:08 Time/Spoke to Consulting Phy: 11:12 Impression Primary Impression: COPD with acute exacerbation Additional Impressions: Acute heart failure Qualified Codes: I50.9 - Heart failure, unspecified Chronic a-fib Supratherapeutic INR Disposition: ADMITTED INPATIENT Condition: Stable Admissions Decision to Admit Reason: Admit from ER (General) Decision to Admit/Date: Mar 30, 2018 Time/Decision to Admit Time: 11:08 Departure-Patient Inst. Referrals: JAY HENSON MD (PCP/Family) Primary Care Physician HUGO SINGLETARY MD Mar 30, 2018 08:29
[2018-03-30 08:33] LABS: BILIRUBIN,URINE NEGATIVE (NEGATIVE); CLARITY,URINE CLEAR; COLOR,URINE YELLOW; GLUCOSE, URINE (UA) NEGATIVE (NEGATIVE); KETONES,URINE NEGATIVE (NEGATIVE); LEUKOCYTE ESTERASE ,URINE NEGATIVE (NEGATIVE); NITRITE,URINE NEGATIVE (NEGATIVE); PH,URINE 6 (5-9); PROTEIN,URINE 2+ (NEGATIVE); UROBILINOGEN,URINE NORMAL (NORMAL)
[2018-03-30 08:43] LABS: INR 4.4 (0.8-1.4); PROTHROMBIN TIME PATIENT 42.2 SEC (12.2-14.7)
[2018-03-30 08:47] LABS: ALBUMIN 4.1 GM/DL (3.2-4.5); BILIRUBIN,TOTAL 0.7 MG/DL (0.1-1.0); CALCIUM 9.5 MG/DL (8.5-10.1); CREATININE SERUM 1.06 MG/DL (0.60-1.30); POTASSIUM 4.1 MMOL/L (3.6-5.0); TOTAL PROTEIN 6.9 GM/DL (6.4-8.2)
[2018-03-30 08:48] LABS: BACTERIA,URINE TRACE /HPF; RBC,URINE RARE /HPF; WBC,URINE RARE /HPF
[2018-03-30] MEDS ORDERED: RT-ALBUTEROL SULF 2.5 MG/3 ML PRE-MIX VIAL ONE (09:36)
[2018-03-30] MEDS ORDERED: methylPREDNISolone 125 MG (Solu-MEDROL) VIAL IV STA (09:37)
[2018-03-30] MEDS ORDERED: RT-ALBUTEROL SULF 2.5 MG/3 ML PRE-MIX VIAL INH STA (09:37)
[2018-03-30] MEDS ORDERED: RT-IPRATROPIUM (ATROVENT) 0.5MG/2.5ML AMP IH ONE (09:45)
[2018-03-30] MEDS ORDERED: FUROSEMIDE 40 MG/4 ML INJ (LASIX) IV STA (11:21)
--- NOTE | 2018-03-30 13:36 | History & Physical-Hospitalist ---
History of Present Illness HPI/Chief Complaint CC: Wheezing with respiratory insufficiency HPI: This is an 87-year-old white female assisted living patient of Dr. Urbano at [facility] who has a past medical history of severe kyphosis with restrictive lung disease, left sided weakness from prior CVA and atrial fibrillation on Coumadin for stroke prophylaxis in addition to congestive heart failure diastolic type on ECHO 2016 along with valvular heart disease who presents to the ER with increased shortness of breath and wheezing. Dr. Rubio is her service writer advisor. She reports some mild cough and difficulty sleeping due to shortness of breath the last 2 nights. She wears oxygen at night only. She does not require pain medication for severe kyphosis. She was found to have O2 sat of 77 percent when EMS arrived nonrebreather placed O2 sat of 95 percent when she arrived but she still has increased tachypnea and use of accessory muscles when speaking. Source: patient, RN/MD Exam Limitations: clinical condition Date Seen 03/30/18 Time Seen by a Provider: 13:00 Attending Physician PCP Darby Urbano MD Referring Physician Date of Admission Home Medications & Allergies Home Medications Reviewed patient Home Medication Reconciliation performed by pharmacy medication reconciliations soil technician and/or nursing. Patients Allergies have been reviewed. Allergies Allergies Coded Allergies codeine (Verified Allergy, Unknown, 04/07/14) Uncoded Allergies ESTROGEN SUPPLEMENT PATCHES ( Allergy, Unknown, 04/21/14) Past Nbternh-Frxysq-Ezjikh Hx Past Med/Social Hx: Reviewed Nursing Past Med/Soc Hx, Reviewed and Corrections made Patient Social History Marrital Status: single Employed/Student: retired Alcohol Use: Denies Use Recreational Drug Use: No Smoking Status: Never a Smoker 2nd Hand Smoke Exposure: No Recent Foreign Travel: No Contact w/other who traveled: No Recent Hopitalizations: No Recent Infectious Disease Expo: No Immunizations Up To Date Tetanus Booster (TDap): More than 5yrs Pediatric: No Date of Pneumonia Vaccine: Feb 10, 2013 Date of Influenza Vaccine: Feb 03, 2014 Seasonal Allergies Seasonal Allergies: Yes Past Medical History Surgeries: Hysterectomy, Joint Replacement Respiratory: COPD Cardiac: Atrial Fibrillation, Chronic Edema/Swelling, Hypertension, Valvular Heart Disease Neurological: Stroke Reproductive: No Menopausal Gastrointestinal: Chronic Constipation Musculoskeletal: Arthritis, Scoliosis HEENT: Cataract, Dysphagia Loss of Vision: Denies Hearing Impairment: Denies Psychosocial: Sleep Difficulties History of Blood Disorders: No Family History Reviewed Nursing Family Hx Alcoholism G8 BROTHER Arthritis 19 FATHER 19 MOTHER G8 BROTHER G8 SISTER Cardiovascular disease 19 FATHER 19 MOTHER Deafness or hearing loss 19 FATHER 19 MOTHER No Family History of: AIDS Abdominal aortic aneurysm Hao's disease Alzheimer's disease Aphasia Asthma Cancer of mouth Cataracts Colon cancer Completed stroke Congenital disease Congenital heart disease Coronary thrombosis Cystic fibrosis Dementia Diabetes mellitus Drug abuse Dysphasia Fibrocystic disease of breast Gastroenteritis Glaucoma Headache disorder Hypercholesterolemia Hypertension Infertility Kidney disease Myocardial infarction Neoplasm Not obtainable due to adoption Osteoporosis Parkinson's disease Prostate cancer Psychosocial problem Respiratory disorder Seizure disorder Severe allergy Thyroid disease Tuberculosis Visual disorder Heart Disease Review of Systems Constitutional: see HPI, dizziness, weakness EENTM: no symptoms reported Respiratory: dyspnea on exertion, orthopnea, short of breath, wheezing Cardiovascular: no symptoms reported Gastrointestinal: loss of appetite, nausea Genitourinary: no symptoms reported Musculoskeletal: back pain Skin: no symptoms reported Psychiatric/Neurological: No Symptoms Reported All Other Systems Reviewed Negative Unless Noted: Yes Physical Exam Physical Exam Vital Signs Vital Signs - First Documented Capillary Refill : Less Than 3 Seconds Height, Weight, BMI Height: 5'4.00" Weight: 160lbs. 0.0oz. 72.430640pk; 29.3 BMI Method:Estimated General Appearance: WD/WN, Chronically ill, Mild Distress (due to mild tachypnea), Other (severely kyphotic) Eyes: Bilateral Eye Normal Inspection, Bilateral Eye PERRL HEENT: PERRL/EOMI, Normal ENT Inspection, Pharynx Normal Neck: Full Range of Motion, Normal Inspection, Non Tender, Supple, Carotid Bruit Respiratory: Chest Non Tender, Accessory Muscle Use, Crackles, Decreased Breath Sounds, Rales, Respiratory Distress, Wheezing Cardiovascular: No Edema, No Gallop, No JVD, No Murmur, Normal Peripheral Pulses, Irregularly Irregular Gastrointestinal: Normal Bowel Sounds, No Organomegaly, No Pulsatile Mass, Non Tender, Soft Back: Normal Inspection, No CVA Tenderness, No Vertebral Tenderness Extremity: Normal Capillary Refill, Normal Inspection, Normal Range of Motion, Non Tender, No Calf Tenderness, No Pedal Edema Neurologic/Psychiatric: Alert, Oriented x3, No Motor/Sensory Deficits, Normal Mood/Affect Skin: Normal Color, Warm/Dry Lymphatic: No Adenopathy Results Results/Procedures Labs Laboratory Tests 03/30/18 08:00 Patient resulted labs reviewed. Assessment/Plan Admission Diagnosis Assessment: Respiratory insufficiency Bilateral wheezing Restrictive lung disease due to severe kyphosis and scoliosis Nighttime hypoxia on 2 L oxygen Atrial fibrillation managed by Dr. Rubio Coumadin for stroke prophylaxis with supratherapeutic INR 4.4 today Hypertension Hyperlipidemia Prior CVA with right-sided weakness Chronic vertigo Plan: IV steroids Oxygen Nebulizer treatments Close monitoring DO NOT RESUSCITATE due to overall poor prognosis line appreciate cardiology and pulmonology expertise Maintain comfort Admission Status: Inpatient Order (span 2 midnights) Reason for Inpatient Admission: Severe COPD exacerbation with wheezing and severe kyphosis causing restrictive lung disease with volume overload with diastolic congestive heart failure will require 3 days of inpatient Diagnosis/Problems Diagnosis/Problems (1) COPD with acute exacerbation Status: Acute (2) CVA, old, hemiparesis Status: Chronic (3) Kyphosis Status: Chronic Qualifiers: Kyphosis type: unspecified Spinal region: thoracolumbar Qualified Codes: M40.205 - Unspecified kyphosis, thoracolumbar region (4) Scoliosis Status: Chronic Qualifiers: Scoliosis type: unspecified scoliosis Spinal region: thoracic Qualified Codes: M41.9 - Scoliosis, unspecified (5) Restrictive lung disease Status: Chronic (6) Diastolic congestive heart failure Status: Acute Qualifiers: Heart failure chronicity: chronic Qualified Codes: I50.32 - Chronic diastolic (congestive) heart failure (7) Valvular heart disease Status: Chronic (8) Poor prognosis Status: Acute (9) DNR (do not resuscitate) Status: Chronic (10) Advanced age Status: Chronic (11) Chronic a-fib Status: Acute (12) Supratherapeutic INR Status: Acute (13) Acute heart failure Status: Acute Qualifiers: Heart failure type: unspecified Qualified Codes: I50.9 - Heart failure, unspecified (14) Generalized weakness Status: Acute NICOLAS WANG DO Mar 30, 2018 13:36
--- NOTE | 2018-03-30 13:44 | Consultation-Cardiology ---
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 She has history of congestive heart failure. She presented by EMS due to hypoxia. Her oxygen saturation in the long-term was 77 percent. She was given nebulization treatment on the way to the ER. The patient complains of significant shortness of breath and lower extremity swelling. She denies any chest pain, syncope or near syncope. She also denies any palpitation. She is feeling a little better after nebulization and IV dose of Lasix. Patient does have history of chronic atrial fibrillation and is on Coumadin. Review of Systems-Cardiology Review of Systems Constitutional: As described under HPI; No As described under HPI, No no symptoms reported, No chills, No fever, No lightheadedness Eyes: No As described under HPI, No no symptoms reported, No blindness, No blurred vision, No contact lenses, No drainage, No decreased acuity, No foreign body sensation, No pain, No vision change Ears/Nose/Throat: No As described under HPI, No no symptoms reported, No chronic hearing loss, No ear discharge, No ear pain, No nasal drainage, No ulcerations Respiratory: No no symptoms reported; As described under HPI; No As described under HPI, No cough; orthopnea, shortness of breath; No SOB with excertion Cardiovascular: No no symptoms reported; As described under HPI; No As described under HPI, No chest pain, No edema, No irregular heart rate, No lightheadedness, No palpitations Gastrointestinal: No no symptoms reported, No As described under HPI, No abdomen distended, No abdominal pain, No blood streaked bowels, No constipation , No diarrhea, No nausea, No vomiting, No stool coloration changes Genitourinary: No As described under HPI, No burning, No dysuria, No discharge , No frequency, No flank pain, No hematuria, No urgency : Yes : No Skin: No rash, No skin related problems, No ulcerations Psychiatric/Neurological: No anxiety, No depression, No seizure, No focal weakness, No syncope Hematologic: No bleeding abnormalities All Other Systems Reviewed Negative Unless Noted: Yes [id number] Hx Patient Social History Alcohol Use: Denies Use Recreational Drug Use: No Smoking Status: Never a Smoker 2nd Hand Smoke Exposure: No Recent Foreign Travel: No Recent Infectious Disease Expo: No Hospitalization with Isolation: Denies Immunizations Up To Date Tetanus Booster (TDap): More than 5yrs Date of Pneumonia Vaccine: Feb 10, 2013 Date of Influenza Vaccine: Feb 03, 2014 Past Medical History PMH As described under Assessment. Family Medical History Family History: Alcoholism G8 BROTHER Arthritis 19 FATHER 19 MOTHER G8 BROTHER G8 SISTER Cardiovascular disease 19 FATHER 19 MOTHER Deafness or hearing loss 19 FATHER 19 MOTHER No Family History of: AIDS Abdominal aortic aneurysm Lititz's disease Alzheimer's disease Aphasia Asthma Cancer of mouth Cataracts Colon cancer Completed stroke Congenital disease Congenital heart disease Coronary thrombosis Cystic fibrosis Dementia Diabetes mellitus Drug abuse Dysphasia Fibrocystic disease of breast Gastroenteritis Glaucoma Headache disorder Hypercholesterolemia Hypertension Infertility Kidney disease Myocardial infarction Neoplasm Not obtainable due to adoption Osteoporosis Parkinson's disease Prostate cancer Psychosocial problem Respiratory disorder Seizure disorder Severe allergy Thyroid disease Tuberculosis Visual disorder Allergies and Home Medications Allergies Coded Allergies: codeine (Verified Allergy, Unknown, 04/07/14) Uncoded Allergies: ESTROGEN SUPPLEMENT PATCHES (Allergy, Unknown, 04/21/14) Home Medications Acetaminophen 325 Mg Tablet, 325 MG PO Q4H PRN for FEVER GREATER THAN 101, ( Reported) Albuterol Sulfate 2.5 Mg/3 Ml Nebu, 2.5 MG NEB QID PRN for SHORTNESS OF BREATH, (Reported) Alprazolam 0.5 Mg Tablet, 0.25-0.5 MG PO HS PRN for ANXIETY/SLEEPLESSNESS, ( Reported) TAKES 1/2 TO 1 (0.5MG) TABLET Aspirin 325 Mg Tabec, 325 MG PO HS, (Reported) Calcium Carbonate/Vitamin D3 1 Each Tab.chew, 1 TAB.CHEW PO DAILY, (Reported) Cefdinir 300 Mg Capsule, 1 EACH PO BID Prescribed by: HUGO SINGLETARY on 06/13/142123 Celecoxib 200 Mg Capsule, 200 MG PO DAILY PRN for ARTHRITIS PAIN, (Reported) *DO NOT TAKE WITH OTHER NSAIDS* Fexofenadine Hcl 180 Mg Tablet, 180 MG PO DAILY PRN for ALLERGIES, (Reported) Furosemide 20 Mg Tablet, 20 MG PO BID PRN for EDEMA, (Reported) Isosorbide Mononitrate 30 Mg Tab.sr.24h, 30 MG PO DAILY, (Reported) Loratadine 10 Mg Tablet, 5 MG PO BID, (Reported) TAKES 1/2 (10MG) TABLET Meclizine Hcl 25 Mg Tab, 12.5 MG PO TID PRN for DIZZINESS, (Reported) TAKES 1/2 (25MG) TABLET Metoprolol Succinate 50 Mg Tab.sr.24h, 50 MG PO HS, (Reported) Multivitamin 1 Each Tablet, 1 TAB PO DAILY, (Reported) [place] 3 Polyunsat Fatty Acids 1,000 Mg Cap, 1,000 MG PO DAILY, (Reported) Senna 1 Ea Tablet, 1 EA PO BID Prescribed by: JAY URBANO on 05/27/14827 Verapamil Hcl 240 Mg Tablet.sa, 240 MG PO DAILY, (Reported) [Trospium Chloride] 20 MG TAB, 20 MG PO DAILY@06,16 Prescribed by: JAY URBANO on 05/27/14827 Patient Home Medication List Home Medication List Reviewed: Yes Physical Exam-Cardiology Physical Exam Vital Signs/I&O 03/30/18 03/30/18 03/30/18 03/30/18 07:53 07:53 08:11 09:49 Temp 96.4 Pulse 89 Resp 18 B/P (MAP) 155/95 (115) Pulse Ox 94 92 95 91 O2 Delivery Non Rebreather OxyMask Nasal Cannula OxyMask O2 Flow Rate 6.00 6.00 3.00 7.00 Capillary Refill : Less Than 3 Seconds Constitutional: appears stated age; No apparent distress; well-developed, well- nourished HEENT: PERRL; No normal ENT inspection, No TMs normal, No pharynx normal, No scleral icterus (R), No scleral icterus (L), No pale conjunctivae (R), No pale conjunctivae (L), No photophobia, No TM abnormal (R), No TM abnormal (L), No pharyngeal erythema, No tonsillar exudate, No other, No discharge, No EOMI; hearing is well preserved; No hard of hearing; oral hygience is good; No ulceration, No xanthelasmas are seen Neck: No non-tender, No full range of motion, No supple, No normal inspection, No carotid bruit, No limited range of motion, No lymphadenopathy (R), No lymphadenopathy (L), No tender lateral, No tender midline, No thyromegaly, No other; carotid pulses are 2 + bilaterally; No with good upstrokes Respiratory: accessory muscle use, chest is bilaterally symmetric, lungs clear to auscultation Cardiovascular: irregularly irregular, S1 and S2, systolic murmur Gastrointestinal: No tender, No soft, No round, No distended, No pulsatile mass , No organomegaly, No guarding, No rebound, No tenderness, No hernia, No mass, No audible bowel sounds, No abnormal bowel sounds, No abdominal bruits, No spleenomegaly, No other Rectal: deferred Extremities: No normal range of motion, No non-tender, No normal inspection; pedal edema; No calf tenderness, No normal capillary refill, No pelvis stable, No calf tenderness, No inflammation, No pedal edema, No slow capillary refill, No swelling, No other, No abrasion, No clubbing, No cyanosis, No ecchymosis, No laceration, No no lower extremity edema bilateral, No significant edema, No tenderness, No wound Neurologic/Psychiatric: no motor/sensory deficits, alert, normal mood/affect, oriented x 3, power is 5/5 both on sides Skin: warm/dry, other (erythema noted to both lower extremities and may be venous stasis color changes.) Data Review Labs Laboratory Tests 03/30/18 08:00: White Blood Count 5.4, Red Blood Count 4.43, Hemoglobin 13.5, Hematocrit 43, Mean Corpuscular Volume 98, Mean Corpuscular Hemoglobin 31, Mean Corpuscular Hemoglobin Concent 31L, Red Cell Distribution Width 15.1H, Platelet Count 196, Mean Platelet Volume 9.4, Neutrophils (%) (Auto) 80H, Lymphocytes (%) (Auto) 11L , Monocytes (%) (Auto) 7, Eosinophils (%) (Auto) 1, Basophils (%) (Auto) 1, Neutrophils # (Auto) 4.4, Lymphocytes # (Auto) 0.6L, Monocytes # (Auto) 0.4, Eosinophils # (Auto) 0.1, Basophils # (Auto) 0.0, Prothrombin Time 42.2H, INR Comment 4.4H, Activated Partial Thromboplast Time 52H, Sodium Level 143, Potassium Level 4.1, Chloride Level 105, Carbon Dioxide Level 27, Anion Gap 11, Blood Urea Nitrogen 27H, Creatinine 1.06, Estimat Glomerular Filtration Rate 49 , BUN/Creatinine Ratio 25, Glucose Level 79, Lactic Acid Level 0.85, Calcium Level 9.5, Corrected Calcium 9.4, Total Bilirubin 0.7, Aspartate Amino Transf ( AST/SGOT) 28, Alanine Aminotransferase (ALT/SGPT) 27, Alkaline Phosphatase 89, B -Type Natriuretic Peptide 652.9H, Total Protein 6.9, Albumin 4.1 03/30/18 08:15: Urine Color YELLOW, Urine Clarity CLEAR, Urine pH 6, Urine Specific [place] 1.020, Urine Protein 2+H, Urine Glucose (UA) NEGATIVE, Urine Ketones NEGATIVE, Urine Nitrite NEGATIVE, Urine Bilirubin NEGATIVE, Urine Urobilinogen NORMAL, Urine Leukocyte Esterase NEGATIVE, Urine RBC (Auto) 1+H, Urine RBC RARE, Urine WBC RARE, Urine Crystals NONE, Urine Bacteria TRACE, Urine Casts PRESENT, Urine Hyaline Casts 5-10H, Urine Mucus NEGATIVE, Urine Culture Indicated NO A/P-Cardiology Assessment/Admission Diagnosis Acute diastolic congestive heart failure, Acute Respiratory failure, COPD exacerbation, Supratherapeutic INR, Chronic atrial fibrillation. Mitral regurgitation, Tricuspid regurgitation, Plan Acute diastolic congestive heart failure, continue IV Lasix, oxygen therapy. Acute Respiratory failure, likely multifactorial with acute diastolic congestive heart failure and COPD. COPD exacerbation, would with nebulization therapy. Pulmonology consultation done by Dr. Mensah. Supratherapeutic INR, hold Coumadin tonight. Chronic atrial fibrillation. Continue rate control. Mitral regurgitation, continue to follow clinically. Patient will require repeat echocardiogram during this hospitalization. Tricuspid regurgitation, Dr. Rubio to take over cardiology care tomorrow. Thank you for your consultation. Please call me if you have any questions. Shellie Pagan MD, FACP, FACC, FSCAI, FHRS, CCDS Interventional Cardiology Cardiac Electrophysiology Vascular Medicine and Endovascular Interventions Sadie PAGAN MD Mar 30, 2018 13:44
--- OUTSIDE RECORDS SUMMARY | 2018-03-30 15:28 | XMS REPORT | Continuity of Care Document ---
Author Author [facility] Organization 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 12/12/2012 STEVE PEOPLES ALESHIA E Ot 401.9 HYPERTENSION NOS 12/12/2012 STEVE PEOPLES ALESHIA E Ot 414.01 CORONARY ATHEROSCLEROSIS OF [place] CORON 12/12/2012 STEVE PEOPLES ALESHIA E Ot [...] 788.20 RETENTION OF URINE NOS 12/12/2012 ALESHIA WILSON MD Ot V12.54 PERSONAL HX OF TIA, [...] NOS 04/08/2014 BANDAR JARRELL DO Ot V06.1 [id number], COMBINED [ 04/08/2014 BANDAR JARRELL DO Ot [...] STEVE PEOPLES ALESHIA E Ot 593.9 06/07/2014 STEEV PEOPLES ALESHIA E Ot 723.5 06/07/2014 LUIS [...] E888.9 FALL NOS 10/01/2014 BAIMA, SHANTELLE L PATHOLOGY MANAGER Ot 401.9 10/01/2014 BAIMA, SHANTELLE L PATHOLOGY MANAGER Ot 414.9 10/01/2014 BAIMA, SHANTELLE L PATHOLOGY MANAGER Ot 427.31 10/01/2014 BAIMA, SHANTELLE L PATHOLOGY MANAGER Ot V12.54 10/01/2014 BAIMA, SHANTELLE L PATHOLOGY MANAGER Ot 401.9 10/01/2014 BAIMA, SHANTELLE L PATHOLOGY MANAGER Ot 414.9 10/01/2014 BAIMA, SHANTELLE L PATHOLOGY MANAGER Ot 427.31 10/01/2014 BAIMA, SHANTELLE L PATHOLOGY MANAGER Ot V12.54 03/09/2015 Ot 427.31 03/09/2015 Ot [...] MD Ot V43.64 03/09/2015 BAIMA, SHANTELLE L PATHOLOGY MANAGER Ot 401.9 03/09/2015 BAIMA, SHANTELLE L PATHOLOGY MANAGER Ot 414.9 03/09/2015 BAIMA, SHANTELLE L PATHOLOGY MANAGER Ot 427.31 03/09/2015 BAIMA, SHANTELLE L PATHOLOGY MANAGER Ot V12.54 03/30/2015 BAIMA, SHANTELLE L PATHOLOGY MANAGER Ot I10 03/30/2015 BAIMA, SHANTELLE L PATHOLOGY MANAGER Ot I25.10 03/30/2015 SHANTELLE RIVERA PATHOLOGY MANAGER Ot I35.1 03/30/2015 SHANTELLE RIVERA PATHOLOGY MANAGER Ot I48.91 03/30/2015 SHANTELLE RIVERA PATHOLOGY MANAGER Ot J98.4 03/30/2015 SHANTELLE RIVERA PATHOLOGY MANAGER Ot Z86.73 04/12/2015 SHANTELLE RIVERA PATHOLOGY MANAGER Ot I10 04/12/2015 BAISHANTELLE EDWARDS PATHOLOGY MANAGER Ot I25.10 04/12/2015 BAISHANTELLE EDWARDS PATHOLOGY MANAGER Ot I35.1 04/12/2015 SHANTELLE RIVERA PATHOLOGY MANAGER Ot I48.91 04/12/2015 SHANTELLE RIVERA PATHOLOGY MANAGER Ot J98.4 04/12/2015 SHANTELLE RIVERA PATHOLOGY MANAGER Ot Z86.73 06/26/2015 KIMBERLY KINGSTON DO Ot [...] HIP JOINT REPLACEMENT STATUS 04/02/2016 SHANTELLE RIVERA PATHOLOGY MANAGER Ot 401.9 HYPERTENSION NOS 04/02/2016 SHANTELLE RIVERA PATHOLOGY MANAGER Ot 414.9 CHR ISCHEMIC HRT DIS NOS 04/02/2016 SHANTELLE RIVERA PATHOLOGY MANAGER Ot 427.31 ATRIAL FIBRILLATION 04/02/2016 SHANTELLE RIVERA PATHOLOGY MANAGER Ot V12.54 PERSONAL HX OF TIA, CEREBRAL INFARCTION 04/02/2016 SHANTELLE RIVERA PATHOLOGY MANAGER Ot I10 ESSENTIAL (PRIMARY) HYPERTENSION 04/02/2016 SHANTELLE RIVERA PATHOLOGY MANAGER Ot I25.10 ATHSCL HEART DISEASE OF [place] CORONARY 04/02/2016 SHANTELLE RIVERA PATHOLOGY MANAGER Ot 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 04/02/2016 SHANTELLE RIVERA PATHOLOGY MANAGER Ot I48.91 UNSPECIFIED ATRIAL FIBRILLATION 04/02/2016 SHANTELLE RIVERA PATHOLOGY MANAGER Ot J98.4 OTHER DISORDERS OF LUNG 04/02/2016 SHANTELLE RIVERA PATHOLOGY MANAGER Ot Z86.73 PRSNL HX OF TIA (TIA), [...] CCDS Ot I25.10 ATHSCL HEART DISEASE OF [place] CORONARY 04/04/2016 CHEPE PEOPLES FACC, ANNETTE FACP [...] CCDS Ot I25.10 ATHSCL HEART DISEASE OF [place] CORONARY 04/10/2016 CHEPE PEOPLES FACC, ALI FACP [...] CCDS Ot I25.10 ATHSCL HEART DISEASE OF [place] CORONARY 04/10/2016 CHEPE PEOPLES FACTiburcio, ALI FACP [...] CCDS Ot I25.10 ATHSCL HEART DISEASE OF [place] CORONARY 04/25/2016 CHEPE PEOPLES FACC, ALI FACP [...] CCDS Ot I25.10 ATHSCL HEART DISEASE OF [place] CORONARY 05/01/2016 CHEPE PEOPLES FACC, ALI FACP [...] CCDS Ot I25.10 ATHSCL HEART DISEASE OF [place] CORONARY 05/02/2016 CHEPE PEOPLES FACC, ALI FACP [...] CCDS Ot I25.10 ATHSCL HEART DISEASE OF [place] CORONARY 05/09/2016 CHEPE PEOPLES FACC, ALI FACP CCDS Ot I27.2 OTHER SECONDARY PULMONARY HYPERTENSION 05/09/2016 CHEPE PEOPLES FACC, ALI FACP CCDS Ot I48.0 PAROXYSMAL ATRIAL FIBRILLATION 05/09/2016 CHEPE PEOPLES FACC, ALI FACP CCDS Ot J44.9 CHRONIC OBSTRUCTIVE PULMONARY DISEASE, U 05/09/2016 CHEPE PEOPLES FACC, ALI FACP CCDS Ot Z86.73 PRSNL HX OF TIA (TIA), AND CEREB INFRC W 09/12/2016 EVON, DUONG M SIGN BUILDER SUPERVISOR Ot I51.7 CARDIOMEGALY 09/12/2016 DUONG BARNARD SIGN BUILDER SUPERVISOR Ot R06.02 SHORTNESS OF BREATH 10/03/2016 DUONG BARNARD SIGN BUILDER SUPERVISOR Ot I51.7 CARDIOMEGALY 10/03/2016 DUONG BARNARD SIGN BUILDER SUPERVISOR Ot R06.02 SHORTNESS OF BREATH 10/10/2016 DUONG BARNARD SIGN BUILDER SUPERVISOR Ot I51.7 CARDIOMEGALY 10/10/2016 DUONG BARNARD SIGN BUILDER SUPERVISOR Ot R06.02 SHORTNESS OF BREATH 11/21/2016 ENDY SULLIVAN SIGN BUILDER SUPERVISOR Ot I87.2 VENOUS INSUFFICIENCY (CHRONIC) (PERIPHER 11/21/2016 NATEENDY R SIGN BUILDER SUPERVISOR Ot L03.115 CELLULITIS OF RIGHT LOWER LIMB 11/21/2016 NATEENDY R SIGN BUILDER SUPERVISOR Ot L97.212 NON-PRESSURE CHRONIC ULCER OF RIGHT CALF 11/27/2016 ENDY SULLIVAN R SIGN BUILDER SUPERVISOR Ot L03.119 CELLULITIS OF UNSPECIFIED PART OF LIMB 11/27/2016 NATEENDY R SIGN BUILDER SUPERVISOR Ot L03.119 CELLULITIS OF UNSPECIFIED PART OF LIMB 11/27/2016 NATE ENDY R SIGN BUILDER SUPERVISOR Ot L03.119 CELLULITIS OF UNSPECIFIED PART OF LIMB 11/27/2016 ENDY SULLIVAN R SIGN BUILDER SUPERVISOR Ot I48.2 CHRONIC ATRIAL FIBRILLATION 11/27/2016 NATEENDY R SIGN BUILDER SUPERVISOR Ot I87.2 VENOUS INSUFFICIENCY (CHRONIC) (PERIPHER 11/27/2016 NATE ENDY R SIGN BUILDER SUPERVISOR Ot L03.115 CELLULITIS OF RIGHT LOWER LIMB 11/27/2016 NATE ENDY R SIGN BUILDER SUPERVISOR Ot L03.119 CELLULITIS OF UNSPECIFIED PART OF LIMB 11/27/2016 ENDY SULLIVAN R SIGN BUILDER SUPERVISOR Ot L97.212 NON-PRESSURE CHRONIC ULCER OF RIGHT CALF 11/27/2016 ENDY SULLIVAN SIGN BUILDER SUPERVISOR Ot Z79.01 PRISON (CURRENT) USE OF ANTICOAGULANT 11/27/2016 ENDY SULLIVAN R SIGN BUILDER SUPERVISOR Ot L03.119 CELLULITIS OF UNSPECIFIED PART OF LIMB 11/29/2016 ENDY SULLIVAN SIGN BUILDER SUPERVISOR Ot I48.2 CHRONIC ATRIAL FIBRILLATION 11/29/2016 ENDY SULLIVAN R SIGN BUILDER SUPERVISOR Ot I87.2 VENOUS INSUFFICIENCY (CHRONIC) (PERIPHER 11/29/2016 ENDY SULLIVAN R SIGN BUILDER SUPERVISOR Ot L03.115 CELLULITIS OF RIGHT LOWER LIMB 11/29/2016 ENDY SULLIVAN SIGN BUILDER SUPERVISOR Ot L97.212 NON-PRESSURE CHRONIC ULCER OF RIGHT CALF 11/29/2016 ENDY SULLIVAN SIGN BUILDER SUPERVISOR Ot Z79.01 HARNESS FITTER (CURRENT) USE OF ANTICOAGULANT 12/06/2016 ERIC LA MD Ot I48.2 CHRONIC ATRIAL FIBRILLATION 12/06/2016 ERIC LA MD Ot L03.115 CELLULITIS OF RIGHT LOWER LIMB 12/06/2016 ENDY SULLIVAN APRN Ot Z79.01 HARNESS FITTER (CURRENT) USE OF ANTICOAGULANT 12/10/2016 ENDY SULLIVAN SIGN BUILDER SUPERVISOR Ot I87.2 VENOUS INSUFFICIENCY (CHRONIC) (PERIPHER 12/10/2016 ENDY SULLIVAN SIGN BUILDER SUPERVISOR Ot L03.115 CELLULITIS OF RIGHT LOWER LIMB 12/10/2016 ENDY SULLIVAN SIGN BUILDER SUPERVISOR Ot L97.212 NON-PRESSURE CHRONIC ULCER OF RIGHT CALF 12/25/2016 ERIC LA MD Ot I48.2 CHRONIC ATRIAL FIBRILLATION 12/25/2016 ERIC LA MD Ot L03.115 CELLULITIS OF RIGHT LOWER LIMB 12/25/2016 ENDY SULLIVAN SIGN BUILDER SUPERVISOR Ot I48.2 CHRONIC ATRIAL FIBRILLATION 12/25/2016 ENDY SULLIVAN SIGN BUILDER SUPERVISOR Ot L03.115 CELLULITIS OF RIGHT LOWER LIMB 01/07/2017 ENDY SULLIVAN SIGN BUILDER SUPERVISOR Ot L03.115 CELLULITIS OF RIGHT LOWER LIMB 01/08/2017 ENDY SULLIVAN SIGN BUILDER SUPERVISOR Ot L97.212 NON-PRESSURE CHRONIC ULCER OF RIGHT CALF 01/09/2017 ENDY SULLIVAN SIGN BUILDER SUPERVISOR Ot I48.2 CHRONIC ATRIAL FIBRILLATION 01/09/2017 ENDY SULLIVAN APRN Ot 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 01/09/2017 ENDY SULLIVAN SIGN BUILDER SUPERVISOR Ot L03.115 CELLULITIS OF RIGHT LOWER LIMB 01/09/2017 ENDY SULLIVAN SIGN BUILDER SUPERVISOR Ot L97.212 NON-PRESSURE CHRONIC ULCER OF RIGHT CALF 01/10/2017 ENDY SULLIVAN SIGN BUILDER SUPERVISOR Ot L03.115 CELLULITIS OF RIGHT LOWER LIMB 01/12/2017 ERIC LA MD Ot I48.2 CHRONIC ATRIAL FIBRILLATION 01/12/2017 ERIC LA MD Ot 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 01/12/2017 ERIC LA MD Ot L03.115 CELLULITIS OF RIGHT LOWER LIMB 01/15/2017 NATE, ENDY R SIGN BUILDER SUPERVISOR Ot L97.212 NON-PRESSURE CHRONIC ULCER OF RIGHT CALF 01/16/2017 ENDY SULLIVAN SIGN BUILDER SUPERVISOR Ot I48.2 CHRONIC ATRIAL FIBRILLATION 01/16/2017 ENDY SULLIVAN SIGN BUILDER SUPERVISOR Ot 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 01/16/2017 ENDY SULLIVAN SIGN BUILDER SUPERVISOR Ot L97.212 NON-PRESSURE CHRONIC ULCER OF RIGHT CALF 01/16/2017 ENDY SULLIVAN SIGN BUILDER SUPERVISOR Ot I48.2 CHRONIC ATRIAL FIBRILLATION 01/16/2017 ENDY SULLIVAN SIGN BUILDER SUPERVISOR Ot 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 01/16/2017 ENDY SULLIVAN SIGN BUILDER SUPERVISOR Ot L03.115 CELLULITIS OF RIGHT LOWER LIMB 01/16/2017 ENDY SULLIVAN SIGN BUILDER SUPERVISOR Ot L97.212 NON-PRESSURE CHRONIC ULCER OF RIGHT CALF 01/18/2017 KEITH ADAME PATHOLOGY MANAGER Ot R41.0 DISORIENTATION, UNSPECIFIED 01/18/2017 KEITH ADAME PATHOLOGY MANAGER Ot R82.90 UNSPECIFIED ABNORMAL FINDINGS IN URINE 01/23/2017 ENDY SULLIVAN SIGN BUILDER SUPERVISOR Ot I48.2 CHRONIC ATRIAL FIBRILLATION 01/23/2017 ENDY SULLIVAN SIGN BUILDER SUPERVISOR Ot 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 01/23/2017 ENDY SULLIVAN SIGN BUILDER SUPERVISOR Ot L97.212 NON-PRESSURE CHRONIC ULCER OF RIGHT CALF 01/23/2017 ENDY SULLIVAN SIGN BUILDER SUPERVISOR Ot I48.2 CHRONIC ATRIAL FIBRILLATION 01/23/2017 ENDY SULLIVAN SIGN BUILDER SUPERVISOR Ot 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 01/23/2017 ENDY SULLIVAN SIGN BUILDER SUPERVISOR Ot L97.212 NON-PRESSURE CHRONIC ULCER OF RIGHT CALF 01/25/2017 ENDY SULLIVAN SIGN BUILDER SUPERVISOR Ot I48.2 CHRONIC ATRIAL FIBRILLATION 01/25/2017 ENDY SULLIVAN SIGN BUILDER SUPERVISOR Ot 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 01/25/2017 ENDY SULLIVAN SIGN BUILDER SUPERVISOR Ot L03.115 CELLULITIS OF RIGHT LOWER LIMB 01/25/2017 ENDY SULLIVAN SIGN BUILDER SUPERVISOR Ot L97.212 NON-PRESSURE CHRONIC ULCER OF RIGHT CALF 01/30/2017 ENDY SULLIVAN SIGN BUILDER SUPERVISOR Ot L03.115 CELLULITIS OF RIGHT LOWER LIMB 01/31/2017 ENDY SULLIVAN SIGN BUILDER SUPERVISOR Ot I48.2 CHRONIC ATRIAL FIBRILLATION 01/31/2017 ENDY SULLIVAN SIGN BUILDER SUPERVISOR Ot 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 01/31/2017 ENDY SULLIVAN SIGN BUILDER SUPERVISOR Ot L03.115 CELLULITIS OF RIGHT LOWER LIMB 01/31/2017 ENDY SULLIVAN SIGN BUILDER SUPERVISOR Ot L97.212 NON-PRESSURE CHRONIC ULCER OF RIGHT CALF 02/01/2017 ENDY SULLIVAN SIGN BUILDER SUPERVISOR Ot I48.2 CHRONIC ATRIAL FIBRILLATION 02/01/2017 ENDY SULLIVAN SIGN BUILDER SUPERVISOR Ot 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 02/01/2017 ENDY SULLIVAN SIGN BUILDER SUPERVISOR Ot L03.115 CELLULITIS OF RIGHT LOWER LIMB 02/01/2017 ERIC LA MD Ot I48.2 CHRONIC ATRIAL FIBRILLATION 02/01/2017 ERIC LA MD Ot 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 02/01/2017 ERIC LA MD Ot L03.115 CELLULITIS OF RIGHT LOWER LIMB 02/06/2017 ENDY SULLIVAN SIGN BUILDER SUPERVISOR Ot 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 02/06/2017 ENDY SULLIVAN SIGN BUILDER SUPERVISOR Ot 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 02/06/2017 ENDY SULLIVAN SIGN BUILDER SUPERVISOR Ot I48.2 CHRONIC ATRIAL FIBRILLATION 02/06/2017 ENDY SULLIVAN SIGN BUILDER SUPERVISOR Ot 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 02/06/2017 ENDY SULLIVAN SIGN BUILDER SUPERVISOR Ot L03.115 CELLULITIS OF RIGHT LOWER LIMB 02/06/2017 ENDY SULLIVAN SIGN BUILDER SUPERVISOR Ot 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 02/06/2017 ENDY SULLIVAN SIGN BUILDER SUPERVISOR Ot L97.212 NON-PRESSURE CHRONIC ULCER OF RIGHT CALF 02/06/2017 ERIC LA MD Ot I48.2 CHRONIC ATRIAL FIBRILLATION 02/06/2017 ERIC LA MD Ot 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 02/06/2017 ERIC LA MD Ot L03.115 CELLULITIS OF RIGHT LOWER LIMB 02/06/2017 ENDY SULLIVAN APRN Ot I48.2 CHRONIC ATRIAL FIBRILLATION 02/06/2017 ENDY SULLIVAN SIGN BUILDER SUPERVISOR Ot 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 02/06/2017 ENDY SULLIVAN SIGN BUILDER SUPERVISOR Ot L97.212 NON-PRESSURE CHRONIC ULCER OF RIGHT CALF 02/13/2017 ENDY SULLIVAN SIGN BUILDER SUPERVISOR Ot I48.2 CHRONIC ATRIAL FIBRILLATION 02/13/2017 ENDY SULLIVAN SIGN BUILDER SUPERVISOR Ot 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 02/13/2017 ENDY SULLIVAN R SIGN BUILDER SUPERVISOR Ot L97.212 NON-PRESSURE CHRONIC ULCER OF RIGHT CALF 02/13/2017 ENDY SULLIVAN R SIGN BUILDER SUPERVISOR Ot I48.2 CHRONIC ATRIAL FIBRILLATION 02/13/2017 ENDY SULLIVAN R SIGN BUILDER SUPERVISOR Ot 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 02/13/2017 ENDY SULLIVAN R SIGN BUILDER SUPERVISOR Ot L03.115 CELLULITIS OF RIGHT LOWER LIMB 02/13/2017 NATE ENDY R SIGN BUILDER SUPERVISOR Ot L97.212 NON-PRESSURE CHRONIC ULCER OF RIGHT CALF 02/15/2017 ENDY SULLIVAN R SIGN BUILDER SUPERVISOR Ot I48.2 CHRONIC ATRIAL FIBRILLATION 02/15/2017 ENDY SULLIVAN SIGN BUILDER SUPERVISOR Ot 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 02/15/2017 ENDY SULLIVAN R SIGN BUILDER SUPERVISOR Ot L97.212 NON-PRESSURE CHRONIC ULCER OF RIGHT CALF 02/18/2017 ENDY SULLIVAN R SIGN BUILDER SUPERVISOR Ot I48.2 CHRONIC ATRIAL FIBRILLATION 02/18/2017 ENDY SULLIVAN R SIGN BUILDER SUPERVISOR Ot 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 02/18/2017 ENDY SULLIVAN R SIGN BUILDER SUPERVISOR Ot L97.212 NON-PRESSURE CHRONIC ULCER OF RIGHT CALF 02/19/2017 ENDY SULLIVAN SIGN BUILDER SUPERVISOR Ot I48.2 CHRONIC ATRIAL FIBRILLATION 02/19/2017 ENDY SULLIVAN R SIGN BUILDER SUPERVISOR Ot 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 02/19/2017 ENDY SULLIVAN SIGN BUILDER SUPERVISOR Ot L03.115 CELLULITIS OF RIGHT LOWER LIMB 02/19/2017 NATE ENDY R SIGN BUILDER SUPERVISOR Ot L97.212 NON-PRESSURE CHRONIC ULCER OF RIGHT CALF 02/20/2017 ENDY SULLIVAN R SIGN BUILDER SUPERVISOR Ot I48.2 CHRONIC ATRIAL FIBRILLATION 02/20/2017 ENDY SULLIVAN R SIGN BUILDER SUPERVISOR Ot 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 02/20/2017 ENDY SULLIVAN R SIGN BUILDER SUPERVISOR Ot L97.212 NON-PRESSURE CHRONIC ULCER OF RIGHT CALF 02/20/2017 ENDY SULLIVAN SIGN BUILDER SUPERVISOR Ot I48.2 CHRONIC ATRIAL FIBRILLATION 02/20/2017 ENDY SULLIVAN R SIGN BUILDER SUPERVISOR Ot 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 02/20/2017 ENDY SULLIVAN SIGN BUILDER SUPERVISOR Ot L97.212 NON-PRESSURE CHRONIC ULCER OF RIGHT CALF 02/21/2017 ENDY SULLIVAN SIGN BUILDER SUPERVISOR Ot 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 02/21/2017 ENDY SULLIVAN R SIGN BUILDER SUPERVISOR Ot L97.212 NON-PRESSURE CHRONIC ULCER OF RIGHT CALF 02/27/2017 ENDY SULLIVAN SIGN BUILDER SUPERVISOR Ot I48.2 CHRONIC ATRIAL FIBRILLATION 02/27/2017 ENDY SULLIVAN SIGN BUILDER SUPERVISOR Ot 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 02/27/2017 ENDY SULLIVAN R SIGN BUILDER SUPERVISOR Ot L97.212 NON-PRESSURE CHRONIC ULCER OF RIGHT CALF 02/27/2017 ENDY SULLIVAN SIGN BUILDER SUPERVISOR Ot 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 02/27/2017 ENDY SULLIVAN R SIGN BUILDER SUPERVISOR Ot L97.212 NON-PRESSURE CHRONIC ULCER OF RIGHT CALF 02/27/2017 ENDY SULLIVAN SIGN BUILDER SUPERVISOR Ot 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 02/27/2017 ENDY SULLIVAN SIGN BUILDER SUPERVISOR Ot L97.212 NON-PRESSURE CHRONIC ULCER OF RIGHT CALF 03/06/2017 ENDY SULLIVAN SIGN BUILDER SUPERVISOR Ot I48.2 CHRONIC ATRIAL FIBRILLATION 03/06/2017 ENDY SULLIVAN SIGN BUILDER SUPERVISOR Ot 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 03/06/2017 ENDY SULLIVAN R SIGN BUILDER SUPERVISOR Ot L97.212 NON-PRESSURE CHRONIC ULCER OF RIGHT CALF 03/07/2017 ENDY SULLIVAN SIGN BUILDER SUPERVISOR Ot 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 03/07/2017 ENDY SULLIVAN SIGN BUILDER SUPERVISOR Ot L97.212 NON-PRESSURE CHRONIC ULCER OF RIGHT CALF 03/12/2017 ENDY SULLIVAN SIGN BUILDER SUPERVISOR Ot I48.2 CHRONIC ATRIAL FIBRILLATION 03/12/2017 ENDY SULLIVAN SIGN BUILDER SUPERVISOR Ot 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 03/12/2017 ENDY SULLIVAN R SIGN BUILDER SUPERVISOR Ot L97.212 NON-PRESSURE CHRONIC ULCER OF RIGHT CALF 03/13/2017 ENDY SULLIVAN SIGN BUILDER SUPERVISOR Ot I48.2 CHRONIC ATRIAL FIBRILLATION 03/13/2017 ENDY SULLIVAN SIGN BUILDER SUPERVISOR Ot 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 03/13/2017 ENDY SULLIVAN SIGN BUILDER SUPERVISOR Ot L97.212 NON-PRESSURE CHRONIC ULCER OF RIGHT CALF 03/20/2017 ENDY SULLIVAN SIGN BUILDER SUPERVISOR Ot I48.2 CHRONIC ATRIAL FIBRILLATION 03/20/2017 ENDY SULLIVAN SIGN BUILDER SUPERVISOR Ot 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 03/20/2017 ENDY SULLIVAN SIGN BUILDER SUPERVISOR Ot L97.212 NON-PRESSURE CHRONIC ULCER OF RIGHT CALF 03/21/2017 ENDY SULLIVAN SIGN BUILDER SUPERVISOR Ot I48.2 CHRONIC ATRIAL FIBRILLATION 03/21/2017 ENDY SULLIVAN SIGN BUILDER SUPERVISOR Ot 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 03/21/2017 ENDY SULLIVAN SIGN BUILDER SUPERVISOR Ot L97.212 NON-PRESSURE CHRONIC ULCER OF RIGHT CALF 04/03/2017 ENDY SULLIVAN SIGN BUILDER SUPERVISOR Ot I48.2 CHRONIC ATRIAL FIBRILLATION 04/03/2017 ENDY SULLIVAN SIGN BUILDER SUPERVISOR Ot 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 Type Provider Facility Loc./Unit Complaint [id number] 02/26/2017 08:36:00 02/26/2017 23:59:59 CLS Outpatient ENDY SULLIVAN SIGN BUILDER SUPERVISOR Via [facility] [id number] 02/19/2017 08:36:00 02/19/2017 23:59:59 CLS Outpatient NATE ENDY R SIGN BUILDER SUPERVISOR [facility] [id number] 02/12/2017 08:35:00 02/12/2017 23:59:59 CLS Outpatient NATE ENDY R SIGN BUILDER SUPERVISOR [facility] [id number] 02/05/2017 08:44:00 02/05/2017 23:59:59 CLS Outpatient SHINE SULLIVANN R SIGN BUILDER SUPERVISOR [facility] [id number] 01/29/2017 08:35:00 01/29/2017 23:59:59 CLS Outpatient NATE ENDY R SIGN BUILDER SUPERVISOR [facility] [id number] 01/22/2017 08:44:00 01/22/2017 23:59:59 CLS Outpatient NATE ENDY R SIGN BUILDER SUPERVISOR [facility] [id number] 01/17/2017 14:12:00 01/17/2017 23:59:59 CLS Outpatient NATE ENDY R SIGN BUILDER SUPERVISOR [facility] [id number] 01/15/2017 08:49:00 01/15/2017 23:59:59 CLS Outpatient NATE ENDY R SIGN BUILDER SUPERVISOR [facility] [id number] 01/10/2017 09:42:00 01/10/2017 23:59:59 CLS Outpatient ERIC LA MD Via [facility] [id number] 01/08/2017 08:38:00 01/08/2017 23:59:59 CLS Outpatient NATE ENDY R SIGN BUILDER SUPERVISOR [facility] [id number] 01/01/2017 08:30:00 01/01/2017 23:59:59 CLS Outpatient NATE, ENDY R SIGN BUILDER SUPERVISOR [facility] [id number] 12/28/2016 18:11:00 12/28/2016 23:59:59 CLS Outpatient KEITH ADAME [facility] LABNPT INCREASED MOODINESS AND CONFUSION,DARK UA,FOUL ODR [id number] 12/25/2016 08:29:00 12/25/2016 23:59:59 CLS Outpatient NATE ENDY R SIGN BUILDER SUPERVISOR [facility] [id number] 12/18/2016 08:44:00 12/18/2016 23:59:59 CLS Outpatient NATE, ENDY R SIGN BUILDER SUPERVISOR [facility] WOUNDCARE [id number] 12/11/2016 08:41:00 12/11/2016 23:59:59 CLS Outpatient NATE, ENDY R SIGN BUILDER SUPERVISOR [facility] WOUNDCARE [id number] 12/11/2016 08:41:00 12/11/2016 23:59:59 CLS Preadmit NATE ENDY R SIGN BUILDER SUPERVISOR [facility] HH CELLULITIS [id number] 12/10/2016 13:32:00 12/10/2016 23:59:59 CLS Outpatient NATE, ENDY R SIGN BUILDER SUPERVISOR [facility] [id number], cellulitis [id number] 12/04/2016 09:05:00 12/10/2016 16:00:00 DIS Outpatient NATE ENDY R SIGN BUILDER SUPERVISOR [facility] WOUNDCARE [id number] 12/06/2016 14:56:00 12/06/2016 23:59:59 CLS Outpatient NATE, ENDY R SIGN BUILDER SUPERVISOR [facility] CELLULITIS [id number] 12/04/2016 12:15:00 12/04/2016 23:59:59 CLS Outpatient ENDY SULLIVAN SIGN BUILDER SUPERVISOR [facility] HH CELLULITIS [id number] 11/30/2016 13:57:00 11/30/2016 23:59:59 CLS Outpatient ERIC LA MD [facility] [id number] 11/27/2016 11:28:00 11/27/2016 14:50:00 DIS Outpatient ENDY SULLIVAN SIGN BUILDER SUPERVISOR [facility] SDC ULCER OF RIGHT CALF, VENOUS INSUFFICIENCY [id number] 09/11/2016 11:02:00 09/11/2016 23:59:59 CLS Outpatient EVON DUONGREECE Noel APRN [facility] RAD SOB [id number] 04/09/2016 11:54:00 04/09/2016 23:59:59 CLS Outpatient ANNETTE MO MD, FACC, FACP CCDS [facility] CARD AF,CAF [id number] 04/02/2016 13:11:00 04/02/2016 23:59:59 CLS Outpatient ANNETTE MO MD, FACC, FACP CCDS [facility] RAD AF,CAD,CPD [id number] 06/25/2015 21:03:00 06/26/2015 06:55:00 DIS Outpatient KIMBERLY KINGSTON DO Via [facility] SLEEP SNORING,HTN,DAYTIME SLEEPINESS [id number] 03/09/2015 13:51:00 03/09/2015 23:59:59 CLS Outpatient SHANTELLE RIVERA PATHOLOGY MANAGER [facility] CARD AFIB,CAD,HTN [id number] 08/10/2014 09:43:00 08/10/2014 23:59:59 CLS Outpatient SHANTELLE RIVERA PATHOLOGY MANAGER [facility] CARD A FIB [id number] 06/13/2014 19:19:00 06/13/2014 21:33:00 DIS Emergency HUGO SINGLETARY MD [facility] ER FALL;HEAD INJ [id number] 05/27/2014 10:07:00 06/11/2014 15:30:00 DIS Inpatient ALESHIA WILSON MD [facility] IRF IRF-CVA [id number] 05/24/2014 12:29:00 05/27/2014 10:20:00 DIS Inpatient JAY URBANO MD [facility] 4TH CVA [id number] 04/21/2014 02:00:00 04/25/2014 13:00:00 DIS Inpatient JAY URBANO MD [facility] 4TH CLINICAL PNEUMONIA; GENERALIZED WEAKNESS [id number] 04/07/2014 09:25:00 04/08/2014 11:00:00 DIS Outpatient BANDAR JARRELL DO [facility] SDC OPEN REDUCTION INTERNAL FIXATION OF RIGHT DISTAL R [id number] 01/20/2014 12:00:00 01/20/2014 23:59:59 CLS Outpatient TERESA MONTEJO MD [facility] CARD PAINFUL LEFT TOTAL HIP [id number] 05/25/2013 11:08:00 05/25/2013 23:59:59 CLS Outpatient JAY URBANO MD [facility] LAB URINARY INCONT,MALISE ,FATIGUE [id number] 05/25/2013 14:27:00 05/25/2013 16:31:00 DIS Emergency SHREYAS BENAVIDES DO [facility] ER POSS CVA [id number] 12/01/2012 17:58:00 12/12/2012 16:15:00 DIS Inpatient ALESHIA WILSON MD Via [facility] IRF HIP REPLACEMENT [id number] 10/14/2012 14:08:00 10/14/2012 22:10:00 DIS Outpatient CHEPE PEOPLES FACC, ANNETTE FACRenato CCDS Via [facility] CATH CAD,HTN,A-FIB ,COPD,ABN STRESS TEST [id number] 09/16/2012 07:55:00 09/16/2012 23:59:59 CLS Outpatient HILDA NINA MD Via [facility] RAD SOB [id number] 07/29/2012 11:06:00 Document Registration [id number] 05/22/2012 11:22:00 Document Registration [id number] 09/10/2011 09:47:00 Document Registration [id number] 08/21/2011 13:18:00 Document Registration [id number] 04/21/2011 14:30:00 Document Registration [id number] 03/12/2011 09:12:00 Document Registration [id number] 01/11/2011 10:43:00 Document Registration [id number] 12/06/2010 08:53:00 Document Registration [id number] 06/05/2010 13:32:00 Document Registration [id number] 05/25/2010 08:39:00 Document Registration [id number] 02/07/2010 15:57:00 Document Registration [id number] 01/27/2010 07:59:00 Document Registration [id number] 01/10/2010 08:24:00 Document Registration [id number] 12/27/2009 10:30:00 Document Registration [id number] 11/29/2009 13:58:00 Document Registration [id number] 10/12/2009 09:55:00 Document Registration [id number] 05/31/2009 12:02:00 Document Registration [id number] 02/08/2009 09:09:00 Document Registration [id number] 08/11/2014 00:41:52 ACT Document Registration [id number] 03/21/2017 23:20:50 03/21/2017 23:59:59 [facility] Jay Urbano
[2018-03-30 15:55] VITALS: BP 183/86
[2018-03-30] MEDS ORDERED: NS IV 1000 ML 1,000 ML IV SCH (16:15)
[2018-03-30] MEDS ORDERED: RT-ALBUTEROL/IPRATROPIUM 3 ML (DUONEB) VIAL INH PRN (16:15)
[2018-03-30] MEDS ORDERED: CATHETER FLUSH 10 ML SYR IV PRN (16:15)
[2018-03-30] MEDS ORDERED: FUROSEMIDE 40 MG/4 ML INJ (LASIX) IV SCH (17:00)
[2018-03-30] MEDS: methylPREDNISolone 125 MG (Solu-MEDROL) VIAL IV SCH (18:27)
[2018-03-30 19:35] VITALS: BP 180/86
[2018-03-30] MEDS: RT-ALBUTEROL/IPRATROPIUM 3 ML (DUONEB) VIAL INH SCH ×2 (19:41→21:17)
[2018-03-30 21:58] VITALS: BP 146/86
[2018-03-30] MEDS: FUROSEMIDE 40 MG/4 ML INJ (LASIX) IV SCH (22:21)
[2018-03-31] VITALS: BP 138/78
[2018-03-31] MEDS: methylPREDNISolone 125 MG (Solu-MEDROL) VIAL IV SCH ×5 (00:18→23:42)
[2018-03-31] MEDS: RT-ALBUTEROL/IPRATROPIUM 3 ML (DUONEB) VIAL INH SCH ×6 (01:53→22:16)
[2018-03-31 04:00] VITALS: BP 149/95
[2018-03-31 06:02] LABS: BASOPHILS % (AUTO) 0 % (0-10); EOSINOPHILS % (AUTO) 0 % (0-10); HEMATOCRIT 43 % (35-52); HEMOGLOBIN 13.7 G/DL (11.5-16.0); LYMPHOCYTES # (AUTO) 0.3 X 10^3 (1.0-4.0); LYMPHOCYTES % (AUTO) 5 % (12-44); MEAN CORPUSCULAR HEMOGLOBIN 30 PG (25-34); MEAN CORPUSCULAR HGB CONC 32 G/DL (32-36); MEAN CORPUSCULAR VOLUME 95 FL (80-99); MEAN PLATELET VOLUME 9.9 FL (7.4-10.4); MONOCYTES % (AUTO) 1 % (0-12); NEUTROPHILS % (AUTO) 95 % (42-75); PLATELET COUNT 196 10^3/uL (130-400); RED BLOOD COUNT 4.58 10^6/uL (4.35-5.85); RED CELL DISTRIBUTION WIDTH 14.6 % (10.0-14.5); WHITE BLOOD COUNT 5.3 10^3/uL (4.3-11.0)
[2018-03-31 06:13] LABS: INR 4.8 (0.8-1.4)
[2018-03-31 06:27] LABS: ALBUMIN 3.9 GM/DL (3.2-4.5); BILIRUBIN,TOTAL 0.7 MG/DL (0.1-1.0); CALCIUM 9.5 MG/DL (8.5-10.1); CREATININE SERUM 1.09 MG/DL (0.60-1.30); POTASSIUM 3.5 MMOL/L (3.6-5.0); TOTAL PROTEIN 6.3 GM/DL (6.4-8.2)
[2018-03-31 06:33] LABS: PROTHROMBIN TIME PATIENT 45.2 SEC (12.2-14.7)
--- NOTE | 2018-03-31 07:14 | Pulmonary Consultation ---
History of Present Illness History of Present Illness Date of Consultation 03/31/18 07:09 Date of Admission Allergies and Home Medications Allergies Coded Allergies: codeine (Verified Allergy, Unknown, 03/30/18) Uncoded Allergies: ESTROGEN SUPPLEMENT PATCHES (Allergy, Unknown, 04/21/14) Home Medications Acetaminophen 325 Mg Tablet, 325 MG PO Q4H PRN for FEVER GREATER THAN 101, ( Reported) Albuterol Sulfate 2.5 Mg/3 Ml Nebu, 2.5 MG NEB QID PRN for SHORTNESS OF BREATH, (Reported) Alprazolam 0.5 Mg Tablet, 0.25-0.5 MG PO HS PRN for ANXIETY/SLEEPLESSNESS, ( Reported) TAKES 1/2 TO 1 (0.5MG) TABLET Aspirin 325 Mg Tabec, 325 MG PO HS, (Reported) Calcium Carbonate/Vitamin D3 1 Each Tab.chew, 1 TAB.CHEW PO DAILY, (Reported) Cefdinir 300 Mg Capsule, 1 EACH PO BID Prescribed by: HUGO SINGLETARY on 06/13/142123 Celecoxib 200 Mg Capsule, 200 MG PO DAILY PRN for ARTHRITIS PAIN, (Reported) *DO NOT TAKE WITH OTHER NSAIDS* Fexofenadine Hcl 180 Mg Tablet, 180 MG PO DAILY PRN for ALLERGIES, (Reported) Furosemide 20 Mg Tablet, 20 MG PO BID PRN for EDEMA, (Reported) Isosorbide Mononitrate 30 Mg Tab.sr.24h, 30 MG PO DAILY, (Reported) Loratadine 10 Mg Tablet, 5 MG PO BID, (Reported) TAKES 1/2 (10MG) TABLET Meclizine Hcl 25 Mg Tab, 12.5 MG PO TID PRN for DIZZINESS, (Reported) TAKES 1/2 (25MG) TABLET Metoprolol Succinate 50 Mg Tab.sr.24h, 50 MG PO HS, (Reported) Multivitamin 1 Each Tablet, 1 TAB PO DAILY, (Reported) Tyler 3 Polyunsat Fatty Acids 1,000 Mg Cap, 1,000 MG PO DAILY, (Reported) Senna 1 Ea Tablet, 1 EA PO BID Prescribed by: JAY HENSON on 05/27/14827 Verapamil Hcl 240 Mg Tablet.sa, 240 MG PO DAILY, (Reported) [Trospium Chloride] 20 MG TAB, 20 MG PO DAILY@06,16 Prescribed by: JAY HENSON on 1/15/15 0828 Past Wqhpcgh-Escyxe-Jtqawr Hx Past Med/Social Hx: Reviewed Nursing Past Med/Soc Hx, Reviewed and Corrections made Patient Social History Alcohol Use: Denies Use Recreational Drug Use: No Smoking Status: Never a Smoker 2nd Hand Smoke Exposure: No Recent Foreign Travel: No Contact w/Someone Who Travel: No Recent Infectious Disease Expo: No Recent Hopitalizations: No Physical Abuse: No Sexual Abuse: No Immunizations Up To Date Tetanus Booster (TDap): More than 5yrs PED Vaccines UTD: No Date of Pneumonia Vaccine: Feb 08, 2016 Date of Influenza Vaccine: Mar 27, 2018 Seasonal Allergies Seasonal Allergies: Yes Past Medical History Surgeries: Yes Hysterectomy, Joint Replacement Respiratory: Yes Pneumonia, COPD Cardiac: Yes Atrial Fibrillation, Chronic Edema/Swelling, Hypertension, Valvular Heart Disease Neurological: Yes Stroke 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 History: Menopausal Gastrointestinal: No Chronic Constipation Musculoskeletal: Yes Arthritis, Scoliosis Endocrine: No HEENT: Yes Cataract, Dysphagia Loss of Vision: Denies Hearing Impairment: Denies Cancer: No Psychosocial: Yes Sleep Difficulties Integumentary: Yes (bruises of extremities) Blood Disorders: No Family Medical History Reviewed Nursing Family Hx Alcoholism G8 BROTHER Arthritis 19 FATHER 19 MOTHER G8 BROTHER G8 SISTER Cardiovascular disease 19 FATHER 19 MOTHER Deafness or hearing loss 19 FATHER 19 MOTHER No Family History of: AIDS Abdominal aortic aneurysm Levy's disease Alzheimer's disease Aphasia Asthma Cancer of mouth Cataracts Colon cancer Completed stroke Congenital disease Congenital heart disease Coronary thrombosis Cystic fibrosis Dementia Diabetes mellitus Drug abuse Dysphasia Fibrocystic disease of breast Gastroenteritis Glaucoma Headache disorder Hypercholesterolemia Hypertension Infertility Kidney disease Myocardial infarction Neoplasm Not obtainable due to adoption Osteoporosis Parkinson's disease Prostate cancer Psychosocial problem Respiratory disorder Seizure disorder Severe allergy Thyroid disease Tuberculosis Visual disorder Heart Disease Sepsis Event Evaluation Height, Weight, BMI Height: 5'4.00" Weight: 151lbs. 6.0oz. 68.283904fc; 27.5 BMI Method:Estimated Exam Exam Vital Signs Date Time Temp Pulse Resp B/P (MAP) Pulse Ox O2 Delivery O2 Flow Rate FiO2 03/31/18 01:53 91 Nasal Cannula 3.00 03/31/18 01:00 105 03/31/18 00:00 98.8 114 20 138/78 (98) 98 Nasal Cannula 4.00 03/30/18 21:58 146/86 (106) 03/30/18 21:17 94 Nasal Cannula 3.00 03/30/18 20:00 Nasal Cannula 4.00 03/30/18 19:35 99.1 116 16 180/86 (117) 93 Nasal Cannula 4.00 03/30/18 19:00 105 03/30/18 18:19 94 Nasal Cannula 4.00 03/30/18 17:27 112 03/30/18 16:05 102 94 36 03/30/18 15:55 97.9 114 16 183/86 (118) 96 Nasal Cannula 4.00 03/30/18 15:37 102 24 152/63 (92) 94 Nasal Cannula 4.00 03/30/18 09:49 91 OxyMask 7.00 03/30/18 08:11 95 Nasal Cannula 3.00 03/30/18 07:53 92 OxyMask 6.00 03/30/18 07:53 96.4 89 18 155/95 (115) 94 Non Rebreather 6.00 I & O 03/31/18 07:00 Intake Total 1095 ml Output Total 2600 ml Balance -1505 ml Height & Weight Height: 5'4.00" Weight: 151lbs. 6.0oz. 68.852382ho; 27.5 BMI Method:Estimated General Appearance: WD/WN, Chronically ill, Mild Distress (due to mild tachypnea), Other (severely kyphotic) HEENT: PERRL/EOMI, Normal ENT Inspection, Pharynx Normal Neck: Full Range of Motion, Normal Inspection, Non Tender, Supple, Carotid Bruit Respiratory: Chest Non Tender, Accessory Muscle Use, Crackles, Decreased Breath Sounds, Rales, Respiratory Distress, Wheezing Cardiovascular: No Edema, No Gallop, No JVD, No Murmur, Normal Peripheral Pulses, Irregularly Irregular Capillary Refill: Less Than 3 Seconds Extremity: Normal Capillary Refill, Normal Inspection, Normal Range of Motion, Non Tender, No Calf Tenderness, No Pedal Edema Neurologic/Psychiatric: Alert, Oriented x3, No Motor/Sensory Deficits, Normal Mood/Affect Skin: Normal Color, Warm/Dry Lymphatic: No Adenopathy Results Lab Laboratory Tests 03/30/18 08:00 03/31/18 05:31 Assessment/Plan Assessment/Plan Acute on chronic respiratory distress - improved -Bipap PRN Diastolic CHF with pulmonary edema and bilateral pleural effusions -Lasix Hypokalemia -Replace COPDAE -Solumedrol - decrease to 40 Q6 -SVNs RLD secondary with kyphoscoliosis Afib -Coumadin Prior CVA with right-sided weakness KIMBERLY KINGSTON DO Mar 31, 2018 7:14 am
[2018-03-31] MEDS ORDERED: POTASSIUM CL 10MEQ/50ML IVPB 50 ML IV SCH (07:15)
[2018-03-31 08:00] VITALS: BP 141/95
[2018-03-31] MEDS ORDERED: KCL 20 MEQ TAB (K-DUR) PO NR (08:00)
--- NOTE | 2018-03-31 08:44 | Progress Note ---
Subjective Date Seen by a Provider: Mar 31, 2018 Time Seen by a Provider: 08:40 Subjective/Events-last exam PT REPORTS THAT SHE IS FEELING A LITTLE BIT BETTER TODAY, SHE IS LESS SHORT OF BREATH, SHE DENIES CHEST PAIN. Review of Systems General: Malaise HEENT: No Head Aches Pulmonary: Dyspnea; No Cough Cardiovascular: No: Chest Pain, Palpitations Gastrointestinal: No: Nausea, Abdominal Pain Neurological: Weakness, Confusion (INTERMITTENT) Focused Exam Lactate Level 03/30/18 08:00: Lactic Acid Level 0.85 Objective Exam Last Set of Vital Signs Vital Signs Date Time Temp Pulse Resp B/P (MAP) Pulse Ox O2 Delivery O2 Flow Rate FiO2 03/31/18 07:07 92 Nasal Cannula 3.00 03/31/18 04:00 98.4 106 20 149/95 (113) 03/30/18 16:05 36 Capillary Refill : Less Than 3 SecondsLess Than 3 Seconds I&O Intake and Output 03/31/18 00:00 Intake Total 870 ml Output Total 1800 ml Balance -930 ml Intake Oral 870 ml Output Urine Total 1800 ml Daily Weight Change Unsure General: Alert, Oriented X3, No Acute Distress HEENT: Atraumatic, Other (SEVERE KYPHOSIS TO THE RIGHT) Lungs: Clear to Auscultation Heart: Other (IRREGULAR RHYTHM WITH III/ LEX) Abdomen: Normal Bowel Sounds, Soft Psych/Mental Status: Mental Status NL Results Lab Laboratory Tests 03/31/18 05:31: White Blood Count 5.3, Red Blood Count 4.58, Hemoglobin 13.7, Hematocrit 43, Mean Corpuscular Volume 95, Mean Corpuscular Hemoglobin 30, Mean Corpuscular Hemoglobin Concent 32, Red Cell Distribution Width 14.6H, Platelet Count 196, Mean Platelet Volume 9.9, Neutrophils (%) (Auto) 95H, Lymphocytes (%) (Auto) 5L , Monocytes (%) (Auto) 1, Eosinophils (%) (Auto) 0, Basophils (%) (Auto) 0, Neutrophils # (Auto) 5.0, Lymphocytes # (Auto) 0.3L, Monocytes # (Auto) 0.0, Eosinophils # (Auto) 0.0, Basophils # (Auto) 0.0, Prothrombin Time 45.2*H, INR Comment 4.8H, Sodium Level 143, Potassium Level 3.5L, Chloride Level 103, Carbon Dioxide Level 29, Anion Gap 11, Blood Urea Nitrogen 29H, Creatinine 1.09 , Estimat Glomerular Filtration Rate 48, BUN/Creatinine Ratio 27, Glucose Level 145H, Calcium Level 9.5, Corrected Calcium 9.6, Total Bilirubin 0.7, Aspartate Amino Transf (AST/SGOT) 21, Alanine Aminotransferase (ALT/SGPT) 24, Alkaline Phosphatase 81, Total Protein 6.3L, Albumin 3.9 Assessment/Plan Assessment/Plan Assess & Plan/Chief Complaint COPD EXACERBATION WITH ACUTE RESPIRATORY FAILURE 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 RESTRICTIVE LUNG DISEASE DUE TO KYPHOSIS AND SCOLIOSIS - SUPPORTIVE CARE ONLY AT THIS TIME. CONGESTIVE HEART FAILURE - DEFER TO CARDIOLOGY - SYMPTOMS IMPROVED WITH HEART RATE CONTROL ATRIAL FIBRILLATION - IMPROVED ON HIGHER DOSE OF METOPROLOL. CONFUSION - DUE TO DELIRIUM - - SUPPORTIVE CARE AND SHOULD IMPROVE ONCE SHE IS BACK TO USUAL ENVIRONMENT. GENERALIZED WEAKNESS - PHYSICAL THERAPY INVOLVED FOR STRENGTHENING. Clinical Quality Measures DVT/VTE Risk/Contraindication: Risk Factor Score Per Nursin RFS Level Per Nursing on Admit: 4+=Very High JAY HENSON MD Mar 31, 2018 08:44
--- NOTE | 2018-03-31 08:44 | Progress Note-Cardiology ---
Cardiology SOAP Progress Note Subjective: Sitting up in bed. States she still feels short of breath, but feels it is getting better. No c/o CP. Occ cough. Reports poor appetite. Objective: I&O/Vital Signs 03/31/18 03/31/18 03/31/18 03/31/18 00:00 01:00 01:53 04:00 Temp 98.8 98.4 Pulse 114 105 106 Resp 20 20 B/P (MAP) 138/78 (98) 149/95 (113) Pulse Ox 98 91 92 O2 Delivery Nasal Cannula Nasal Cannula Nasal Cannula O2 Flow Rate 4.00 3.00 4.00 03/31/18 03/31/18 03/31/18 07:00 07:07 08:00 Temp 98.4 Pulse 105 78 Resp 18 B/P (MAP) 141/95 (110) Pulse Ox 92 96 O2 Delivery Nasal Cannula Nasal Cannula O2 Flow Rate 3.00 4.00 03/31/18 00:00 Intake Total 870 ml Output Total 1800 ml Balance -930 ml Weight (Pounds): 151 Weight (Ounces): 6.0 Weight (Calculated Kilograms): 68.847699 Constitutional: appears stated age; No apparent distress; well-developed, well- nourished Respiratory: accessory muscle use, chest is bilaterally symmetric, lungs clear to auscultation (diminished bases bilat) Cardiovascular: irregularly irregular, S1 and S2, systolic murmur Gastrointestional: soft, audible bowel sounds Genital/Rectal: other (Urinary catheter to DD with clear, yellow urine) Extremities: other (mild to mod bilat LE edema) Neurologic/Psychiatric: grossly intact Skin: warm/dry, other (erythema noted to both lower extremities and may be venous stasis color changes.) Results/Procedures: Labs Laboratory Tests 03/31/18 05:31: White Blood Count 5.3, Red Blood Count 4.58, Hemoglobin 13.7, Hematocrit 43, Mean Corpuscular Volume 95, Mean Corpuscular Hemoglobin 30, Mean Corpuscular Hemoglobin Concent 32, Red Cell Distribution Width 14.6H, Platelet Count 196, Mean Platelet Volume 9.9, Neutrophils (%) (Auto) 95H, Lymphocytes (%) (Auto) 5L , Monocytes (%) (Auto) 1, Eosinophils (%) (Auto) 0, Basophils (%) (Auto) 0, Neutrophils # (Auto) 5.0, Lymphocytes # (Auto) 0.3L, Monocytes # (Auto) 0.0, Eosinophils # (Auto) 0.0, Basophils # (Auto) 0.0, Prothrombin Time 45.2*H, INR Comment 4.8H, Sodium Level 143, Potassium Level 3.5L, Chloride Level 103, Carbon Dioxide Level 29, Anion Gap 11, Blood Urea Nitrogen 29H, Creatinine 1.09 , Estimat Glomerular Filtration Rate 48, BUN/Creatinine Ratio 27, Glucose Level 145H, Calcium Level 9.5, Corrected Calcium 9.6, Total Bilirubin 0.7, Aspartate Amino Transf (AST/SGOT) 21, Alanine Aminotransferase (ALT/SGPT) 24, Alkaline Phosphatase 81, Total Protein 6.3L, Albumin 3.9 Microbiology 03/30/18 Urine Culture - Final, Complete NO GROWTH A/P: Assessment: Acute Respiratory failure, likely multifactorial (acute diastolic congestive heart failure and COPD) Acute on chronic diastolic congestive heart failure - clinically improved Acute exacerbation of COPD - management per medical/pulmonary services Supratherapeutic INR - warfarin currently being withheld Chronic atrial fibrillation - resume BB Normal global left ventricular systolic function with an ejection fraction of approximately 60 to 65%. Mitral annular calcification without evidence of significant mitral stenosis. Moderate mitral regurgitation, mild tricuspid and aortic regurgitation, and trivial pulmonic regurgitation. Moderate diastolic dysfunction of the left ventricle. Pulmonary artery systolic pressure is estimated to be within normal limits. Marked enlargement of the left atrium. Per echocardiogram of Mar 2016 Plan: HR not well controlled - resume BB Replace potassium - already ordered by pulmonary services Monitor lab closely Echocardiogram today Supratherapeutic INR - continue to hold warfarin Physician Assessment Physician Assessment Still short of breath but somewhat better. Denies cp or palp or syncope. Notes gen malaise and weakness Lungs: fair to good air entry, diminished at the bases Cor: irreg Ext: no c/c/e A&R * As documented in our note above that I updated (italics) and as noted below * I discussed her CV issues with her and answered questions * I discussed her case with Dr Urbano * I discussed her case with Dr Manning * Monitor labs SHANTELLE RIVERA [facility] Mar 31, 2018 08:44 ANNETTE MO MD [facility] Mar 31, 2018 10:45
[2018-03-31] MEDS: meTOprolol SUCCINATE 100 MG (TOPROL XL) TAB PO SCH (09:40)
[2018-03-31] MEDS ORDERED: SENN-40 PO (10:00)
[2018-03-31] MEDS ORDERED: FLUT16SP22 NS (10:00)
[2018-03-31] MEDS ORDERED: CHOL20003 PO (10:00)
[2018-03-31] MEDS ORDERED: WARF-48 PO (10:00)
[2018-03-31] MEDS ORDERED: VERA240T98 PO (10:00)
[2018-03-31] MEDS ORDERED: ALPR0.5T7 PO (10:00)
[2018-03-31] MEDS ORDERED: ALPR0.25 PO (10:00)
[2018-03-31] MEDS ORDERED: CYAN100081 PO (10:00)
[2018-03-31] MEDS ORDERED: MULT-35 PO (10:00)
[2018-03-31] MEDS ORDERED: KRIL1CAP18 PO (10:00)
[2018-03-31] MEDS ORDERED: MV-M1TAB32 PO (10:00)
[2018-03-31] MEDS ORDERED: WARF2.5T82 PO (10:00)
[2018-03-31] MEDS ORDERED: POTA10TA10 PO (10:00)
[2018-03-31] MEDS ORDERED: BENZ-13 PO (10:00)
[2018-03-31] MEDS ORDERED: ACET325T38 PO (10:00)
[2018-03-31] MEDS ORDERED: METO-387 PO (10:00)
[2018-03-31] MEDS ORDERED: LIDO76.5 TP ×2 (10:00)
[2018-03-31] MEDS ORDERED: OLIV30OI EACH EAR (10:00)
[2018-03-31] MEDS ORDERED: DICL100G18 TP (10:00)
[2018-03-31] MEDS ORDERED: FURO40TA4 PO (10:00)
[2018-03-31] MEDS ORDERED: CETI10TA20 PO (10:00)
[2018-03-31] MEDS ORDERED: ACETAMINOPHEN 500 MG TAB (TYLENOL) PO PRN (11:30)
[2018-03-31 12:00] VITALS: BP 137/92
[2018-03-31] MEDS: FUROSEMIDE 40 MG/4 ML INJ (LASIX) IV SCH ×2 (12:25→23:42)
[2018-03-31 13:27] LABS: CALCIUM 9.6 MG/DL (8.5-10.1); CREATININE SERUM 1.12 MG/DL (0.60-1.30); MAGNESIUM 1.7 MG/DL (1.8-2.4); PHOSPHORUS 2.8 MG/DL (2.3-4.7); POTASSIUM 4.1 MMOL/L (3.6-5.0)
--- NOTE | 2018-03-31 15:40 | Physical Therapy Evaluation ---
PT Evaluation-General Medical Diagnosis Admission Date Mar 30, 2018 at 11:30 Medical Diagnosis: COPD, CHF Onset Date: Mar 30, 2018 Therapy Diagnosis Therapy Diagnosis: General Weakness Height/Weight Height (Feet): 5 Height (Inches): 4.00 Weight (Pounds): 151 Weight (Ounces): 6.0 Precautions Precautions/Isolations: Fall Prevention, Standard Precautions Weight Bear Status Right Lower Extremity: Right Full Weight Bearing Left Lower Extremity: Left Full Weight Bearing Referral Physician: Yolie Reason for Referral: Evaluation/Treatment Medical History Additional Medical History Hysterectomy, COPD, HTN, Stroke, Atrial Fib, Scoliosis, Dysphagia Current History Pt brought to ER for hypoxia from [facility] by EMS. Social History Home: Assisted Living Current Living Status: Alone Entry Into Home: Level Entry PT Steps Into Home: 0 PT Steps Inside Home: 0 Prior/Core FIM Prior Level of Function Functional [place] Measure 0=Not Assessed/NA 4=Minimal Assistance 1=Total Assistance 5=Supervision or Setup 2=Maximal Assistance 6=Modified [place] 3=Moderate Assistance 7=Complete IndependenceIRFPAI Quality Coding Scale 6 Independent with activity with or without an assistive device 5 Patient requires set up or clean up by helper. Patient completes activity by themselves 4 Supervision or touching assist (CGA). [place] provide cues , steadying assist 3 The helper provides less than half the effort to complete the activity 2 The helper provides more than half the effort to complete the activity 1 Dependent. The helper does all the effort to complete an activity 7 Patient refused to complete or attempt activity 9 The patient did not perform the activity before the current illness or injury 88 Not attempted due to Medical conditions or safety concerns Bed Mobility: 3 Transfers (B,C,W/C) (FIM): 2 Wheelchair Mobility: 4 Prior Equipment Used: nonambulatory PLOF PT Evaluation-Current Subjective Pt awake in bed being treated by RT when PT arrived. Pt agreed to evaluation by PT. Pain Numeric Pain Scale: 0-No Pain Location: No Pain Reported Objective Patient Orientation: Normal For Age Attachments: Oxygen ROM/Strength ROM Upper Extremities WNL ROM Lower Extremities WNL Strength Upper Extremities NT Strength Lower Extremities 3+/5 BLE Integumentary/Posture Bowel Incontinence: No Bladder Incontinence: No Sensory Vision: Wears Glasses Hearing: Functional Sensation Right Upper Extremit: Intact Sensation Left Upper Extremity: Intact Sensation Right Lower Extremit: Intact Sensation Left Lower Extremity: Intact Transfers Functional [place] Measure 0=Not Assessed/NA 4=Minimal Assistance 1=Total Assistance 5=Supervision or Setup 2=Maximal Assistance 6=Modified [place] 3=Moderate Assistance 7=Complete [place] Transfers (B, C, W/C) (FIM): 2 Scootin Rollin Supine to/from Sit: 4 Sit to/from Stand: 2 Gait Mode of Locomotion: Wheelchair Anticipated Mode of Locomotion: Wheelchair Wheelchair Training Wheelchair (FIM): 0 Wheelchair Distance (FIM): 0=does not occure Pt reports that she uses a WC to get around in assisted living home. Balance Sitting Static: Good Sitting Dynamic: Good Standing Static: Poor Standing Dynamic: Poor Assessment/Needs Patient demonstrated 3+/5 BLE strength. Patient was able to sit up and perform bed function with minimal assist. Patient was a max assist in sitting/standing when moving patient up in bed. Patient will benefit from bed mobility and LE exercises to maintain current function. Rehab Potential: Fair PT Fci Goals Shingle Catcher Goals PT Shingle Catcher Goals Time Frame: Apr 07, 2018 Transfers (B,C,W/C) (FIM): 4 Gait distance (FIM): 0=does not occure Wheelchair (FIM): 4 Wheelchair distance (FIM): 1=up to 49 ft Distance: 50' Wheelchair Level of Assist: 4 PT Plan Problem List Problem List: Activity Tolerance, Functional Strength, Safety, Transfer, Bed Mobility Treatment/Plan Treatment Plan: Continue Plan of Care Treatment Plan: Bed Mobility, Education, Functional Activity Desi, Functional Strength, Gait, Safety, Therapeutic Exercise, Transfers Treatment Duration: Apr 07, 2018 Frequency: 5 times per week Estimated Hrs Per Day: .25 hour per day Patient and/or Family Agrees t: Yes Time/GCodes Time In: 1506 Time Out: 1524 Total Billed Treatment Time: 18 Total Billed [facility] Mar 31, 2018 15:40
[2018-03-31 15:50] VITALS: BP 147/81
[2018-03-31 19:15] VITALS: BP 162/86
[2018-03-31] MEDS ORDERED: FLUTICASONE NASAL SPRAY (FLONASE) 16 GM BTL NS PRN (21:00)
[2018-03-31] MEDS: ALPRAZolam 0.5 MG (XANAX) TAB PO SCH (21:59)
[2018-04-01 00:10] VITALS: BP 171/89
[2018-04-01] MEDS: RT-ALBUTEROL/IPRATROPIUM 3 ML (DUONEB) VIAL INH SCH ×6 (02:38→22:16)
[2018-04-01 04:00] VITALS: BP 175/89
[2018-04-01] MEDS: methylPREDNISolone 125 MG (Solu-MEDROL) VIAL IV SCH (05:09)
[2018-04-01 06:45] LABS: PROTHROMBIN TIME PATIENT 47.6 SEC (12.2-14.7)
[2018-04-01 06:46] LABS: INR 5.1 (0.8-1.4)
[2018-04-01] MEDS: SENNA W/DOCUSATE (SENOKOT S) TABLET PO SCH (07:55)
[2018-04-01] MEDS: meTOprolol SUCCINATE 100 MG (TOPROL XL) TAB PO SCH (07:55)
[2018-04-01 08:00] VITALS: BP 165/90
--- NOTE | 2018-04-01 08:56 | Progress Note-Cardiology ---
Cardiology SOAP Progress Note Subjective: States she feels her breathing is better than yesterday, but not quite back to her usual baseline. No c/o CP or palpitations. Objective: I&O/Vital Signs 04/01/18 04/01/18 04/01/18 04/01/18 04:00 06:28 07:00 08:00 Temp 97.8 97.4 Pulse 101 103 105 Resp 20 18 B/P (MAP) 175/89 (117) 165/90 (115) Pulse Ox 93 94 90 O2 Delivery Nasal Cannula Nasal Cannula Nasal Cannula O2 Flow Rate 3.00 2.00 3.00 04/01/18 04/01/18 04/01/18 10:54 12:00 14:35 Temp 98.2 Pulse 81 Resp 22 B/P (MAP) 132/70 (90) Pulse Ox 94 92 94 O2 Delivery Nasal Cannula Nasal Cannula Nasal Cannula O2 Flow Rate 2.00 3.00 2.00 04/01/18 00:00 Intake Total 520 ml Output Total 1300 ml Balance -780 ml Weight (Pounds): 145 Weight (Ounces): 15.0 Weight (Calculated Kilograms): 66.066917 Constitutional: appears stated age; No apparent distress; well-developed, well- nourished Respiratory: accessory muscle use, chest is bilaterally symmetric, lungs clear to auscultation Cardiovascular: irregularly irregular, S1 and S2, systolic murmur Gastrointestional: soft, audible bowel sounds Extremities: no lower extremity edema bilateral Neurologic/Psychiatric: grossly intact Skin: warm/dry, other (erythema noted to both lower extremities and may be venous stasis color changes.) Results/Procedures: Labs Laboratory Tests 04/01/18 05:55: Prothrombin Time 47.6*H, INR Comment 5.1*H Microbiology 03/30/18 Blood Culture - Preliminary, Resulted No growth 03/30/18 Urine Culture - Final, Complete NO GROWTH A/P: Assessment: Acute Respiratory failure, likely multifactorial (acute diastolic congestive heart failure and COPD) Acute on chronic diastolic congestive heart failure - clinically improved Acute exacerbation of COPD - management per medical/pulmonary services Hypertension, not well controlled Supratherapeutic INR - warfarin currently being withheld Chronic atrial fibrillation - resume BB Normal global left ventricular systolic function with an ejection fraction of approximately 60 to 65%. Mitral annular calcification without evidence of significant mitral stenosis. Moderate mitral regurgitation, mild tricuspid and aortic regurgitation, and trivial pulmonic regurgitation. Moderate diastolic dysfunction of the left ventricle. Pulmonary artery systolic pressure is estimated to be within normal limits. Marked enlargement of the left atrium. Per echocardiogram of Mar 2016 Plan: HR not well controlled even after increased dose of BB Restart Verapamil Change IV diuretics to oral Replace Mag Monitor lab closely Supratherapeutic INR - continue to hold warfarin Physician Assessment Physician Assessment States feels much better. Shortness of breath has improved. No cp or palp or syncope Lungs: fair to good air entry, but diminished at the bases Cor: irreg Ext: no c/c/e A&R * As documented in our note above * Continue to hold warfarin until INR falls to therapeutic range, then start lower dose * Monitor INR as outpt * Resume verapamil SR * Outpt card f/u advised SHANTELLE RIVERA Apr 01, 2018 08:56 ANNETTE MO MD [facility] Apr 01, 2018 15:02
[2018-04-01] MEDS ORDERED: VERAPAMIL SR 240 MG (CALAN SR) TAB PO NR (09:15)
--- NOTE | 2018-04-01 09:15 | Physical Therapy Daily Note ---
PT Daily Note-Current Subjective Pt awake in bed and agreed to exercise for PT. Pain Numeric Pain Scale: 0-No Pain Location: No Pain Reported Mental Status Patient Orientation: Person, Confused Attachments: Oxygen, IV Transfers Functional Rooks Measure 0=Not Assessed/NA 4=Minimal Assistance 1=Total Assistance 5=Supervision or Setup 2=Maximal Assistance 6=Modified Rooks 3=Moderate Assistance 7=Complete IndependenceIRFPAI Quality Coding Scale 6 Independent with activity with or without an assistive device 5 Patient requires set up or clean up by helper. Patient completes activity by themselves 4 Supervision or touching assist (CGA). [place] provide cues , steadying assist 3 The helper provides less than half the effort to complete the activity 2 The helper provides more than half the effort to complete the activity 1 Dependent. The helper does all the effort to complete an activity 7 Patient refused to complete or attempt activity 9 The patient did not perform the activity before the current illness or injury 88 Not attempted due to Medical conditions or safety concerns Weight Bearing Right Lower Extremity: Right Full Weight Bearing Left Lower Extremity: Left Full Weight Bearing Exercises Supine Ex: Ankle pumps, Quad Set, Heel Slides, Straight leg raise Supine Reps: 15 Assessment Pt performed LE exercises in bed to help maintain current level of function. Pt instructed to perform exercises on her own as well. PT Alf Goals Nurse Aide Goals PT Nurse Aide Goals Time Frame: Apr 07, 2018 Transfers (B,C,W/C) (FIM): 4 Gait distance (FIM): 0=does not occure Wheelchair (FIM): 4 Wheelchair distance (FIM): 1=up to 49 ft Distance: 50' Wheelchair Level of Assist: 4 PT Plan Problem List Problem List: Activity Tolerance, Functional Strength, Safety, ROM Treatment/Plan Treatment Plan: Continue Plan of Care Treatment Plan: Bed Mobility, Education, Functional Activity Desi, Functional Strength, Gait, Safety, Therapeutic Exercise, Transfers Treatment Duration: Apr 07, 2018 Frequency: 5 times per week Estimated Hrs Per Day: .25 hour per day Patient and/or Family Agrees t: Yes Time/GCodes Time In: 845 Time Out: 853 Total Billed Treatment Time: 8 Total Billed Treatment 1 Visit EX - 8' LUKAS QIU PT Apr 01, 2018 09:15
[2018-04-01] MEDS: MAGNESIUM 1 GM/100 ML IVPB 100 ML IV SCH ×2 (09:40→10:41)
--- NOTE | 2018-04-01 10:07 | Physician Query Clarification ---
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 Arrived w non rebreather @ 6L Sat 94%. Triage reported vitals of BP 155/95, Temp 96.4, Pulse 89, Resp 18. Bedside pulse ox 94. Treatment: Albuterol treatment [facility] route from jail. Duo neb treatment, 1 hour continuous breathing treatment Solu Medrol 125mg IV.OxyMask at 5-6 L/m. No blood gases done. Question: Is Acute Respiratory Failure a clinically valid diagnosis? Acute Respiratory Failure was documented in the 03/[address] Manning with no further documentation in the medical record. Please document a response below. acute respiratory failure PHYSICIAN RESPONSE Diagnosis clinically valid: Yes, Conditon resolved In responding to this query, please exercise your independent professional judgment. The purpose of this communication is to more accurately reflect the complexity of your patients condition. The fact that a question is asked does not imply that any particular answer is desired or expected. Thank you for your timely response to this clarification. Requestors name: Vani Taylor [facility] Phone # ext [phone] or [phone] THIS PHYSICIAN QUERY FORM IS A PERMANENT PART OF THE MEDICAL RECORD VANI TAYLOR Apr 01, 2018 10:07 JAY HENSON MD Apr 02, 2018 19:10
[2018-04-01] MEDS: methylPREDNISolone 40 MG/ML (Solu-MEDROL) VIAL IV SCH ×2 (11:40→18:32)
[2018-04-01 12:00] VITALS: BP 132/70
--- NOTE | 2018-04-01 15:30 | Pulmonary Progress Note ---
Sepsis Event Evaluation Height, Weight, BMI Height: 5'4.00" Weight: 145lbs. 15.0oz. 66.038804jc; 27.5 BMI Method:Estimated Focused Exam Lactate Level 03/30/18 08:00: Lactic Acid Level 0.85 Exam Exam Vital Signs Date Time Temp Pulse Resp B/P (MAP) Pulse Ox O2 Delivery O2 Flow Rate FiO2 04/01/18 14:35 94 Nasal Cannula 2.00 04/01/18 12:00 98.2 81 22 132/70 (90) 92 Nasal Cannula 3.00 04/01/18 10:54 94 Nasal Cannula 2.00 04/01/18 08:00 97.4 105 18 165/90 (115) 90 Nasal Cannula 3.00 04/01/18 07:00 103 04/01/18 06:28 94 Nasal Cannula 2.00 04/01/18 04:00 97.8 101 20 175/89 (117) 93 Nasal Cannula 3.00 04/01/18 02:38 94 Nasal Cannula 2.00 04/01/18 01:00 116 04/01/18 00:10 99.4 110 18 171/89 (116) 95 Nasal Cannula 3.00 03/31/18 22:16 94 Nasal Cannula 2.00 03/31/18 20:00 Nasal Cannula 4.00 03/31/18 19:15 99.4 112 16 162/86 (111) 92 Nasal Cannula 4.00 03/31/18 19:00 107 03/31/18 18:53 94 Nasal Cannula 2.00 03/31/18 15:50 99.3 126 16 147/81 (103) 93 Nasal Cannula 4.00 I & O 04/01/18 07:00 Intake Total 1170 ml Output Total 1300 ml Balance -130 ml Height & Weight Height: 5'4.00" Weight: 145lbs. 15.0oz. 66.538700vi; 27.5 BMI Method:Estimated General Appearance: WD/WN, Chronically ill, Mild Distress (due to mild tachypnea), Other (severely kyphotic) HEENT: PERRL/EOMI, Normal ENT Inspection, Pharynx Normal Neck: Full Range of Motion, Normal Inspection, Non Tender, Supple, Carotid Bruit Respiratory: Chest Non Tender, Accessory Muscle Use, Crackles, Decreased Breath Sounds, Rales, Respiratory Distress, Wheezing Cardiovascular: No Edema, No Gallop, No JVD, No Murmur, Normal Peripheral Pulses, Irregularly Irregular Capillary Refill: Less Than 3 Seconds Extremity: Normal Capillary Refill, Normal Inspection, Normal Range of Motion, Non Tender, No Calf Tenderness, No Pedal Edema Neurologic/Psychiatric: Alert, Oriented x3, No Motor/Sensory Deficits, Normal Mood/Affect Skin: Normal Color, Warm/Dry Lymphatic: No Adenopathy Results Lab Laboratory Tests 03/31/18 05:31 03/31/18 13:03 Assessment/Plan Assessment/Plan Acute on chronic respiratory distress - improved -Bipap PRN Diastolic CHF with pulmonary edema and bilateral pleural effusions -Lasix COPDAE -Solumedrol - decrease to 40 Q6 -SVNs RLD secondary with kyphoscoliosis Afib -Coumadin Prior CVA with right-sided weakness KIMBERLY KINGSTON DO Apr 01, 2018 15:30
[2018-04-01 16:00] VITALS: BP 126/78
[2018-04-01 20:36] VITALS: BP 136/77
[2018-04-01] MEDS: ALPRAZolam 0.5 MG (XANAX) TAB PO SCH (22:02)
[2018-04-02] VITALS (7 sets, daily range): BP systolic 120–158; BP diastolic 64–81
[2018-04-02] MEDS: methylPREDNISolone 40 MG/ML (Solu-MEDROL) VIAL IV SCH (00:23)
[2018-04-02] MEDS: RT-ALBUTEROL/IPRATROPIUM 3 ML (DUONEB) VIAL INH SCH ×4 (02:28→17:21)
--- NOTE | 2018-04-02 06:17 | Pulmonary Progress Note ---
Subjective Time Seen by a Provider: 06:15 Sepsis Event Evaluation Height, Weight, BMI Height: 5'4.00" Weight: 145lbs. 15.0oz. 66.431541xd; 27.5 BMI Method:Estimated Focused Exam Lactate Level 03/30/18 08:00: Lactic Acid Level 0.85 Exam Exam Vital Signs Date Time Temp Pulse Resp B/P (MAP) Pulse Ox O2 Delivery O2 Flow Rate FiO2 04/02/18 02:28 91 Nasal Cannula 4.00 04/02/18 01:00 83 04/02/18 00:00 97.3 63 20 132/71 (91) 96 Nasal Cannula 4.00 04/01/18 22:16 94 Nasal Cannula 4.00 04/01/18 20:36 97.6 103 17 136/77 (96) 91 Nasal Cannula 4.00 04/01/18 20:00 Nasal Cannula 4.00 04/01/18 19:00 90 04/01/18 16:00 97.6 82 17 126/78 (94) 94 Nasal Cannula 4.00 04/01/18 14:35 94 Nasal Cannula 2.00 04/01/18 12:00 98.2 81 22 132/70 (90) 92 Nasal Cannula 3.00 04/01/18 10:54 94 Nasal Cannula 2.00 04/01/18 08:00 Nasal Cannula 4.00 04/01/18 08:00 97.4 105 18 165/90 (115) 90 Nasal Cannula 3.00 04/01/18 07:00 103 04/01/18 06:28 94 Nasal Cannula 2.00 I & O 04/02/18 07:00 Intake Total 1120 ml Balance 1120 ml Height & Weight Height: 5'4.00" Weight: 145lbs. 15.0oz. 66.667242vo; 27.5 BMI Method:Estimated General Appearance: WD/WN, Chronically ill, Mild Distress (due to mild tachypnea), Other (severely kyphotic) HEENT: PERRL/EOMI, Normal ENT Inspection, Pharynx Normal Neck: Full Range of Motion, Normal Inspection, Non Tender, Supple, Carotid Bruit Respiratory: Chest Non Tender, Accessory Muscle Use, Crackles, Decreased Breath Sounds, Rales, Respiratory Distress, Wheezing Cardiovascular: No Edema, No Gallop, No JVD, No Murmur, Normal Peripheral Pulses, Irregularly Irregular Capillary Refill: Less Than 3 Seconds Extremity: Normal Capillary Refill, Normal Inspection, Normal Range of Motion, Non Tender, No Calf Tenderness, No Pedal Edema Neurologic/Psychiatric: Alert, Oriented x3, No Motor/Sensory Deficits, Normal Mood/Affect Skin: Normal Color, Warm/Dry Lymphatic: No Adenopathy Results Lab Laboratory Tests 03/31/18 13:03 Assessment/Plan Assessment/Plan Acute on chronic respiratory distress - improved -Bipap PRN Diastolic CHF with pulmonary edema and bilateral pleural effusions -Lasix COPDAE -Solumedrol - change to prednisone fast taper. -SVNs RLD secondary with kyphoscoliosis Afib -Coumadin Prior CVA with right-sided weakness KIMBERLY KINGSTON DO Apr 02, 2018 06:17
[2018-04-02 06:36] LABS: INR 4.5 (0.8-1.4); PROTHROMBIN TIME PATIENT 43.3 SEC (12.2-14.7)
[2018-04-02 06:41] LABS: CALCIUM 9.2 MG/DL (8.5-10.1); CREATININE SERUM 1.2 MG/DL (0.60-1.30); MAGNESIUM 2.4 MG/DL (1.8-2.4); POTASSIUM 3.9 MMOL/L (3.6-5.0)
[2018-04-02] MEDS ORDERED: predniSONE 10 MG TAB PO SCH (07:00)
[2018-04-02] MEDS: SENNA W/DOCUSATE (SENOKOT S) TABLET PO SCH (08:05)
[2018-04-02] MEDS: meTOprolol SUCCINATE 100 MG (TOPROL XL) TAB PO SCH (08:05)
--- NOTE | 2018-04-02 08:18 | Progress Note ---
Subjective Date Seen by a Provider: Apr 01, 2018 Time Seen by a Provider: 08:30 Subjective/Events-last exam LATE ENTRY NOTE FROM 04/01/18 - PT SEEN IN HER HOSPITAL ROOM, NURSE PRACTITIONER STUDENT - SHANTELLE IN ROOM WITH ME AT TIME OF EVALUATION. SHE REPORTS THAT SHE HAD SEEN PT EARLIER AND SHE SEEMED TO BE CONFUSED. PT WAS AWARE OF WHO I WAS, HOWEVER, SIMILAR TO SHANTELLE'S EVALUATION OF THE PATIENT, SHE DID NOT SEEM TO REALIZE THAT SHE WAS IN THE HOSPITAL. SHE KEPT INDICATING THAT SHE WAS IN A SMALLER ROOM AT THE ASSISTED LIVING FACILITY IN WHICH SHE RESIDES. SHE DENIES CHEST PAIN, SHORTNESS OF BREATH BEYOND HER USUAL. Review of Systems General: No Chills; Fatigue Pulmonary: Dyspnea; No Cough Cardiovascular: No: Chest Pain Gastrointestinal: No: Nausea, Abdominal Pain Genitourinary: No Dysuria Neurological: Weakness; No: Confusion Objective Exam Last Set of Vital Signs Vital Signs Date Time Temp Pulse Resp B/P (MAP) Pulse Ox O2 Delivery O2 Flow Rate FiO2 04/02/18 07:08 74 92 36 04/02/18 06:48 Nasal Cannula 4.00 04/02/18 04:00 97.1 16 158/81 (106) Capillary Refill : Less Than 3 SecondsLess Than 3 Seconds I&O Intake and Output 04/02/18 00:00 Intake Total 1220 ml Balance 1220 ml Intake Oral 1220 ml # Voids 10 # Bowel Movements 1 General: Alert, Oriented X3, Cooperative HEENT: Atraumatic Neck: Supple Lungs: Clear to Auscultation Heart: Other Abdomen: Normal Bowel Sounds, Soft Psych/Mental Status: Mental Status NL Results Lab Laboratory Tests 04/02/18 05:10: Prothrombin Time 43.3H, INR Comment 4.5H, Sodium Level 145, Potassium Level 3.9 , Chloride Level 101, Carbon Dioxide Level 34H, Anion Gap 10, Blood Urea Nitrogen 43H, Creatinine 1.20, Estimat Glomerular Filtration Rate 43, BUN/ Creatinine Ratio 36, Glucose Level 122H, Calcium Level 9.2, Magnesium Level 2.4 Microbiology 03/30/18 Blood Culture - Preliminary, Resulted No growth 03/30/18 Urine Culture - Final, Complete NO GROWTH Assessment/Plan Assessment/Plan Assess & Plan/Chief Complaint COPD EXACERBATION WITH ACUTE RESPIRATORY FAILURE RESTRICTIVE LUNG DISEASE DUE TO KYPHOSIS AND SCOLIOSIS CONGESTIVE HEART FAILURE ATRIAL FIBRILLATION COPD EXACERBATION WITH ACUTE RESPIRATORY FAILURE - IMPROVED WITH BREATHING TREATMENTS, AND TREATMENT OF EDEMA. RESTRICTIVE LUNG DISEASE DUE TO KYPHOSIS AND SCOLIOSIS - SUPPORTIVE CARE ONLY AT THIS TIME. CONGESTIVE HEART FAILURE - DEFER TO CARDIOLOGY - SYMPTOMS IMPROVED WITH HEART RATE CONTROL ATRIAL FIBRILLATION - IMPROVED ON HIGHER DOSE OF METOPROLOL, DISCUSSED WITH AMOS JOHNSON FOR DR. MO - WILL ADD BACK VERAPAMIL. CONFUSION - DUE TO DELIRIUM - - SUPPORTIVE CARE AND SHOULD IMPROVE ONCE SHE IS BACK TO USUAL ENVIRONMENT. GENERALIZED WEAKNESS - PHYSICAL THERAPY INVOLVED FOR STRENGTHENING. Clinical Quality Measures DVT/VTE Risk/Contraindication: Risk Factor Score Per Nursin RFS Level Per Nursing on Admit: 4+=Very High JAY HENSON MD Apr 02, 2018 08:18
[2018-04-02] MEDS ORDERED: FUROSEMIDE 40 MG (LASIX) TAB PO SCH (09:00)
[2018-04-02] MEDS ORDERED: VERAPAMIL SR 240 MG (CALAN SR) TAB PO SCH (09:00)
--- NOTE | 2018-04-02 09:28 | Physical Therapy Daily Note ---
PT Daily Note-Current Subjective Daughter present with patient. Dr Urbano visits pt. during rx and wants this PLUMBING ENGINEERING DRAFTSPERSON to attempt to titrate off O2 and assess gait and mobility. Pt has no c/o and states she feels much better today. Pain Numeric Pain Scale: 0-No Pain Mental Status Patient Orientation: Person, Place, Time, Situation Attachments: Oxygen (2-4 L) Transfers Functional Gregory Measure 0=Not Assessed/NA 4=Minimal Assistance 1=Total Assistance 5=Supervision or Setup 2=Maximal Assistance 6=Modified Gregory 3=Moderate Assistance 7=Complete IndependenceIRFPAI Quality Coding Scale 6 Independent with activity with or without an assistive device 5 Patient requires set up or clean up by helper. Patient completes activity by themselves 4 Supervision or touching assist (CGA). [place] provide cues , steadying assist 3 The helper provides less than half the effort to complete the activity 2 The helper provides more than half the effort to complete the activity 1 Dependent. The helper does all the effort to complete an activity 7 Patient refused to complete or attempt activity 9 The patient did not perform the activity before the current illness or injury 88 Not attempted due to Medical conditions or safety concerns sit to stand x 3 SBA to Mod I Weight Bearing Right Lower Extremity: Right Full Weight Bearing Left Lower Extremity: Left Full Weight Bearing Gait Training Gait Assistive Device: FWW 50ft x 2 FWW CGA no LOB, O2 at 2L with sats decreased from 94% at rest to 87% with activity. at rest on 2 L pt steady at 96% Exercises Seated Therapy Exercises: Ankle pumps, Sit to stand, Long arc quads, Hip abd/ add Seated Reps: 15 Assessment Current Status: Good Progress pt. desats to high 80s with gait and activity on 2 L. Nurse to contact Dr Urbano at noon with pts status. This PLUMBING ENGINEERING DRAFTSPERSON suggests extended O2 tubing be provided as this Rx was short bouts in room 50ft x 2 with pt. desatting to 87% . Pt. however had good TRFs and no LOB with gait PT Rubber Stamp Die Inspector Goals Rubber Stamp Die Inspector Goals PT Jail Goals Time Frame: Apr 07, 2018 Transfers (B,C,W/C) (FIM): 4 Gait distance (FIM): 0=does not occure Wheelchair (FIM): 4 Wheelchair distance (FIM): 1=up to 49 ft Distance: 50' Wheelchair Level of Assist: 4 PT Plan Treatment/Plan Treatment Plan: Continue Plan of Care Treatment Plan: Bed Mobility, Education, Functional Activity Desi, Functional Strength, Gait, Safety, Therapeutic Exercise, Transfers Treatment Duration: Apr 07, 2018 Frequency: 5 times per week Estimated Hrs Per Day: .25 hour per day Patient and/or Family Agrees t: Yes Safety Risks/Education Patient Education: Transfer Techniques, Correct Positioning, Disease Process, Safety Issues Teaching Recipient: Patient Teaching Methods: Demonstration, Discussion Response to Teaching: Verbalize Understanding, Return Demonstration, Reinforcement Needed Time/GCodes Time In: 840 Time Out: 920 Total Billed Treatment Time: 40 Total Billed Treatment 1,GT15m,FA10m,EX15m G Codes Necessary: KEENAN Saez PLUMBING ENGINEERING DRAFTSPERSON Apr 02, 2018 09:28
[2018-04-02] MEDS ORDERED: PRD10T PO (16:26)
[2018-04-02] MEDS ORDERED: WARF2.5T82 PO (16:26)
[2018-04-02] MEDS ORDERED: METO-395 PO (16:26)
--- NOTE | 2018-04-02 16:31 | D/C HH Face to Face Order ---
D/C Face to Face Orders Instructions for Patient Via [facility], Patient Instructions/FollowUp: 1wk with lawanda [facility] Physician to follow Patient: lawanda Discharge Diet for Home: Regular Diet Patient Data-Allergies,Ht & Wt Patient Allergies: Coded Allergies: codeine (Verified Allergy, Unknown, 03/30/18) Uncoded Allergies: ESTROGEN SUPPLEMENT PATCHES (Allergy, Unknown, 04/21/14) Height (Feet): 5 Height (Inches): 4.00 Weight (Pounds): 145 Weight (Ounces): 15.0 Home Health Need/Face to Face Date of Face to Face: Apr 02, 2018 Clinical Findings: Muscle weakness, Shortness of breath, Unsteady gait I have seen Pt [id number]: Yes Discharged To: Home (assisted living) Diagnosis/Conditions: copd afib generalized weakness hypertension pulmonary Patient is Homebound due to: Aniceto fall risk due to instabilty, Muscle weakness , Shortness of breath/distress Homebound Status Due to the above stated illness, injury or surgical procedure (medical condition or diagnosis) and associated clinical findings, the patient is homebound because of his/her inability to leave home except with aid of a supportive device and/or person AND leaving the home requires a considerable and taxing effort or is medically contraindicated. Pt req the following assistanc: Aid of another person, [facility] Home Health Nursing Orders Home Health Services Order: Nursing Services, Physical Therapy-Evaluate & Treat Home Health Infusion Therapy Line Start Date: Mar 30, 2018 Line Type: Saline Lock Site Location: [facility] Health Lab Orders PT/INR (times/week): 1 /wk May use PT/INR meter: Yes Planned Date for INR: Apr 04, 2018 Therapy Orders Therapy Orders: Physical Therapy Therapy Specific Orders: Increase strength/endurance Certify Stmt I certify that this patient is under my care and that I, a nurse practitioner or a physician; a enrichment assistant working with me, had a face to face encounter that - meets the physician face to face encounter requirements with this patient as dated. JAY HENSON MD Apr 02, 2018 16:31
--- NOTE | 2018-04-02 19:33 | Discharge Summary ---
Diagnosis/Chief Complaint Date of Admission Mar 30, 2018 at 11:30 Date of Discharge Apr 02, 2018 at 18:00 Discharge Date: Apr 02, 2018 Discharge Time: 1630 Admission Diagnosis Admission Diagnosis COPD EXACERBATION WITH ACUTE RESPIRATORY FAILURE RESTRICTIVE LUNG DISEASE DUE TO KYPHOSIS AND SCOLIOSIS CONGESTIVE HEART FAILURE ATRIAL FIBRILLATION DELIRIUM GENERALIZED WEAKNESS KYPHOSIS SCOLIOSIS Discharge Diagnosis COPD EXACERBATION WITH ACUTE RESPIRATORY FAILURE RESTRICTIVE LUNG DISEASE DUE TO KYPHOSIS AND SCOLIOSIS CONGESTIVE HEART FAILURE ATRIAL FIBRILLATION CHRONIC ANTICOAGULATION - SUPRA-THERAPEUTIC INR GENERALIZED WEAKNESS DELIRIUM Reason Hospital Visit This is an 87-year-old white female assisted living patient of Dr. Urbano at [facility] who has a past medical history of severe kyphosis with restrictive lung disease, left sided weakness from prior CVA and atrial fibrillation on Coumadin for stroke prophylaxis in addition to congestive heart failure diastolic type on ECHO 2016 along with valvular heart disease who presents to the ER with increased shortness of breath and wheezing. Dr. Rubio is her android programmer. She reports some mild cough and difficulty sleeping due to shortness of breath the last 2 nights. She wears oxygen at night only. She does not require pain medication for severe kyphosis. She was found to have O2 sat of 77 percent when EMS arrived nonrebreather placed O2 sat of 95 percent when she arrived but she still has increased tachypnea and use of accessory muscles when speaking. Discharge Summary Consultations DR. CHEPE KINGSTON Discharge Physical Examination Allergies: Coded Allergies: codeine (Verified Allergy, Unknown, 03/30/18) Uncoded Allergies: ESTROGEN SUPPLEMENT PATCHES (Allergy, Unknown, 04/21/14) Vitals & I&Os Vital Signs Date Time Temp Pulse Resp B/P (MAP) Pulse Ox O2 Delivery O2 Flow Rate FiO2 04/02/18 18:00 77 16 125/73 93 Nasal Cannula 2.00 04/02/18 16:00 98.5 04/02/18 07:08 36 General Appearance: Alert, Oriented X3, No Acute Distress HEENT: Atraumatic, Other (SEVERE KYPHOSIS TO THE RIGHT) Respiratory: Clear to Auscultation Cardiovascular: Other (IRREGULAR RHYTHM WITH III/ LEX) Abdominal: Normal Bowel Sounds, Soft Psych/Mental Status: Mental Status NL Hospital Course COPD EXACERBATION WITH ACUTE RESPIRATORY FAILURE RESTRICTIVE LUNG DISEASE DUE TO KYPHOSIS AND SCOLIOSIS CONGESTIVE HEART FAILURE ATRIAL FIBRILLATION CHRONIC ANTICOAGULATION GENERALIZED WEAKNESS DELIRIUM COPD EXACERBATION WITH ACUTE RESPIRATORY FAILURE - IMPROVED WITH BREATHING TREATMENTS, AND TREATMENT OF EDEMA. RESTRICTIVE LUNG DISEASE DUE TO KYPHOSIS AND SCOLIOSIS - SUPPORTIVE CARE ONLY AT THIS TIME. CONGESTIVE HEART FAILURE - DEFER TO CARDIOLOGY - SYMPTOMS IMPROVED WITH HEART RATE CONTROL ATRIAL FIBRILLATION - IMPROVED ON HIGHER DOSE OF METOPROLOL, DISCUSSED WITH AMOS JOHNSON FOR DR. RUBIO - WILL ADD BACK VERAPAMIL AND MONITOR SYMPTOMS AT HOME. CONFUSION - DUE TO DELIRIUM - - SUPPORTIVE CARE AND SHOULD IMPROVE ONCE SHE IS BACK TO USUAL ENVIRONMENT. GENERALIZED WEAKNESS - PHYSICAL THERAPY INVOLVED FOR STRENGTHENING. CHRONIC ANTICOAGULATION - SLIGHTLY ELEVATED INR - HOME HEALTH WILL CHECK AT ASSISTED LIVING FACILITY, HOLD COUMADIN UNTIL 04/06/18. WILL START PT ON HOME HEALTH FOR STRENGTHENING AND MONITORING OF HER INR Pending Labs Laboratory Tests 04/02/18 16:08: Glucometer 143 Discharge Condition at discharge IMPROVING SYMPTOMS Instructions to patient/family Please see electronic discharge instructions given to patient. Discharge Medications Reviewed and agree with Discharge Medication list on patient's Discharge Instruction sheet Clinical Quality Measures DVT/VTE Risk/Contraindication: Risk Factor Score Per Nursin RFS Level Per Nursing on Admit: 4+=Very High JAY URBANO MD Apr 02, 2018 19:33
== END 2018-04-02 18:00 | disposition home health service (06) | DRG 291 ==
LOC: ER 07:52 → EDUNIT# 07:52 → 4TH 11:30
PROVIDERS: ADMIT Internal Medicine; ATTEND Family Medicine
DX: I11.0 Hypertensive heart disease with heart failure (principal); I50.33 Acute on chronic diastolic (congestive) heart failure; J96.00 Acute respiratory failure, unspecified whether with hypoxia or hypercapnia; J44.1 Chronic obstructive pulmonary disease with (acute) exacerbation; M40.205 Unspecified kyphosis, thoracolumbar region; M41.9 Scoliosis, unspecified; J99 Respiratory disorders in diseases classified elsewhere; Z66 Do not resuscitate; I48.2 Chronic atrial fibrillation; I69.351 Hemiplegia and hemiparesis following cerebral infarction affecting right dominant side; R41.0 Disorientation, unspecified; R79.1 Abnormal coagulation profile; R06.03 Acute respiratory distress; G47.34 Idiopathic sleep related nonobstructive alveolar hypoventilation; G47.00 Insomnia, unspecified; M19.91 Primary osteoarthritis, unspecified site; R13.10 Dysphagia, unspecified; K59.09 Other constipation; Z79.01 Long term (current) use of anticoagulants; R42 Dizziness and giddiness; E78.5 Hyperlipidemia, unspecified; I08.3 Combined rheumatic disorders of mitral, aortic and tricuspid valves; E87.6 Hypokalemia; I08.1 Rheumatic disorders of both mitral and tricuspid valves
CPT/HCPCS: 36415; 71045; 80048; 80053; 81000; 82962; 83605; 83735; 83880; 84100; 85025; 85610; 85730; 87040; 87088; 93306; 94640; 94760; 96374; 96375

== ENCOUNTER 2018-05-03 08:41 | Inpatient (IN) | payer MEDICARE ==
[~2018-05-03] VITALS: Ht 160 cm; Wt 70.3 kg
[~2018-05-03 08:41] MED LIST changes: +ALPR0.25 PO; +BENZ-13 PO; +CETI10TA20 PO; +CHOL20003 PO; +CYAN100081 PO; +DICL100G18 TP; +FLUT16SP22 NS; +FURO40TA4 PO; +KRIL1CAP18 PO; +LIDO76.5 TP; +METO-387 PO; +METO-395 PO; +MULT-35 PO; +MV-M1TAB32 PO; +OLIV30OI EACH EAR; +POTA10TA10 PO; +PRD10T PO; +SENN-40 PO; +WARF-48 PO; +WARF2.5T82 PO
--- OUTSIDE RECORDS SUMMARY | 2018-05-03 08:56 | XMS REPORT | Continuity of Care Document ---
Author Author [facility] Organization [facility] Address Unknown Phone Unavailable Allergies Active Description Code Type Severity Reaction Onset Reported/Identified Relationship to Patient Clinical Status Yes ESTROGEN SUPPLEMENT PATCHES ESTROGEN SUPPLEMENT PATCHES Unknown N/A 04/21/2014 Yes codeine [id number] Drug Allergy Unknown N/A 03/30/2018 Medications There is no data. Problems Date [...] MORRIS CCDS Ot 414.01 CORONARY ATHEROSCLEROSIS OF [place] CORON 10/14/2012 CHEPE PEOPLES FACC, ANNETTE MORRIS CCDS Ot 424.1 AORTIC VALVE DISORDER 10/14/2012 ANNETTE MO MD, FACC, FACP CCDS Ot 427.31 ATRIAL FIBRILLATION 10/14/2012 CHEPE PEOPLES FACC, ANNETTE FACP CCDS Ot 496 CHR AIRWAY OBSTRUCT NEC 10/14/2012 CHEPE PEOPLES FACC, ANNETTE FACP CCDS Ot 794.30 ABN CARDIOVASC STUDY NOS 10/14/2012 CHEPE PEOPLES FACC, ANNETTE FACP CCDS Ot V46.2 SUPPLEMENTAL OXYGEN 10/14/2012 CHEPE PEOPLES FACC, ANNETTE FACP CCDS Ot V58.66 LONG-TERM (CURRENT) USE OF ASPIRIN 10/14/2012 CHEPE PEOPLES [facility]ACC, [facility] V58.69 OT MED,LT,CURRENT USE [...] ALESHIA E Ot 414.01 CORONARY ATHEROSCLEROSIS OF [place] CORON 12/12/2012 STEVE PEOPLES ALESHIA E Ot [...] NOS 04/08/2014 BANDAR JARRELL DO Ot V06.1 [id number], COMBINED [ 04/08/2014 BANDAR JARRELL DO Ot [...] PEOPLES, JAY Gan Ot 788.30 04/21/2014 JAY HENSON MD Ot 791.9 04/21/2014 Ot 610.4 04/21/2014 [...] PEOPLES, JAY Gan Ot 401.9 04/21/2014 JAY HENSON MD Ot 427.31 04/21/2014 JAY HENSON MD Ot 496 04/21/2014 SIXTO PEOPLES, JAY Gan Ot 716.90 04/21/2014 JAY HENSON MD Ot 733.00 04/21/2014 JAY HENSON MD Ot 737.30 04/21/2014 JAY HENSON MD Ot 780.4 04/21/2014 JAY HENSON MD Ot 780.52 04/21/2014 JAY HENSON MD Ot 780.79 04/21/2014 JAY HENSON MD Ot 784.0 04/21/2014 JAY HENSON MD Ot 786.2 04/21/2014 JAY HENSON MD Ot V12.54 04/21/2014 JAY HENSON MD Ot V43.64 04/21/2014 JAY HENSON MD Ot V54.19 04/25/2014 JAY HENSON MD Ot 276.50 VOLUME DEPLETION, UNSPECIFIED 04/25/2014 JAY HENSON MD Ot 300.00 ANXIETY STATE NOS 04/25/2014 JAY HENSON MD Ot 401.9 HYPERTENSION NOS 04/25/2014 JAY HENSON MD Ot 427.31 ATRIAL FIBRILLATION 04/25/2014 JAY HENSON MD Ot 487.1 FLU W RESP MANIFEST NEC 04/25/2014 JAY HENSON MD Ot 496 CHR AIRWAY OBSTRUCT NEC 04/25/2014 JAY HENSON MD Ot 716.90 ARTHROPATHY NOS-UNSPEC 04/25/2014 JAY HENSON MD Ot 733.00 OSTEOPOROSIS NOS 04/25/2014 JAY HENSON MD Ot 737.30 IDIOPATHIC SCOLIOSIS 04/25/2014 JAY HENSON MD Ot 780.4 DIZZINESS AND GIDDINESS 04/25/2014 JAY HENSON MD Ot 780.52 INSOMNIA, UNSPECIFIED 04/25/2014 JAY HENSON MD Ot V12.54 PERSONAL HX OF TIA, CEREBRAL INFARCTION 04/25/2014 JAY HENSON MD Ot V43.64 HIP JOINT REPLACEMENT STATUS 04/25/2014 JAY HENSON MD Ot V54.19 AFTERCARE HEALING TRAUMATIC FX OTHER BON 05/27/2014 JAY HENSON MD Ot 401.9 HYPERTENSION NOS 05/27/2014 JAY HENSON MD Ot 427.31 ATRIAL FIBRILLATION 05/27/2014 JAY HENSON MD Ot 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 05/27/2014 JAY HENSON MD Ot 435.9 TRANS CEREB ISCHEMIA NOS 05/27/2014 JAY HENSON MD Ot 496 CHR AIRWAY OBSTRUCT NEC 05/27/2014 JAY HENSON MD Ot 728.87 MUSCLE WEAKNESS (GENERALIZED) 05/27/2014 JAY HENSON MD Ot V46.2 SUPPLEMENTAL OXYGEN 06/07/2014 STEVE [...] HEALING TRAUMATIC FX OTHER BON 06/11/2014 STEVE PEOPLSE LAESHIA E Ot V57.89 REHABILITATION PROC NEC 06/13/2014 HUGO SINGLETARY MD Ot 920 CONTUSION FACE/SCALP/NCK 06/13/2014 HUGO SINGLETARY MD Ot 923.11 CONTUSION OF ELBOW 06/13/2014 HUGO SINGLETARY MD Ot E000.8 OTHER EXTERNAL CAUSE STATUS 06/13/2014 HUGO SINGLETARY MD Ot E888.9 FALL NOS 10/01/2014 BAIMA, SHANTELLE L CINDER PIT WORKER Ot 401.9 10/01/2014 BAIMA, SHANTELLE L CINDER PIT WORKER Ot 414.9 10/01/2014 BAIMA, SHANTELLE L CINDER PIT WORKER Ot 427.31 10/01/2014 BAIMA, SHANTELLE L CINDER PIT WORKER Ot V12.54 10/01/2014 BAIMA, SHANTELLE L CINDER PIT WORKER Ot 401.9 10/01/2014 BAIMA, SHANTELLE L CINDER PIT WORKER Ot 414.9 10/01/2014 BAIMA, SHANTELLE L CINDER PIT WORKER Ot 427.31 10/01/2014 BAIMA, SHANTELLE L CINDER PIT WORKER Ot V12.54 03/09/2015 Ot 427.31 03/09/2015 Ot 428.0 03/09/2015 Ot 786.05 03/09/2015 Ot 611.72 03/09/2015 Ot V76.12 03/09/2015 Ot 793.80 03/09/2015 Ot 793.80 03/09/2015 Ot 715.35 03/09/2015 Ot 397.0 03/09/2015 Ot 424.0 03/09/2015 Ot 429.3 03/09/2015 Ot 496 03/09/2015 SIXTO PEOPLES, JAY Gan Ot 780.79 03/09/2015 JAY HENSON MD Ot 788.30 03/09/2015 JAY HENSON MD Ot 791.9 03/09/2015 Ot 610.4 03/09/2015 Ot 719.45 03/09/2015 Ot 396.3 03/09/2015 Ot 397.0 03/09/2015 Ot 416.8 03/09/2015 Ot 429.3 03/09/2015 Ot 786.05 03/09/2015 KELLE PEOPLES, HILDA Ot 786.05 03/09/2015 NIKIA PEOPLES, TERESA Angel Ot 719.45 03/09/2015 TERESA MONTEJO MD Ot V43.64 03/09/2015 BAIMA, SHANTELLE L CINDER PIT WORKER Ot 401.9 03/09/2015 BAIMA, SHANTELLE L CINDER PIT WORKER Ot 414.9 03/09/2015 BAIMA, SHANTELLE L CINDER PIT WORKER Ot 427.31 03/09/2015 BAIMA, SHANTELLE L CINDER PIT WORKER Ot V12.54 03/30/2015 BAIMA, SHANTELLE L CINDER PIT WORKER Ot I10 03/30/2015 BAIMA, SHANTELLE L CINDER PIT WORKER Ot I25.10 03/30/2015 SHANTELLE RIVERA CINDER PIT WORKER Ot I35.1 03/30/2015 SHANTELLE RIVERA CINDER PIT WORKER Ot I48.91 03/30/2015 SHANTELLE RIVERA CINDER PIT WORKER Ot J98.4 03/30/2015 SHANTELLE RIVERA CINDER PIT WORKER Ot Z86.73 04/12/2015 SHANTELLE RIVERA CINDER PIT WORKER Ot I10 04/12/2015 BAISHANTELLE EDWARDS CINDER PIT WORKER Ot I25.10 04/12/2015 BAISHANTELLE EDWARDS CINDER PIT WORKER Ot I35.1 04/12/2015 SHANTELLE RIVERA CINDER PIT WORKER Ot I48.91 04/12/2015 SHANTELLE RIVERA CINDER PIT WORKER Ot J98.4 04/12/2015 SHANTELLE RIVERA CINDER PIT WORKER Ot Z86.73 06/26/2015 KIMBERLY KINGSTON DO Ot G47.36 SLEEP RELATED HYPOVENTILATION IN CONDITI 06/26/2015 KIMBERLY KINGSTON DO Ot R06.83 SNORING 04/02/2016 Ot 793.80 UNSPEC ABNORMAL MAMMOGRAM 04/02/2016 Ot 715.35 LOC OSTEOARTH NOS-PELVIS 04/02/2016 Ot 397.0 TRICUSPID VALVE DISEASE 04/02/2016 Ot 424.0 MITRAL VALVE DISORDER 04/02/2016 Ot 429.3 CARDIOMEGALY 04/02/2016 Ot 496 CHR AIRWAY OBSTRUCT NEC 04/02/2016 JAY HENSON MD Ot 780.79 OTH MALAISE FATIGUE 04/02/2016 JAY HENSON MD Ot 788.30 UNSPECIFIED URINARY INCONTINENCE 04/02/2016 JAY HENSON MD Ot 791.9 ABN URINE FINDINGS NEC [...] HIP JOINT REPLACEMENT STATUS 04/02/2016 SHANTELLE RIVERA CINDER PIT WORKER Ot 401.9 HYPERTENSION NOS 04/02/2016 SHANTELLE RIVERA CINDER PIT WORKER Ot 414.9 CHR ISCHEMIC HRT DIS NOS 04/02/2016 SHANTELLE RIVERA CINDER PIT WORKER Ot 427.31 ATRIAL FIBRILLATION 04/02/2016 SHANTELLE RIVERA CINDER PIT WORKER Ot V12.54 PERSONAL HX OF TIA, CEREBRAL INFARCTION 04/02/2016 SHANTELLE RIVERA CINDER PIT WORKER Ot I10 ESSENTIAL (PRIMARY) HYPERTENSION 04/02/2016 SHANTELLE RIVERA CINDER PIT WORKER Ot I25.10 ATHSCL HEART DISEASE OF [place] CORONARY 04/02/2016 SHANTELLE RIVERA CINDER PIT WORKER Ot 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 04/02/2016 SHANTELLE RIVERA CINDER PIT WORKER Ot I48.91 UNSPECIFIED ATRIAL FIBRILLATION 04/02/2016 SHANTELLE RIVERA CINDER PIT WORKER Ot J98.4 OTHER DISORDERS OF LUNG 04/02/2016 SHANTELLE RIVERA CINDER PIT WORKER Ot Z86.73 PRSNL HX OF TIA (TIA), [...] CCDS Ot I25.10 ATHSCL HEART DISEASE OF [place] CORONARY 04/04/2016 CHEPE PEOPLES FACC, ANNETTE FACP [...] CCDS Ot I25.10 ATHSCL HEART DISEASE OF [place] CORONARY 04/10/2016 CHEPE PEOPLES FACC, ALI FACP [...] CCDS Ot I25.10 ATHSCL HEART DISEASE OF [place] CORONARY 04/10/2016 CHEPE PEOPLES FACTiburcio, ALI FACP [...] CCDS Ot I25.10 ATHSCL HEART DISEASE OF [place] CORONARY 04/25/2016 CHEPE PEOPLES FACC, ALI FACP [...] CCDS Ot I25.10 ATHSCL HEART DISEASE OF [place] CORONARY 05/01/2016 CHEPE PEOPLES FACC, ALI FACP [...] CCDS Ot I25.10 ATHSCL HEART DISEASE OF [place] CORONARY 05/02/2016 CHEPE PEOPLES FACC, ALI FACP [...] CCDS Ot I25.10 ATHSCL HEART DISEASE OF [place] CORONARY 05/09/2016 CHEPE PEOPLES FACC, ALI FACP CCDS Ot I27.2 OTHER SECONDARY PULMONARY HYPERTENSION 05/09/2016 CHEPE PEOPLES FACC, ALI FACP CCDS Ot I48.0 PAROXYSMAL ATRIAL FIBRILLATION 05/09/2016 CHEPE PEOPLES FACC, ALI FACP CCDS Ot J44.9 CHRONIC OBSTRUCTIVE PULMONARY DISEASE, U 05/09/2016 CHEPE PEOPLES FACC, ALI FACP CCDS Ot Z86.73 PRSNL HX OF TIA (TIA), AND CEREB INFRC W 09/12/2016 EVON, DUONG M GLASS DEPOSITION TENDER Ot I51.7 CARDIOMEGALY 09/12/2016 DUONG BARNARD GLASS DEPOSITION TENDER Ot R06.02 SHORTNESS OF BREATH 10/03/2016 DUONG BARNARD GLASS DEPOSITION TENDER Ot I51.7 CARDIOMEGALY 10/03/2016 DUONG BARNARD GLASS DEPOSITION TENDER Ot R06.02 SHORTNESS OF BREATH 10/10/2016 DUONG BARNARD GLASS DEPOSITION TENDER Ot I51.7 CARDIOMEGALY 10/10/2016 DUONG BARNARD GLASS DEPOSITION TENDER Ot R06.02 SHORTNESS OF BREATH 11/21/2016 ENDY SULLIVAN GLASS DEPOSITION TENDER Ot I87.2 VENOUS INSUFFICIENCY (CHRONIC) (PERIPHER 11/21/2016 NATEENDY R GLASS DEPOSITION TENDER Ot L03.115 CELLULITIS OF RIGHT LOWER LIMB 11/21/2016 NATEENDY R GLASS DEPOSITION TENDER Ot L97.212 NON-PRESSURE CHRONIC ULCER OF RIGHT CALF 11/27/2016 ENDY SULLIVAN R GLASS DEPOSITION TENDER Ot L03.119 CELLULITIS OF UNSPECIFIED PART OF LIMB 11/27/2016 NATEENDY R GLASS DEPOSITION TENDER Ot L03.119 CELLULITIS OF UNSPECIFIED PART OF LIMB 11/27/2016 NATE ENDY R GLASS DEPOSITION TENDER Ot L03.119 CELLULITIS OF UNSPECIFIED PART OF LIMB 11/27/2016 ENDY SULLIVAN R GLASS DEPOSITION TENDER Ot I48.2 CHRONIC ATRIAL FIBRILLATION 11/27/2016 NATEENDY R GLASS DEPOSITION TENDER Ot I87.2 VENOUS INSUFFICIENCY (CHRONIC) (PERIPHER 11/27/2016 NATE ENDY R GLASS DEPOSITION TENDER Ot L03.115 CELLULITIS OF RIGHT LOWER LIMB 11/27/2016 NATE ENDY R GLASS DEPOSITION TENDER Ot L03.119 CELLULITIS OF UNSPECIFIED PART OF LIMB 11/27/2016 ENDY SULLIVAN R GLASS DEPOSITION TENDER Ot L97.212 NON-PRESSURE CHRONIC ULCER OF RIGHT CALF 11/27/2016 ENDY SULLIVAN GLASS DEPOSITION TENDER Ot Z79.01 MCC (CURRENT) USE OF ANTICOAGULANT 11/27/2016 ENDY SULLIVAN R GLASS DEPOSITION TENDER Ot L03.119 CELLULITIS OF UNSPECIFIED PART OF LIMB 11/29/2016 ENDY SULLIVAN GLASS DEPOSITION TENDER Ot I48.2 CHRONIC ATRIAL FIBRILLATION 11/29/2016 ENDY SULLIVAN R GLASS DEPOSITION TENDER Ot I87.2 VENOUS INSUFFICIENCY (CHRONIC) (PERIPHER 11/29/2016 ENDY SULLIVAN R GLASS DEPOSITION TENDER Ot L03.115 CELLULITIS OF RIGHT LOWER LIMB 11/29/2016 ENDY SULLIVAN GLASS DEPOSITION TENDER Ot L97.212 NON-PRESSURE CHRONIC ULCER OF RIGHT CALF 11/29/2016 ENDY SULLIVAN GLASS DEPOSITION TENDER Ot 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 12/06/2016 ERIC LA MD Ot I48.2 CHRONIC ATRIAL FIBRILLATION 12/06/2016 ERIC LA MD Ot L03.115 CELLULITIS OF RIGHT LOWER LIMB 12/06/2016 ENDY SULLIVAN APRN Ot 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 12/10/2016 ENDY SULLIVAN GLASS DEPOSITION TENDER Ot I87.2 VENOUS INSUFFICIENCY (CHRONIC) (PERIPHER 12/10/2016 ENDY SULLIVAN GLASS DEPOSITION TENDER Ot L03.115 CELLULITIS OF RIGHT LOWER LIMB 12/10/2016 ENDY SULLIVAN GLASS DEPOSITION TENDER Ot L97.212 NON-PRESSURE CHRONIC ULCER OF RIGHT CALF 12/25/2016 ERIC AL MD Ot I48.2 CHRONIC ATRIAL FIBRILLATION 12/25/2016 ERIC LA MD Ot L03.115 CELLULITIS OF RIGHT LOWER LIMB 12/25/2016 ENDY SULLIVAN GLASS DEPOSITION TENDER Ot I48.2 CHRONIC ATRIAL FIBRILLATION 12/25/2016 ENDY SULLIVAN GLASS DEPOSITION TENDER Ot L03.115 CELLULITIS OF RIGHT LOWER LIMB 01/07/2017 ENDY SULLIVAN GLASS DEPOSITION TENDER Ot L03.115 CELLULITIS OF RIGHT LOWER LIMB 01/08/2017 ENDY SULLIVAN GLASS DEPOSITION TENDER Ot L97.212 NON-PRESSURE CHRONIC ULCER OF RIGHT CALF 01/09/2017 ENDY SULLIVAN GLASS DEPOSITION TENDER Ot I48.2 CHRONIC ATRIAL FIBRILLATION 01/09/2017 ENDY SULLIVAN APRN Ot 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 01/09/2017 ENDY SULLIVAN GLASS DEPOSITION TENDER Ot L03.115 CELLULITIS OF RIGHT LOWER LIMB 01/09/2017 ENDY SULLIVAN GLASS DEPOSITION TENDER Ot L97.212 NON-PRESSURE CHRONIC ULCER OF RIGHT CALF 01/10/2017 ENDY SULLIVAN GLASS DEPOSITION TENDER Ot L03.115 CELLULITIS OF RIGHT LOWER LIMB 01/12/2017 ERIC LA MD Ot I48.2 CHRONIC ATRIAL FIBRILLATION 01/12/2017 ERIC LA MD Ot 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 01/12/2017 ERIC LA MD Ot L03.115 CELLULITIS OF RIGHT LOWER LIMB 01/15/2017 NATE, ENDY R GLASS DEPOSITION TENDER Ot L97.212 NON-PRESSURE CHRONIC ULCER OF RIGHT CALF 01/16/2017 ENDY SULLIVAN GLASS DEPOSITION TENDER Ot I48.2 CHRONIC ATRIAL FIBRILLATION 01/16/2017 ENDY SULLIVAN GLASS DEPOSITION TENDER Ot 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 01/16/2017 ENDY SULLIVAN GLASS DEPOSITION TENDER Ot L97.212 NON-PRESSURE CHRONIC ULCER OF RIGHT CALF 01/16/2017 ENDY SULLIVAN GLASS DEPOSITION TENDER Ot I48.2 CHRONIC ATRIAL FIBRILLATION 01/16/2017 ENDY SULLIVAN GLASS DEPOSITION TENDER Ot 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 01/16/2017 ENDY SULLIVAN GLASS DEPOSITION TENDER Ot L03.115 CELLULITIS OF RIGHT LOWER LIMB 01/16/2017 ENDY SULLIVAN GLASS DEPOSITION TENDER Ot L97.212 NON-PRESSURE CHRONIC ULCER OF RIGHT CALF 01/18/2017 KEITH ADAME CINDER PIT WORKER Ot R41.0 DISORIENTATION, UNSPECIFIED 01/18/2017 KEITH ADAME CINDER PIT WORKER Ot R82.90 UNSPECIFIED ABNORMAL FINDINGS IN URINE 01/23/2017 ENDY SULLIVAN GLASS DEPOSITION TENDER Ot I48.2 CHRONIC ATRIAL FIBRILLATION 01/23/2017 ENDY SULLIVAN GLASS DEPOSITION TENDER Ot 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 01/23/2017 ENDY SULLIVAN GLASS DEPOSITION TENDER Ot L97.212 NON-PRESSURE CHRONIC ULCER OF RIGHT CALF 01/23/2017 ENDY SULLIVAN GLASS DEPOSITION TENDER Ot I48.2 CHRONIC ATRIAL FIBRILLATION 01/23/2017 ENDY SULLIVAN GLASS DEPOSITION TENDER Ot 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 01/23/2017 ENDY SULLIVAN GLASS DEPOSITION TENDER Ot L97.212 NON-PRESSURE CHRONIC ULCER OF RIGHT CALF 01/25/2017 ENDY SULLIVAN GLASS DEPOSITION TENDER Ot I48.2 CHRONIC ATRIAL FIBRILLATION 01/25/2017 ENDY SULLIVAN GLASS DEPOSITION TENDER Ot 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 01/25/2017 ENDY SULLIVAN GLASS DEPOSITION TENDER Ot L03.115 CELLULITIS OF RIGHT LOWER LIMB 01/25/2017 ENDY SULLIVAN GLASS DEPOSITION TENDER Ot L97.212 NON-PRESSURE CHRONIC ULCER OF RIGHT CALF 01/30/2017 ENDY SULLIVAN GLASS DEPOSITION TENDER Ot L03.115 CELLULITIS OF RIGHT LOWER LIMB 01/31/2017 ENDY SULLIVAN GLASS DEPOSITION TENDER Ot I48.2 CHRONIC ATRIAL FIBRILLATION 01/31/2017 ENDY SULLIVAN GLASS DEPOSITION TENDER Ot 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 01/31/2017 ENDY SULLIVAN GLASS DEPOSITION TENDER Ot L03.115 CELLULITIS OF RIGHT LOWER LIMB 01/31/2017 ENDY SULLIVAN GLASS DEPOSITION TENDER Ot L97.212 NON-PRESSURE CHRONIC ULCER OF RIGHT CALF 02/01/2017 ENDY SULLIVAN GLASS DEPOSITION TENDER Ot I48.2 CHRONIC ATRIAL FIBRILLATION 02/01/2017 ENDY SULLIVAN GLASS DEPOSITION TENDER Ot 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 02/01/2017 ENDY SULLIVAN GLASS DEPOSITION TENDER Ot L03.115 CELLULITIS OF RIGHT LOWER LIMB 02/01/2017 ERIC LA MD Ot I48.2 CHRONIC ATRIAL FIBRILLATION 02/01/2017 ERIC LA MD Ot 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 02/01/2017 ERIC LA MD Ot L03.115 CELLULITIS OF RIGHT LOWER LIMB 02/06/2017 ENDY SULLIVAN GLASS DEPOSITION TENDER Ot 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 02/06/2017 ENDY SULLIVAN GLASS DEPOSITION TENDER Ot 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 02/06/2017 ENDY SULLIVAN GLASS DEPOSITION TENDER Ot I48.2 CHRONIC ATRIAL FIBRILLATION 02/06/2017 ENDY SULLIVAN GLASS DEPOSITION TENDER Ot 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 02/06/2017 ENDY SULLIVAN GLASS DEPOSITION TENDER Ot L03.115 CELLULITIS OF RIGHT LOWER LIMB 02/06/2017 ENDY SULLIVAN GLASS DEPOSITION TENDER Ot 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 02/06/2017 ENDY SULLIVAN GLASS DEPOSITION TENDER Ot L97.212 NON-PRESSURE CHRONIC ULCER OF RIGHT CALF 02/06/2017 ERIC LA MD Ot I48.2 CHRONIC ATRIAL FIBRILLATION 02/06/2017 ERIC LA MD Ot 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 02/06/2017 ERIC LA MD Ot L03.115 CELLULITIS OF RIGHT LOWER LIMB 02/06/2017 ENDY SULLIVAN APRN Ot I48.2 CHRONIC ATRIAL FIBRILLATION 02/06/2017 ENDY SULLIVAN GLASS DEPOSITION TENDER Ot 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 02/06/2017 ENDY SULLIVAN GLASS DEPOSITION TENDER Ot L97.212 NON-PRESSURE CHRONIC ULCER OF RIGHT CALF 02/13/2017 ENDY SULLIVAN GLASS DEPOSITION TENDER Ot I48.2 CHRONIC ATRIAL FIBRILLATION 02/13/2017 ENDY SULLIVAN GLASS DEPOSITION TENDER Ot 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 02/13/2017 ENDY SULLIVAN R GLASS DEPOSITION TENDER Ot L97.212 NON-PRESSURE CHRONIC ULCER OF RIGHT CALF 02/13/2017 ENDY SULLIVAN R GLASS DEPOSITION TENDER Ot I48.2 CHRONIC ATRIAL FIBRILLATION 02/13/2017 ENDY SULLIVAN R GLASS DEPOSITION TENDER Ot 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 02/13/2017 ENDY SULLIVAN R GLASS DEPOSITION TENDER Ot L03.115 CELLULITIS OF RIGHT LOWER LIMB 02/13/2017 NATE ENDY R GLASS DEPOSITION TENDER Ot L97.212 NON-PRESSURE CHRONIC ULCER OF RIGHT CALF 02/15/2017 ENDY SULLIVAN R GLASS DEPOSITION TENDER Ot I48.2 CHRONIC ATRIAL FIBRILLATION 02/15/2017 ENDY SULLIVAN GLASS DEPOSITION TENDER Ot 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 02/15/2017 ENDY SULLIVAN R GLASS DEPOSITION TENDER Ot L97.212 NON-PRESSURE CHRONIC ULCER OF RIGHT CALF 02/18/2017 ENDY SULLIVAN R GLASS DEPOSITION TENDER Ot I48.2 CHRONIC ATRIAL FIBRILLATION 02/18/2017 ENDY SULLIVAN R GLASS DEPOSITION TENDER Ot 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 02/18/2017 ENDY SULLIVAN R GLASS DEPOSITION TENDER Ot L97.212 NON-PRESSURE CHRONIC ULCER OF RIGHT CALF 02/19/2017 ENDY SULLIVAN GLASS DEPOSITION TENDER Ot I48.2 CHRONIC ATRIAL FIBRILLATION 02/19/2017 ENDY SULLIVAN R GLASS DEPOSITION TENDER Ot 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 02/19/2017 ENDY SULLIVAN GLASS DEPOSITION TENDER Ot L03.115 CELLULITIS OF RIGHT LOWER LIMB 02/19/2017 NATE ENDY R GLASS DEPOSITION TENDER Ot L97.212 NON-PRESSURE CHRONIC ULCER OF RIGHT CALF 02/20/2017 ENDY SULLIVAN R GLASS DEPOSITION TENDER Ot I48.2 CHRONIC ATRIAL FIBRILLATION 02/20/2017 ENDY SULLIVAN R GLASS DEPOSITION TENDER Ot 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 02/20/2017 ENDY SULLIVAN R GLASS DEPOSITION TENDER Ot L97.212 NON-PRESSURE CHRONIC ULCER OF RIGHT CALF 02/20/2017 ENDY SULLIVAN GLASS DEPOSITION TENDER Ot I48.2 CHRONIC ATRIAL FIBRILLATION 02/20/2017 ENDY SULLIVAN R GLASS DEPOSITION TENDER Ot 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 02/20/2017 ENDY SULLIVAN GLASS DEPOSITION TENDER Ot L97.212 NON-PRESSURE CHRONIC ULCER OF RIGHT CALF 02/21/2017 ENDY SULLIVAN GLASS DEPOSITION TENDER Ot 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 02/21/2017 ENDY SULLIVAN R GLASS DEPOSITION TENDER Ot L97.212 NON-PRESSURE CHRONIC ULCER OF RIGHT CALF 02/27/2017 ENDY SULLIVAN GLASS DEPOSITION TENDER Ot I48.2 CHRONIC ATRIAL FIBRILLATION 02/27/2017 ENDY SULLIVAN GLASS DEPOSITION TENDER Ot 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 02/27/2017 ENDY SULLIVAN R GLASS DEPOSITION TENDER Ot L97.212 NON-PRESSURE CHRONIC ULCER OF RIGHT CALF 02/27/2017 ENDY SULLIVAN GLASS DEPOSITION TENDER Ot 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 02/27/2017 ENDY SULLIVAN R GLASS DEPOSITION TENDER Ot L97.212 NON-PRESSURE CHRONIC ULCER OF RIGHT CALF 02/27/2017 ENDY SULLIVAN GLASS DEPOSITION TENDER Ot 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 02/27/2017 ENDY SULLIVAN GLASS DEPOSITION TENDER Ot L97.212 NON-PRESSURE CHRONIC ULCER OF RIGHT CALF 03/06/2017 ENDY SULLIVAN GLASS DEPOSITION TENDER Ot I48.2 CHRONIC ATRIAL FIBRILLATION 03/06/2017 ENDY SULLIVAN GLASS DEPOSITION TENDER Ot 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 03/06/2017 ENDY SULLIVAN R GLASS DEPOSITION TENDER Ot L97.212 NON-PRESSURE CHRONIC ULCER OF RIGHT CALF 03/07/2017 ENDY SULLIVAN GLASS DEPOSITION TENDER Ot 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 03/07/2017 ENDY SULLIVAN GLASS DEPOSITION TENDER Ot L97.212 NON-PRESSURE CHRONIC ULCER OF RIGHT CALF 03/12/2017 ENDY SULLIVAN GLASS DEPOSITION TENDER Ot I48.2 CHRONIC ATRIAL FIBRILLATION 03/12/2017 ENDY SULLIVAN GLASS DEPOSITION TENDER Ot 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 03/12/2017 ENDY SULLIVAN R GLASS DEPOSITION TENDER Ot L97.212 NON-PRESSURE CHRONIC ULCER OF RIGHT CALF 03/13/2017 ENDY SULLIVAN GLASS DEPOSITION TENDER Ot I48.2 CHRONIC ATRIAL FIBRILLATION 03/13/2017 ENDY SULLIVAN GLASS DEPOSITION TENDER Ot 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 03/13/2017 ENDY SULLIVAN [employer] DEPOSITION TENDER Ot L97.212 NON-PRESSURE CHRONIC ULCER OF RIGHT CALF 03/20/2017 ENDY SULLIVAN [employer] DEPOSITION TENDER Ot I48.2 CHRONIC ATRIAL FIBRILLATION 03/20/2017 ENDY SULLIVAN [employer] DEPOSITION TENDER Ot 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 03/20/2017 ENDY SULLIVAN [employer] DEPOSITION TENDER Ot L97.212 NON-PRESSURE CHRONIC ULCER OF RIGHT CALF 03/21/2017 ENDY SULLIVAN [employer] DEPOSITION TENDER Ot I48.2 CHRONIC ATRIAL FIBRILLATION 03/21/2017 ENDY SULLIVAN [employer] DEPOSITION TENDER Ot 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 03/21/2017 ENDY SULLIVAN [employer] DEPOSITION TENDER Ot L97.212 NON-PRESSURE CHRONIC ULCER OF RIGHT CALF 04/03/2017 ENDY SULLIVAN [employer] DEPOSITION TENDER Ot I48.2 CHRONIC ATRIAL FIBRILLATION 04/03/2017 ENDY SULLIVAN [employer] DEPOSITION TENDER Ot 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 04/03/2017 ENDY SULLIVAN [employer] DE[employer]ITION TENDER Ot L97.212 NON-PRESSURE CHRONIC ULCER OF RIGHT CALF 04/01/2018 JAY HENSON MD Ot I11.0 HYPERTENSIVE HEART DISEASE WITH HEART FA 04/01/2018 JAY HENSON MD Ot I48.2 CHRONIC ATRIAL FIBRILLATION 04/01/2018 JAY HENSON MD Ot I50.32 CHRONIC DIASTOLIC (CONGESTIVE) HEART FARIDEH 04/01/2018 JAY HENSON MD Ot I69.351 HEMIPLGA FOLLOWING CEREBRAL INFRC AFF RI 04/01/2018 JAY HENSON MD Ot J44.1 CHRONIC OBSTRUCTIVE PULMONARY DISEASE W 04/01/2018 JAY HENSON MD Ot R06.89 OTHER ABNORMALITIES OF BREATHING 04/01/2018 JAY HENSON MD Ot R79.1 ABNORMAL COAGULATION PROFILE 04/01/2018 JAY HENSON MD Ot Z66 DO NOT RESUSCITATE 04/02/2018 JAY HENSON MD Ot E78.5 HYPERLIPIDEMIA, UNSPECIFIED 04/02/2018 JAY HENSON MD Ot E87.6 HYPOKALEMIA 04/02/2018 JAY HENSON MD Ot G47.00 INSOMNIA, UNSPECIFIED 04/02/2018 JAY HENSON MD Ot G47.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 04/02/2018 SIXTO MD, JAY A Ot I08.3 COMB RHEUMATIC DISORD OF MITRAL, AORTIC 04/02/2018 JAY HENSON MD Ot I11.0 HYPERTENSIVE HEART DISEASE WITH HEART FA 04/02/2018 JAY HENSON MD Ot I48.2 CHRONIC ATRIAL FIBRILLATION 04/02/2018 JAY HENSON MD Ot I50.33 ACUTE ON CHRONIC DIASTOLIC (CONGESTIVE) 04/02/2018 JAY HENSON MD Ot I69.351 HEMIPLGA FOLLOWING CEREBRAL INFRC AFF RI 04/02/2018 JAY HENSON MD Ot J44.1 CHRONIC OBSTRUCTIVE PULMONARY DISEASE W 04/02/2018 JAY HENSON MD Ot J96.00 ACUTE RESPIRATORY FAILURE, UNSP W HYPOXI 04/02/2018 JAY HENSON MD Ot J99 RESPIRATORY DISORDERS IN DISEASES CLASSI 04/02/2018 JAY HENSON MD Ot K59.09 OTHER CONSTIPATION 04/02/2018 JAY HENSON MD Ot M19.91 PRIMARY OSTEOARTHRITIS, UNSPECIFIED SITE 04/02/2018 JAY HENSON MD Ot 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, THORACOLUMBAR ELIO 04/02/2018 JAY HENSON MD Ot M41.9 SCOLIOSIS, UNSPECIFIED 04/02/2018 JAY HENSON MD Ot R06.03 ACUTE RESPIRATORY DISTRESS 04/02/2018 JAY HENSON MD Ot R13.10 DYSPHAGIA, UNSPECIFIED 04/02/2018 JAY HENSON MD Ot R42 DIZZINESS AND GIDDINESS 04/02/2018 JAY HENSON MD Ot R79.1 ABNORMAL COAGULATION PROFILE 04/02/2018 JAY HENSON MD Ot Z66 DO NOT RESUSCITATE 04/02/2018 JAY HENSON MD Ot Z79.01 MCC (CURRENT) USE OF ANTICOAGULANT 04/02/2018 JAY HENSON MD Ot E78.5 HYPERLIPIDEMIA, UNSPECIFIED 04/02/2018 JAY HENSON MD Ot E87.6 HYPOKALEMIA 04/02/2018 JAY HENSON MD Ot G47.00 INSOMNIA, UNSPECIFIED 04/02/2018 JAY HENSON MD Ot G47.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 04/02/2018 JAY HENSON MD Ot I08.1 RHEUMATIC DISORDERS OF BOTH MITRAL AND T 04/02/2018 JAY HENSON MD Ot I08.3 COMB RHEUMATIC DISORD OF MITRAL, AORTIC 04/02/2018 JAY HENSON MD Ot I11.0 HYPERTENSIVE HEART DISEASE WITH HEART FA 04/02/2018 JAY HENSON MD Ot I48.2 CHRONIC ATRIAL FIBRILLATION 04/02/2018 JAY HENSON MD Ot I50.33 ACUTE ON CHRONIC DIASTOLIC (CONGESTIVE) 04/02/2018 JAY HENSON MD Ot I69.351 HEMIPLGA FOLLOWING CEREBRAL INFRC AFF RI 04/02/2018 JAY HENSON MD, Ot J44.1 CHRONIC OBSTRUCTIVE PULMONARY DISEASE W 04/02/2018 JAY HENSON MD Ot J96.00 ACUTE RESPIRATORY FAILURE, UNSP W HYPOXI 04/02/2018 JAY HENSON MD Ot J99 RESPIRATORY DISORDERS IN DISEASES CLASSI 04/02/2018 JAY HENSON MD Ot K59.09 OTHER CONSTIPATION 04/02/2018 JAY HENSON MD Ot M19.91 PRIMARY OSTEOARTHRITIS, UNSPECIFIED SITE 04/02/2018 JAY HENSON MD Ot 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, THORACOLUMBAR ELIO 04/02/2018 JAY HENSON MD Ot M41.9 SCOLIOSIS, UNSPECIFIED 04/02/2018 JAY HENSON MD Ot R06.03 ACUTE RESPIRATORY DISTRESS 04/02/2018 JAY HENSON MD Ot R13.10 DYSPHAGIA, UNSPECIFIED 04/02/2018 JAY HENSON MD Ot R41.0 DISORIENTATION, UNSPECIFIED 04/02/2018 JAY HENSON MD Ot R42 DIZZINESS AND GIDDINESS 04/02/2018 JAY HENSON MD Ot R79.1 ABNORMAL COAGULATION PROFILE 04/02/2018 JAY HENSON MD Ot Z66 DO NOT RESUSCITATE 04/02/2018 JAY HENSON MD Ot 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 Procedures Code Description Performed By Performed On 57.32 CYSTOSCOPY NEC 12/04/2012 Results Test Result Range Bacteria identification in isolate by anaerobe culture - 11/20/16 09:44 Bacteria identification in isolate by anaerobe culture NOANA NRG Gram stain microscopy - 11/20/16 09:44 GRAM STAIN RESULT NO WBC'S OR BACTERIA OBSERVED NR Bacteria identification in wound by culture - 11/20/16 09:44 Bacteria identification in wound by culture [id number] [facility] FREE TEXT EXTERNAL SENSITIVITY REPORTED AT 0759, 7 NR QUANTITY OF GROWTH Scant Growth [facility] Bacterial susceptibility panel - 11/20/16 09:44 Gentamicin [...] 105 mmol/L 98-107 Carbon dioxide 22 mmol/L 21-32 Serum or plasma anion gap [...] 107 mmol/L 98-107 Carbon dioxide 23 mmol/L 21-32 Serum or plasma anion gap [...] 12/06/16 13:05 Vancomycin trough 19.8 ug/mL 10.0-20.0 [id number] - 12/10/16 13:10 Serum or plasma urea [...] 09:33 Bacteria identification in wound by culture [id number] [facility] FREE TEXT EXTERNAL SENSITIVITY REPORTED AT 0858, 12-28-16 NRG QUANTITY OF GROWTH Scant Growth NR Bacterial susceptibility panel - 12/25/16 09:33 Oxacillin [...] culture - 12/28/16 16:35 Bacterial urine culture [id number] NRG COLONY COUNT <10,000 NRG FTX;REPORTABLE SENSITIVITY REPORTED AT 0800, 12-31-16 NR Bacterial susceptibility panel - 12/28/16 16:35 [...] test by minimum inhibitory concentration - NRG Complete blood count (CBC) with automated white blood cell (WBC) differential - 03/30/18 08:00 Blood leukocytes automated count (number/volume) 5.4 10*3/uL 4.3-11.0 Blood erythrocytes automated count (number/volume) 4.43 10*6/uL 4.35-5.85 Venous blood hemoglobin measurement (mass/volume) 13.5 g/dL 11.5-16.0 Blood hematocrit (volume fraction) 43 % 35-52 Automated erythrocyte mean corpuscular volume 98 [foz_us] 80-99 Automated erythrocyte mean corpuscular hemoglobin (mass per erythrocyte) 31 pg 25-34 Automated erythrocyte mean corpuscular hemoglobin concentration measurement ( mass/volume) 31 g/dL 32-36 Automated erythrocyte distribution width ratio 15.1 % 10.0-14.5 Automated blood platelet count (count/volume) 196 10*3/uL 130-400 Automated blood platelet mean volume measurement 9.4 [foz_us] 7.4-10.4 Automated blood neutrophils/100 leukocytes 80 % 42-75 Automated blood lymphocytes/100 leukocytes 11 % 12-44 Blood monocytes/100 leukocytes 7 % 0-12 Automated blood eosinophils/100 leukocytes 1 % 0-10 Automated blood basophils/100 leukocytes 1 % 0-10 Blood neutrophils automated count (number/volume) 4.4 10*3 1.8-7.8 Blood lymphocytes automated count (number/volume) 0.6 10*3 1.0-4.0 Blood monocytes automated count (number/volume) 0.4 10*3 0.0-1.0 Automated eosinophil count 0.1 10*3/uL 0.0-0.3 Automated blood basophil count (count/volume) 0.0 10*3/uL 0.0-0.1 Blood lactic acid measurement (moles/volume) - 03/30/18 08:00 Blood lactic acid measurement (moles/volume) 0.85 mmol/L 0.50-2.00 PT panel in platelet poor plasma by coagulation assay - 03/30/18 08:00 Prothrombin time (PT) in platelet poor plasma by coagulation assay 42.2 s 12.2-14.7 INR in platelet poor plasma or blood by coagulation assay 4.4 0.8-1.4 Comprehensive metabolic panel - 03/30/18 08:00 Serum or plasma sodium measurement (moles/volume) 143 mmol/L 135-145 Serum or plasma potassium measurement (moles/volume) 4.1 mmol/L 3.6-5.0 Serum or plasma chloride measurement (moles/volume) 105 mmol/L 98-107 Carbon dioxide 27 mmol/L 21-32 Serum or plasma anion gap determination (moles/volume) 11 mmol/L 5-14 Serum or plasma urea nitrogen measurement (mass/volume) 27 mg/dL 7-18 Serum or plasma creatinine measurement (mass/volume) 1.06 mg/dL 0.60-1.30 Serum or plasma urea nitrogen/creatinine mass ratio 25 NRG Serum or plasma creatinine measurement with calculation of estimated glomerular filtration rate 49 NRG Serum or plasma glucose measurement (mass/volume) 79 mg/dL 70-105 Serum or plasma calcium measurement (mass/volume) 9.5 mg/dL 8.5-10.1 Serum or plasma total bilirubin measurement (mass/volume) 0.7 mg/dL 0.1-1.0 Serum or plasma alkaline phosphatase measurement (enzymatic activity/volume) 89 U/L 40-136 Serum or plasma aspartate aminotransferase measurement (enzymatic activity/ volume) 28 U/L 5-34 Serum or plasma alanine aminotransferase measurement (enzymatic activity/volume ) 27 U/L 0-55 Serum or plasma protein measurement (mass/volume) 6.9 g/dL 6.4-8.2 Serum or plasma albumin measurement (mass/volume) 4.1 g/dL 3.2-4.5 CALCIUM CORRECTED 9.4 mg/dL 8.5-10.1 Serum or plasma lithium measurement (moles/volume) - 03/30/18 08:00 BNP level 652.9 pg/mL <100.0 Activated partial thromboplastin time (aPTT) in platelet poor plasma bycoagulation assay - 03/30/18 08:00 Activated partial thromboplastin time (aPTT) in platelet poor plasma bycoagulation assay 52 s 24-35 Bacterial blood culture - 03/30/18 08:00 QUANTITY OF GROWTH . NRG Bacterial blood culture SEE COMMEN NRG Bacterial blood culture - 03/30/18 08:00 Bacterial blood culture NG NRG Complete urinalysis with reflex to culture - 03/30/18 08:15 Urine color determination YELLOW NRG Urine clarity determination CLEAR NRG Urine pH measurement by test strip 6 5-9 Specific gravity of urine by test strip 1.020 1.016- 1.022 Urine protein assay by test strip, semi-quantitative 2+ NEGATIVE Urine glucose detection by automated test strip NEGATIVE NEGATIVE Erythrocytes detection in urine sediment by light microscopy 1+ NEGATIVE Urine ketones detection by automated test strip NEGATIVE NEGATIVE Urine nitrite detection by test strip NEGATIVE NEGATIVE Urine total bilirubin detection by test strip NEGATIVE NEGATIVE Urine urobilinogen measurement by automated test strip (mass/volume) NORMAL NORMAL Urine leukocyte esterase detection by dipstick NEGATIVE NEGATIVE Automated urine sediment erythrocyte count by microscopy (number/high power field) RARE NRG Automated urine sediment leukocyte count by microscopy (number/high power field ) RARE NRG Bacteria detection in urine sediment by light microscopy TRACE NRG Crystals detection in urine sediment by light microscopy NONE NRG Casts detection in urine sediment by light microscopy PRESENT NRG Mucus detection in urine sediment by light microscopy NEGATIVE NRG Complete urinalysis with reflex to culture NO NRG Hyaline casts detection in urine sediment by light microscopy 5-10 NRG Bacterial urine culture - 03/30/18 08:15 Bacterial urine culture NG NRG Complete blood count (CBC) with automated white blood cell (WBC) differential - 03/31/18 05:31 Blood leukocytes automated count (number/volume) 5.3 10*3/uL 4.3-11.0 Blood erythrocytes automated count (number/volume) 4.58 10*6/uL 4.35-5.85 Venous blood hemoglobin measurement (mass/volume) 13.7 g/dL 11.5-16.0 Blood hematocrit (volume fraction) 43 % 35-52 Automated erythrocyte mean corpuscular volume 95 [foz_us] 80-99 Automated erythrocyte mean corpuscular hemoglobin (mass per erythrocyte) 30 pg 25-34 Automated erythrocyte mean corpuscular hemoglobin concentration measurement ( mass/volume) 32 g/dL 32-36 Automated erythrocyte distribution width ratio 14.6 % 10.0-14.5 Automated blood platelet count (count/volume) 196 10*3/uL 130-400 Automated blood platelet mean volume measurement 9.9 [foz_us] 7.4-10.4 Automated blood neutrophils/100 leukocytes 95 % 42-75 Automated blood lymphocytes/100 leukocytes 5 % 12-44 Blood monocytes/100 leukocytes 1 % 0-12 Automated blood eosinophils/100 leukocytes 0 % 0-10 Automated blood basophils/100 leukocytes 0 % 0-10 Blood neutrophils automated count (number/volume) 5.0 10*3 1.8-7.8 Blood lymphocytes automated count (number/volume) 0.3 10*3 1.0-4.0 Blood monocytes automated count (number/volume) 0.0 10*3 0.0-1.0 Automated eosinophil count 0.0 10*3/uL 0.0-0.3 Automated blood basophil count (count/volume) 0.0 10*3/uL 0.0-0.1 Comprehensive metabolic panel - 03/31/18 05:31 Serum or plasma sodium measurement (moles/volume) 143 mmol/L 135-145 Serum or plasma potassium measurement (moles/volume) 3.5 mmol/L 3.6-5.0 Serum or plasma chloride measurement (moles/volume) 103 mmol/L 98-107 Carbon dioxide 29 mmol/L 21-32 Serum or plasma anion gap determination (moles/volume) 11 mmol/L 5-14 Serum or plasma urea nitrogen measurement (mass/volume) 29 mg/dL 7-18 Serum or plasma creatinine measurement (mass/volume) 1.09 mg/dL 0.60-1.30 Serum or plasma urea nitrogen/creatinine mass ratio 27 NRG Serum or plasma creatinine measurement with calculation of estimated glomerular filtration rate 48 NRG Serum or plasma glucose measurement (mass/volume) 145 mg/dL 70-105 Serum or plasma calcium measurement (mass/volume) 9.5 mg/dL 8.5-10.1 Serum or plasma total bilirubin measurement (mass/volume) 0.7 mg/dL 0.1-1.0 Serum or plasma alkaline phosphatase measurement (enzymatic activity/volume) 81 U/L 40-136 Serum or plasma aspartate aminotransferase measurement (enzymatic activity/ volume) 21 U/L 5-34 Serum or plasma alanine aminotransferase measurement (enzymatic activity/volume ) 24 U/L 0-55 Serum or plasma protein measurement (mass/volume) 6.3 g/dL 6.4-8.2 Serum or plasma albumin measurement (mass/volume) 3.9 g/dL 3.2-4.5 CALCIUM CORRECTED 9.6 mg/dL 8.5-10.1 PT panel in platelet poor plasma by coagulation assay - 03/31/18 05:31 Prothrombin time (PT) in platelet poor plasma by coagulation assay 45.2 s 12.2-14.7 INR in platelet poor plasma or blood by coagulation assay 4.8 0.8-1.4 Whole blood basic metabolic panel - 03/31/18 13:03 Serum or plasma sodium measurement (moles/volume) 144 mmol/L 135-145 Serum or plasma potassium measurement (moles/volume) 4.1 mmol/L 3.6-5.0 Serum or plasma chloride measurement (moles/volume) 103 mmol/L 98-107 Carbon dioxide 31 mmol/L 21-32 Serum or plasma anion gap determination (moles/volume) 10 mmol/L 5-14 Serum or plasma urea nitrogen measurement (mass/volume) 31 mg/dL 7-18 Serum or plasma creatinine measurement (mass/volume) 1.12 mg/dL 0.60-1.30 Serum or plasma urea nitrogen/creatinine mass ratio 28 NRG Serum or plasma creatinine measurement with calculation of estimated glomerular filtration rate 46 NRG Serum or plasma glucose measurement (mass/volume) 127 mg/dL 70-105 Serum or plasma calcium measurement (mass/volume) 9.6 mg/dL 8.5-10.1 Serum or plasma phosphate measurement (mass/volume) - 03/31/18 13:03 Serum or plasma phosphate measurement (mass/volume) 2.8 mg/dL 2.3-4.7 Magnesium - 03/31/18 13:03 Magnesium 1.7 mg/dL 1.8-2.4 PT panel in platelet poor plasma by coagulation assay - 04/01/18 05:55 Prothrombin time (PT) in platelet poor plasma by coagulation assay 47.6 s 12.2-14.7 INR in platelet poor plasma or blood by coagulation assay 5.1 0.8-1.4 PT panel in platelet poor plasma by coagulation assay - 04/02/18 05:10 Prothrombin time (PT) in platelet poor plasma by coagulation assay 43.3 s 12.2-14.7 INR in platelet poor plasma or blood by coagulation assay 4.5 0.8-1.4 Whole blood basic metabolic panel - 04/02/18 05:10 Serum or plasma sodium measurement (moles/volume) 145 mmol/L 135-145 Serum or plasma potassium measurement (moles/volume) 3.9 mmol/L 3.6-5.0 Serum or plasma chloride measurement (moles/volume) 101 mmol/L 98-107 Carbon dioxide 34 mmol/L 21-32 Serum or plasma anion gap determination (moles/volume) 10 mmol/L 5-14 Serum or plasma urea nitrogen measurement (mass/volume) 43 mg/dL 7-18 Serum or plasma creatinine measurement (mass/volume) 1.20 mg/dL 0.60-1.30 Serum or plasma urea nitrogen/creatinine mass ratio 36 NRG Serum or plasma creatinine measurement with calculation of estimated glomerular filtration rate 43 NRG Serum or plasma glucose measurement (mass/volume) 122 mg/dL 70-105 Serum or plasma calcium measurement (mass/volume) 9.2 mg/dL 8.5-10.1 Magnesium - 04/02/18 05:10 Magnesium 2.4 mg/dL 1.8-2.4 Capillary blood glucose measurement by glucometer (mass/volume) - 04/02/18 16: 08 Capillary blood glucose measurement by glucometer (mass/volume) 143 mg/dL 70-110 Encounters ACCT No. Visit Date/Time Discharge Status Pt. Type Provider Facility Loc./Unit Complaint [id number] 03/30/2018 11:30:00 04/02/2018 18:00:00 DIS Inpatient SIXTO PEOPLES, JAY Gan [facility] 4TH COPD ACUTE EXACERBATION, CHF [id number] 02/26/2017 08:36:00 02/26/2017 23:59:59 CLS Outpatient ENDY SULLIVAN R [employer] [facility] WOUNDCARE [id number] 02/19/2017 08:36:00 02/19/2017 23:59:59 CLS Outpatient NATE ENDY R [employer] [facility] WOUNDCARE [id number] 02/12/2017 08:35:00 02/12/2017 23:59:59 CLS Outpatient NATE ENDY R [employer] [facility] WOUNDCARE [id number] 02/05/2017 08:44:00 02/05/2017 23:59:59 CLS Outpatient NATE ENDY R [employer] [facility] WOUNDCARE [id number] 01/29/2017 08:35:00 01/29/2017 23:59:59 CLS Outpatient NATE ENDY R [employer] [facility] WOUNDCARE [id number] 01/22/2017 08:44:00 01/22/2017 23:59:59 CLS Outpatient NATE ENDY R [employer] [facility] WOUNDCARE [id number] 01/17/2017 14:12:00 01/17/2017 23:59:59 CLS Outpatient NATE ENDY R [employer] [facility] WOUNDCARE [id number] 01/15/2017 08:49:00 01/15/2017 23:59:59 CLS Outpatient NATE ENDY R [employer] [facility] WOUNDCARE [id number] 01/10/2017 09:42:00 01/10/2017 23:59:59 CLS Outpatient ERIC LA MD [facility] WOUNDCARE [id number] 01/08/2017 08:38:00 01/08/2017 23:59:59 CLS Outpatient NATE ENDY R [employer] [facility] WOUNDCARE [id number] 01/01/2017 08:30:00 01/01/2017 23:59:59 CLS Outpatient NATE ENDY R [employer] [facility] WOUNDCARE [id number] 12/28/2016 18:11:00 12/28/2016 23:59:59 CLS Outpatient WENDI KEITH Sadie TRINIDAD [facility] LABNPT INCREASED MOODINESS AND CONFUSION,DARK UA,FOUL ODR [id number] 12/25/2016 08:29:00 12/25/2016 23:59:59 CLS Outpatient NATE ENDY R [employer] [facility] WOUNDCARE [id number] 12/18/2016 08:44:00 12/18/2016 23:59:59 CLS Outpatient NATE ENDY R [employer] [facility] WOUNDCARE [id number] 12/11/2016 08:41:00 12/11/2016 23:59:59 CLS Outpatient NATE ENDY R [employer] [facility] WOUNDCARE [id number] 12/11/2016 08:41:00 12/11/2016 23:59:59 CLS Preadmit NATE ENDY R [employer] [facility] CELLULITIS [id number] 12/10/2016 13:32:00 12/10/2016 23:59:59 CLS Outpatient NATE ENDY R [employer] [facility] L03.115, cellulitis [id number] 12/04/2016 09:05:00 12/10/2016 16:00:00 DIS Outpatient NATE ENDY R [employer] [facility] WOUNDCARE [id number] 12/06/2016 14:56:00 12/06/2016 23:59:59 CLS Outpatient NATE, ENDY R [employer] [facility] CELLULITIS [id number] 12/04/2016 12:15:00 12/04/2016 23:59:59 CLS Outpatient NATE ENDY R [employer] [facility] CELLULITIS [id number] 11/30/2016 13:57:00 11/30/2016 23:59:59 CLS Outpatient ERIC LA MD [facility] HH L03.115 [id number] 11/27/2016 11:28:00 11/27/2016 14:50:00 DIS Outpatient NATE ENDY Berta [employer] [facility] SDC ULCER OF RIGHT CALF, VENOUS INSUFFICIENCY [id number] 09/11/2016 11:02:00 09/11/2016 23:59:59 CLS Outpatient DUONG BARNARD [employer] [facility] RAD SOB [id number] 04/09/2016 11:54:00 04/09/2016 23:59:59 CLS Outpatient CHEPE PEOPLES FACC, ANNETTE FACP CCDS [facility] CARD AF,CAF [id number] 04/02/2016 13:11:00 04/02/2016 23:59:59 CLS Outpatient CHEPE PEOPLES FACC, ALI FACP CCDS [facility] RAD AF,CAD,CPD [id number] 06/25/2015 21:03:00 06/26/2015 06:55:00 DIS Outpatient KIMBERLY KINGSTON DO [facility] SLEEP SNORING,HTN,DAYTIME SLEEPINESS [id number] 03/09/2015 13:51:00 03/09/2015 23:59:59 CLS Outpatient SHANTELLE RIVERA [employer] [facility] CARD AFIB,CAD,HTN [id number] 08/10/2014 09:43:00 08/10/2014 23:59:59 CLS Outpatient SHANTELLE RIVERA [employer] [facility] CARD A FIB [id number] 06/13/2014 19:19:00 06/13/2014 21:33:00 DIS Emergency HUGO SINGLETARY MD [facility] ER FALL;HEAD INJ [id number] 05/27/2014 10:07:00 06/11/2014 15:30:00 DIS Inpatient ALESHIA WILSON MD [facility] IRF IRF-CVA [id number] 05/24/2014 12:29:00 05/27/2014 10:20:00 DIS Inpatient JAY HENSON MD [facility] 4TH CVA [id number] 04/21/2014 02:00:00 04/25/2014 13:00:00 DIS Inpatient JAY HENSON MD [facility] 4TH CLINICAL PNEUMONIA; GENERALIZED WEAKNESS [id number] 04/07/2014 09:25:00 04/08/2014 11:00:00 DIS Outpatient BANDAR JARRELL DO [facility] SDC OPEN REDUCTION INTERNAL FIXATION OF RIGHT DISTAL R [id number] 01/20/2014 12:00:00 01/20/2014 23:59:59 CLS Outpatient NIKIA PEOPLES, TERESA Angel [facility] CARD PAINFUL LEFT TOTAL HIP [id number] 05/25/2013 11:08:00 05/25/2013 23:59:59 CLS Outpatient JAY HENSON MD [facility] LAB URINARY INCONT,MALISE ,FATIGUE [id number] 05/25/2013 14:27:00 05/25/2013 16:31:00 DIS Emergency SHREYAS BENAVIDES DO [facility] ER POSS CVA [id number] 12/01/2012 17:58:00 12/12/2012 16:15:00 DIS Inpatient ALESHIA WILSON MD [facility] IRF HIP REPLACEMENT [id number] 10/14/2012 14:08:00 10/14/2012 22:10:00 DIS Outpatient CHEPE PEOPLES FACC, ANNETTE FACP CCDS [facility] CATH CAD,HTN,A-FIB ,COPD,ABN STRESS TEST [id number] 09/16/2012 07:55:00 09/16/2012 23:59:59 CLS Outpatient KELLE PEOPLES, HILDA [facility] RAD SOB [id number] 05/03/2018 08:42:00 ACT Emergency HUGO SINGLETARY MD [facility] ER AMS [id number] 07/29/2012 11:06:00 Document Registration [id number] 05/22/2012 11:22:00 Document Registration [id number] 09/10/2011 09:47:00 Document Registration [id number] 08/21/2011 13:18:00 Document Registration [id number] 04/21/2011 14:30:00 Document Registration [id number] 03/12/2011 09:12:00 Document Registration [id number] 01/11/2011 10:43:00 Document Registration [id number] 12/06/2010 08:53:00 Document Registration [id number] 06/05/2010 13:32:00 Document Registration [id number] 05/25/2010 08:39:00 Document Registration [id number] 02/07/2010 15:57:00 Document Registration [id number] 01/27/2010 07:59:00 Document Registration [id number] 01/10/2010 08:24:00 Document Registration [id number] 12/27/2009 10:30:00 Document Registration [id number] 11/29/2009 13:58:00 Document Registration [id number] 10/12/2009 09:55:00 Document Registration [id number] 05/31/2009 12:02:00 Document Registration [id number] 02/08/2009 09:09:00 Document Registration [id number] 08/11/2014 00:41:52 ACT Document Registration [id number] 03/21/2017 23:20:50 03/21/2017 23:59:59 Jay Thomas
[2018-05-03 09:10] LABS: BASOPHILS % (AUTO) 0 % (0-10); EOSINOPHILS # (AUTO) 0.1 10^3/uL (0.0-0.3); EOSINOPHILS % (AUTO) 2 % (0-10); HEMATOCRIT 45 % (35-52); HEMOGLOBIN 13.5 G/DL (11.5-16.0); LYMPHOCYTES # (AUTO) 0.6 X 10^3 (1.0-4.0); LYMPHOCYTES % (AUTO) 8 % (12-44); MEAN CORPUSCULAR HEMOGLOBIN 30 PG (25-34); MEAN CORPUSCULAR HGB CONC 30 G/DL (32-36); MEAN CORPUSCULAR VOLUME 100 FL (80-99); MEAN PLATELET VOLUME 9.9 FL (7.4-10.4); MONOCYTES # (AUTO) 0.4 X 10^3 (0.0-1.0); MONOCYTES % (AUTO) 6 % (0-12); NEUTROPHILS # (AUTO) 5.6 X 10^3 (1.8-7.8); NEUTROPHILS % (AUTO) 84 % (42-75); PLATELET COUNT 214 10^3/uL (130-400); RED BLOOD COUNT 4.53 10^6/uL (4.35-5.85); RED CELL DISTRIBUTION WIDTH 15.3 % (10.0-14.5); WHITE BLOOD COUNT 6.7 10^3/uL (4.3-11.0)
[2018-05-03 09:27] LABS: ALANINE AMINOTRANSFERASE 37 U/L (0-55); ALKALINE PHOSPHATASE 84 U/L (40-136); BILIRUBIN,TOTAL 0.6 MG/DL (0.1-1.0); BUN/CREATININE RATIO 24; CALCIUM 9.2 MG/DL (8.5-10.1); CARBON DIOXIDE 31 MMOL/L (21-32); CHLORIDE 102 MMOL/L (98-107); CREATININE SERUM 1.31 MG/DL (0.60-1.30); GFR ESTIMATED 38; GLUCOSE 88 MG/DL (70-105); SODIUM 144 MMOL/L (135-145); TOTAL PROTEIN 6.7 GM/DL (6.4-8.2)
--- NOTE | 2018-05-03 09:37 | Diagnostic Imaging Report ---
INDICATION: Shortness of breath. Comparison is made to the prior study from 03/30/2018. FINDINGS: There is a marked scoliotic curvature of the thoracic and lumbar spine. This is unchanged from the previous exam. Enlargement of the cardiac silhouette appears stable. There are bibasilar regions of alveolar opacification of the lung bases and may reflect pneumonia. There is no large effusion. There is no pneumothorax. Prior posttraumatic deformity in the proximal right humerus is noted. IMPRESSION: 1. Bibasilar alveolar opacification may reflect bibasilar pneumonia. There is no large effusion. 2. Enlargement of the cardiac silhouette unchanged. 3. 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 Dictated by: Dictated on workstation # [id number]
[2018-05-03 09:48] LABS: BILIRUBIN,URINE NEGATIVE (NEGATIVE); CLARITY,URINE SLIGHTLY CLOUDY; COLOR,URINE YELLOW; GLUCOSE, URINE (UA) NEGATIVE (NEGATIVE); KETONES,URINE NEGATIVE (NEGATIVE); LEUKOCYTE ESTERASE ,URINE 3+ (NEGATIVE); NITRITE,URINE POSITIVE (NEGATIVE); PH,URINE 8 (5-9); PROTEIN,URINE 3+ (NEGATIVE); UROBILINOGEN,URINE NORMAL (NORMAL)
[2018-05-03 09:55] LABS: AMORPHOUS SEDIMENT,UR MOD AMOR URATES /LPF; BACTERIA,URINE MODERATE /HPF; SQUAMOUS EPITHELIAL CELL,UR RARE /HPF; WBC,URINE >100 /HPF
[2018-05-03] MEDS ORDERED: PIPERACILLIN SODIUM/TAZOBACTAM 4.5 GM in NS (IVPB) 100 ML IV ONE (11:30)
--- NOTE | 2018-05-03 11:40 | ED General ---
General Chief Complaint: Neurological Problems Stated Complaint: [facility] Nursing Triage Note: PT BROUGHT IN BY EMS FROM [place] WITH COMPLAINT OF DECREASED LOC. PT WAS FOUND AROUND 630, CALLED EMS AT 0800. LWT WAS LAST NIGHT. PER EMS, PT WAS WHEEZING AND GIVEN A DUONEB. Nursing Sepsis Screen: No Definite Risk Source of Information: Patient Exam Limitations: Physical Impairments History of Present Illness Date Seen by Provider: May 03, 2018 Time Seen by Provider: 10:45 Initial Comments Here with report of decreased level of consciousness and altered mental status. Last known well time last night. EMS summoned. They did give DuoNeb. Patient does have history of COPD. Patient is not Timing/Duration: 12-24 Hours Severity: Moderate Associated Systoms: Weakness Allergies and Home Medications Allergies Coded Allergies: codeine (Verified Allergy, Unknown, 03/30/18) Uncoded Allergies: ESTROGEN SUPPLEMENT PATCHES (Allergy, Unknown, 04/21/14) Home Medications Acetaminophen 325 Mg Tablet, 325 MG PO Q4H PRN for PAIN-MILD OR TEMPATURE, ( Reported) Alprazolam 0.5 Mg Tablet, 0.5 MG PO HS, (Reported) Alprazolam 0.25 Mg Tablet, 0.125 MG PO HS PRN for SLEEP, (Reported) TAKE IF SCHEDULED DOSE IN NOT EFFECTIVE Benzonatate 100 Mg Capsule, 100 MG PO Q8H PRN for COUGH, (Reported) Cholecalciferol (Vitamin D3) 2,000 Unit Capsule, 4,000 UNIT PO DAILY, (Reported) Cyanocobalamin (Vitamin B-12) 1,000 Mcg/1 Ml Drops, 1,000 MCG PO DAILY, ( Reported) Diclofenac Sodium 100 Gm Gel..gram., TP BID PRN for ARTHRITIS PAIN, (Reported) Fluticasone Propionate 16 Gm [place].susp, 1 SPRAY NS DAILY PRN for CONGESTION, ( Reported) Furosemide 40 Mg Tablet, 40 MG PO 4 TIMES WEEKLY PRN for EDEMA, (Reported) Krill/Om-3/Dha/Epa/Phospho/Ast 1 Each Capsule, 1,000 MG PO DAILY, (Reported) Lidocaine HCl 76.5 Gm Cream..g., TP QID PRN for FINGER PAIN, (Reported) Lidocaine HCl 76.5 Gm Cream..g., TP TID PRN for BACK PAIN, (Reported) Metoprolol Succinate 100 Mg Tab.er.24h, 100 MG PO DAILY hold if the systolic blood pressure is less than 120 or the heart rate is less than 60 Prescribed by: JAY HENSON on 04/02/181625 Multivitamin 1 Each Tablet, 1 TAB PO DAILY, (Reported) Mv-Min/Vit C/Glut/[place] AC/Hc124 1 Each Tab.chew, 1 TAB.CHEW PO BID PRN for PER PACKAGE INSTRUCTIONS, (Reported) [place] Oil 30 Ml Oil, EACH EAR BID PRN for BUILD UP, (Reported) Potassium Chloride 10 Meq Tablet.er, 10 MEQ PO 4 TIMES WEEKLY PRN for WHEN TAKING FUROSEMIDE, (Reported) Prednisone 10 Mg Tab, 60 MG PO DAILY@0700 take 6 pills on day#1, then decrease by 1 pill every day until done with rx Prescribed by: JAY HENSON on 04/02/181625 Sennosides/Docusate Sodium 1 Each Tablet, 1 TAB PO DAILY, (Reported) Verapamil HCl 240 Mg Tablet.er, 240 MG PO DAILY, (Reported) Warfarin Sodium 2.5 Mg Tablet, 2.5 MG PO SuMoTuWeFrSa hold until 04/06/18 then restart at 2.5mg daily Prescribed by: JAY HENSON on 04/02/181625 Patient Home Medication List Home Medication List Reviewed: Yes Review of Systems Review of Systems Constitutional: see HPI; No fever; weakness Respiratory: wheezing Unable to complete review of systems due to altered mental status Past Swbzgrt-Iomdpe-Skyoez Hx Past Med/Social Hx: Reviewed Nursing Past Med/Soc Hx Patient Social History Alcohol Use: Denies Use Recreational Drug Use: No Smoking Status: Never a Smoker 2nd Hand Smoke Exposure: No Recent Foreign Travel: No Contact w/Someone Who Travel: No Recent Infectious Disease Expo: No Recent Hopitalizations: No Immunizations Up To Date Tetanus Booster (TDap): More than 5yrs PED Vaccines UTD: No Date of Pneumonia Vaccine: Feb 08, 2016 Date of Influenza Vaccine: Mar 27, 2018 Seasonal Allergies Seasonal Allergies: Yes Past Medical History Surgeries: Yes Hysterectomy, Joint Replacement Respiratory: Yes Pneumonia, COPD Cardiac: Yes Atrial Fibrillation, Chronic Edema/Swelling, Hypertension, Valvular Heart Disease Neurological: Yes Stroke Reproductive Disorders: No [employer] History: Menopausal Gastrointestinal: No Chronic Constipation Musculoskeletal: Yes Arthritis, Scoliosis Endocrine: No HEENT: Yes Cataract, Dysphagia Loss of Vision: Denies Hearing Impairment: Denies Cancer: No Psychosocial: Yes Sleep Difficulties Integumentary: Yes (bruises of extremities) Blood Disorders: No Family Medical History Reviewed Nursing Family Hx Alcoholism G8 BROTHER Arthritis 19 FATHER 19 MOTHER G8 BROTHER G8 SISTER Cardiovascular disease 19 FATHER 19 MOTHER Deafness or hearing loss 19 FATHER 19 MOTHER No Family History of: AIDS Abdominal aortic aneurysm Hao's disease Alzheimer's disease Aphasia Asthma Cancer of mouth Cataracts Colon cancer Completed stroke Congenital disease Congenital heart disease Coronary thrombosis Cystic fibrosis Dementia Diabetes mellitus Drug abuse Dysphasia Fibrocystic disease of breast Gastroenteritis Glaucoma Headache disorder Hypercholesterolemia Hypertension Infertility Kidney disease Myocardial infarction Neoplasm Not obtainable due to adoption Osteoporosis Parkinson's disease Prostate cancer Psychosocial problem Respiratory disorder Seizure disorder Severe allergy Thyroid disease Tuberculosis Visual disorder Heart Disease Physical Exam-Suspected Sepsis Physical Exam Vital Signs Vital Signs - First Documented 05/03/18 08:47 Temp 96.1 Pulse 80 Resp 20 B/P (MAP) 143/89 (107) Pulse Ox 97 O2 Delivery Room Air Capillary Refill : Less Than 3 Seconds Blood Pressure Mean: 107 Height, Weight, BMI Height: 5'3.00" Weight: 170lbs. 15.0oz. 77.821146op; 27.5 BMI Method:Stated General Appearance: No Apparent Distress, Chronically ill HEENT: PERRL/EOMI, Other (dry mucous membranes) Neck: Non Tender, Supple Respiratory: No Respiratory Distress, Wheezing (a few trace wheezes) Cardiovascular: Regular Rate, Rhythm, No Murmur Gastrointestinal: Non Tender, Soft Back: No CVA Tenderness, Other (Neck Neck with Tendency to Lean Towards Right Chronically.) Extremity: Normal Capillary Refill, Normal Range of Motion, Non Tender Neurologic/Psychiatric: Alert, Oriented x3 Skin: normal color, warm/dry Focused Exam Lactate Level 05/03/18 09:10: Lactic Acid Level 0.63 Lactic Acid Level Laboratory Tests Test 05/03/18 09:10 Lactic Acid Level 0.63 MMOL/L (0.50-2.00) Progress/Results/Core Measures Suspected Sepsis Recent Fever Within 48 Hours: No Infection Criteria Present: None New/Unexplained Altered Menta: No Sepsis Screen: No Definite Risk SIRS Temperature:96.1 Pulse: 80 Respiratory Rate: 20 Laboratory Tests 05/03/18 09:00: White Blood Count 6.7 Blood Pressure 143 /89 Mean: 107 05/03/18 09:10: Lactic Acid Level 0.63 Laboratory Tests 05/03/18 09:00: Creatinine 1.31H, Platelet Count 214, Total Bilirubin 0.6 Results/Orders Lab Results Laboratory Tests Test 05/03/18 09:00 05/03/18 09:10 Range/Units White Blood Count 6.7 4.3-11.0 10^3/uL Red Blood Count 4.53 4.35-5.85 10^6/uL Hemoglobin 13.5 11.5-16.0 G/DL Hematocrit 45 35-52 % Mean Corpuscular Volume 100 H 80-99 FL Mean Corpuscular Hemoglobin 30 25-34 PG Mean Corpuscular Hemoglobin Concent 30 L 32-36 G/DL Red Cell Distribution Width 15.3 H 10.0-14.5 % Platelet Count 214 130-400 10^3/uL Mean Platelet Volume 9.9 7.4-10.4 FL Neutrophils (%) (Auto) 84 H 42-75 % Lymphocytes (%) (Auto) 8 L 12-44 % Monocytes (%) (Auto) 6 0-12 % Eosinophils (%) (Auto) 2 0-10 % Basophils (%) (Auto) 0 0-10 % Neutrophils # (Auto) 5.6 1.8-7.8 X 10^3 Lymphocytes # (Auto) 0.6 L 1.0-4.0 X 10^3 Monocytes # (Auto) 0.4 0.0-1.0 X 10^3 Eosinophils # (Auto) 0.1 0.0-0.3 10^3/uL Basophils # (Auto) 0.0 0.0-0.1 10^3/uL Urine Color YELLOW Urine Clarity SLIGHTLY CLOUDY Urine pH 8 5-9 Urine Specific [place] 1.010 L 1.016-1.022 Urine Protein 3+ H NEGATIVE Urine Glucose (UA) NEGATIVE NEGATIVE Urine Ketones NEGATIVE NEGATIVE Urine Nitrite POSITIVE H NEGATIVE Urine Bilirubin NEGATIVE NEGATIVE Urine Urobilinogen NORMAL NORMAL MG/DL Urine Leukocyte Esterase 3+ H NEGATIVE Urine RBC (Auto) 2+ H NEGATIVE Urine RBC 5-10 H /HPF Urine WBC >100 H /HPF Urine Squamous Epithelial Cells RARE /HPF Urine Crystals PRESENT H /LPF Urine Amorphous Sediment MOD [place] URATES H /LPF Urine Bacteria MODERATE H /HPF Urine Casts NONE /LPF Urine Mucus NEGATIVE /LPF Urine Culture Indicated YES Sodium Level 144 135-145 MMOL/L Potassium Level 5.0 3.6-5.0 MMOL/L Chloride Level 102 98-107 MMOL/L Carbon Dioxide Level 31 21-32 MMOL/L Anion Gap 11 5-14 MMOL/L Blood Urea Nitrogen 32 H 7-18 MG/DL Creatinine 1.31 H 0.60-1.30 MG/DL Estimat Glomerular Filtration Rate 38 BUN/Creatinine Ratio 24 Glucose Level 88 70-105 MG/DL Calcium Level 9.2 8.5-10.1 MG/DL Corrected Calcium 9.2 8.5-10.1 MG/DL Total Bilirubin 0.6 0.1-1.0 MG/DL Aspartate Amino Transf (AST/SGOT) 39 H 5-34 U/L Alanine Aminotransferase (ALT/SGPT) 37 0-55 U/L Alkaline Phosphatase 84 40-136 U/L Troponin I < 0.30 <0.30 NG/ML C-Reactive Protein High Sensitivity 1.73 H 0.00-0.50 MG/DL B-Type Natriuretic Peptide 790.8 H <100.0 PG/ML Total Protein 6.7 6.4-8.2 GM/DL Albumin 4.0 3.2-4.5 GM/DL Lactic Acid Level 0.63 0.50-2.00 MMOL/L My Orders Orders - HUGO SINGLETARY MD BNP (05/03/18 09:04) Cbc With Automated Diff (05/03/18 09:04) Comprehensive Metabolic Panel (05/03/18 09:04) Hs C Reactive Protein (05/03/18 09:04) Troponin I (05/03/18 09:04) Chest 1 View, Ap/Pa Only (05/03/18 09:04) Ekg Tracing (05/03/18 09:04) O2 (05/03/18 09:04) Monitor-Rhythm Ecg Trace Only (05/03/18 09:04) Ua Culture If Indicated (05/03/18 09:41) Catheter(Urinary) Insert & Ass ,15 (05/03/18 09:41) Lactic Acid Analyzer (05/03/18 09:46) Blood Culture (05/03/18 09:46) Urine Culture (05/03/18 09:00) Piperacillin Sodium/Tazobactam (Zosyn Vi (05/03/18 11:30) Saline Lock/Iv-Start (05/03/18 11:46) Ns Iv 500 Ml (Sodium Chloride 0.9%) (05/03/18 11:46) Vital Signs/I&O 05/03/18 08:47 Temp 96.1 Pulse 80 Resp 20 B/P (MAP) 143/89 (107) Pulse Ox 97 O2 Delivery Room Air Capillary Refill : Less Than 3 Seconds Blood Pressure Mean: 107 Progress Note : Progress Note Seen and evaluated. IV, labs, EKG and chest x-ray ordered. UA, blood cultures and lactic acid ordered. Monitor patient. 1119: I did discuss the case with Dr. Mensah. Patient has urinary tract infection and question of bibasilar pneumonia. Zosyn 4.5 g IV initiated. We will give small fluid bolus. Admit, inpatient status. Patient and family agree with plan. ECG Initial ECG Impression Date: May 03, 2018 Initial ECG Impression Time: 09:13 Initial ECG Rate: 79 Initial ECG Rhythm: A Fib/Flutter Initial ECG Impression: Atrial Fibrillation Comment Atrial fibrillation with normal axis. No evidence of ST elevation [place]. Similar to 05/24/12. Interpreted by me. Diagnostic Imaging Diagonstic Imaging: Xray Plain Films/CT/US/NM/MRI: chest Comments NAME: ARIEL CARDONA MED REC#: [id number] PT STATUS: REG ER : 1930 PHYSICIAN: HUGO SINGLETARY MD ADMIT DATE: 05/03/18/ER Signed Date of Exam: 05/03/18 CHEST 1 VIEW, AP/PA ONLY INDICATION: Shortness of breath. Comparison is made to the prior study from 03/30/2018. FINDINGS: There is a marked scoliotic curvature of the thoracic and lumbar spine. This is unchanged from the previous exam. Enlargement of the cardiac silhouette appears stable. There are bibasilar regions of alveolar opacification of the lung bases and may reflect pneumonia. There is no large effusion. There is no pneumothorax. Prior posttraumatic deformity in the proximal right humerus is noted. IMPRESSION: 1. Bibasilar alveolar opacification may reflect bibasilar pneumonia. There is no large effusion. 2. Enlargement of the cardiac silhouette unchanged. 3. 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 Dictated by: Dictated on workstation # [id number] Dict: 05/03/18 0928 Trans: 05/03/18 1010 Interpreted by: ALBERT CARLOS MD Electronically signed by: ALBERT CARLOS MD 05/03/18 1010 Departure Communication (Admissions) Time/Spoke to Admitting Phy: 11:19 Impression Primary Impression: Urinary tract infection Qualified Codes: N30.00 - Acute cystitis without hematuria Additional Impression: Pneumonia of both lower lobes Qualified Codes: J18.1 - Lobar pneumonia, unspecified organism Disposition: ADMITTED INPATIENT Condition: Stable Admissions Decision to Admit Reason: Admit from ER (General) Decision to Admit/Date: May 03, 2018 Time/Decision to Admit Time: 11:19 Departure-Patient Inst. Referrals: JAY HENSON MD (PCP/Family) Primary Care Physician HUGO SINGLETARY MD May 03, 2018 11:40
[2018-05-03] MEDS ORDERED: NS IV 500 ML 500 ML IV ONE (11:46)
--- OUTSIDE RECORDS SUMMARY | 2018-05-03 12:26 | XMS REPORT | Continuity of Care Document ---
Author Author [facility] Organization [facility] Address Unknown Phone Unavailable Allergies Active Description Code Type Severity Reaction Onset Reported/Identified Relationship to Patient Clinical Status Yes ESTROGEN SUPPLEMENT PATCHES ESTROGEN SUPPLEMENT PATCHES Unknown N/A 04/21/2014 Yes codeine [id number] Drug Allergy Unknown N/A 03/30/2018 Medications There [...] MORRIS CCDS Ot 414.01 CORONARY ATHEROSCLEROSIS OF [place] CORON 10/14/2012 CHEPE PEOPLES FACC, ANNETTE MORRIS [...] OF ASPIRIN 10/14/2012 CHEPE PEOPLES FACC, ANNETTE [facility] CCD[facility] Ot V58.69 OT MED,LT,CURRENT USE 12/12/2012 [...] ALESHIA E Ot 414.01 CORONARY ATHEROSCLEROSIS OF [place] CORON 12/12/2012 STEVE PEOPLES ALESHIA E Ot [...] Ot 881.00 OPEN WOUND OF FOREARM 04/08/2014 BNADAR JARRELL DO Ot E000.8 OTHER EXTERNAL CAUSE STATUS 04/08/2014 BANDAR JARRELL DO Ot E849.0 ACCIDENT IN HOME 04/08/2014 BANDAR JARRELL DO Ot E888.9 FALL NOS 04/08/2014 BANDAR JARRELL DO Ot V06.1 [id number], COMBINED [ 04/08/2014 BANDAR JARRELL DO Ot [...] E888.9 FALL NOS 10/01/2014 BAIMA, SHANTELLE L DOULA Ot 401.9 10/01/2014 BAIMA, SHANTELLE L DOULA Ot 414.9 10/01/2014 BAIMA, SHANTELLE L DOULA Ot 427.31 10/01/2014 BAIMA, SHANTELLE L DOULA Ot V12.54 10/01/2014 BAIMA, SHANTELLE L DOULA Ot 401.9 10/01/2014 BAIMA, SHANTELLE L DOULA Ot 414.9 10/01/2014 BAIMA, SHANTELLE L DOULA Ot 427.31 10/01/2014 BAIMA, SHANTELLE L DOULA Ot V12.54 03/09/2015 Ot 427.31 03/09/2015 Ot [...] MD Ot V43.64 03/09/2015 BAIMA, SHANTELLE L DOULA Ot 401.9 03/09/2015 BAIMA, SHANTELLE L DOULA Ot 414.9 03/09/2015 BAIMA, SHANTELLE L DOULA Ot 427.31 03/09/2015 BAIMA, SHANTELLE L DOULA Ot V12.54 03/30/2015 BAIMA, SHANTELLE L DOULA Ot I10 03/30/2015 BAIMA, SHANTELLE L DOULA Ot I25.10 03/30/2015 SHANTELLE RIVERA DOULA Ot I35.1 03/30/2015 SHANTELLE RIVERA DOULA Ot I48.91 03/30/2015 SHANTELLE RIVERA DOULA Ot J98.4 03/30/2015 SHANTELLE RIVERA DOULA Ot Z86.73 04/12/2015 SHANTELLE RIVERA DOULA Ot I10 04/12/2015 BAISHANTELLE EDWARDS DOULA Ot I25.10 04/12/2015 BAISHANTELLE EDWARDS DOULA Ot I35.1 04/12/2015 SHANTELLE RIVERA DOULA Ot I48.91 04/12/2015 SHANTELLE RIVERA DOULA Ot J98.4 04/12/2015 SHANTELLE RIVERA DOULA Ot Z86.73 06/26/2015 KIMBERLY KINGSTON DO Ot [...] HIP JOINT REPLACEMENT STATUS 04/02/2016 SHANTELLE RIVERA DOULA Ot 401.9 HYPERTENSION NOS 04/02/2016 SHANTELLE RIVERA DOULA Ot 414.9 CHR ISCHEMIC HRT DIS NOS 04/02/2016 SHANTELLE RIVERA DOULA Ot 427.31 ATRIAL FIBRILLATION 04/02/2016 SHANTELLE RIVERA DOULA Ot V12.54 PERSONAL HX OF TIA, CEREBRAL INFARCTION 04/02/2016 SHANTELLE RIVERA DOULA Ot I10 ESSENTIAL (PRIMARY) HYPERTENSION 04/02/2016 SHANTELLE RIVERA DOULA Ot I25.10 ATHSCL HEART DISEASE OF [place] CORONARY 04/02/2016 SHANTELLE RIVERA DOULA Ot 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 04/02/2016 SHANTELLE RIVERA DOULA Ot I48.91 UNSPECIFIED ATRIAL FIBRILLATION 04/02/2016 SHANTELLE RIVERA DOULA Ot J98.4 OTHER DISORDERS OF LUNG 04/02/2016 SHANTELLE RIVERA DOULA Ot Z86.73 PRSNL HX OF TIA (TIA), [...] CCDS Ot I25.10 ATHSCL HEART DISEASE OF [place] CORONARY 04/04/2016 CHEPE PEOPLES FACC, ANNETTE FACP [...] CCDS Ot I25.10 ATHSCL HEART DISEASE OF [place] CORONARY 04/10/2016 CHEPE PEOPLES FACC, ALI FACP [...] CCDS Ot I25.10 ATHSCL HEART DISEASE OF [place] CORONARY 04/10/2016 CHEPE PEOPLES FACTiburcio, ALI FACP [...] CCDS Ot I25.10 ATHSCL HEART DISEASE OF [place] CORONARY 04/25/2016 CHEPE PEOPLES FACC, ALI FACP [...] CCDS Ot I25.10 ATHSCL HEART DISEASE OF [place] CORONARY 05/01/2016 CHEPE PEOPLES FACC, ALI FACP [...] CCDS Ot I25.10 ATHSCL HEART DISEASE OF [place] CORONARY 05/02/2016 CHEPE PEOPLES FACC, ALI FACP CCDS Ot I27.2 OTHER SECONDARY PULMONARY HYPERTENSION 05/02/2016 CHEEP PEOPLES FACC, ALI FACP CCDS Ot J98.4 [...] CCDS Ot I25.10 ATHSCL HEART DISEASE OF [place] CORONARY 05/09/2016 CHEPE PEOPLES FACC, ALI FACP CCDS Ot I27.2 OTHER SECONDARY PULMONARY HYPERTENSION 05/09/2016 CHEPE PEOPLES FACC, ALI FACP CCDS Ot I48.0 PAROXYSMAL ATRIAL FIBRILLATION 05/09/2016 CHEPE PEOPLES FACC, ALI FACP CCDS Ot J44.9 CHRONIC OBSTRUCTIVE PULMONARY DISEASE, U 05/09/2016 CHEPE PEOPLES FACC, ALI FACP CCDS Ot Z86.73 PRSNL HX OF TIA (TIA), AND CEREB INFRC W 09/12/2016 EVON, DUONG M TIRE MAINTENANCE TECHNICIAN Ot I51.7 CARDIOMEGALY 09/12/2016 DUONG BARNARD TIRE MAINTENANCE TECHNICIAN Ot R06.02 SHORTNESS OF BREATH 10/03/2016 DUONG BARNARD TIRE MAINTENANCE TECHNICIAN Ot I51.7 CARDIOMEGALY 10/03/2016 DUONG BARNARD TIRE MAINTENANCE TECHNICIAN Ot R06.02 SHORTNESS OF BREATH 10/10/2016 DUONG BARNARD TIRE MAINTENANCE TECHNICIAN Ot I51.7 CARDIOMEGALY 10/10/2016 DUONG BARNARD TIRE MAINTENANCE TECHNICIAN Ot R06.02 SHORTNESS OF BREATH 11/21/2016 ENDY SULLIVAN TIRE MAINTENANCE TECHNICIAN Ot I87.2 VENOUS INSUFFICIENCY (CHRONIC) (PERIPHER 11/21/2016 NATEENDY R TIRE MAINTENANCE TECHNICIAN Ot L03.115 CELLULITIS OF RIGHT LOWER LIMB 11/21/2016 NATEENDY R TIRE MAINTENANCE TECHNICIAN Ot L97.212 NON-PRESSURE CHRONIC ULCER OF RIGHT CALF 11/27/2016 ENDY SULLIVAN R TIRE MAINTENANCE TECHNICIAN Ot L03.119 CELLULITIS OF UNSPECIFIED PART OF LIMB 11/27/2016 NATEENDY R TIRE MAINTENANCE TECHNICIAN Ot L03.119 CELLULITIS OF UNSPECIFIED PART OF LIMB 11/27/2016 NATE ENDY R TIRE MAINTENANCE TECHNICIAN Ot L03.119 CELLULITIS OF UNSPECIFIED PART OF LIMB 11/27/2016 ENDY SULLIVAN R TIRE MAINTENANCE TECHNICIAN Ot I48.2 CHRONIC ATRIAL FIBRILLATION 11/27/2016 NATEENDY R TIRE MAINTENANCE TECHNICIAN Ot I87.2 VENOUS INSUFFICIENCY (CHRONIC) (PERIPHER 11/27/2016 NATE ENDY R TIRE MAINTENANCE TECHNICIAN Ot L03.115 CELLULITIS OF RIGHT LOWER LIMB 11/27/2016 NATE ENDY R TIRE MAINTENANCE TECHNICIAN Ot L03.119 CELLULITIS OF UNSPECIFIED PART OF LIMB 11/27/2016 ENDY SULLIVAN R TIRE MAINTENANCE TECHNICIAN Ot L97.212 NON-PRESSURE CHRONIC ULCER OF RIGHT CALF 11/27/2016 ENDY SULLIVAN TIRE MAINTENANCE TECHNICIAN Ot Z79.01 [facility] (CURRENT) USE OF ANTICOAGULANT 11/27/2016 ENDY SULLIVAN R TIRE MAINTENANCE TECHNICIAN Ot L03.119 CELLULITIS OF UNSPECIFIED PART OF LIMB 11/29/2016 ENDY SULLIVAN TIRE MAINTENANCE TECHNICIAN Ot I48.2 CHRONIC ATRIAL FIBRILLATION 11/29/2016 ENDY SULLIVAN R TIRE MAINTENANCE TECHNICIAN Ot I87.2 VENOUS INSUFFICIENCY (CHRONIC) (PERIPHER 11/29/2016 ENDY SULLIVAN R TIRE MAINTENANCE TECHNICIAN Ot L03.115 CELLULITIS OF RIGHT LOWER LIMB 11/29/2016 ENDY SULLIVAN TIRE MAINTENANCE TECHNICIAN Ot L97.212 NON-PRESSURE CHRONIC ULCER OF RIGHT CALF 11/29/2016 ENDY SULLIVAN TIRE MAINTENANCE TECHNICIAN Ot Z79.01 [employer] (CURRENT) USE OF ANTICOAGULANT 12/06/2016 ERIC LA MD Ot I48.2 CHRONIC ATRIAL FIBRILLATION 12/06/2016 ERIC LA MD Ot L03.115 CELLULITIS OF RIGHT LOWER LIMB 12/06/2016 ENDY SULLIVAN APRN Ot Z79.01 [employer] (CURRENT) USE OF ANTICOAGULANT 12/10/2016 ENDY SULLIVAN TIRE MAINTENANCE TECHNICIAN Ot I87.2 VENOUS INSUFFICIENCY (CHRONIC) (PERIPHER 12/10/2016 ENDY SULLIVAN TIRE MAINTENANCE TECHNICIAN Ot L03.115 CELLULITIS OF RIGHT LOWER LIMB 12/10/2016 ENDY SULLIVAN TIRE MAINTENANCE TECHNICIAN Ot L97.212 NON-PRESSURE CHRONIC ULCER OF RIGHT CALF 12/25/2016 ERIC LA MD Ot I48.2 CHRONIC ATRIAL FIBRILLATION 12/25/2016 ERIC LA MD Ot L03.115 CELLULITIS OF RIGHT LOWER LIMB 12/25/2016 ENDY SULLIVAN TIRE MAINTENANCE TECHNICIAN Ot I48.2 CHRONIC ATRIAL FIBRILLATION 12/25/2016 ENDY SULLIVAN TIRE MAINTENANCE TECHNICIAN Ot L03.115 CELLULITIS OF RIGHT LOWER LIMB 01/07/2017 ENDY SULLIVAN TIRE MAINTENANCE TECHNICIAN Ot L03.115 CELLULITIS OF RIGHT LOWER LIMB 01/08/2017 ENDY SULLIVAN TIRE MAINTENANCE TECHNICIAN Ot L97.212 NON-PRESSURE CHRONIC ULCER OF RIGHT CALF 01/09/2017 ENDY SULLIVAN TIRE MAINTENANCE TECHNICIAN Ot I48.2 CHRONIC ATRIAL FIBRILLATION 01/09/2017 ENDY SULLIVAN APRN Ot 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 01/09/2017 ENDY SULLIVAN TIRE MAINTENANCE TECHNICIAN Ot L03.115 CELLULITIS OF RIGHT LOWER LIMB 01/09/2017 ENDY SULLIVAN TIRE MAINTENANCE TECHNICIAN Ot L97.212 NON-PRESSURE CHRONIC ULCER OF RIGHT CALF 01/10/2017 ENDY SULLIVAN TIRE MAINTENANCE TECHNICIAN Ot L03.115 CELLULITIS OF RIGHT LOWER LIMB 01/12/2017 ERIC LA MD Ot I48.2 CHRONIC ATRIAL FIBRILLATION 01/12/2017 ERIC LA MD Ot 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 01/12/2017 ERIC LA MD Ot L03.115 CELLULITIS OF RIGHT LOWER LIMB 01/15/2017 NATE, ENDY R TIRE MAINTENANCE TECHNICIAN Ot L97.212 NON-PRESSURE CHRONIC ULCER OF RIGHT CALF 01/16/2017 ENDY SULLIVAN TIRE MAINTENANCE TECHNICIAN Ot I48.2 CHRONIC ATRIAL FIBRILLATION 01/16/2017 ENDY SULLIVAN TIRE MAINTENANCE TECHNICIAN Ot 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 01/16/2017 ENDY SULLIVAN TIRE MAINTENANCE TECHNICIAN Ot L97.212 NON-PRESSURE CHRONIC ULCER OF RIGHT CALF 01/16/2017 ENDY SULLIVAN TIRE MAINTENANCE TECHNICIAN Ot I48.2 CHRONIC ATRIAL FIBRILLATION 01/16/2017 ENDY SULLIVAN TIRE MAINTENANCE TECHNICIAN Ot 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212 NON-PRESSURE CHRONIC ULCER OF RIGHT CALF 01/23/2017 ENDY SULLIVAN TIRE MAINTENANCE TECHNICIAN Ot I48.2 CHRONIC ATRIAL FIBRILLATION 01/23/2017 ENDY SULLIVAN TIRE MAINTENANCE TECHNICIAN Ot 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 01/23/2017 ENDY SULLIVAN TIRE MAINTENANCE TECHNICIAN Ot L97.212 NON-PRESSURE CHRONIC ULCER OF RIGHT CALF 01/25/2017 ENDY SULLIVAN TIRE MAINTENANCE TECHNICIAN Ot I48.2 CHRONIC ATRIAL FIBRILLATION 01/25/2017 ENDY SULLIVAN TIRE MAINTENANCE TECHNICIAN Ot 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 01/25/2017 ENDY SULLIVAN TIRE MAINTENANCE TECHNICIAN Ot L03.115 CELLULITIS OF RIGHT LOWER LIMB 01/25/2017 ENDY SULLIVAN TIRE MAINTENANCE TECHNICIAN Ot L97.212 NON-PRESSURE CHRONIC ULCER OF RIGHT CALF 01/30/2017 ENDY SULLIVAN TIRE MAINTENANCE TECHNICIAN Ot L03.115 CELLULITIS OF RIGHT LOWER LIMB 01/31/2017 ENDY SULLIVAN TIRE MAINTENANCE TECHNICIAN Ot I48.2 CHRONIC ATRIAL FIBRILLATION 01/31/2017 ENDY SULLIVAN TIRE MAINTENANCE TECHNICIAN Ot 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 01/31/2017 ENDY SULLIVAN TIRE MAINTENANCE TECHNICIAN Ot L03.115 CELLULITIS OF RIGHT LOWER LIMB 01/31/2017 ENDY SULLIVAN TIRE MAINTENANCE TECHNICIAN Ot L97.212 NON-PRESSURE CHRONIC ULCER OF RIGHT CALF 02/01/2017 ENDY SULLIVAN TIRE MAINTENANCE TECHNICIAN Ot I48.2 CHRONIC ATRIAL FIBRILLATION 02/01/2017 ENDY SULLIVAN TIRE MAINTENANCE TECHNICIAN Ot 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 02/01/2017 ENDY SULLIVAN TIRE MAINTENANCE TECHNICIAN Ot L03.115 CELLULITIS OF RIGHT LOWER LIMB 02/01/2017 ERIC LA MD Ot I48.2 CHRONIC ATRIAL FIBRILLATION 02/01/2017 ERIC LA MD Ot 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 02/01/2017 ERIC LA MD Ot L03.115 CELLULITIS OF RIGHT LOWER LIMB 02/06/2017 ENDY SULLIVAN TIRE MAINTENANCE TECHNICIAN Ot 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 02/06/2017 ENDY SULLIVAN TIRE MAINTENANCE TECHNICIAN Ot 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 02/06/2017 ENDY SULLIVAN TIRE MAINTENANCE TECHNICIAN Ot I48.2 CHRONIC ATRIAL FIBRILLATION 02/06/2017 ENDY SULLIVAN TIRE MAINTENANCE TECHNICIAN Ot 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 02/06/2017 ENDY SULLIVAN TIRE MAINTENANCE TECHNICIAN Ot L03.115 CELLULITIS OF RIGHT LOWER LIMB 02/06/2017 ENDY SULLIVAN TIRE MAINTENANCE TECHNICIAN Ot 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 02/06/2017 ENDY SULLIVAN TIRE MAINTENANCE TECHNICIAN Ot L97.212 NON-PRESSURE CHRONIC ULCER OF RIGHT CALF 02/06/2017 ERIC LA MD Ot I48.2 CHRONIC ATRIAL FIBRILLATION 02/06/2017 ERIC LA MD Ot 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 02/06/2017 ERIC LA MD Ot L03.115 CELLULITIS OF RIGHT LOWER LIMB 02/06/2017 ENDY SULLIVAN APRN Ot I48.2 CHRONIC ATRIAL FIBRILLATION 02/06/2017 ENDY SULLIVAN TIRE MAINTENANCE TECHNICIAN Ot 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 02/06/2017 ENDY SULLIVAN TIRE MAINTENANCE TECHNICIAN Ot L97.212 NON-PRESSURE CHRONIC ULCER OF RIGHT CALF 02/13/2017 ENDY SULLIVAN TIRE MAINTENANCE TECHNICIAN Ot I48.2 CHRONIC ATRIAL FIBRILLATION 02/13/2017 ENDY SULLIVAN TIRE MAINTENANCE TECHNICIAN Ot 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 02/13/2017 ENDY SULLIVAN R TIRE MAINTENANCE TECHNICIAN Ot L97.212 NON-PRESSURE CHRONIC ULCER OF RIGHT CALF 02/13/2017 ENDY SULLIVAN R TIRE MAINTENANCE TECHNICIAN Ot I48.2 CHRONIC ATRIAL FIBRILLATION 02/13/2017 ENDY SULLIVAN R TIRE MAINTENANCE TECHNICIAN Ot 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 02/13/2017 ENDY SULLIVAN R TIRE MAINTENANCE TECHNICIAN Ot L03.115 CELLULITIS OF RIGHT LOWER LIMB 02/13/2017 NATE ENDY R TIRE MAINTENANCE TECHNICIAN Ot L97.212 NON-PRESSURE CHRONIC ULCER OF RIGHT CALF 02/15/2017 ENDY SULLIVAN R TIRE MAINTENANCE TECHNICIAN Ot I48.2 CHRONIC ATRIAL FIBRILLATION 02/15/2017 ENDY SULLIVAN TIRE MAINTENANCE TECHNICIAN Ot 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 02/15/2017 ENDY SULLIVAN R TIRE MAINTENANCE TECHNICIAN Ot L97.212 NON-PRESSURE CHRONIC ULCER OF RIGHT CALF 02/18/2017 ENDY SULLIVAN R TIRE MAINTENANCE TECHNICIAN Ot I48.2 CHRONIC ATRIAL FIBRILLATION 02/18/2017 ENDY SULLIVAN R TIRE MAINTENANCE TECHNICIAN Ot 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 02/18/2017 ENDY SULLIVAN R TIRE MAINTENANCE TECHNICIAN Ot L97.212 NON-PRESSURE CHRONIC ULCER OF RIGHT CALF 02/19/2017 ENDY SULLIVAN TIRE MAINTENANCE TECHNICIAN Ot I48.2 CHRONIC ATRIAL FIBRILLATION 02/19/2017 ENDY SULLIVAN R TIRE MAINTENANCE TECHNICIAN Ot 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 02/19/2017 ENDY SULLIVAN TIRE MAINTENANCE TECHNICIAN Ot L03.115 CELLULITIS OF RIGHT LOWER LIMB 02/19/2017 NATE ENDY R TIRE MAINTENANCE TECHNICIAN Ot L97.212 NON-PRESSURE CHRONIC ULCER OF RIGHT CALF 02/20/2017 ENDY SULLIVAN R TIRE MAINTENANCE TECHNICIAN Ot I48.2 CHRONIC ATRIAL FIBRILLATION 02/20/2017 ENDY SULLIVAN R TIRE MAINTENANCE TECHNICIAN Ot 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 02/20/2017 ENDY SULLIVAN R TIRE MAINTENANCE TECHNICIAN Ot L97.212 NON-PRESSURE CHRONIC ULCER OF RIGHT CALF 02/20/2017 ENDY SULLIVAN TIRE MAINTENANCE TECHNICIAN Ot I48.2 CHRONIC ATRIAL FIBRILLATION 02/20/2017 ENDY SULLIVAN R TIRE MAINTENANCE TECHNICIAN Ot 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 02/20/2017 ENDY SULLIVAN TIRE MAINTENANCE TECHNICIAN Ot L97.212 NON-PRESSURE CHRONIC ULCER OF RIGHT CALF 02/21/2017 ENDY SULLIVAN TIRE MAINTENANCE TECHNICIAN Ot 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 02/21/2017 ENDY SULLIVAN R TIRE MAINTENANCE TECHNICIAN Ot L97.212 NON-PRESSURE CHRONIC ULCER OF RIGHT CALF 02/27/2017 ENDY SULLIVAN TIRE MAINTENANCE TECHNICIAN Ot I48.2 CHRONIC ATRIAL FIBRILLATION 02/27/2017 ENDY SULLIVAN TIRE MAINTENANCE TECHNICIAN Ot 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 02/27/2017 ENDY SULLIVAN R TIRE MAINTENANCE TECHNICIAN Ot L97.212 NON-PRESSURE CHRONIC ULCER OF RIGHT CALF 02/27/2017 ENDY SULLIVAN TIRE MAINTENANCE TECHNICIAN Ot 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 02/27/2017 ENDY SULLIVAN R TIRE MAINTENANCE TECHNICIAN Ot L97.212 NON-PRESSURE CHRONIC ULCER OF RIGHT CALF 02/27/2017 ENDY SULLIVAN TIRE MAINTENANCE TECHNICIAN Ot 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 02/27/2017 ENDY SULLIVAN TIRE MAINTENANCE TECHNICIAN Ot L97.212 NON-PRESSURE CHRONIC ULCER OF RIGHT CALF 03/06/2017 ENDY SULLIVAN TIRE MAINTENANCE TECHNICIAN Ot I48.2 CHRONIC ATRIAL FIBRILLATION 03/06/2017 ENDY SULLIVAN TIRE MAINTENANCE TECHNICIAN Ot 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 03/06/2017 ENDY SULLIVAN R TIRE MAINTENANCE TECHNICIAN Ot L97.212 NON-PRESSURE CHRONIC ULCER OF RIGHT CALF 03/07/2017 ENDY SULLIVAN TIRE MAINTENANCE TECHNICIAN Ot 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 03/07/2017 ENDY SULLIVAN TIRE MAINTENANCE TECHNICIAN Ot L97.212 NON-PRESSURE CHRONIC ULCER OF RIGHT CALF 03/12/2017 ENDY SULLIVAN TIRE MAINTENANCE TECHNICIAN Ot I48.2 CHRONIC ATRIAL FIBRILLATION 03/12/2017 ENDY SULLIVAN TIRE MAINTENANCE TECHNICIAN Ot 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 03/12/2017 ENDY SULLIVAN R TIRE MAINTENANCE TECHNICIAN Ot L97.212 NON-PRESSURE CHRONIC ULCER OF RIGHT CALF 03/13/2017 ENDY SULLIVAN TIRE MAINTENANCE TECHNICIAN Ot I48.2 CHRONIC ATRIAL FIBRILLATION 03/13/2017 ENDY SULLIVAN TIRE MAINTENANCE TECHNICIAN Ot 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 03/13/2017 ENDY SULLIVAN TIRE MAINTENANCE TECHNICIAN Ot L97.212 NON-PRESSURE CHRONIC ULCER OF RIGHT CALF 03/20/2017 ENDY SULLIVAN TIRE MAINTENANCE TECHNICIAN Ot I48.2 CHRONIC ATRIAL FIBRILLATION 03/20/2017 ENDY SULLIVAN TIRE MAINTENANCE TECHNICIAN Ot 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 03/20/2017 ENDY SULLIVAN TIRE MAINTENANCE TECHNICIAN Ot L97.212 NON-PRESSURE CHRONIC ULCER OF RIGHT CALF 03/21/2017 ENDY SULLIVAN TIRE MAINTENANCE TECHNICIAN Ot I48.2 CHRONIC ATRIAL FIBRILLATION 03/21/2017 ENDY SULLIVAN TIRE MAINTENANCE TECHNICIAN Ot 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 03/21/2017 ENDY SULLIVAN TIRE MAINTENANCE TECHNICIAN Ot L97.212 NON-PRESSURE CHRONIC ULCER OF RIGHT CALF 04/03/2017 ENDY SULLIVAN TIRE MAINTENANCE TECHNICIAN Ot I48.2 CHRONIC ATRIAL FIBRILLATION 04/03/2017 ENDY SULLIVAN TIRE MAINTENANCE TECHNICIAN Ot 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 04/03/2017 ENDY SULLIVAN TIRE MAINTENANCE TECHNICIAN Ot L97.212 NON-PRESSURE CHRONIC ULCER OF RIGHT CALF 04/01/2018 JAY URBANO MD Ot I11.0 HYPERTENSIVE HEART DISEASE WITH HEART FA 04/01/2018 JAY URBANO MD Ot I48.2 CHRONIC ATRIAL FIBRILLATION 04/01/2018 JAY URBANO MD Ot I50.32 CHRONIC DIASTOLIC (CONGESTIVE) HEART FARIDEH 04/01/2018 JAY URBANO MD Ot I69.351 HEMIPLGA FOLLOWING CEREBRAL INFRC AFF RI 04/01/2018 JAY URBANO MD Ot J44.1 CHRONIC OBSTRUCTIVE PULMONARY DISEASE W 04/01/2018 JAY URBANO MD Ot R06.89 OTHER ABNORMALITIES OF BREATHING 04/01/2018 JAY URBANO MD Ot R79.1 ABNORMAL COAGULATION PROFILE 04/01/2018 JAY URBANO MD Ot Z66 DO NOT RESUSCITATE 04/02/2018 JAY URBANO MD Ot E78.5 HYPERLIPIDEMIA, UNSPECIFIED 04/02/2018 JAY URBANO MD Ot E87.6 HYPOKALEMIA 04/02/2018 JAY URBANO MD Ot G47.00 INSOMNIA, UNSPECIFIED 04/02/2018 JAY URBANO MD Ot G47.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 04/02/2018 SIXTO MD, JAY A Ot I08.3 COMB RHEUMATIC DISORD OF MITRAL, AORTIC 04/02/2018 JAY URBANO MD Ot I11.0 HYPERTENSIVE HEART DISEASE WITH HEART FA 04/02/2018 JAY URBANO MD Ot I48.2 CHRONIC ATRIAL FIBRILLATION 04/02/2018 JAY URBANO MD Ot I50.33 ACUTE ON CHRONIC DIASTOLIC (CONGESTIVE) 04/02/2018 JAY URBANO MD Ot I69.351 HEMIPLGA FOLLOWING CEREBRAL INFRC AFF RI 04/02/2018 JAY URBANO MD Ot J44.1 CHRONIC OBSTRUCTIVE PULMONARY DISEASE W 04/02/2018 JAY URBANO MD Ot J96.00 ACUTE RESPIRATORY FAILURE, UNSP W HYPOXI 04/02/2018 JAY URBANO MD Ot J99 RESPIRATORY DISORDERS IN DISEASES CLASSI 04/02/2018 JAY URBANO MD Ot K59.09 OTHER CONSTIPATION 04/02/2018 JAY URBANO MD Ot M19.91 PRIMARY OSTEOARTHRITIS, UNSPECIFIED SITE 04/02/2018 JAY URBANO MD Ot 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, THORACOLUMBAR ELIO 04/02/2018 JAY URBANO MD Ot M41.9 SCOLIOSIS, UNSPECIFIED 04/02/2018 JAY URBANO MD Ot R06.03 ACUTE RESPIRATORY DISTRESS 04/02/2018 JAY URBANO MD Ot R13.10 DYSPHAGIA, UNSPECIFIED 04/02/2018 JAY URBANO MD Ot R42 DIZZINESS AND GIDDINESS 04/02/2018 JAY URBANO MD Ot R79.1 ABNORMAL COAGULATION PROFILE 04/02/2018 JAY URBANO MD Ot Z66 DO NOT RESUSCITATE 04/02/2018 JAY URBANO MD Ot Z79.01 [facility] (CURRENT) USE OF ANTICOAGULANT 04/02/2018 JAY URBANO MD Ot E78.5 HYPERLIPIDEMIA, UNSPECIFIED 04/02/2018 JAY RUBANO MD Ot E87.6 HYPOKALEMIA 04/02/2018 JAY URBANO MD Ot G47.00 INSOMNIA, UNSPECIFIED 04/02/2018 JAY URBANO MD Ot G47.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 04/02/2018 JAY URBANO MD Ot I08.1 RHEUMATIC DISORDERS OF BOTH MITRAL AND T 04/02/2018 JAY URBANO MD Ot I08.3 COMB RHEUMATIC DISORD OF MITRAL, AORTIC 04/02/2018 JAY URBANO MD Ot I11.0 HYPERTENSIVE HEART DISEASE WITH HEART FA 04/02/2018 JAY URBANO MD Ot I48.2 CHRONIC ATRIAL FIBRILLATION 04/02/2018 JAY URBANO MD Ot I50.33 ACUTE ON CHRONIC DIASTOLIC (CONGESTIVE) 04/02/2018 JAY URBANO MD Ot I69.351 HEMIPLGA FOLLOWING [facility]EREBRAL [facility]FR[facility] AFF RI 04/02/2018 JAY URBANO MD, Ot J44.1 CHRONIC OBSTRUCTIVE PULMONARY DISEASE W 04/02/2018 JAY URBANO MD Ot J96.00 ACUTE RESPIRATORY FAILURE, UNSP W HYPOXI 04/02/2018 JAY URBANO MD Ot J99 RESPIRATORY DISORDERS IN DISEASES CLASSI 04/02/2018 JAY URBANO MD Ot K59.09 OTHER CONSTIPATION 04/02/2018 JAY URBANO MD Ot M19.91 PRIMARY OSTEOARTHRITIS, UNSPECIFIED SITE 04/02/2018 JAY URBANO MD Ot 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, THORACOLUMBAR ELIO 04/02/2018 JAY URBANO MD Ot M41.9 SCOLIOSIS, UNSPECIFIED 04/02/2018 JAY URBANO MD Ot R06.03 ACUTE RESPIRATORY DISTRESS 04/02/2018 JAY URBANO MD Ot R13.10 DYSPHAGIA, UNSPECIFIED 04/02/2018 JAY URBANO MD Ot R41.0 DISORIENTATION, UNSPECIFIED 04/02/2018 JAY URBANO MD Ot R42 DIZZINESS AND GIDDINESS 04/02/2018 JAY URBANO MD Ot R79.1 ABNORMAL COAGULATION PROFILE 04/02/2018 JAY URBANO MD Ot Z66 DO NOT RESUSCITATE 04/02/2018 JAY URBANO MD Ot Z79.01 [employer] (CURRENT) USE OF ANTICOAGULANT Procedures Code Description [...] 09:44 Bacteria identification in wound by culture [id number] [facility] FREE TEXT EXTERNAL SENSITIVITY REPORTED AT 0759, 7 NR QUANTITY OF GROWTH Scant Growth [facility] Bacterial susceptibility panel - 11/20/16 09:44 Gentamicin [...] 12/06/16 13:05 Vancomycin trough 19.8 ug/mL 10.0-20.0 [id number] - 12/10/16 13:10 Serum or plasma urea [...] 09:33 Bacteria identification in wound by culture [id number] [facility] FREE TEXT EXTERNAL SENSITIVITY REPORTED AT 0858, [...] culture - 12/28/16 16:35 Bacterial urine culture [id number] NRG COLONY COUNT <10,000 NRG FTX;REPORTABLE SENSITIVITY [...] measurement by glucometer (mass/volume) 143 mg/dL 70-110 Complete blood count (CBC) with automated white blood cell (WBC) differential - 05/03/18 09:00 Blood leukocytes automated count (number/volume) 6.7 10*3/uL 4.3-11.0 Blood erythrocytes automated count (number/volume) 4.53 10*6/uL 4.35-5.85 Venous blood hemoglobin measurement (mass/volume) 13.5 g/dL 11.5-16.0 Blood hematocrit (volume fraction) 45 % 35-52 Automated erythrocyte mean corpuscular volume 100 [foz_us] 80-99 Automated erythrocyte mean corpuscular hemoglobin (mass per erythrocyte) 30 pg 25-34 Automated erythrocyte mean corpuscular hemoglobin concentration measurement ( mass/volume) 30 g/dL 32-36 Automated erythrocyte distribution width ratio 15.3 % 10.0-14.5 Automated blood platelet count (count/volume) 214 10*3/uL 130-400 Automated blood platelet mean volume measurement 9.9 [foz_us] 7.4-10.4 Automated blood neutrophils/100 leukocytes 84 % 42-75 Automated blood lymphocytes/100 leukocytes 8 % 12-44 Blood monocytes/100 leukocytes 6 % 0-12 Automated blood eosinophils/100 leukocytes 2 % 0-10 Automated blood basophils/100 leukocytes 0 % 0-10 Blood neutrophils automated count (number/volume) 5.6 10*3 1.8-7.8 Blood lymphocytes automated count (number/volume) 0.6 10*3 1.0-4.0 Blood monocytes automated count (number/volume) 0.4 10*3 0.0-1.0 Automated eosinophil count 0.1 10*3/uL 0.0-0.3 Automated blood basophil count (count/volume) 0.0 10*3/uL 0.0-0.1 Comprehensive metabolic panel - 05/03/18 09:00 Serum or plasma sodium measurement (moles/volume) 144 mmol/L 135-145 Serum or plasma potassium measurement (moles/volume) 5.0 mmol/L 3.6-5.0 Serum or plasma chloride measurement (moles/volume) 102 mmol/L 98-107 Carbon dioxide 31 mmol/L 21-32 Serum or plasma anion gap determination (moles/volume) 11 mmol/L 5-14 Serum or plasma urea nitrogen measurement (mass/volume) 32 mg/dL 7-18 Serum or plasma creatinine measurement (mass/volume) 1.31 mg/dL 0.60-1.30 Serum or plasma urea nitrogen/creatinine mass ratio 24 NRG Serum or plasma creatinine measurement with calculation of estimated glomerular filtration rate 38 NRG Serum or plasma glucose measurement (mass/volume) 88 mg/dL 70-105 Serum or plasma calcium measurement (mass/volume) 9.2 mg/dL 8.5-10.1 Serum or plasma total bilirubin measurement (mass/volume) 0.6 mg/dL 0.1-1.0 Serum or plasma alkaline phosphatase measurement (enzymatic activity/volume) 84 U/L 40-136 Serum or plasma aspartate aminotransferase measurement (enzymatic activity/ volume) 39 U/L 5-34 Serum or plasma alanine aminotransferase measurement (enzymatic activity/volume ) 37 U/L 0-55 Serum or plasma protein measurement (mass/volume) 6.7 g/dL 6.4-8.2 Serum or plasma albumin measurement (mass/volume) 4.0 g/dL 3.2-4.5 CALCIUM CORRECTED 9.2 mg/dL 8.5-10.1 Serum or plasma troponin i.cardiac measurement (mass/volume) - 05/03/18 09:00 Serum or plasma troponin i.cardiac measurement (mass/volume) < ng/ mL <0.30 Serum or plasma lithium measurement (moles/volume) - 05/03/18 09:00 BNP level 790.8 pg/mL <100.0 Serum or plasma C reactive protein measurement (mass/volume) - 05/03/18 09:00 Serum or plasma C reactive protein measurement (mass/volume) 1.73 mg /dL 0.00-0.50 Complete urinalysis with reflex to culture - 05/03/18 09:00 Urine color determination YELLOW NRG Urine clarity determination SLIGHTLY CLOUDY NRG Urine pH measurement by test [...] count by microscopy (number/high power field ) > [HPF] NRG Bacteria detection in urine sediment by light microscopy MODERATE NRG Squamous epithelial cells detection in urine sediment by light microscopy RARE NRG Crystals detection in urine sediment by light microscopy PRESENT NRG Casts detection in urine sediment by light microscopy NONE NRG Mucus detection in urine sediment by light microscopy NEGATIVE NRG Complete urinalysis with reflex to culture YES NRG Amorphous sediment detection in urine sediment by light microscopy MOD RODERICK URATES NRG Blood lactic acid measurement (moles/volume) - 05/03/18 09:10 Blood lactic acid measurement (moles/volume) 0.63 mmol/L 0.50-2.00 Encounters ACCT No. Visit Date/Time Discharge Status Pt. Type Provider Facility Loc./Unit Complaint [id number] 03/30/2018 11:30:00 04/02/2018 18:00:00 DIS Inpatient JAY URBANO MD [facility] 4TH COPD ACUTE EXACERBATION, CHF [id number] 02/26/2017 08:36:00 02/26/2017 23:59:59 CLS Outpatient ENDY SULLIVAN APRN [facility] [id number] 02/19/2017 08:36:00 02/19/2017 23:59:59 CLS Outpatient ENDY SULLIVAN APRN [facility] [id number] 02/12/2017 08:35:00 02/12/2017 23:59:59 CLS Outpatient ENDY SULLIVAN APRN [facility] [id number] 02/05/2017 08:44:00 02/05/2017 23:59:59 CLS Outpatient ENDY SULLIVAN APRN [facility] [id number] 01/29/2017 08:35:00 01/29/2017 23:59:59 CLS Outpatient ENDY SULLIVAN APRN [facility] [id number] 01/22/2017 08:44:00 01/22/2017 23:59:59 CLS Outpatient NATE ENDY R TIRE MAINTENANCE TECHNICIAN [facility] [id number] 01/17/2017 14:12:00 01/17/2017 23:59:59 CLS Outpatient NATE, ENDY R TIRE MAINTENANCE TECHNICIAN [facility] [id number] 01/15/2017 08:49:00 01/15/2017 23:59:59 CLS Outpatient NATE ENDY R TIRE MAINTENANCE TECHNICIAN [facility] [id number] 01/10/2017 09:42:00 01/10/2017 23:59:59 CLS Outpatient ERIC LA MD [facility] [id number] 01/08/2017 08:38:00 01/08/2017 23:59:59 CLS Outpatient NATE ENDY R TIRE MAINTENANCE TECHNICIAN [facility] [id number] 01/01/2017 08:30:00 01/01/2017 23:59:59 CLS Outpatient NATE ENDY R TIRE MAINTENANCE TECHNICIAN [facility] [id number] 12/28/2016 18:11:00 12/28/2016 23:59:59 CLS Outpatient KEITH ADAME [facility] LABNPT INCREASED MOODINESS AND CONFUSION,DARK UA,FOUL ODR [id number] 12/25/2016 08:29:00 12/25/2016 23:59:59 CLS Outpatient NATE ENDY R TIRE MAINTENANCE TECHNICIAN [facility] [id number] 12/18/2016 08:44:00 12/18/2016 23:59:59 CLS Outpatient NATE ENDY R TIRE MAINTENANCE TECHNICIAN [facility] [id number] 12/11/2016 08:41:00 12/11/2016 23:59:59 CLS Outpatient NATE ENDY R TIRE MAINTENANCE TECHNICIAN [facility] [id number] 12/11/2016 08:41:00 12/11/2016 23:59:59 CLS Preadmit SHINE SULLIVANN R TIRE MAINTENANCE TECHNICIAN [facility] HH CELLULITIS [id number] 12/10/2016 13:32:00 12/10/2016 23:59:59 CLS Outpatient ENDY SULLIVAN TIRE MAINTENANCE TECHNICIAN [facility] L03.115, cellulitis [id number] 12/04/2016 09:05:00 12/10/2016 16:00:00 DIS Outpatient ENDY SULLIVAN APRN [facility] [id number] 12/06/2016 14:56:00 12/06/2016 23:59:59 CLS Outpatient ENDY SULLIVAN TIRE MAINTENANCE TECHNICIAN [facility] CELLULITIS [id number] 12/04/2016 12:15:00 12/04/2016 23:59:59 CLS Outpatient ENDY SULLIVAN TIRE MAINTENANCE TECHNICIAN [facility] CELLULITIS [id number] 11/30/2016 13:57:00 11/30/2016 23:59:59 CLS Outpatient ERIC LA MD [facility] L03.115 [id number] 11/27/2016 11:28:00 11/27/2016 14:50:00 DIS Outpatient ENDY SULLIVAN APRN [facility] SDC ULCER OF RIGHT CALF, VENOUS INSUFFICIENCY [id number] 09/11/2016 11:02:00 09/11/2016 23:59:59 CLS Outpatient DUONG BARNARD APRN [facility] RAD SOB [id number] 04/09/2016 11:54:00 04/09/2016 23:59:59 CLS Outpatient ANNETTE MO MD, FACC, FACP CCDS [facility] CARD AF,CAF [id number] 04/02/2016 13:11:00 04/02/2016 23:59:59 CLS Outpatient ANNETTE MO MD, FACC, FACP CCDS [facility] RAD AF,CAD,CPD [id number] 06/25/2015 21:03:00 06/26/2015 06:55:00 DIS Outpatient KIMBERLY KINGSTON DO [facility] SLEEP SNORING,HTN,DAYTIME SLEEPINESS [id number] 03/09/2015 13:51:00 03/09/2015 23:59:59 CLS Outpatient SHANTELLE RIVERA [facility] CARD AFIB,CAD,HTN [id number] 08/10/2014 09:43:00 08/10/2014 23:59:59 CLS Outpatient SHANTELLE RIVERA [facility] CARD A FIB [id number] 06/13/2014 19:19:00 06/13/2014 21:33:00 DIS Emergency HUGO SINGLETARY MD [facility] ER FALL;HEAD INJ [id number] 05/27/2014 10:07:00 06/11/2014 15:30:00 DIS Inpatient ALESHIA WILSON MD [facility] IRF IRF-CVA [id number] 05/24/2014 12:29:00 05/27/2014 10:20:00 DIS Inpatient JAY URBANO MD [facility] 4TH CVA [id number] 04/21/2014 02:00:00 04/25/2014 13:00:00 DIS Inpatient JAY URBANO MD [facility] 4TH CLINICAL PNEUMONIA; GENERALIZED WEAKNESS [id number] 04/07/2014 09:25:00 04/08/2014 11:00:00 DIS Outpatient BANDAR JARRELL DO [facility] SDC OPEN REDUCTION INTERNAL FIXATION OF RIGHT DISTAL R [id number] 01/20/2014 12:00:00 01/20/2014 23:59:59 CLS Outpatient TERESA MONTEJO MD [facility] CARD PAINFUL LEFT TOTAL HIP [id number] 05/25/2013 11:08:00 05/25/2013 23:59:59 CLS Outpatient JAY URBANO MD [facility] LAB URINARY INCONT,MALISE ,FATIGUE [id number] 05/25/2013 14:27:00 05/25/2013 16:31:00 DIS Emergency SHREYAS BENAVIDES DO [facility] ER POSS CVA [id number] 12/01/2012 17:58:00 12/12/2012 16:15:00 DIS Inpatient ALESHIA WILSON MD [facility] IRF HIP REPLACEMENT [id number] 10/14/2012 14:08:00 10/14/2012 22:10:00 DIS Outpatient CHEPE PEOPLES FACC, ALI FACP CCDS [facility] CAD,HTN,A-FIB ,COPD,ABN STRESS TEST [id number] 09/16/2012 07:55:00 09/16/2012 23:59:59 CLS Outpatient KELLE PEOPLES, HILDA [facility] RAD SOB [id number] 05/03/2018 11:32:00 ACT Inpatient JAY URBANO MD [facility] 4TH BILAT PNA,UTI,AMS [id number] 07/29/2012 11:06:00 Document Registration [id number] 05/22/2012 11:22:00 Document Registration [id number] 09/10/2011 09:47:00 Document Registration [id number] 08/21/2011 13:18:00 Document Registration [id number] 04/21/2011 14:30:00 Document Registration [id number] 03/12/2011 09:12:00 Document Registration [id number] 01/11/2011 10:43:00 Document Registration [id number] 12/06/2010 08:53:00 Document Registration [id number] 06/05/2010 13:32:00 Document Registration [id number] 05/25/2010 08:39:00 Document Registration [id number] 02/07/2010 15:57:00 Document Registration [id number] 01/27/2010 07:59:00 Document Registration [id number] 01/10/2010 08:24:00 Document Registration [id number] 12/27/2009 10:30:00 Document Registration [id number] 11/29/2009 13:58:00 Document Registration [id number] 10/12/2009 09:55:00 Document Registration [id number] 05/31/2009 12:02:00 Document Registration [id number] 02/08/2009 09:09:00 Document Registration [id number] 08/11/2014 00:41:52 ACT Document Registration [id number] 03/21/2017 23:20:50 03/21/2017 23:59:59 CLS Outpatient Jay Urbano
[2018-05-03] MEDS ORDERED: ONDANSETRON 4 MG/2 ML (SDV) Z0FRAN IV PRN (13:00)
--- NOTE | 2018-05-03 13:51 | History & Physical-Hospitalist ---
History of Present Illness HPI/Chief Complaint CC: AMS with UTI and pneumonia HPI: This is an 87-year-old white female known to me from prior hospital stays of Dr. Urbano who resides at a nursing facility who presents to the ER with altered mental status. She was found to have pneumonia and UTI with elevated BNP with volume overload. She remains a DO NOT RESUSCITATE and overall poor prognosis but she will be aggressively treated with Zosyn and gentle IV fluids with cardiology consultation. Patient reports being hungry and cold but otherwise she denies any other significant pain issues. We have provided a warm blanket and we will help her order her lunch and help feed her. Source: patient, RN/MD, old records Exam Limitations: clinical condition Date Seen 05/03/18 Time Seen by a Provider: 13:45 Attending Physician Darby Urbano MD PCP Darby Urbano MD Referring Physician Date of Admission May 03, 2018 at 11:32 Home Medications & Allergies Home Medications Reviewed patient Home Medication Reconciliation performed by pharmacy medication reconciliations pharmacy technician assistant and/or nursing. Patients Allergies have been reviewed. Allergies Allergies Coded Allergies codeine (Verified Allergy, Unknown, 03/30/18) Uncoded Allergies ESTROGEN SUPPLEMENT PATCHES ( Allergy, Unknown, 04/21/14) Past Erzpqsq-Wbjxsq-Dcljeb Hx Past Med/Social Hx: Reviewed Nursing Past Med/Soc Hx, Reviewed and Corrections made Patient Social History Marrital Status: single Employed/Student: retired Alcohol Use: Denies Use Recreational Drug Use: No Smoking Status: Never a Smoker 2nd Hand Smoke Exposure: No Recent Foreign Travel: No Contact w/other who traveled: No Recent Hopitalizations: No Recent Infectious Disease Expo: No Immunizations Up To Date Tetanus Booster (TDap): More than 5yrs Pediatric: No Date of Pneumonia Vaccine: Feb 08, 2016 Date of Influenza Vaccine: Mar 27, 2018 Seasonal Allergies Seasonal Allergies: Yes Past Medical History Surgeries: Hysterectomy, Joint Replacement Respiratory: COPD Cardiac: Atrial Fibrillation, Chronic Edema/Swelling, Hypertension, Valvular Heart Disease Neurological: Stroke Reproductive: No Menopausal Gastrointestinal: Chronic Constipation Musculoskeletal: Arthritis, Scoliosis HEENT: Cataract, Dysphagia Loss of Vision: Denies Hearing Impairment: Denies Psychosocial: Sleep Difficulties History of Blood Disorders: No Family History Reviewed Nursing Family Hx Alcoholism G8 BROTHER Arthritis 19 FATHER 19 MOTHER G8 BROTHER G8 SISTER Cardiovascular disease 19 FATHER 19 MOTHER Deafness or hearing loss 19 FATHER 19 MOTHER No Family History of: AIDS Abdominal aortic aneurysm [place]'s disease Alzheimer's disease Aphasia Asthma Cancer of mouth Cataracts Colon cancer Completed stroke Congenital disease Congenital heart disease Coronary thrombosis Cystic fibrosis Dementia Diabetes mellitus Drug abuse Dysphasia Fibrocystic disease of breast Gastroenteritis Glaucoma Headache disorder Hypercholesterolemia Hypertension Infertility Kidney disease Myocardial infarction Neoplasm Not obtainable due to adoption Osteoporosis Parkinson's disease Prostate cancer Psychosocial problem Respiratory disorder Seizure disorder Severe allergy Thyroid disease Tuberculosis Visual disorder Heart Disease Review of Systems Constitutional: see HPI, dizziness, weakness EENTM: no symptoms reported Respiratory: cough, dyspnea on exertion, short of breath Cardiovascular: no symptoms reported Gastrointestinal: no symptoms reported Genitourinary: no symptoms reported Musculoskeletal: no symptoms reported Skin: no symptoms reported Psychiatric/Neurological: No Symptoms Reported All Other Systems Reviewed Negative Unless Noted: Yes Physical Exam Physical Exam Vital Signs Vital Signs - First Documented 05/03/18 08:47 Temp 96.1 Pulse 80 Resp 20 B/P (MAP) 143/89 (107) Pulse Ox 97 O2 Delivery Room Air Capillary Refill : Less Than 3 Seconds Height, Weight, BMI Height: 5'3.00" Weight: 170lbs. 15.0oz. 77.305986in; 27.5 BMI Method:Stated General Appearance: WD/WN, Chronically ill, Mild Distress Eyes: Bilateral Eye Normal Inspection, Bilateral Eye PERRL HEENT: PERRL/EOMI, Normal ENT Inspection, Pharynx Normal Neck: Full Range of Motion, Normal Inspection, Non Tender, Supple, Carotid Bruit Respiratory: Chest Non Tender, Accessory Muscle Use, Decreased Breath Sounds, Wheezing Cardiovascular: Regular Rate, Rhythm, No Gallop, No JVD, No Murmur, Normal Peripheral Pulses Gastrointestinal: Normal Bowel Sounds, No Organomegaly, No Pulsatile Mass, Non Tender, Soft Back: Normal Inspection, No CVA Tenderness, Decreased Range of Motion, Other ( severe scoliosis) Extremity: Normal Capillary Refill, Normal Inspection, Normal Range of Motion, Non Tender, No Calf Tenderness, No Pedal Edema Neurologic/Psychiatric: Alert, Oriented x3, No Motor/Sensory Deficits, Normal Mood/Affect Skin: Normal Color, Warm/Dry Lymphatic: No Adenopathy Results Results/Procedures Labs Laboratory Tests 05/03/18 09:00 Patient resulted labs reviewed. Assessment/Plan Admission Diagnosis Assessment: Altered mental status Pneumonia UTI Severe debility Severe scoliosis Kyphosis Advanced age DO NOT RESUSCITATE Diastolic congestive heart failure Restrictive lung disease Plan: Home meds Check INR Overall poor prognosis Zosyn Follow-up and urine culture Admission Status: Inpatient Order (span 2 midnights) Reason for Inpatient Admission: Pneumonia and UTI from facility for car 3 days of IV antibiotics Diagnosis/Problems Diagnosis/Problems (1) Pneumonia of both lower lobes Status: Acute Qualifiers: Pneumonia type: due to unspecified organism Qualified Codes: J18.1 - Lobar pneumonia, unspecified organism (2) Diastolic congestive heart failure Status: Acute Qualifiers: Heart failure chronicity: acute on chronic Qualified Codes: I50.33 - Acute on chronic diastolic (congestive) heart failure (3) Poor prognosis Status: Acute (4) Urinary tract infection Status: Acute Qualifiers: Urinary tract infection type: acute cystitis Hematuria presence: without hematuria Qualified Codes: N30.00 - Acute cystitis without hematuria (5) Advanced age Status: Chronic (6) Valvular heart disease Status: Chronic (7) Restrictive lung disease Status: Chronic (8) Generalized weakness Status: Acute (9) Scoliosis Status: Chronic Qualifiers: Scoliosis type: unspecified scoliosis Spinal region: thoracic Qualified Codes: M41.9 - Scoliosis, unspecified (10) CVA, old, hemiparesis Status: Chronic (11) Kyphosis Status: Chronic (12) DNR (do not resuscitate) Status: Chronic NICOLAS WANG DO May 03, 2018 13:51
[2018-05-03 13:56] LABS: INR 4.5 (0.8-1.4); PROTHROMBIN TIME PATIENT 43.3 SEC (12.2-14.7)
[2018-05-03] MEDS: NS IV 1000 ML 1,000 ML IV SCH (14:05)
[2018-05-03 14:54] VITALS: BP 143/89
[2018-05-03 16:00] VITALS: BP 174/88
[2018-05-03] MEDS ORDERED: CETI10TA20 PO (16:16)
[2018-05-03] MEDS ORDERED: [UNRECOGNIZED DRUG - MIXTURE] PO PRN (18:00)
[2018-05-03] MEDS ORDERED: FLUTICASONE NASAL SPRAY (FLONASE) 16 GM BTL NS PRN (18:00)
[2018-05-03] MEDS ORDERED: ACETAMINOPHEN 325 MG TABLET PO PRN (18:00)
[2018-05-03] MEDS ORDERED: BENZONATATE 100 MG PO PRN (18:00)
[2018-05-03] MEDS ORDERED: warFARin 2.5 MG (COUMADIN) TAB PO SCH (18:00)
[2018-05-03] MEDS: RT-ALBUTEROL/IPRATROPIUM 3 ML (DUONEB) VIAL INH SCH (18:43)
[2018-05-03] MEDS: PIPERACILLIN/TAZO 4.5 GM/NS 100 ML IV SCH ×2 (18:46)
[2018-05-03 20:12] VITALS: BP 169/85
[2018-05-03] MEDS ORDERED: BENZONATATE 100 MG (TESSALON) CAPSULE PO PRN (20:45)
[2018-05-03] MEDS: ALPRAZolam 0.5 MG (XANAX) TAB PO SCH (21:06)
[2018-05-04] VITALS: BP 144/78
[2018-05-04] MEDS: PIPERACILLIN/TAZO 4.5 GM/NS 100 ML IV SCH ×6 (01:56→18:12)
[2018-05-04] MEDS: RT-ALBUTEROL/IPRATROPIUM 3 ML (DUONEB) VIAL INH SCH ×5 (02:11→19:11)
[2018-05-04 04:00] VITALS: BP 134/93
[2018-05-04 05:09] LABS: BASOPHILS % (AUTO) 0 % (0-10); EOSINOPHILS # (AUTO) 0.1 10^3/uL (0.0-0.3); EOSINOPHILS % (AUTO) 2 % (0-10); HEMATOCRIT 43 % (35-52); HEMOGLOBIN 12.8 G/DL (11.5-16.0); LYMPHOCYTES # (AUTO) 0.5 X 10^3 (1.0-4.0); LYMPHOCYTES % (AUTO) 9 % (12-44); MEAN CORPUSCULAR HEMOGLOBIN 30 PG (25-34); MEAN CORPUSCULAR HGB CONC 30 G/DL (32-36); MEAN CORPUSCULAR VOLUME 100 FL (80-99); MEAN PLATELET VOLUME 9.5 FL (7.4-10.4); MONOCYTES # (AUTO) 0.4 X 10^3 (0.0-1.0); MONOCYTES % (AUTO) 6 % (0-12); NEUTROPHILS # (AUTO) 4.8 X 10^3 (1.8-7.8); NEUTROPHILS % (AUTO) 83 % (42-75); PLATELET COUNT 173 10^3/uL (130-400); RED BLOOD COUNT 4.27 10^6/uL (4.35-5.85); RED CELL DISTRIBUTION WIDTH 14.9 % (10.0-14.5); WHITE BLOOD COUNT 5.8 10^3/uL (4.3-11.0)
[2018-05-04 05:33] LABS: ALBUMIN 3.2 GM/DL (3.2-4.5); BILIRUBIN,TOTAL 0.8 MG/DL (0.1-1.0); CALCIUM 8.5 MG/DL (8.5-10.1); CREATININE SERUM 0.93 MG/DL (0.60-1.30); POTASSIUM 4.5 MMOL/L (3.6-5.0); TOTAL PROTEIN 5.3 GM/DL (6.4-8.2)
[2018-05-04] MEDS: MULTIVIT W/MINERALS TAB (THERAGRAN M) PO SCH (06:22)
[2018-05-04] MEDS: CYANOCOBALAMIN 1,000 MCG (VITAMIN B-12) TABLET PO SCH (06:22)
[2018-05-04] MEDS: NS IV 1000 ML 1,000 ML IV SCH (07:17)
[2018-05-04] MEDS: SENNA W/DOCUSATE (SENOKOT S) TABLET PO SCH (07:59)
[2018-05-04] MEDS: meTOprolol SUCCINATE 100 MG (TOPROL XL) TAB PO SCH (07:59)
[2018-05-04 08:00] VITALS: BP 141/67
[2018-05-04] MEDS: VERAPAMIL SR 240 MG (CALAN SR) TAB PO SCH (08:00)
[2018-05-04] MEDS: VITAMIN D3 1,000 UNITS (CHOLECALCIFEROL) TABLET PO SCH (08:00)
[2018-05-04] MEDS ORDERED: NON-FORMULARY MEDICATION 1 EA EA (Multivitamin (Daily Multiple Vitamin) 1 TAB) PO SCH (09:00)
[2018-05-04] MEDS ORDERED: DOCUSATE SODIUM PO SCH (09:00)
[2018-05-04] MEDS ORDERED: CHOLECALCIFEROL 4000 UNIT PO SCH (09:00)
[2018-05-04] MEDS ORDERED: NON-FORMULARY MEDICATION 1 EA EA (Cyanocobalamin (Vitamin B-12) (Vitamin B-12) 2,000 MCG) PO SCH (09:00)
[2018-05-04] MEDS ORDERED: SENNOSIDES PO SCH (09:00)
[2018-05-04] MEDS ORDERED: NON-FORMULARY MEDICATION 1 EA EA (Verapamil HCl (Verapamil ER) 240 MG) PO SCH (09:00)
[2018-05-04 12:00] VITALS: BP 149/64
--- NOTE | 2018-05-04 12:13 | Progress Note-Hospitalist ---
Subjective HPI/CC On Admission Date Seen by Provider: May 04, 2018 Time Seen by Provider: 11:30 CC: AMS with UTI and pneumonia HPI: This is an 87-year-old white female known to me from prior hospital stays of Dr. Urbano who resides at a nursing facility who presents to the ER with altered mental status. She was found to have pneumonia and UTI with elevated BNP with volume overload. She remains a DO NOT RESUSCITATE and overall poor prognosis but she will be aggressively treated with Zosyn and gentle IV fluids with cardiology consultation. Patient reports being hungry and cold but otherwise she denies any other significant pain issues. We have provided a warm blanket and we will help her order her lunch and help feed her. Subjective/Events-last exam Patient doing much better We'll Hep-Lock IV fluid Once advanced diet Daughter at the bedside Had been feeling unwell for a couple of days Noted UTI gram-negative bacillus ID and sensitivity pending Tolerating Zosyn well Overall improved but poor prognosis in such severe debility INR still high repeat is 6.0 without evidence of active bleeding so we'll give 1 dose of oral vitamin K of 2.5 MG and recheck tomorrow Overall tolerating breathing treatments well Review of Systems General: Fatigue Focused Exam Lactate Level 05/03/18 09:10: Lactic Acid Level 0.63 Objective Exam Vital Signs Vital Signs Date Time Temp Pulse Resp B/P (MAP) Pulse Ox O2 Delivery O2 Flow Rate FiO2 05/04/18 09:16 93 Nasal Cannula 5.00 05/04/18 08:00 97.8 85 24 141/67 (91) 05/03/18 14:54 21 Capillary Refill : Less Than 3 Seconds General Appearance: No Apparent Distress, WD/WN, Chronically ill Respiratory: Chest Non Tender, Lungs Clear, No Accessory Muscle Use, No Respiratory Distress, Decreased Breath Sounds Cardiovascular: No Edema, No Gallop, No JVD, No Murmur, Normal Peripheral Pulses, Irregularly Irregular Neurologic/Psychiatric: Alert, Oriented x3, No Motor/Sensory Deficits, Normal Mood/Affect Skin: Normal Color, Warm/Dry Results/Procedures Lab Laboratory Tests 05/04/18 04:55 Patient resulted labs reviewed. Assessment/Plan Assessment and Plan Assess & Plan/Chief Complaint Assessment: Altered mental status resolved Pneumonia facility acquired UTI UCx pending but appears gram negative bacillus Severe debility Severe scoliosis Kyphosis Advanced age DO NOT RESUSCITATE Diastolic congestive heart failure Restrictive lung disease Coagulopathy 6.0 giving 1 dose of Vit K PO today Constipation Plan: Abx HLIVF Reg diet advanced Vit K 2.5mg po x 1 now BM treatment Diagnosis/Problems Diagnosis/Problems (1) Pneumonia of both lower lobes Status: Acute Qualifiers: Pneumonia type: due to unspecified organism Qualified Codes: J18.1 - Lobar pneumonia, unspecified organism (2) Diastolic congestive heart failure Status: Acute Qualifiers: Heart failure chronicity: acute on chronic Qualified Codes: I50.33 - Acute on chronic diastolic (congestive) heart failure (3) Poor prognosis Status: Acute (4) Urinary tract infection Status: Acute Qualifiers: Urinary tract infection type: acute cystitis Hematuria presence: without hematuria Qualified Codes: N30.00 - Acute cystitis without hematuria (5) Advanced age Status: Chronic (6) Valvular heart disease Status: Chronic (7) Restrictive lung disease Status: Chronic (8) Generalized weakness Status: Acute (9) Scoliosis Status: Chronic Qualifiers: Scoliosis type: unspecified scoliosis Spinal region: thoracic Qualified Codes: M41.9 - Scoliosis, unspecified (10) CVA, old, hemiparesis Status: Chronic (11) Kyphosis Status: Chronic (12) DNR (do not resuscitate) Status: Chronic (13) Constipation Status: Acute Qualifiers: Constipation type: slow transit constipation Qualified Codes: K59.01 - Slow transit constipation (14) Supratherapeutic INR Status: Acute Clinical Quality Measures DVT/VTE Risk/Contraindication: Risk Factor Score Per Nursin RFS Level Per Nursing on Admit: 4+=Very High NICOLAS WANG DO May 04, 2018 12:12
[2018-05-04] MEDS ORDERED: LACTULOSE SYRUP 10GM/15ML (ENULOSE) 30ML UDC PO NR (12:15)
[2018-05-04 12:25] LABS: INR 6.1 (0.8-1.4); PROTHROMBIN TIME PATIENT 54.5 SEC (12.2-14.7)
[2018-05-04] MEDS ORDERED: VITAMIN K 1 MG/ML ORAL SOLN 1 ML SYRINGE PO NR (12:30)
[2018-05-04] MEDS: NON-FORMULARY MEDICATION 1 EA EA (Krill/Om-3/Dha/Epa/Phospho/Ast (Krill Oil 1,000 mg Softg PO SCH (13:47)
[2018-05-04 16:00] VITALS: BP 135/84
[2018-05-04 20:00] VITALS: BP 168/72
[2018-05-04] MEDS: LACTULOSE SYRUP 10GM/15ML (ENULOSE) 30ML UDC PO SCH (20:00)
[2018-05-04] MEDS: ALPRAZolam 0.5 MG (XANAX) TAB PO SCH (21:46)
[2018-05-04] MEDS: ALPRAZolam 0.25 MG (XANAX) TAB PO PRN ×2 (21:46→22:00)
[2018-05-04] MEDS: RT-ALBUTEROL/IPRATROPIUM 3 ML (DUONEB) VIAL INH PRN (23:04)
[2018-05-05] VITALS: BP 174/75
[2018-05-05] MEDS: RT-ALBUTEROL/IPRATROPIUM 3 ML (DUONEB) VIAL INH SCH ×4 (02:23→19:33)
[2018-05-05] MEDS: PIPERACILLIN/TAZO 4.5 GM/NS 100 ML IV SCH ×6 (02:39→17:36)
[2018-05-05 04:00] VITALS: BP 182/93
[2018-05-05 06:19] LABS: BASOPHILS % (AUTO) 0 % (0-10); EOSINOPHILS % (AUTO) 0 % (0-10); HEMATOCRIT 47 % (35-52); HEMOGLOBIN 14.1 G/DL (11.5-16.0); LYMPHOCYTES # (AUTO) 0.4 X 10^3 (1.0-4.0); LYMPHOCYTES % (AUTO) 4 % (12-44); MEAN CORPUSCULAR HEMOGLOBIN 30 PG (25-34); MEAN CORPUSCULAR HGB CONC 30 G/DL (32-36); MEAN CORPUSCULAR VOLUME 100 FL (80-99); MEAN PLATELET VOLUME 9.6 FL (7.4-10.4); MONOCYTES # (AUTO) 0.3 X 10^3 (0.0-1.0); MONOCYTES % (AUTO) 4 % (0-12); NEUTROPHILS # (AUTO) 7.7 X 10^3 (1.8-7.8); NEUTROPHILS % (AUTO) 92 % (42-75); PLATELET COUNT 179 10^3/uL (130-400); RED BLOOD COUNT 4.67 10^6/uL (4.35-5.85); RED CELL DISTRIBUTION WIDTH 15.3 % (10.0-14.5); WHITE BLOOD COUNT 8.4 10^3/uL (4.3-11.0)
[2018-05-05 06:32] LABS: ANISOCYTOSIS SLIGHT; BAND NEUTROPHILS 1 %; BASOPHILS % (MANUAL) 0 %; EOSINOPHILS % (MANUAL) 0 %; LYMPHOCYTES % (MANUAL) 2 %; MONOCYTES % (MANUAL) 1 %; NEUTROPHILS % (MANUAL) 95 %; REACTIVE LYMPHOCYTES 1 %; TOXIC GRANULATION/VACUOLAZATIO 1+
[2018-05-05 06:44] LABS: PROTHROMBIN TIME PATIENT 39.3 SEC (12.2-14.7)
[2018-05-05 07:06] LABS: ALBUMIN 3.8 GM/DL (3.2-4.5); BILIRUBIN,TOTAL 0.9 MG/DL (0.1-1.0); CALCIUM 9.1 MG/DL (8.5-10.1); CREATININE SERUM 1.04 MG/DL (0.60-1.30); POTASSIUM 4.2 MMOL/L (3.6-5.0); TOTAL PROTEIN 6.4 GM/DL (6.4-8.2)
[2018-05-05 07:42] VITALS: BP 210/90
[2018-05-05] MEDS: meTOprolol SUCCINATE 100 MG (TOPROL XL) TAB PO SCH (08:21)
[2018-05-05] MEDS: CYANOCOBALAMIN 1,000 MCG (VITAMIN B-12) TABLET PO SCH (08:21)
[2018-05-05] MEDS: VERAPAMIL SR 240 MG (CALAN SR) TAB PO SCH (08:21)
[2018-05-05] MEDS: MULTIVIT W/MINERALS TAB (THERAGRAN M) PO SCH (08:21)
[2018-05-05] MEDS: VITAMIN D3 1,000 UNITS (CHOLECALCIFEROL) TABLET PO SCH (08:22)
[2018-05-05] MEDS: NON-FORMULARY MEDICATION 1 EA EA (Krill/Om-3/Dha/Epa/Phospho/Ast (Krill Oil 1,000 mg Softg PO SCH (09:27)
[2018-05-05] MEDS: LACTULOSE SYRUP 10GM/15ML (ENULOSE) 30ML UDC PO SCH ×2 (09:27→19:47)
[2018-05-05] MEDS: SENNA W/DOCUSATE (SENOKOT S) TABLET PO SCH (09:27)
--- NOTE | 2018-05-05 11:20 | Progress Note-Hospitalist ---
Subjective HPI/CC On Admission Date Seen by Provider: May 05, 2018 Time Seen by Provider: 11:00 CC: AMS with UTI and pneumonia HPI: This is an 87-year-old white female known to me from prior hospital stays of Dr. Urbano who resides at a nursing facility who presents to the ER with altered mental status. She was found to have pneumonia and UTI with elevated BNP with volume overload. She remains a DO NOT RESUSCITATE and overall poor prognosis but she will be aggressively treated with Zosyn and gentle IV fluids with cardiology consultation. Patient reports being hungry and cold but otherwise she denies any other significant pain issues. We have provided a warm blanket and we will help her order her lunch and help feed her. Subjective/Events-last exam Patient is awake and alert and says she is uncomfortable in her current position. She would like to get up in a chair. Says she had been having trouble with swallowing. Occasionally's she said she chokes on food. This was discussed with the nurse this morning who said she took her pills fine without any evidence of choking. I suspect that it is somewhat because of the positional nature of her neck. Otherwise she feels much better today she notes Review of Systems Musculoskeletal: neck pain Neurological: Weakness Focused Exam Lactate Level Objective Exam Vital Signs Vital Signs Date Time Temp Pulse Resp B/P (MAP) Pulse Ox O2 Delivery O2 Flow Rate FiO2 05/06/18 10:34 93 Nasal Cannula 8.00 05/06/18 08:00 97.0 83 20 132/76 (94) 05/03/18 14:54 21 Capillary Refill : Less Than 3 Seconds General Appearance: Chronically ill Neck: JVD, Limited Range of Motion Respiratory: Lungs Clear, No Accessory Muscle Use, No Respiratory Distress, Decreased Breath Sounds Cardiovascular: Regular Rate, Rhythm Gastrointestinal: Soft Extremity: Pedal Edema, Other (Diffuse arthritic changes of all digits) Neurologic/Psychiatric: Alert, Depressed Affect Results/Procedures Lab Patient resulted labs reviewed. Assessment/Plan Assessment and Plan Assess & Plan/Chief Complaint Altered mental status secondary to pneumonia she is alert and oriented today Pneumonia facility acquired-on Zosyn UTI Proteus organism sensitivities pending Severe debility Severe scoliosis Kyphosis Advanced age DO NOT RESUSCITATE Diastolic congestive heart failure Restrictive lung disease Coagulopathy INR still super therapeutic. Will check daily PT/INRs Diagnosis/Problems Diagnosis/Problems (1) UTI Status: Acute (2) Pneumonia of both lower lobes Status: Acute Qualifiers: Pneumonia type: due to unspecified organism Qualified Codes: J18.1 - Lobar pneumonia, unspecified organism (3) Scoliosis Status: Chronic Qualifiers: Scoliosis type: unspecified scoliosis Spinal region: thoracic Qualified Codes: M41.9 - Scoliosis, unspecified (4) Supratherapeutic INR Status: Acute Clinical Quality Measures DVT/VTE Risk/Contraindication: Risk Factor Score Per Nursin RFS Level Per Nursing on Admit: 4+=Very High JAH PALOMO MD May 05, 2018 11:20
[2018-05-05 11:44] VITALS: BP 186/96
[2018-05-05 15:35] VITALS: BP 172/93
[2018-05-05] MEDS: ALPRAZolam 0.5 MG (XANAX) TAB PO SCH (20:12)
[2018-05-05 20:25] VITALS: BP 143/74
[2018-05-05] MEDS: RT-ALBUTEROL/IPRATROPIUM 3 ML (DUONEB) VIAL INH PRN (23:53)
[2018-05-06] VITALS: BP 159/72
[2018-05-06] MEDS: RT-ALBUTEROL/IPRATROPIUM 3 ML (DUONEB) VIAL INH SCH ×5 (02:08→21:37)
[2018-05-06] MEDS: PIPERACILLIN/TAZO 4.5 GM/NS 100 ML IV SCH ×6 (02:13→18:03)
[2018-05-06 04:00] VITALS: BP 156/77
[2018-05-06] MEDS: CYANOCOBALAMIN 1,000 MCG (VITAMIN B-12) TABLET PO SCH (06:14)
[2018-05-06] MEDS: MULTIVIT W/MINERALS TAB (THERAGRAN M) PO SCH (06:14)
[2018-05-06 06:37] LABS: PROTHROMBIN TIME PATIENT 31.3 SEC (12.2-14.7)
[2018-05-06] MEDS: RT-ALBUTEROL/IPRATROPIUM 3 ML (DUONEB) VIAL INH PRN ×3 (06:39→15:21)
[2018-05-06 08:00] VITALS: BP 132/76
[2018-05-06] MEDS: LACTULOSE SYRUP 10GM/15ML (ENULOSE) 30ML UDC PO SCH ×2 (08:30→21:20)
[2018-05-06] MEDS: VERAPAMIL SR 240 MG (CALAN SR) TAB PO SCH (08:30)
[2018-05-06] MEDS: meTOprolol SUCCINATE 100 MG (TOPROL XL) TAB PO SCH (08:30)
[2018-05-06] MEDS: VITAMIN D3 1,000 UNITS (CHOLECALCIFEROL) TABLET PO SCH (08:30)
[2018-05-06] MEDS: SENNA W/DOCUSATE (SENOKOT S) TABLET PO SCH (08:30)
[2018-05-06] MEDS ORDERED: FUROSEMIDE 40 MG/4 ML INJ (LASIX) IVP NR (11:00)
[2018-05-06 12:00] VITALS: BP 148/71
--- NOTE | 2018-05-06 12:03 | Progress Note-Hospitalist ---
Subjective HPI/CC On Admission Date Seen by Provider: May 06, 2018 Time Seen by Provider: 11:00 CC: AMS with UTI and pneumonia HPI: This is an 87-year-old white female known to me from prior hospital stays of Dr. Urbano who resides at a nursing facility who presents to the ER with altered mental status. She was found to have pneumonia and UTI with elevated BNP with volume overload. She remains a DO NOT RESUSCITATE and overall poor prognosis but she will be aggressively treated with Zosyn and gentle IV fluids with cardiology consultation. Patient reports being hungry and cold but otherwise she denies any other significant pain issues. We have provided a warm blanket and we will help her order her lunch and help feed her. Subjective/Events-last exam Patient had an episode of hypoxia with her sats dropping down to 85 percent. We had not started her back on her Lasix yet and respiratory therapy thought that she did have some crackles. In addition she was little confused at this time. At the time I saw her she was much more alert and oriented and her daughter was present. It was noted she has a new scleral hemorrhage in the right eye. She feels like she is doing better now but this feels like she could be little short of breath. Review of Systems Pulmonary: Dyspnea Neurological: Confusion Objective Exam Vital Signs Vital Signs Date Time Temp Pulse Resp B/P (MAP) Pulse Ox O2 Delivery O2 Flow Rate FiO2 05/06/18 15:22 92 Nasal Cannula 8.00 05/06/18 15:03 82 44 05/06/18 12:00 97.9 28 148/71 (96) Capillary Refill : Less Than 3 Seconds General Appearance: Chronically ill Neck: Limited Range of Motion Respiratory: Decreased Breath Sounds, Wheezing Cardiovascular: No Edema, Systolic Murmur (2-3/6), Irregularly Irregular Gastrointestinal: Normal Bowel Sounds, Non Tender, Soft Rectal: Deferred Extremity: Non Tender Neurologic/Psychiatric: Alert, Oriented x3, No Motor/Sensory Deficits, Normal Mood/Affect Skin: Pallor Results/Procedures Lab Patient resulted labs reviewed. Assessment/Plan Assessment and Plan Assess & Plan/Chief Complaint Altered mental status secondary to pneumonia she is alert and oriented today however had that transient confusion. Because of the drop in sats will restart her Lasix at 40 mg IV and recheck a chest x-ray. Pneumonia facility acquired-on Zosyn UTI Proteus organism sensitivities pending Severe debility Severe scoliosis Kyphosis Advanced age DO NOT RESUSCITATE Diastolic congestive heart failure Restrictive lung disease Coagulopathy INR is 3 today Chronic atrial fibrillation Scleral hemorrhage- most likely related to prolonged INR Diagnosis/Problems Diagnosis/Problems (1) UTI Status: Acute (2) Pneumonia of both lower lobes Status: Acute Qualifiers: Pneumonia type: due to unspecified organism Qualified Codes: J18.1 - Lobar pneumonia, unspecified organism (3) Scoliosis Status: Chronic Qualifiers: Scoliosis type: unspecified scoliosis Spinal region: thoracic Qualified Codes: M41.9 - Scoliosis, unspecified (4) Supratherapeutic INR Status: Acute Clinical Quality Measures DVT/VTE Risk/Contraindication: Risk Factor Score Per Nursin RFS Level Per Nursing on Admit: 4+=Very High JAH PALOMO MD May 06, 2018 12:03
--- NOTE | 2018-05-06 12:29 | Diagnostic Imaging Report ---
Clinical indication: Patient with hypoxia. Patient unable to straighten and lift up neck. Exam: Portable chest x-ray upright view. Comparison: Portable chest x-ray semiupright view dated 05/03/2018. Findings: There is a small to moderate-sized bilateral pleural effusions which have increased compared to the prior study. There is increased bilateral lung infiltrates on the right and stable on the left. Cardiac silhouette is enlarged. Pulmonary vasculature is mildly prominent, stable. Bony deformity of the proximal humerus is again seen. Impression: 1: There is bilateral pleural effusions which have increased in size and increased right basilar lung infiltrates. There is stable left lung base infiltrates. 2: The remainder of this exam shows no significant interval change compared to the prior study of comparison. Dictated by: Dictated on workstation # [id number]
[2018-05-06 16:00] VITALS: BP 125/68
[2018-05-06 20:00] VITALS: BP 159/70
[2018-05-06] MEDS: ALPRAZolam 0.5 MG (XANAX) TAB PO SCH (21:20)
[2018-05-07] VITALS: BP 140/82
[2018-05-07] MEDS: PIPERACILLIN/TAZO 4.5 GM/NS 100 ML IV SCH ×2 (02:35)
[2018-05-07] MEDS: RT-ALBUTEROL/IPRATROPIUM 3 ML (DUONEB) VIAL INH SCH ×2 (03:26→07:09)
[2018-05-07 03:44] LABS: ABG BASE EXCESS 8.9 MMOL/L (-2.5-2.5); ABG OXYGEN SATURATION 99 % (94-100); ABG PO2 155 MMHG (79-93); ABG TCO2 41.2 MMOL/L (21.0-31.0)
[2018-05-07 03:47] LABS: ABG PCO2 108 MMHG (35-45); ABG PH 7.16 (7.37-7.43)
[2018-05-07 03:48] LABS: ALLENS TEST POSITIVE; INSPIRED O2 8 L; PATIENT TEMP 96.8; VENTILATOR NO
[2018-05-07 04:00] VITALS: BP 162/78
[2018-05-07 04:44] LABS: INR 2.3 (0.8-1.4); PROTHROMBIN TIME PATIENT 25.7 SEC (12.2-14.7)
[2018-05-07] MEDS: MULTIVIT W/MINERALS TAB (THERAGRAN M) PO SCH (05:05)
[2018-05-07] MEDS: CYANOCOBALAMIN 1,000 MCG (VITAMIN B-12) TABLET PO SCH (05:05)
[2018-05-07 07:38] VITALS: BP 133/73
[2018-05-07] MEDS ORDERED: FUROSEMIDE 40 MG/4 ML INJ (LASIX) IVP SCH (09:00)
[2018-05-07] MEDS ORDERED: NS IV 1000 ML 1,000 ML IV SCH (09:11)
[2018-05-07] MEDS ORDERED: SALIVA STIMULANT MOUTH SPRAY (BIOTENE) 1.5 OZ MM PRN (09:15)
[2018-05-07] MEDS ORDERED: morphine PCA 100 MG/100 ML BAG IV PRN (09:15)
[2018-05-07] MEDS ORDERED: LORazepam INJ 2 MG/ML (ATIVAN) VIAL IVP PRN (09:15)
[2018-05-07] MEDS ORDERED: diphenhydrAMINE 50 MG/ML INJ (BENADRYL) IV PRN (09:15)
[2018-05-07] MEDS ORDERED: LORazepam INJ 2 MG/ML (ATIVAN) VIAL IVP NR (09:15)
[2018-05-07] MEDS ORDERED: ACETAMINOPHEN 650 MG SUPP (TYLENOL) PR PRN (09:15)
[2018-05-07] MEDS ORDERED: ARTIFICAL TEARS 0.4 ML UNIT DOSE (REFRESH PLUS) OU PRN (09:15)
[2018-05-07] MEDS ORDERED: GLYCOPYRROLATE 0.2 MG/ML (ROBINUL) 2 ML VIAL IV PRN (09:15)
[2018-05-07] MEDS ORDERED: PROMETHAZINE INJ 25 MG/ML (PHENERGAN) AMP IVP PRN (09:15)
[2018-05-07] MEDS ORDERED: BISACODYL 10 MG SUPP (DULCOLAX) PR PRN (09:15)
--- NOTE | 2018-05-07 09:15 | Progress Note ---
Subjective Date Seen by a Provider: May 07, 2018 Time Seen by a Provider: 08:40 Subjective/Events-last exam PT IS AN 87 Y/O FEMALE WHO IS WELL KNOWN TO ME FROM CLINIC. SHE WAS COMPLETELY NON-RESPONSIVE THIS MORNING ON MY EXAM. I CALLED AND TALKED TO HER DAUGHTER, SHE WOULD LIKE TO SEE HER MOM BE COMFORT CARE. SHE TALKED TO HER SON AND HER BROTHER AND THEY ARE IN AGREEMENT. HER DAUGHTER REPORTS THAT ARIEL HAS NOT BEEN RESPONDING NORMALLY AND HAS NOT BEEN "HERSELF" SINCE HER HOSPITALIZATION AROUND [facility]. THE NURSES FOR ARIEL STATE THAT SHE TOLD THEM YESTERDAY THAT SHE WAS READY TO GO [facility]. Review of Systems General: Other (UNRESPONSIVE) Pulmonary: Dyspnea Neurological: Other (UNRESPONSIVE) Objective Exam Last Set of Vital Signs Vital Signs Date Time Temp Pulse Resp B/P (MAP) Pulse Ox O2 Delivery O2 Flow Rate FiO2 05/07/18 08:29 74 12 95 70.00 05/07/18 07:38 98.9 133/73 (93) NIV Bilevel 05/06/18 15:03 44 Capillary Refill : Less Than 3 Seconds I&O Intake and Output 05/07/18 00:00 Intake Total 1510 ml Output Total 2100 ml Balance -590 ml Intake Oral 1510 ml Output Urine Total 2100 ml # Bowel Movements 6 General: Other (UNRESPONSIVE) HEENT: Atraumatic, Other (CONJUNCTIVAL HEMORRHAGE RIGHT EYE LATERALLY) Lungs: Other (DECREASED THROUGHOUT) Heart: Other (IRREGULARLY IRREGULAR) Psych/Mental Status: Other (UNRESPONSIVE) Results Lab Laboratory Tests 05/07/18 03:32: Glucometer 87 05/07/18 03:35: Blood Gas Puncture Site LEFT RADIAL, Blood Gas Patient Temperature 96.8, Arterial Blood pH 7.16*L, Arterial Blood Partial Pressure CO2 108*H, Arterial Blood Partial Pressure O2 155H, Arterial Blood HCO3 38H, Arterial Blood Total CO2 41.2H, Arterial Blood Oxygen Saturation 99, Arterial Blood Base Excess 8.9H , Nikunj Test POSITIVE, Blood Gas Ventilator Setting NO, Blood Gas Inspired Oxygen 8 L 05/07/18 04:15: Prothrombin Time 25.7H, INR Comment 2.3H Microbiology 05/03/18 Blood Culture - Preliminary, Resulted No growth 05/03/18 Urine Culture - Final, Complete Proteus mirabilis Assessment/Plan Assessment/Plan Assess & Plan/Chief Complaint Altered mental status Pneumonia facility acquired UTI Proteus organism Severe debility Severe scoliosis Kyphosis Advanced age DO NOT RESUSCITATE Diastolic congestive heart failure Restrictive lung disease Chronic atrial fibrillation Scleral hemorrhage Altered mental status with Pneumonia facility acquired and UTI Proteus organism - pt unresponsive, this has been progressing during admission - I have discussed with her daughter and the family has decided to stop BIPAP and start comfort care only. I would anticipate that Ariel will pass today or tomorrow off of this supportive care. The IV antibiotics and IV fluids (except for tko with morphine door fitter) will stop as well. Severe debility Severe scoliosis Kyphosis Advanced age DO NOT RESUSCITATE Diastolic congestive heart failure Restrictive lung disease Chronic atrial fibrillation Scleral hemorrhage Clinical Quality Measures DVT/VTE Risk/Contraindication: Risk Factor Score Per Nursin RFS Level Per Nursing on Admit: 4+=Very High JAY HENSON MD May 07, 2018 09:15
[2018-05-08] MEDS ORDERED: SENNA W/DOCUSATE (SENOKOT S) TABLET PO SCH (09:00)
== END 2018-05-07 13:39 | disposition expired | DRG 193 ==
LOC: EDUNIT# 08:41 → ER 08:42 → 4TH 11:32
PROVIDERS: ADMIT Internal Medicine; ATTEND Family Medicine
DX: J18.1 Lobar pneumonia, unspecified organism (principal); I11.0 Hypertensive heart disease with heart failure; I50.33 Acute on chronic diastolic (congestive) heart failure; N30.00 Acute cystitis without hematuria; B96.4 Proteus (mirabilis) (morganii) as the cause of diseases classified elsewhere; I69.359 Hemiplegia and hemiparesis following cerebral infarction affecting unspecified side; J44.0 Chronic obstructive pulmonary disease with (acute) lower respiratory infection; Z66 Do not resuscitate; Z51.5 Encounter for palliative care; I38 Endocarditis, valve unspecified; M41.9 Scoliosis, unspecified; I48.2 Chronic atrial fibrillation; R09.02 Hypoxemia; R13.10 Dysphagia, unspecified; G47.9 Sleep disorder, unspecified; M19.91 Primary osteoarthritis, unspecified site; R54 Age-related physical debility; K59.09 Other constipation; J30.2 Other seasonal allergic rhinitis; R79.1 Abnormal coagulation profile; H11.31 Conjunctival hemorrhage, right eye
CPT/HCPCS: 36415; 36600; 51702; 71045; 80053; 81000; 82805; 82962; 83605; 83880; 84484; 85007; 85025; 85027; 85610; 86141; 87040; 87077; 87088; 87186; 93005; 93041; 94640; 94660; 94760; 96374